=== PATIENT | male | born 1945 | race Caucasian/White ===

== ENCOUNTER 2019-04-25 13:35 | Outpatient (CLI) | payer OTHER, SELFPAY ==
[2019-04-25 13:54] LABS: Basophils Absolute Auto 0.1 K/mm3 (0.0-0.1); Basophils Percent Auto 0.7 % (0.2-1.2); Eosinophils Absolute Auto 0.3 K/mm3 (0-0.3); Eosinophils Percent Auto 2.9 % (0-4.4); Hematocrit 46.8 % (42.0-52.0); Hemoglobin 15.9 g/dL (14.0-18.0); Immature Granulocyte Absolute 0.07 K/mm3 (0.00-0.031); Immature Granulocyte Percent A 0.6 % (0-0.5); Lymphocytes Absolute Auto 1.85 K/mm3 (0.9-3.2); Lymphocytes Percent Auto 16.5 % (18.3-44.2); Mean Corpuscular Hemoglobin 33.4 pg (26-34); Mean Corpuscular Volume 98.3 fl (80-100); Mean Platelet Volume 9.8 fl (7.4-10.4); Monocytes Absolute Auto 1.2 K/mm3 (0.1-0.6); Monocytes Percent Auto 10.5 % (2.6-8.5); Neutrophils Absolute Auto 7.7 K/mm3 (1.3-6.7); Neutrophils Percent Auto 68.8 % (45.5-73.1); Platelet Count Result 194 k/mm3 (150-375); Red Blood Count 4.76 M/mm3 (4.6-6.20); Red Cell Distribution Width 12.6 % (11.5-14.5); White Blood Count 11.2 K/mm3 (4.5-10.0)
[2019-04-25 16:35] LABS: Iron 172 ug/dL (49-181)
[2019-04-25 16:36] LABS: Blood Urea Nitrogen 16 mg/dL (9-20); Calcium 9.5 mg/dL (8.4-10.2); Carbon Dioxide 31 mmol/L (22-30); Chloride 100 mmol/L (98-107); Estimated Glomerular Filt Rate > 60; Glucose 84 mg/dL (75-110); Potassium 3.9 mmol/L (3.4-5.0); Sodium 134 mmol/L (137-145)
[2019-04-25 16:45] LABS: Percent Iron Saturation 61 % (20-50)
== END 2019-04-25 13:36 | disposition home or self-care (01) ==
PROVIDERS: PCP Family Medicine; Visit Provider Internal Medicine Hematology & Oncology
DX: D50.8 Other iron deficiency anemias (principal)
CPT/HCPCS: 36415; 80048; 82728; 83540; 83550; 85025

== ENCOUNTER 2019-11-07 13:48 | Outpatient (CLI) | payer OTHER, SELFPAY ==
[2019-11-07 14:04] LABS: Basophils Percent Auto 0.4 % (0.2-1.2); Eosinophils Absolute Auto 0.3 K/mm3 (0-0.3); Eosinophils Percent Auto 4.2 % (0-4.4); Hematocrit 44.7 % (42.0-52.0); Hemoglobin 15.2 g/dL (14.0-18.0); Immature Granulocyte Absolute 0.06 K/mm3 (0.00-0.031); Immature Granulocyte Percent A 0.8 % (0-0.5); Lymphocytes Absolute Auto 1.78 K/mm3 (0.9-3.2); Lymphocytes Percent Auto 23.1 % (18.3-44.2); Mean Corpuscular Hemoglobin 32.8 pg (26-34); Mean Corpuscular Volume 96.5 fl (80-100); Mean Platelet Volume 9.3 fl (7.4-10.4); Monocytes Absolute Auto 0.8 K/mm3 (0.1-0.6); Neutrophils Absolute Auto 4.8 K/mm3 (1.3-6.7); Neutrophils Percent Auto 61.5 % (45.5-73.1); Platelet Count Result 194 k/mm3 (150-375); Red Blood Count 4.63 M/mm3 (4.6-6.20); White Blood Count 7.7 K/mm3 (4.5-10.0)
[2019-11-07 16:42] LABS: Iron 96 ug/dL (49-181)
[2019-11-07 16:43] LABS: Anion Gap 4 mmol/L (8-16); Blood Urea Nitrogen 18 mg/dL (9-20); Calcium 9.6 mg/dL (8.4-10.2); Carbon Dioxide 34 mmol/L (22-30); Chloride 99 mmol/L (98-107); Estimated Glomerular Filt Rate > 60; Glucose 102 mg/dL (75-110); Potassium 4.3 mmol/L (3.4-5.0); Sodium 137 mmol/L (137-145)
[2019-11-07 16:56] LABS: Percent Iron Saturation 35 % (20-50)
== END 2019-11-07 13:49 | disposition home or self-care (01) ==
PROVIDERS: PCP Family Medicine; Visit Provider Internal Medicine Hematology & Oncology
DX: D50.8 Other iron deficiency anemias (principal)
CPT/HCPCS: 36415; 80048; 82728; 83540; 83550; 85025

== ENCOUNTER 2020-05-06 12:39 | Outpatient (CLI) | payer OTHER, SELFPAY ==
[2020-05-06 13:00] LABS: Basophils Absolute Auto 0.1 K/mm3 (0.0-0.1); Basophils Percent Auto 0.8 % (0.2-1.2); Eosinophils Absolute Auto 0.6 K/mm3 (0-0.3); Eosinophils Percent Auto 6.3 % (0-4.4); Hematocrit 46.1 % (42.0-52.0); Hemoglobin 15.9 g/dL (14.0-18.0); Lymphocytes Absolute Auto 2.14 K/mm3 (0.9-3.2); Mean Corpuscular HGB Conc 34.5 g/dl (32-36); Mean Corpuscular Hemoglobin 33.9 pg (26-34); Mean Corpuscular Volume 98.3 fl (80-100); Mean Platelet Volume 9.5 fl (7.4-10.4); Monocytes Percent Auto 9.4 % (2.6-8.5); Neutrophils Absolute Auto 6.3 K/mm3 (1.3-6.7); Neutrophils Percent Auto 61.5 % (45.5-73.1); Platelet Count Result 194 k/mm3 (150-375); Red Blood Count 4.69 M/mm3 (4.6-6.20); Red Cell Distribution Width 12.7 % (11.5-14.5); White Blood Count 10.2 K/mm3 (4.5-10.0)
[2020-05-06 15:25] LABS: Iron 151 ug/dL (49-181)
[2020-05-06 15:34] LABS: Percent Iron Saturation 57 % (20-50)
[2020-05-06 15:49] LABS: Alanine Aminotransferase 30 U/L (4-50); Alkaline Phosphatase 89 U/L (38-126); Anion Gap 6 mmol/L (8-16); Aspartate Amino Transferase 29 U/L (17-59); Bilirubin,Total 0.6 mg/dL (0.2-1.3); Blood Urea Nitrogen 19 mg/dL (9-20); Calcium 9.3 mg/dL (8.4-10.2); Carbon Dioxide 29 mmol/L (22-30); Chloride 100 mmol/L (98-107); Estimated Glomerular Filt Rate > 60; Glucose 91 mg/dL (75-110); Sodium 135 mmol/L (137-145)
== END 2020-05-06 12:40 | disposition home or self-care (01) ==
LOC: ANHLAB 12:40
PROVIDERS: PCP Family Medicine; Visit Provider Internal Medicine Hematology & Oncology
DX: D50.8 Other iron deficiency anemias (principal)
CPT/HCPCS: 36415; 80053; 82728; 83540; 83550; 85025

== ENCOUNTER 2020-12-30 11:43 | Outpatient (CLI) | payer OTHER, SELFPAY ==
[2020-12-30 12:09] LABS: Basophils Absolute Auto 0.1 K/mm3 (0.0-0.1); Basophils Percent Auto 0.6 % (0.2-1.2); Eosinophils Absolute Auto 0.3 K/mm3 (0-0.3); Eosinophils Percent Auto 3.4 % (0-4.4); Hematocrit 43.3 % (42.0-52.0); Hemoglobin 14.8 g/dL (14.0-18.0); Immature Granulocyte Absolute 0.04 K/mm3 (0.00-0.031); Immature Granulocyte Percent A 0.5 % (0-0.5); Lymphocytes Absolute Auto 1.52 K/mm3 (0.9-3.2); Lymphocytes Percent Auto 18.1 % (18.3-44.2); Mean Corpuscular HGB Conc 34.2 g/dl (32-36); Mean Corpuscular Hemoglobin 34.3 pg (26-34); Mean Corpuscular Volume 100.2 fl (80-100); Mean Platelet Volume 9.5 fl (7.4-10.4); Monocytes Absolute Auto 0.9 K/mm3 (0.1-0.6); Monocytes Percent Auto 10.6 % (2.6-8.5); Neutrophils Absolute Auto 5.6 K/mm3 (1.3-6.7); Neutrophils Percent Auto 66.8 % (45.5-73.1); Platelet Count Result 192 k/mm3 (150-375); Red Blood Count 4.32 M/mm3 (4.6-6.20); Red Cell Distribution Width 12.3 % (11.5-14.5); White Blood Count 8.4 K/mm3 (4.5-10.0)
[2020-12-30 15:27] LABS: Alanine Aminotransferase 41 U/L (4-50); Albumin Level 3.9 g/dL (3.5-5.1); Alkaline Phosphatase 59 U/L (38-126); Anion Gap 7 mmol/L (8-16); Aspartate Amino Transferase 31 U/L (17-59); Blood Urea Nitrogen 20 mg/dL (9-20); Calcium 9.3 mg/dL (8.4-10.2); Carbon Dioxide 30 mmol/L (22-30); Chloride 100 mmol/L (98-107); Estimated Glomerular Filt Rate > 60; Glucose 67 mg/dL (65-110); Potassium 3.6 mmol/L (3.4-5.0); Sodium 137 mmol/L (137-145)
[2020-12-30 15:28] LABS: Iron 182 ug/dL (49-181)
[2020-12-30 15:33] LABS: Percent Iron Saturation 71 % (20-50)
== END 2020-12-30 11:44 | disposition home or self-care (01) ==
PROVIDERS: PCP Family Medicine; Visit Provider Internal Medicine Hematology & Oncology
DX: D50.9 Iron deficiency anemia, unspecified (principal)
CPT/HCPCS: 36415; 80053; 82728; 83540; 83550; 85025

== ENCOUNTER → 2021-03-06 12:44 | Outpatient (CLI) | payer OTHER, SELFPAY ==
--- NOTE | ~2021-03-06 | XR_ITS ---
XR chest 2V 03/06/2021 13:17 Indication: Pneumonia Procedure: 2 view chest Comparison: Comparison to multiple prior studies sequentially, with oldest reviewed study dated 07/06. Findings: Patchy bilateral airspace disease most prominent in the lung bases, compatible with pneumon ia. No significant effusion, edema or pneumothorax. Impression: 1: Patchy bilateral airspace disease, compatible with pneumonia. Reviewed, dictated and finalized at location B. ATOR TROUBLESHOOTER Impression: 1: Patchy bilateral airspace disease, compatible with pneumonia.
== END ==
PROVIDERS: PCP Family Medicine; Visit Provider Family Medicine
DX: J18.9 Pneumonia, unspecified organism (principal); R91.8 Other nonspecific abnormal finding of lung field
CPT/HCPCS: 71046

== ENCOUNTER 2021-07-03 11:06 | Outpatient (CLI) | payer OTHER, SELFPAY ==
[2021-07-03 11:35] LABS: Basophils Absolute Auto 0.1 K/mm3 (0.0-0.1); Basophils Percent Auto 0.7 % (0.2-1.2); Eosinophils Absolute Auto 0.2 K/mm3 (0-0.3); Eosinophils Percent Auto 2.3 % (0-4.4); Hematocrit 44.4 % (42.0-52.0); Hemoglobin 15.1 g/dL (14.0-18.0); Immature Granulocyte Absolute 0.11 K/mm3 (0.00-0.031); Immature Granulocyte Percent A 1.2 % (0-0.5); Lymphocytes Absolute Auto 1.33 K/mm3 (0.9-3.2); Lymphocytes Percent Auto 14.1 % (18.3-44.2); Mean Corpuscular Hemoglobin 33.2 pg (26-34); Mean Corpuscular Volume 97.6 fl (80-100); Monocytes Absolute Auto 1.1 K/mm3 (0.1-0.6); Monocytes Percent Auto 11.7 % (2.6-8.5); Neutrophils Absolute Auto 6.6 K/mm3 (1.3-6.7); Platelet Count Result 258 k/mm3 (150-375); Red Blood Count 4.55 M/mm3 (4.6-6.20); Red Cell Distribution Width 11.8 % (11.5-14.5); White Blood Count 9.4 K/mm3 (4.5-10.0)
[2021-07-03 11:58] LABS: Anion Gap 7 mmol/L (8-16); Blood Urea Nitrogen 18 mg/dL (9-20); Carbon Dioxide 28 mmol/L (22-30); Chloride 101 mmol/L (98-107); Estimated Glomerular Filt Rate > 60; Glucose 95 mg/dL (65-110); Sodium 136 mmol/L (137-145)
[2021-07-03 12:16] LABS: Iron 106 ug/dL (49-181)
[2021-07-03 12:25] LABS: Percent Iron Saturation 38 % (20-50)
== END 2021-07-03 11:07 | disposition home or self-care (01) ==
LOC: ANHLAB 11:09
PROVIDERS: PCP Family Medicine; Visit Provider Internal Medicine Hematology & Oncology
DX: D50.9 Iron deficiency anemia, unspecified (principal)
CPT/HCPCS: 36415; 80048; 82728; 83540; 83550; 85025

== ENCOUNTER → 2022-01-11 09:42 | Outpatient (CLI) | payer OTHER, SELFPAY ==
--- NOTE | ~2022-01-11 | XR_ITS ---
XR chest 2V 01/11/2022 09:55 Indication: Dyspnea. Procedure: 2 view chest Comparison: Comparison to multiple prior studies sequentially, with oldest reviewed study dated 01/09. Findings: Bibasilar airspace disease. No significant effusion. Stable cardiomediastinal silhouette. N o edema or pneumothorax. Impression: 1: Bibasilar airspace disease may represent atelectasis and/or pneumonia. Reviewed, dictated and finalized at location A. S PROCESS MANAGER Impression: 1: Bibasilar airspace disease may represent atelectasis and/or pneumonia.
== END ==
PROVIDERS: PCP Family Medicine; Visit Provider Family Medicine
DX: R06.00 Dyspnea, unspecified (principal); R91.8 Other nonspecific abnormal finding of lung field
CPT/HCPCS: 71046

== ENCOUNTER 2022-06-01 14:02 | Emergency (ER) | payer OTHER, SELFPAY ==
--- NOTE | ~2022-06-01 | CT_ITS ---
EXAMINATION: CT brain wo con DATE: 06/01/2022 15:22 INDICATION: Trauma with left parietal head injury with laceration TECHNIQUE: Computed tomography (CT) of the head was performed without intravenous contrast. Sagittal and coronal reconstructions were performed. The mA was adjusted according to patient size. Iterative reconstruction technique was employed. The dose-length product was 605.33 mGy-cm. COMPARISON: None FINDINGS: Laceration at the left frontal scalp. No fracture. No acute intracranial hemorrhage, acute infarction or abnormal extra axial fluid collection. Ventricles are normal and symmetric. No mass/mass effect. Changes of bilateral intraocular lens replacement. The orbits, paranasal sinuses and mastoid air cell s are normal. IMPRESSION: 1. Left frontal scalp laceration. No fracture or acute intracranial process. Reviewed, dictated and finalized at location A.
--- NOTE | ~2022-06-01 | CT_ITS ---
EXAMINATION: CT cervical spine wo con DATE: 06/01/2022 15:25 INDICATION: trauma TECHNIQUE: Computed tomography (CT) of the cervical spine was performed without intravenous contrast. Automated exposure control and iterative reconstruction technique were employed. The dose-length pro duct was 540.13 mGy-cm. COMPARISON: None. FINDINGS: Vertebral Body Alignment: Intact. Reversed lordosis centered at C5-6. Trace grade 1 anterolistheses a t C2-3 through C4-5, likely on a degenerative basis. Craniocervical and atlantoaxial alignment: Moderate degenerative change. Alignment intact. Osseous structures/fracture: No evidence of a lytic or blastic process in the visualized spine. No e vidence of acute fracture. Multilevel lower cervical spine degenerative height loss. Cervical soft tissues: The paraspinal soft tissues planes are maintained. Degenerative changes: Degenerative changes, without severe neural foraminal or central canal narrowin g. IMPRESSION: No acute fracture or traumatic malalignment in the cervical spine. Reviewed, dictated and finalized at location K.
[2022-06-01 14:04] VITALS: BP 143/76; PULSE 69; RESP 16; TEMP 36.6; O2SAT 96
--- NOTE | 2022-06-01 14:12 | ECG_ITS ---
Measurements Intervals [place] Rate: 70 P: 28 MT: 187 QRS: -1 QRSD: 154 T: 35 QT: 417 QTc: 450 Interpretive Statements SINUS RHYTHM INDETERMINATE AXIS RIGHT BUNDLE BRANCH BLOCK [120+ ms QRS DURATION, UPRIGHT V1, 40+ ms S IN I/aVL/V4/V5/V6] Abnormal ECG NO PREVIOUS ECG AVAILABLE FOR COMPARISON Electronically Signed On 06-02-2022 15:15:50 CDT by Mitch Jacobsen M.D.
[2022-06-01 14:28] LABS: Basophils Absolute Auto 0.1 K/mm3 (0.0-0.1); Basophils Percent Auto 0.6 % (0.2-1.2); Eosinophils Absolute Auto 0.3 K/mm3 (0-0.3); Eosinophils Percent Auto 2.8 % (0-4.4); Hematocrit 45.3 % (42.0-52.0); Hemoglobin 15.5 g/dL (14.0-18.0); Immature Granulocyte Absolute 0.09 K/mm3 (0.00-0.031); Immature Granulocyte Percent A 0.9 % (0-0.5); Lymphocytes Percent Auto 16.9 % (18.3-44.2); Mean Corpuscular HGB Conc 34.2 g/dl (32-36); Mean Corpuscular Hemoglobin 33.5 pg (26-34); Mean Corpuscular Volume 98.1 fl (80-100); Mean Platelet Volume 9.6 fl (7.4-10.4); Monocytes Absolute Auto 0.8 K/mm3 (0.1-0.6); Monocytes Percent Auto 8.3 % (2.6-8.5); Neutrophils Absolute Auto 7.1 K/mm3 (1.3-6.7); Neutrophils Percent Auto 70.5 % (45.5-73.1); Platelet Count Result 157 k/mm3 (150-375); Red Blood Count 4.62 M/mm3 (4.6-6.20); Red Cell Distribution Width 12.6 % (11.5-14.5); White Blood Count 10.1 K/mm3 (4.5-10.0)
[2022-06-01 14:42] LABS: Alanine Aminotransferase 32 U/L (6-50); Albumin Level 4.1 g/dL (3.5-5.1); Alkaline Phosphatase 69 U/L (38-126); Anion Gap 6 mmol/L (8-16); Aspartate Amino Transferase 31 U/L (17-59); Bilirubin,Total 0.7 mg/dL (0.2-1.3); Blood Urea Nitrogen 17 mg/dL (9-20); Calcium 9.4 mg/dL (8.4-10.2); Carbon Dioxide 29 mmol/L (22-30); Chloride 102 mmol/L (98-107); Estimated CRCL calculation 75 ml/min; Estimated Glomerular Filt Rate > 60; Glucose 88 mg/dL (65-110); Sodium 137 mmol/L (137-145)
--- NOTE | 2022-06-01 14:45 | ED.GENADULT ---
HPI - General Adult General Chief complaint: Head Injury Stated complaint: head injury Time Seen by Provider: 06/01/22 14:43 History of Present Illness HPI narrative: 76 yo male presents after mechanical fall at home with head trauma/scalp laceration. No LOC Related Data Home Medications Medication Instructions Recorded Confirmed cyanocobalamin (vitamin B-12) 2,000 mcg PO DAILY 12/27/18 05/03/22 2,000 mcg tablet artificial tears(hypromellose) 0.3 1 drop LEFT EYE QID PRN 02/02/19 05/03/22 % eye gel (GenTeal Tears Severe) aspirin 81 mg tablet,delayed 81 mg PO DAILY 02/02/19 05/03/22 release diphenhydramine HCl 2 % topical 1 applic topical BID 02/02/19 05/03/22 spray (Wal-Dryl (diphenhydramine)) diphenhydramine HCl 25 mg capsule 25 mg PO TID PRN 02/02/19 05/03/22 (Benadryl) fexofenadine 60 mg-pseudoephedrine 1 tablet PO Q12H PRN 02/02/19 05/03/22 ER 120 mg tablet,ext.release,12 hr (Jeni-D 12 Hour) latanoprost 0.005 % eye drops 1 drop ophthalmic (eye) DAILY 02/02/19 05/03/22 pramoxine-menthol 1 %-1 % topical 1 applic topical TID 02/02/19 05/03/22 cream (Gold Haro Medicated Anti-Itch) timolol 0.5 % eye drops 1 drop ophthalmic (eye) Q12H 02/02/19 05/03/22 white petrolatum (Vaseline jelly, 1 applic topical 6XD 02/02/19 05/03/22 topical) zinc gluconate spray intranasal 02/02/19 05/03/22 Allergies Allergy/AdvReac Type Severity Reaction Status Date / Time clindamycin Allergy Mild Rash Verified 06/01/22 15:19 bacitracin Allergy Unknown Swelling Verified 06/01/22 15:19 of Lip/Tongue/Throat cat dander Allergy Unknown Rash Verified 06/01/22 15:19 codeine Allergy Unknown Nausea and Verified 06/01/22 15:19 Vomiting latex Allergy Unknown Rash Verified 06/01/22 15:19 pollen extracts Allergy Unknown Dyspnea / Verified 06/01/22 15:19 SOB Sulfa (Sulfonamide Allergy Unknown Unknown Verified 06/01/22 15:19 Antibiotics) sulfite Allergy Unknown Unknown Verified 06/01/22 15:19 Review of Systems Review of Systems: CONSTITUTIONAL: Denies fever, chills, or sweats. EYES: Denies visual changes, redness, or discharge. ENT: Denies rhinorrhea, congestion, sore throat, or otalgia. CARDIOVASCULAR: Denies chest pain, palpitations, or edema. RESPIRATORY: Denies cough or dyspnea. GASTROINTESTINAL: Denies abdominal pain, nausea, vomiting, or diarrhea. GENITOURINARY: Denies dysuria or hematuria. SKIN: Denies rash or itching. MUSCULOSKELETAL: Denies back pain, joint pain, or myalgia. NEUROLOGIC: Denies headache, numbness, or weakness. PSYCHIATRIC: Denies anxiety or depression. [facility] Past Medical History Medical History Allergic rhinitis, cause unspecified Asthma COVID-19 Essential (primary) hypertension IBS (irritable bowel syndrome) Normocytic normochromic anemia NICOLE treated with BiPAP Peripheral neuropathic pain Unspecified glaucoma Family History Family History Mother Hypertension, Onset Age: 81 Cerebrovascular accident, Onset Age: 81 Father Asthma, Onset Age: 82 Acute myocardial infarction, Onset Age: 82 Diabetes mellitus, Onset Age: 82 Family history of allergic disorder, Onset Age: 82 Other Lupus Other Carcinoma of colon Social History Social History Smoking status: Never smoker Alcohol intake: current Lack of Transportation: No Lack of Food: Never True Current Housing: I Have Housing Concerned About Future Housing: No Difficulty Paying Gas/Electric Bills: No Difficulty Paying for Meds: No Currently Unemployed: No Education: Associate Degree Difficulty w/ Childcare or Family Care: No Exam Narrative: GENERAL: Well-appearing, well-nourished, and in no acute distress. HEAD: Normocephalic, 3 cm linear, simple laceration to the left forehead EYES
[2022-06-01 17:12] VITALS: BP 140/71; PULSE 64; O2SAT 100
== END 2022-06-01 17:43 | disposition home or self-care (01) ==
PROVIDERS: Emergency Medicine; Emergency Provider Emergency Medicine; PCP Family Medicine
DX: S01.01XA Laceration without foreign body of scalp, initial encounter (principal); F07.81 Postconcussional syndrome; J45.909 Unspecified asthma, uncomplicated; I10 Essential (primary) hypertension; G47.30 Sleep apnea, unspecified; W19.XXXA Unspecified fall, initial encounter
CPT/HCPCS: 12002; 36415; 70450; 72125; 80053; 85025; 93005; 99284

== ENCOUNTER 2022-07-01 10:05 | Outpatient (CLI) | payer OTHER, SELFPAY ==
[2022-07-01 10:17] LABS: Hematocrit 43.8 % (42.0-52.0); Hemoglobin 15.2 g/dL (14.0-18.0); Mean Corpuscular HGB Conc 34.7 g/dl (32-36); Mean Corpuscular Hemoglobin 33.9 pg (26-34); Mean Corpuscular Volume 97.8 fl (80-100); Mean Platelet Volume 9.5 fl (7.4-10.4); Platelet Count Result 160 k/mm3 (150-375); Red Blood Count 4.48 M/mm3 (4.6-6.20); Red Cell Distribution Width 12.8 % (11.5-14.5); White Blood Count 9.7 K/mm3 (4.5-10.0)
[2022-07-01 11:27] LABS: Iron 89 ug/dL (49-181)
[2022-07-01 11:28] LABS: Alanine Aminotransferase 29 U/L (6-50); Alkaline Phosphatase 78 U/L (38-126); Anion Gap 6 mmol/L (8-16); Aspartate Amino Transferase 28 U/L (17-59); Bilirubin,Total 0.9 mg/dL (0.2-1.3); Blood Urea Nitrogen 17 mg/dL (9-20); Calcium 8.9 mg/dL (8.4-10.2); Carbon Dioxide 31 mmol/L (22-30); Chloride 101 mmol/L (98-107); Estimated Glomerular Filt Rate > 60; Glucose 112 mg/dL (65-110); Potassium 3.8 mmol/L (3.4-5.0); Sodium 138 mmol/L (137-145)
[2022-07-01 11:44] LABS: Percent Iron Saturation 27 % (20-50)
== END 2022-07-01 10:06 | disposition home or self-care (01) ==
LOC: ANHLAB 10:07
PROVIDERS: PCP Family Medicine; Visit Provider Internal Medicine Hematology & Oncology
DX: D50.9 Iron deficiency anemia, unspecified (principal)
CPT/HCPCS: 36415; 80053; 82728; 83540; 83550; 85027

== ENCOUNTER → 2022-10-18 10:37 | Outpatient (CLI) | payer OTHER, SELFPAY ==
--- NOTE | ~2022-10-18 | MR_ITS ---
EXAMINATION: MR lumbar spine wo con DATE: 10/18/2022 11:41 INDICATION: Sciatica, unspecified side. TECHNIQUE: Magnetic resonance imaging (MRI) of the lumbar spine was performed without intravenous con trast. Sequences included sagittal T2-weighted FSE, sagittal T2-weighted FS FSE, sagittal T1-weighted FSE, and axial T2-weighted FSE. COMPARISON: Lumbar spine MRI 11/17/2012 FINDINGS: There is 3 mm retrolisthesis of L3 on L4 and 4 mm anterolisthesis of L4 on L5. Vertebral abena dy heights are normal. There is mildly decreased disc height at L1-L2, L2-L3, and L3-L4, moderately d ecreased disc height at L4-L5, and mildly decreased disc height at L5-S1. The distal spinal cord sign al intensity is normal. The conus medullaris is at L1. The following disc levels are specifically dis cussed: L1-L2: The disc is bulging. There is mild bilateral facet joint osteoarthritis. There is no neural fo raminal stenosis. There is mild central canal stenosis. L2-L3: The disc is bulging and has an annular fissure. There is mild right and moderate left facet lázaro int osteoarthritis. There is mild bilateral neural foraminal stenosis. There is mild central canal st enosis. L3-L4: The disc is bulging. There is moderate right and mild left facet joint osteoarthritis. There i s moderate bilateral neural foraminal stenosis. There is mild central canal stenosis. L4-L5: The disc is bulging with superimposed right foraminal extrusion. There is moderate bilateral f acet joint osteoarthritis. There is moderate bilateral neural foraminal stenosis. There is mild centr al canal stenosis. L5-S1: The disc is bulging and has an annular fissure. There is severe bilateral facet joint osteoart hritis. There is mild bilateral neural foraminal stenosis. There is mild central canal stenosis. IMPRESSION: 1. Moderate lumbar spondylosis, worsened from 11/17/2012. Reviewed, dictated and finalized at location A.
--- NOTE | ~2022-10-18 | XR_ITS ---
EXAM: XR lumbar spine min 4V DATE: 10/18/2022 10:51 HISTORY: SEVERAL FALLS FOR A COUPLE YEARS RIGHT SCIATICA . COMPARISON: None available. FINDINGS: Suboptimal spot view of L5-S1. 5 nonrib-bearing lumbar-type vertebral bodies. Pedicles int act. No pars defects. 4 mm retrolisthesis at L3-4. 2 mm anterolisthesis at L5-S1. Vertebral body heig hts preserved. Multilevel severe disc space narrowing, moderate osteophytosis, and vacuum phenomenon. Multilevel moderate lower lumbar facet sclerosis and hypertrophy. No fracture or dislocation. IMPRESSION: Multilevel grade 1 listheses, described above. Multilevel severe lumbar degenerative disc disease. Moderate lower lumbar facet arthropathy. Reviewed, dictated and finalized at location K.
== END ==
PROVIDERS: PCP Family Medicine; Visit Provider Family Medicine
DX: M54.30 Sciatica, unspecified side (principal); M51.36 Other intervertebral disc degeneration, lumbar region; M47.816 Spondylosis without myelopathy or radiculopathy, lumbar region
CPT/HCPCS: 72110; 72148

== ENCOUNTER → 2022-12-16 11:37 | Outpatient (CLI) | payer OTHER, SELFPAY ==
--- NOTE | ~2022-12-16 | XR_ITS ---
Right Knee Technique: AP and lateral views were obtained. Clinical History: Pain Findings: No fracture or dislocation is seen. Right knee arthroplasty in place, without hardware comp lication. Soft tissues are unremarkable. No joint effusion is seen. Impression: No acute abnormality. Right knee arthroplasty. Reviewed, dictated and finalized at location . RMATION MANAGER Impression: No acute abnormality. Right knee arthroplasty.
--- NOTE | ~2022-12-16 | XR_ITS ---
Left Knee Technique: AP and lateral views were obtained. Clinical History: Pain Findings: No fracture or dislocation is seen. Left knee arthroplasty hardware present. No hardware co mplication seen. Soft tissues are unremarkable. No joint effusion is seen. Impression: No acute abnormality. Left knee arthroplasty in place. Reviewed, dictated and finalized at location . MACY SPECIALIST Impression: No acute abnormality. Left knee arthroplasty in place.
== END ==
PROVIDERS: PCP Family Medicine; Visit Provider Nurse Practitioner Family
DX: M25.562 Pain in left knee (principal); Z96.653 Presence of artificial knee joint, bilateral
CPT/HCPCS: 73560

== ENCOUNTER 2023-01-19 12:51 | Outpatient (CLI) | payer OTHER, SELFPAY ==
--- NOTE | 2023-01-19 13:00 | ECHO_ITS ---
Patient Info Name: Herman Cordero Age: 77 years : 1945 Gender: Male Ht: 68 in Wt: 250 lbs BSA: 2.38 m2 HR: 89 bpm BP: 121 / 69 mmHg Technical Quality: Fair Exam Date: 01/19/2023 1:10 PM Exam Location: Echo Lab Patient Status: Outpatient Admit Date: 01/19/2023 Staff Ordering Physician: Jairon Cannon MD Test Operator: Emi Call RDCS Attending Provider: Jairon Cannon MD Referring Physician: Davis GILLIS; Exam Type: CA echo doppler color flow Study Info Indications - hx/o copd c/o nocturnal cough Complete two-dimensional, color flow and Doppler transthoracic echocardiogram is performed. Summary 1. Complete two-dimensional, color flow and Doppler transthoracic echocardiogram is performed. 2. Left ventricular chamber dimension is normal. 3. Left ventricular systolic function is normal, estimated at 60-65%. 4. The left ventricular diastolic function is grade I diastolic dysfunction. 5. E/e' 10 is mildly elevated. 6. Global longitudinal strain is normal at -18.6%. 7. There is mild aortic valve sclerosis. 8. There is trace mitral valve regurgitation. 9. There is trace tricuspid valve regurgitation. 10. No pulmonary hypertension, estimated pulmonary arterial systolic pressure is 26 mmHg. Left Ventricle E/e' 10 is mildly elevated. Global longitudinal strain is normal at -18.6%. Left ventricular chamber dimension is normal. Left ventricular systolic function is normal, estimated at 60-65%. The left ventricular diastolic function is grade I diastolic dysfunction. Right Ventricle Right ventricular chamber dimension is normal. Right ventricular systolic function is normal. Left Atria Left atrial chamber dimension is normal. Right Atria Right atrial chamber dimension is normal. Aortic Valve The aortic valve is trileaflet. There is mild aortic valve sclerosis. There is no aortic valve stenosis. There is no aortic valve regurgitation. Pulmonic Valve There is no pulmonic regurgitation. Mitral Valve There is no mitral valve stenosis. There is trace mitral valve regurgitation. Tricuspid Valve There is trace tricuspid valve regurgitation. No pulmonary hypertension, estimated pulmonary arterial systolic pressure is 26 mmHg. Pericardium/Pleural There is no pericardial effusion. Inferior Vena Cava Normal inferior vena cava with >50% collapse upon inspiration consistent with normal right atrial pressure, 5 mmHg. Aorta The aortic root size at the sinus of Valsalva is normal. Left Ventricular Outflow Tract Name Value Normal LVOT 2D LVOT Diameter 2.1 cm LVOT Doppler LVOT Peak Gradient 4 mmHg LVOT Mean Gradient 3 mmHg LVOT VTI 22 cm LVOT VTI/AV VTI Ratio 0.8 LVOT Stroke Volume 78 ml LVOT CO 17.2 l/min LVOT CI 7.2 l/min/m2 Pulmonic Valve Name Value Normal LARA Richardspl
== END 2023-01-19 12:52 | disposition home or self-care (01) ==
PROVIDERS: PCP Family Medicine; Visit Provider Family Medicine
DX: G47.30 Sleep apnea, unspecified (principal); J44.9 Chronic obstructive pulmonary disease, unspecified; I35.8 Other nonrheumatic aortic valve disorders
CPT/HCPCS: 93306

== ENCOUNTER 2023-07-11 11:36 | Outpatient (CLI) | payer OTHER, SELFPAY ==
[2023-07-11 12:10] LABS: Basophils Absolute Auto 0.1 K/mm3 (0.0-0.1); Basophils Percent Auto 0.6 % (0.2-1.2); Eosinophils Absolute Auto 0.4 K/mm3 (0-0.3); Eosinophils Percent Auto 3.8 % (0-4.4); Hematocrit 41.6 % (42.0-52.0); Hemoglobin 13.9 g/dL (14.0-18.0); Immature Granulocyte Absolute 0.05 K/mm3 (0.00-0.031); Immature Granulocyte Percent A 0.5 % (0-0.5); Lymphocytes Absolute Auto 1.54 K/mm3 (0.9-3.2); Lymphocytes Percent Auto 16.3 % (18.3-44.2); Mean Corpuscular HGB Conc 33.4 g/dl (32-36); Mean Corpuscular Hemoglobin 32.9 pg (26-34); Mean Corpuscular Volume 98.3 fl (80-100); Mean Platelet Volume 9.5 fl (7.4-10.4); Monocytes Absolute Auto 0.7 K/mm3 (0.1-0.6); Monocytes Percent Auto 7.3 % (2.6-8.5); Neutrophils Absolute Auto 6.8 K/mm3 (1.3-6.7); Neutrophils Percent Auto 71.5 % (45.5-73.1); Platelet Count Result 200 k/mm3 (150-375); Red Blood Count 4.23 M/mm3 (4.6-6.20); Red Cell Distribution Width 12.7 % (11.5-14.5); White Blood Count 9.5 K/mm3 (4.5-10.0)
[2023-07-11 16:45] LABS: Alanine Aminotransferase 26 U/L (6-50); Albumin Level 3.7 g/dL (3.5-5.1); Alkaline Phosphatase 67 U/L (38-126); Anion Gap 5 mmol/L (4-12); Aspartate Amino Transferase 35 U/L (17-59); Bilirubin,Total 0.7 mg/dL (0.2-1.3); Blood Urea Nitrogen 12 mg/dL (9-20); Calcium 9.3 mg/dL (8.4-10.2); Carbon Dioxide 27 mmol/L (22-30); Chloride 103 mmol/L (98-107); Estimated Glomerular Filt Rate > 60; Glucose 115 mg/dL (65-110); Potassium 3.6 mmol/L (3.4-5.0); Sodium 135 mmol/L (137-145)
[2023-07-11 16:46] LABS: Iron 71 ug/dL (49-181)
[2023-07-11 16:56] LABS: Percent Iron Saturation 25 % (20-50)
== END 2023-07-11 11:37 | disposition home or self-care (01) ==
PROVIDERS: PCP Family Medicine; Visit Provider Internal Medicine Hematology & Oncology
DX: D50.9 Iron deficiency anemia, unspecified (principal)
CPT/HCPCS: 36415; 80053; 82728; 83540; 83550; 85025

== ENCOUNTER 2023-07-27 14:00 | Outpatient (CLI) | payer OTHER, SELFPAY ==
--- NOTE | ~2023-07-27 | XR_ITS ---
XR chest 2V 07/27/2023 14:19 Indication: Cough Procedure: 2 view chest Comparison: Comparison to multiple prior studies sequentially, with oldest reviewed study dated 09/2018. Findings: Persistent bibasilar infiltrates which may represent atelectasis/scarring or pneumonia. No pleural effusion. Stable cardiomediastinal silhouette. No pneumothorax or edema. Impression: 1: Unchanged bibasilar infiltrates which may represent atelectasis/scarring or pneumonia. Reviewed, dictated and finalized at location B. Impression: 1: Unchanged bibasilar infiltrates which may represent atelectasis/scarring or pneumonia.
== END 2023-07-27 14:01 ==
PROVIDERS: PCP Family Medicine; Visit Provider Allergy & Immunology
DX: R05.9 Cough, unspecified (principal); R91.8 Other nonspecific abnormal finding of lung field
CPT/HCPCS: 71046

== ENCOUNTER 2023-08-02 00:23 | Day surgery (SDC) | payer OTHER, SELFPAY ==
[2023-07-21 15:01] VITALS: BMI 38.0
--- NOTE | 2023-07-28 16:04 | PC.NURSE ---
Pt called regarding chest x-ray he had on 07/25 for an ongoing cough. Pt was concerned colonoscopy would need to be canceled. While speaking to the patient on the phone, the patient received a call from his PCP with results. Per pt. PCP stated there were no changes to his lungs since his x-ray taken in 2018 and felt no need to cancel the colonoscopy.
[2023-08-02 07:07] VITALS: BP 164/68; PULSE 96; RESP 18; TEMP 36.4; O2SAT 95
[2023-08-02] MEDS: LACTATED RINGERS 1,000 ML 150 ML IV CONT (07:20)
--- NOTE | 2023-08-02 07:22 | WPDANESEPPF ---
Anes - Initial Pre Proc Eval Procedure: Operation Date: 08/02/23 08:00 Proposed Procedures p Colonoscopy - Ajay Long MD Date/Time: 08/02/23 07:22 Surgeon: Ajay Long MD Pre Op Diagnosis: Personal hx. colon polyps Patient Data Age: 77 Gender: M Height: 1.73 m Weight: 109.8 kg Last Vital Signs Temp 36.4 C 08/02/23 07:07 Pulse 96 08/02/23 07:07 Resp 18 08/02/23 07:07 BP 164/68 H 08/02/23 07:07 Pulse Ox 95 08/02/23 07:07 O2 Del Method Room Air 08/02/23 07:07 Allergies Allergy/AdvReac Type Severity Reaction Status Date / Time clindamycin Allergy Mild Rash Verified 08/02/23 07:04 bacitracin Allergy Unknown Swelling Verified 08/02/23 07:04 of Lip/Tongue/Throat cat dander Allergy Unknown Rash Verified 08/02/23 07:04 codeine Allergy Unknown Nausea and Verified 08/02/23 07:04 Vomiting latex Allergy Unknown Rash Verified 08/02/23 07:04 pollen extracts Allergy Unknown Dyspnea / Verified 08/02/23 07:04 SOB Sulfa (Sulfonamide Allergy Unknown Unknown Verified 08/02/23 07:04 Antibiotics) sulfite Allergy Unknown Unknown Verified 08/02/23 07:04 Home Medications Medication Instructions Recorded Confirmed Type cyanocobalamin (vitamin B-12) 2,000 mcg PO DAILY 12/27/18 07/21/23 History 2,000 mcg tablet artificial tears(hypromellose) 0.3 1 drop LEFT EYE QAM 02/02/19 07/21/23 History % eye gel (GenTeal Tears Severe) aspirin 81 mg tablet,delayed 81 mg PO DAILY 02/02/19 07/21/23 History release diphenhydramine HCl 25 mg capsule 25 mg PO TID PRN Itching 02/02/19 07/21/23 History (Benadryl) fexofenadine 60 mg-pseudoephedrine 1 tablet PO Q12H 02/02/19 07/21/23 History ER 120 mg tablet,ext.release,12 hr (Jeni-D 12 Hour) latanoprost 0.005 % eye drops 1 drop ophthalmic (eye) HS 02/02/19 07/21/23 History timolol 0.5 % eye drops 1 drop ophthalmic (eye) Q12H 02/02/19 07/21/23 History fluticasone 500 mcg-salmeterol 50 1 inhalation inhalation Q12H #180 07/10/19 07/21/23 Rx mcg/dose blistr powdr for ea inhalation (Advair Diskus) tiotropium bromide 18 mcg capsule See Rx Instructions .Route 05/07/22 07/21/23 Rx with inhalation device (Spiriva .COMPLEX #90 caps with HandiHaler) gabapentin 300 mg capsule See Rx Instructions .Route 11/10/22 07/21/23 Rx .COMPLEX #180 caps pantoprazole 40 mg tablet,delayed 40 mg PO BID #180 tabs 11/10/22 07/21/23 Rx release potassium chloride 20 mEq See Rx Instructions .Route 11/10/22 07/21/23 Rx tablet,extended release(part/cryst) .COMPLEX #90 tabs hydrochlorothiazide 25 mg tablet See Rx Instructions .Route 02/11/23 07/21/23 Rx .COMPLEX #100 tabs telmisartan 80 mg tablet See Rx Instructions .Route 03/21/23 07/21/23 Rx .COMPLEX #90 tabs zafirlukast 20 mg tablet 20 mg PO BID #180 tabs 03/24/23 07/21/23 Rx cholecalciferol (vitamin D3) 25 25 mcg PO DAILY 04/25/23 07/21/23 History mcg (1,000 unit) capsule docusate sodium 100 mg capsule 100 mg PO BID 04/25/23 07/21/23 History (Colace) fluoride (sodium) 1.1 % dental 1 applic dental HS 04/25/23 07/21/23 History paste (PreviDent 5000 Booster Plus) zinc acetate 50 mg (zinc) capsule 50 mg PO DAILY 04/25/23 07/21/23 History metformin 500 mg tablet,extended 500 mg PO DAILY #90 tabs 04/26/23 07/21/23 Rx release 24 hr clonazepam 1 mg tablet 1 mg PO BID #180 tabs 06/01/23 07/21/23 Rx Nervive 1 tab-cap PO DAILY 07/21/23 07/21/23 History albuterol sulfate 90 mcg/actuation See Rx Instructions .Route 07/21/23 07/21/23 History aerosol inhaler .COMPLEX PRN Shortness Of Breath Or Wheezing ampicillin 500 mg capsule See Rx Instructions .Route 07/21/23 07/21/23 History .COMPLEX PRN PROPHYLAXIS artificial tears(hypromellose) 0.3 1 drp EACH EYE HS 07/21/23 07/21/23 History % eye gel azelastine 137 mcg (0.1 %) nasal 2 spray intranasal .Once daily PRN 07/21/23 07/21/23 History spray aerosol Nasal Congestion cephalexin 500 m
[2023-08-02 07:30] LABS: Glucose Point of Care 113 mg/dl (65-105)
--- NOTE | 2023-08-02 07:52 | PM.HPGS ---
History of Present Illness History of Present Illness Consent: Risks, benefits, and alternatives have been discussed and questions answered. Patient agrees to proceed with procedure. Chief complaint: Personal hx. colon polyps Narrative: Stephenie Cordero III is a 77 year old male with colon polyp in 2018 Review of Systems Review of Systems: All systems reviewed & are unremarkable except as noted in HPI and below PMFSH Past Medical History Medical History Allergic rhinitis, cause unspecified Asthma COVID-19 Essential (primary) hypertension IBS (irritable bowel syndrome) Normocytic normochromic anemia NICOLE treated with BiPAP Peripheral neuropathic pain Unspecified glaucoma Family History Family History Mother Hypertension, Onset Age: 81 Cerebrovascular accident, Onset Age: 81 Father Asthma, Onset Age: 82 Acute myocardial infarction, Onset Age: 82 Diabetes mellitus, Onset Age: 82 Family history of allergic disorder, Onset Age: 82 Other Lupus Other Carcinoma of colon Social History Social History Smoking status: Never smoker Alcohol intake: current Substance use: never Substance use type: does not use Lack of Transportation: No Lack of Food: Never True Current Housing: I Have Housing Concerned About Future Housing: No Difficulty Paying Gas/Electric Bills: No Difficulty Paying for Meds: No Currently Unemployed: No Education: Associate Degree Difficulty w/ Childcare or Family Care: No Living arrangements: with family Spiritual care concerns: No Meds Home Medications and Allergies Home Medications Medication Instructions Recorded Confirmed Type cyanocobalamin (vitamin B-12) 2,000 mcg PO DAILY 12/27/18 07/21/23 History 2,000 mcg tablet artificial tears(hypromellose) 0.3 1 drop LEFT EYE QAM 02/02/19 07/21/23 History % eye gel (GenTeal Tears Severe) aspirin 81 mg tablet,delayed 81 mg PO DAILY 02/02/19 07/21/23 History release diphenhydramine HCl 25 mg capsule 25 mg PO TID PRN Itching 02/02/19 07/21/23 History (Benadryl) fexofenadine 60 mg-pseudoephedrine 1 tablet PO Q12H 02/02/19 07/21/23 History ER 120 mg tablet,ext.release,12 hr (Jeni-D 12 Hour) latanoprost 0.005 % eye drops 1 drop ophthalmic (eye) HS 02/02/19 07/21/23 History timolol 0.5 % eye drops 1 drop ophthalmic (eye) Q12H 02/02/19 07/21/23 History fluticasone 500 mcg-salmeterol 50 1 inhalation inhalation Q12H #180 07/10/19 07/21/23 Rx mcg/dose blistr powdr for ea inhalation (Advair Diskus) tiotropium bromide 18 mcg capsule See Rx Instructions .Route 05/07/22 07/21/23 Rx with inhalation device (Spiriva .COMPLEX #90 caps with HandiHaler) gabapentin 300 mg capsule See Rx Instructions .Route 11/10/22 07/21/23 Rx .COMPLEX #180 caps pantoprazole 40 mg tablet,delayed 40 mg PO BID #180 tabs 11/10/22 07/21/23 Rx release potassium chloride 20 mEq See Rx Instructions .Route 11/10/22 07/21/23 Rx tablet,extended release(part/cryst) .COMPLEX #90 tabs hydrochlorothiazide 25 mg tablet See Rx Instructions .Route 02/11/23 07/21/23 Rx .COMPLEX #100 tabs telmisartan 80 mg tablet See Rx Instructions .Route 03/21/23 07/21/23 Rx .COMPLEX #90 tabs zafirlukast 20 mg tablet 20 mg PO BID #180 tabs 03/24/23 07/21/23 Rx cholecalciferol (vitamin D3) 25 25 mcg PO DAILY 04/25/23 07/21/23 History mcg (1,000 unit) capsule docusate sodium 100 mg capsule 100 mg PO BID 04/25/23 07/21/23 History (Colace) fluoride (sodium) 1.1 % dental 1 applic dental HS 04/25/23 07/21/23 History paste (PreviDent 5000 Booster Plus) zinc acetate 50 mg (zinc) capsule 50 mg PO DAILY 04/25/23 07/21/23 History metformin 500 mg tablet,extended 500 mg PO DAILY #90 tabs 04/26/23 07/21/23 Rx release 24 hr clonazepam
[2023-08-02 08:26] VITALS: BP 106/57; PULSE 83; RESP 15; O2SAT 98
[2023-08-02 08:36] VITALS: BP 112/63; PULSE 83; RESP 15; O2SAT 98
[2023-08-02 08:46] VITALS: BP 121/76; PULSE 81; RESP 20; O2SAT 100
== END 2023-08-02 09:00 | disposition home or self-care (01) ==
PROVIDERS: PCP Family Medicine; Visit Provider Internal Medicine Gastroenterology
PROC: 0DJD8ZZ Inspection of Lower Intestinal Tract, Via Natural or Artificial Opening Endoscopic (ICD-10-PCS; CPT 45378; principal; 2023-08-02 08:00)
DX: Z12.11 Encounter for screening for malignant neoplasm of colon (principal); D12.2 Benign neoplasm of ascending colon; K63.5 Polyp of colon; K57.30 Diverticulosis of large intestine without perforation or abscess without bleeding; K64.8 Other hemorrhoids; I10 Essential (primary) hypertension; G47.33 Obstructive sleep apnea (adult) (pediatric); H40.9 Unspecified glaucoma; G62.9 Polyneuropathy, unspecified; J45.909 Unspecified asthma, uncomplicated; Z79.82 Long term (current) use of aspirin; Z79.51 Long term (current) use of inhaled steroids; Z79.84 Long term (current) use of oral hypoglycemic drugs; E66.9 Obesity, unspecified; Z68.36 Body mass index [BMI] 36.0-36.9, adult
CPT/HCPCS: 45385; 45380; 82948; 88305; J2001; J2405; J2704; J7120

== ENCOUNTER 2023-10-01 10:46 | Observation (INO) | payer OTHER, SELFPAY ==
[2023-10-01] VITALS (12 sets, daily range): BP systolic 92–118; BP diastolic 50–83; PULSE 85–108; RESP 16–22; TEMP 36.4–37; O2SAT 94–99; BMI 39.9
--- NOTE | ~2023-10-01 | XR_ITS ---
EXAMINATION: XR chest 2V DATE: 10/01/2023 12:02 INDICATION: Weakness. TECHNIQUE: Frontal and lateral views of the chest were obtained. COMPARISON: Chest 2 views 07/27/2023, CT abdomen and pelvis 10/01/2023 FINDINGS: There is mild atelectasis versus scarring at the lung bases. No pleural effusion or pneumot horax. The heart size is normal. IMPRESSION: 1. Mild atelectasis versus scarring at the lung bases Reviewed, dictated and finalized at location A.
--- NOTE | ~2023-10-01 | XR_ITS ---
EXAMINATION: XR abdomen obstructive series DATE: 10/03/2023 12:09 INDICATION: Constipation TECHNIQUE: Supine and upright views of the abdomen. FINDINGS: No prior studies for comparison. The visualized lung parenchyma is normal.. There is a nonobstructive bowel gas pattern. Gas and stool are seen throughout the colon to the level of the rectum. There is no free air. IMPRESSION: 1. No acute abdominal abnormality. Reviewed, dictated and finalized at location B.
--- NOTE | ~2023-10-01 | XR_ITS ---
Right foot Technique: AP, oblique, and lateral views were obtained. Clinical History: Pain and swelling Findings: No acute fracture or dislocation is seen. Osseous alignment is anatomic. Joint spaces are p reserved without erosive or degenerative change. Plantar calcaneal spur present. There is calcificati on along the distal Achilles tendon. Impression: No acute abnormality. Calcifications along the Achilles tendon. Correlate for Achilles tendinosis and/or dysfunction. Reviewed, dictated and finalized at location M. Impression: No acute abnormality. Calcifications along the Achilles tendon. Correlate for Achilles tendinosis and /or dysfunction.
--- NOTE | ~2023-10-01 | XR_ITS ---
Right ankle Technique: AP, oblique, and lateral views were obtained. Clinical History: Swelling, pain Findings: No acute fracture or dislocation is seen. Osseous alignment is anatomic. Ankle mortise and other visualized joint spaces are preserved. There is diffuse soft tissue edema, nonspecific. There a re soft tissue calcifications along the course the distal Achilles tendon Impression: No acute fracture or dislocation. Diffuse soft tissue edema, nonspecific. Probable Achilles tendinosis and heterotopic mineralization within the Achilles tendon. Correlate for Achilles tendon dysfunction/rupture. Reviewed, dictated and finalized at [facility]. Impression: No acute fracture or dislocation. Diffuse soft tissue edema, nonspecific. Probable Achilles tendinosis and heterotopic mineralization within the Achilles tendon. Correlate for Achilles tendon dysfunction/rupture.
--- NOTE | ~2023-10-01 | US_ITS ---
Duplex Sonography of the right extremity: Indication: Pain and swelling Findings: Sagittal and transverse B-mode images as well as color-flow imaging were performed on the r ight femoral and popliteal veins. B-mode examination was done without and with compression in the tr ansverse plane. There is good visualization of the common femoral, proximal profunda femoral, superf icial femoral, greater saphenous, and popliteal veins. Normal flow was seen on color-flow imaging. N ormal compressibility was demonstrated. Visualized calf veins are also patent. Impression: No evidence of deep vein thrombosis involving the right lower extremity. Reviewed, dictated and finalized at location . Impression: No evidence of deep vein thrombosis involving the right lower extremity.
--- NOTE | ~2023-10-01 | US_ITS ---
EXAMINATION: US renal BI DATE: 10/02/2023 11:33 INDICATION: Acute kidney injury. TECHNIQUE: Multiple ultrasound grayscale images of the kidneys were obtained. COMPARISON: CT abdomen and pelvis 10/01/2023 FINDINGS: The right kidney measures 12.7 x 6.4 x 5.5 cm. The left kidney measures 12.0 x 6.9 x 7.5 cm. The kidn eys demonstrate normal parenchymal echogenicity. There is no hydronephrosis. The bladder is decompres sed by a Ritter catheter. IMPRESSION: 1. Normal kidneys. No hydronephrosis. Reviewed, dictated and finalized at location A.
--- NOTE | ~2023-10-01 | CT_ITS ---
EXAMINATION: CT abdomen pelvis w con DATE: 10/01/2023 12:02 INDICATION: Left lower quadrant abdominal pain. TECHNIQUE: Computed tomography (CT) of the abdomen and pelvis was performed with 100 mL Omnipaque 350 intravenous contrast. Automated exposure control and iterative reconstruction technique were employe d. The dose-length product was 1434.87 mGy-cm. COMPARISON: None. FINDINGS: The visualized portions of the lung bases demonstrate mild atelectasis. No pleural effusion . The heart size is normal. There are coronary artery calcifications. No pericardial effusion. The li yonis, gallbladder, spleen, pancreas, and adrenal glands are normal. There is cortical thinning of the kidneys. There are cysts in the kidneys measuring up to 7 mm. The bladder is decompressed by a Ritter catheter. The prostate is mildly enlarged. There are bilateral inguinal hernias containing fat. There is diverticulosis of the colon without evidence of diverticulitis. There are no dilated loops of bow el. The appendix is not visualized. There are no pathologically enlarged lymph nodes. There is no lui e intraperitoneal fluid. There is moderate lumbar spondylosis. IMPRESSION: 1. Bilateral inguinal hernias containing fat. Reviewed, dictated and finalized at location A.
--- NOTE | 2023-10-01 10:51 | ECG_ITS ---
Test Date: 2023-10-01 11:06:16 Measurements Intervals [place] Rate: 100 P: 10 WV: 170 QRS: -75 QRSD: 142 T: 30 QT: 356 QTc: 461 Interpretive Statements SINUS TACHYCARDIA RIGHT BUNDLE BRANCH BLOCK [120+ ms QRS DURATION, UPRIGHT V1, 40+ ms S IN I/aVL/V4/V5/V6] LEFT ANTERIOR FASCICULAR BLOCK [QRS AXIS <= -45, QR IN I, RS IN II] No previous ECG available for comparison Electronically Signed On 10-02-2023 10:29:34 CDT by Maranda Rebollar M.D.
[2023-10-01 11:20] LABS: Basophils Absolute Auto 0.1 K/mm3 (0.0-0.1); Basophils Percent Auto 0.3 % (0.2-1.2); Eosinophils Absolute Auto 0.2 K/mm3 (0-0.3); Eosinophils Percent Auto 1.1 % (0-4.4); Hematocrit 42.7 % (42.0-52.0); Hemoglobin 14.2 g/dL (14.0-18.0); Immature Granulocyte Percent A 0.6 % (0-0.5); Lymphocytes Absolute Auto 1.52 K/mm3 (0.9-3.2); Mean Corpuscular HGB Conc 33.3 g/dl (32-36); Mean Corpuscular Hemoglobin 32.3 pg (26-34); Mean Platelet Volume 9.8 fl (7.4-10.4); Monocytes Percent Auto 11.6 % (2.6-8.5); Neutrophils Absolute Auto 13.1 K/mm3 (1.3-6.7); Neutrophils Percent Auto 77.4 % (45.5-73.1); Platelet Count Result 193 k/mm3 (150-375); Red Cell Distribution Width 13.4 % (11.5-14.5); White Blood Count 16.9 K/mm3 (4.5-10.0)
--- NOTE | 2023-10-01 11:28 | ED.WEAKNESS ---
HPI - Weakness General Chief complaint: Weakness Stated complaint: Unspecified Time Seen by Provider: 10/01/23 10:52 History of Present Illness HPI Narrative: Patient is a 77-year-old male with history of asthma, hypertension, IBS presenting with weakness. Patient states that he has chronic bowel issues with a lot of constipation and sometimes diarrhea. States that he was able to have a large bowel movement a couple of days ago. Also states that he struggles with urinary retention and incomplete emptying. Over the last several days he has been increasingly weak to the point that he barely get around the house. He actually did fall a few days ago. Denies injuries from the fall. As the weakness continued, his insisted he come in for evaluation. He complains of some lower abdominal pain but denies further complaints. Related Data Home Medications Medication Instructions Recorded Confirmed cyanocobalamin (vitamin B-12) 2,000 mcg PO DAILY 12/27/18 07/21/23 2,000 mcg tablet artificial tears(hypromellose) 0.3 1 drop LEFT EYE QAM 02/02/19 07/21/23 % eye gel (GenTeal Tears Severe) aspirin 81 mg tablet,delayed 81 mg PO DAILY 02/02/19 07/21/23 release diphenhydramine HCl 25 mg capsule 25 mg PO TID PRN Itching 02/02/19 07/21/23 (Benadryl) fexofenadine 60 mg-pseudoephedrine 1 tablet PO Q12H 02/02/19 07/21/23 ER 120 mg tablet,ext.release,12 hr (Jeni-D 12 Hour) latanoprost 0.005 % eye drops 1 drop ophthalmic (eye) HS 02/02/19 07/21/23 timolol 0.5 % eye drops 1 drop ophthalmic (eye) Q12H 02/02/19 07/21/23 cholecalciferol (vitamin D3) 25 25 mcg PO DAILY 04/25/23 07/21/23 mcg (1,000 unit) capsule docusate sodium 100 mg capsule 100 mg PO BID 04/25/23 07/21/23 (Colace) fluoride (sodium) 1.1 % dental 1 applic dental HS 04/25/23 07/21/23 paste (PreviDent 5000 Booster Plus) zinc acetate 50 mg (zinc) capsule 50 mg PO DAILY 04/25/23 07/21/23 Nervive 1 tab-cap PO DAILY 07/21/23 07/21/23 albuterol sulfate 90 mcg/actuation See Rx Instructions .Route 07/21/23 07/21/23 aerosol inhaler .COMPLEX PRN Shortness Of Breath Or Wheezing ampicillin 500 mg capsule See Rx Instructions .Route 07/21/23 07/21/23 .COMPLEX PRN PROPHYLAXIS artificial tears(hypromellose) 0.3 1 drp EACH EYE HS 07/21/23 07/21/23 % eye gel azelastine 137 mcg (0.1 %) nasal 2 spray intranasal .Once daily PRN 07/21/23 07/21/23 spray Nasal Congestion cephalexin 500 mg capsule 500 mg PO Q8H PRN CUTS-BACTERIA 07/21/23 07/21/23 fluticasone propionate 50 See Rx Instructions .Route 07/21/23 07/21/23 mcg/actuation nasal .COMPLEX PRN sneezing spray,suspension lovastatin 10 mg tablet 10 mg PO HS 07/21/23 07/21/23 procyanidolic oligomers 50 mg 50 mg PO DAILY 07/21/23 07/21/23 capsule triamcinolone acetonide 0.1 % 1 applic topical BID PRN Itching 07/21/23 07/21/23 topical cream Allergies Allergy/AdvReac Type Severity Reaction Status Date / Time clindamycin Allergy Mild Rash Verified 08/25/23 11:06 bacitracin Allergy Unknown Swelling Verified 08/25/23 11:06 of Lip/Tongue/Throat cat dander Allergy Unknown Rash Verified 08/25/23 11:06 codeine Allergy Unknown Nausea and Verified 08/25/23 11:06 Vomiting latex Allergy Unknown Rash Verified 08/25/23 11:06 pollen extracts Allergy Unknown Dyspnea / Verified 08/25/23 11:06 SOB Sulfa (Sulfonamide Allergy Unknown Unknown Verified 08/25/23 11:06 Antibiotics) sulfite Allergy Unknown Unknown Verified 08/25/23 11:06 Review of Systems Review of Systems: All systems reviewed & are unremarkable except as noted in HPI and below PMFSH Past Medical History Medical History Allergic rhinitis, cause unspecified Asthma COVID-19 Essential (primary) hypertension IBS (irritable bowel syndrome) Normocytic normochromic anemia NICOLE treated with BiPAP Peripheral neuropathic pain Unspecified glaucoma Family History Family History (Rev
[2023-10-01 11:43] LABS: Alanine Aminotransferase 18 U/L (6-50); Albumin Level 3.5 g/dL (3.5-5.1); Alkaline Phosphatase 82 U/L (38-126); Anion Gap 9 mmol/L (4-12); Aspartate Amino Transferase 29 U/L (17-59); Bilirubin,Total 1.9 mg/dL (0.2-1.3); Blood Urea Nitrogen 22 mg/dL (9-20); Calcium 9.2 mg/dL (8.4-10.2); Carbon Dioxide 28 mmol/L (22-30); Chloride 98 mmol/L (98-107); Estimated Glomerular Filt Rate 24; Glucose 115 mg/dL (65-110); Sodium 135 mmol/L (137-145)
[2023-10-01 11:49] LABS: Estimated Glomerular Filt Rate 21
[2023-10-01 11:53] LABS: Troponin I < 0.012 ng/mL (0.000-0.034)
[2023-10-01] MEDS: SODIUM CHLORIDE 0.9% IV 1,000 ML 999 ML IV CONT ×2 (12:07→12:08)
[2023-10-01 12:20] LABS: Lactic Acid Reflex 1.4 mmol/L (0.7-2.0)
[2023-10-01 12:37] LABS: Influenza A QL RT-PCR Negative (Negative); Influenza B QL RT-PCR Negative (Negative); RSV RNA, RT-PCR Negative (Negative); SARS-CoV-2 RNA PCR Negative (Negative)
[2023-10-01 12:39] LABS: Lipase 85 U/L (23-300)
[2023-10-01 12:44] LABS: INR 1.2; Prothrombin Time 15.1 Seconds (11.1-14.7)
[2023-10-01 12:45] LABS: Partial Thromboplastin Time 32.9 Seconds (22.3-36.8)
[2023-10-01 12:49] LABS: NT Pro B Type Natriuretic Pept 345 pg/mL (19.9-100)
[2023-10-01 13:10] LABS: Add Urine Microscopic? YES; Appearance Urine Clear (Clear); Bacteria Urine None Seen /hpf; Bilirubin Urine Negative (Negative); Blood Urine 1+ (Negative); Color Urine Yellow (Yellow); Glucose Urine UA Negative (Negative); Ketones Urine Negative (Negative); Leukocyte Esterase Ur Negative LEU/UL (Negative); Nitrate Urine Negative (Negative); Non Pathogenic Casts 0-2; Protein Urine Negative (Negative); RBC Urine 0-2 /hpf (0-2); Specific Grav Ur 1.009 (1.001-1.035); Squamous Epithelial Cell Urine None Seen /hpf (Few); Urobilinogen Urine 0.2 mg/dL (<2.0); WBC Urine 0-5 /hpf (0-3)
[2023-10-01] MEDS: SODIUM CHLORIDE 0.9% IV 1,000 ML 999 ML (16:38)
--- NOTE | 2023-10-01 17:49 | ADMGEN ---
This patient, Stephenie Cordero III, was admitted to [facility] Surg Room 330-01 at 1723. Patient/family oriented to hospital policies and general routines including ID bracelet, bed and alarms, visiting hours, pain management, procedures, bathroom and other care routines, personal items, smoking policy, room service/diet, and visiting hours. Information on how to activate the Rapid Response Team has been discussed. Patient/Family are encouraged to report perceived risks to care and to ask questions if they do not understand what they are told or what they should do.
[2023-10-01 18:36] LABS: Troponin I < 0.012 ng/mL (0.000-0.034)
--- NOTE | 2023-10-01 20:04 | PM.IMHP ---
H&P: HPI History of Present Illness Date/Time: 10/01/23 20:04 Chief Complaint: Weakness Narrative: 77-year-old male with PMHx: of asthma, HTN, IBS reporting to the emergency room with complaints of ongoing bowel issues resulting in constipation and sometimes diarrhea as well as increased weakness. Mr. Cordero reports he was able to have a large bowel movement a few days prior to arrival. He admits to a fall he had a few days ago due to increased weakness and fatigued he denies any loc occurring with fall. Initial workup reveals: Initial vitals: b/p92/50, rr18, pr99 [id number] % on RA, T:97.9, elevated WBC 16.9, BUN 22, creatinine 2.90, GFR 21, lactic acid 1.4 BNP 345, UA unremarkable with +1 blood, viral PCR negative, chest x-ray reveals mild atelectasis versus scarring at the lung bases, CT of the abdomen pelvis reveals bilateral inguinal hernias containing fat. Review of Systems Review of Systems: All systems reviewed & are unremarkable except as noted in HPI and below PMFSH Past Medical History Medical History Allergic rhinitis, cause unspecified Asthma COVID-19 Essential (primary) hypertension IBS (irritable bowel syndrome) Normocytic normochromic anemia NICOLE treated with BiPAP Peripheral neuropathic pain Unspecified glaucoma Family History Family History Mother Hypertension, Onset Age: 81 Cerebrovascular accident, Onset Age: 81 Father Asthma, Onset Age: 82 Acute myocardial infarction, Onset Age: 82 Diabetes mellitus, Onset Age: 82 Family history of allergic disorder, Onset Age: 82 Other Lupus Other Carcinoma of colon Social History Social History Smoking status: Never smoker Alcohol intake: current Substance use: never Substance use type: does not use Do You Feel Safe in your Home?: Yes Lack of Transportation: No Lack of Food: Never True Current Housing: I Have Housing Concerned About Future Housing: No Difficulty Paying Gas/Electric Bills: No Difficulty Paying for Meds: No Currently Unemployed: No Education: Associate Degree Difficulty w/ Childcare or Family Care: No Living arrangements: with family Spiritual care concerns: No Meds Home Medications and Allergies Home Medications Medication Instructions Recorded Confirmed Type cyanocobalamin (vitamin B-12) 2,000 mcg PO DAILY 12/27/18 10/01/23 History 2,000 mcg tablet artificial tears(hypromellose) 0.3 1 drop LEFT EYE QAM 02/02/19 10/01/23 History % eye gel (GenTeal Tears Severe) aspirin 81 mg tablet,delayed 81 mg PO DAILY 02/02/19 10/01/23 History release diphenhydramine HCl 25 mg capsule 25 mg PO TID PRN Itching 02/02/19 10/01/23 History (Benadryl) fexofenadine 60 mg-pseudoephedrine 1 tablet PO Q12H 02/02/19 10/01/23 History ER 120 mg tablet,ext.release,12 hr (Jeni-D 12 Hour) latanoprost 0.005 % eye drops 1 drop ophthalmic (eye) HS 02/02/19 10/01/23 History timolol 0.5 % eye drops 1 drop ophthalmic (eye) Q12H 02/02/19 10/01/23 History fluticasone 500 mcg-salmeterol 50 1 inhalation inhalation Q12H #180 07/10/19 10/01/23 Rx mcg/dose blistr powdr for ea inhalation (Advair Diskus) tiotropium bromide 18 mcg capsule See Rx Instructions .Route 05/07/22 10/01/23 Rx with inhalation device (Spiriva .COMPLEX #90 caps with HandiHaler) hydrochlorothiazide 25 mg tablet See Rx Instructions .Route 02/11/23 10/01/23 Rx .COMPLEX #100 tabs cholecalciferol (vitamin D3) 25 25 mcg PO DAILY 04/25/23 10/01/23 History mcg (1,000 unit) capsule docusate sodium 100 mg capsule 200 mg PO HS 04/25/23 10/01/23 History (Colace) fluoride (sodium) 1.1 % dental 1 applic dental HS 04/25/23 10/01/23 History paste (PreviDent 5000 Booster Plus) zinc acetate 50 mg (zinc) capsule 50 mg PO DAILY 04/25/23 08
[2023-10-01 23:19] LABS: Lactic Acid Reflex 0.8 mmol/L (0.7-2.0)
[2023-10-01] MEDS: TIMOLOL MALEATE 0.5% OP SOLN 5 ML BOTTLE 1 DROP EACH EYE (23:48)
[2023-10-01] MEDS: ARTIFICIAL TEARS OPHTH SOLN 15 ML BOTTLE 1 DROP EACH EYE (23:50)
[2023-10-01] MEDS: SODIUM CHLORIDE 0.9% IV 500 ML 75 ML IV CONT (23:54)
[2023-10-02] VITALS (8 sets, daily range): BP systolic 124–132; BP diastolic 41–68; PULSE 77–94; RESP 16–25; TEMP 36.4–37.3; O2SAT 95–97
[2023-10-02 07:13] LABS: Basophils Absolute Auto 0.1 K/mm3 (0.0-0.1); Basophils Percent Auto 0.5 % (0.2-1.2); Eosinophils Absolute Auto 0.3 K/mm3 (0-0.3); Eosinophils Percent Auto 2.7 % (0-4.4); Hematocrit 38.1 % (42.0-52.0); Immature Granulocyte Absolute 0.07 K/mm3 (0.00-0.031); Immature Granulocyte Percent A 0.7 % (0-0.5); Lymphocytes Absolute Auto 1.31 K/mm3 (0.9-3.2); Lymphocytes Percent Auto 13.1 % (18.3-44.2); Mean Corpuscular HGB Conc 31.5 g/dl (32-36); Mean Corpuscular Hemoglobin 31.8 pg (26-34); Mean Corpuscular Volume 101.1 fl (80-100); Mean Platelet Volume 9.6 fl (7.4-10.4); Monocytes Absolute Auto 1.3 K/mm3 (0.1-0.6); Monocytes Percent Auto 12.5 % (2.6-8.5); Neutrophils Percent Auto 70.5 % (45.5-73.1); Platelet Count Result 139 k/mm3 (150-375); Red Blood Count 3.77 M/mm3 (4.6-6.20); Red Cell Distribution Width 13.7 % (11.5-14.5)
[2023-10-02 07:27] LABS: Alanine Aminotransferase 21 U/L (6-50); Albumin Level 2.8 g/dL (3.5-5.1); Alkaline Phosphatase 67 U/L (38-126); Anion Gap 7 mmol/L (4-12); Aspartate Amino Transferase 76 U/L (17-59); Bilirubin,Total 1.4 mg/dL (0.2-1.3); Blood Urea Nitrogen 16 mg/dL (9-20); Calcium 8.4 mg/dL (8.4-10.2); Carbon Dioxide 26 mmol/L (22-30); Chloride 102 mmol/L (98-107); Estimated CRCL calculation 51 ml/min; Estimated Glomerular Filt Rate 54; Glucose 100 mg/dL (65-110); Potassium 3.6 mmol/L (3.4-5.0); Sodium 135 mmol/L (137-145)
[2023-10-02] MEDS: FLUTICASONE/SALMETEROL 230-21 MCG INHALER 1 PUFF 2 PUFF INHALATION ×2 (07:45→20:58)
[2023-10-02] MEDS: ASPIRIN 81 MG ENTERIC TABLET PO (08:28)
[2023-10-02] MEDS: GABAPENTIN 300 MG CAPSULE PO (08:28)
[2023-10-02] MEDS: ZAFIRLUKAST 20 MG TABLET PO ×2 (08:28→20:42)
[2023-10-02] MEDS: CYANOCOBALAMIN 1,000 MCG TABLET 2000 MCG PO (08:28)
[2023-10-02] MEDS: ZINC SULFATE 220 MG CAPSULE PO (08:28)
[2023-10-02] MEDS: clonazePAM (*CRX) 0.5 MG TABLET 1 MG PO ×2 (08:28→18:06)
[2023-10-02] MEDS: CHOLECALCIFEROL 1,000 UNITS TABLET 1000 UNITS PO (08:28)
[2023-10-02] MEDS: HEPARIN SODIUM 5,000 UNITS/ML VIAL 5000 UNITS SUB-Q ×2 (08:29→20:41)
[2023-10-02] MEDS: PANTOPRAZOLE 40 MG TABLET PO ×2 (08:29→18:06)
[2023-10-02] MEDS: ARTIFICIAL TEARS OPHTH SOLN 15 ML BOTTLE 1 DROP LEFT EYE (08:30)
[2023-10-02] MEDS: FLUTICASONE PROPIONATE 0.05% NA SPR 16 GM BTL (*BKC) 1 SPRAY NASAL (08:30)
[2023-10-02] MEDS: TIMOLOL MALEATE 0.5% OP SOLN 5 ML BOTTLE 1 DROP EACH EYE ×2 (08:31→20:42)
--- NOTE | 2023-10-02 11:21 | PM.IMPN ---
Progress Note: A&P Assessment and Plan (1) BETHANY (acute kidney injury): Code(s): N17.9 - Acute kidney failure, unspecified Status: Acute Assessment and Plan: -as evidence by elevated Scr. 2.90 -nephrology consulted appreciate recommendation and plan -continue monitor strict I&O -check renal US -check FENa -monitor BMP daily -monitor for fluid overload -avoid nephrotoxic agents - due to retention - nephrology not seeing pt at this moment- if urinary retention - will consult urology (2) Essential (primary) hypertension: Code(s): I10 - Essential (primary) hypertension Status: Acute Assessment and Plan: -b/p: has been hypotensive -hold home medication - monitor for now- if needed- will restart home meds (3) Weakness: Code(s): R53.1 - Weakness Status: Acute Assessment and Plan: will add PT/OT (4) Urinary retention: Code(s): R33.9 - Retention of urine, unspecified Status: Acute Assessment and Plan: whitaker - consult urology (5) Constipated: Code(s): K59.00 - Constipation, unspecified Status: Acute Assessment and Plan: miralax daily prn Plan Continue home medications: VTE Prophylaxis: Heparin DIET: Low K+ Anticipated hospital stay: > 2 days 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 Mr. Cordero reports he was able to have a large bowel movement a few days prior to arrival. He admits to a fall he had a few days ago due to increased weakness and fatigued he denies any loc occurring with fall. Initial workup reveals: Initial vitals: b/p92/50, rr18, pr99 [id number] % on RA, T:97.9, elevated WBC 16.9, BUN 22, creatinine 2.90, GFR 21, lactic acid 1.4 BNP 345, UA unremarkable with +1 blood, viral PCR negative, chest x-ray reveals mild atelectasis versus scarring at the lung bases, CT of the abdomen pelvis reveals bilateral inguinal hernias containing fat. 10/01- pt is seen and examined. He reports that about 1 months ago, he had colonoscopy and had 7 polyps removed. had two episodes of constipations and urinary retentions. However, he had a feeling that his bladder was not emptying out completely way before constipation episodes and he never followed up on taht with his PCP or was seen per urology. He has Whitaker cath inserted this admition. He reports that he is very weak and was slowly getting weaker until couple of days ago, could not even get out of the chair. He is laying in bed, denies chest pain, sob, eating and drinking well. Review of Systems Review of Systems: All systems reviewed & are unremarkable except as noted in HPI and below Exam Const: General: comfortable Resp: Effort & Inspection: normal respiratory effort Cardio: Rate: regular rate Rhythm: regular rhythm Urinary Catheter: Urinary Catheter: patent and draining Skin: General skin exam: normal color Neuro: Speech: normal speech Extrem: General: normal to inspection Psych: Mental Status: mental status grossly normal Objective Data Vital Signs Vital Signs: Vital Signs - 24 hr 10/01/23 11:36 10/01/23 12:31 10/01/23 13:00 Temperature 97.9 F 97.8 F Pulse Rate 99 101 H 103 H Respiratory Rate 18 16 20 Blood Pressure 92/50 L 107/59 L 118/61 Pulse Oximetry 97 96 96 Oxygen Delivery Room Air 10/01/23 13:18 10/01/23 14:00 10/01/23 14:31 Temperature 97.8 F Pulse Rate 103 H 104 H 106 H Respiratory Rate 16 18 18 Blood Pressure 110/58 L 114/60 111/53 L Pulse Oximetry 99 98 99 Oxygen Delivery 10/01/23 15:32 10/01/23 16:00 10/01/23 17:00 Temperature 97.8 F 97.8 F 97.6 F Pulse Rate 1
[2023-10-02 17:49] LABS: Glucose Point of Care 136 mg/dl (65-105)
[2023-10-02] MEDS: ARTIFICIAL TEARS OPHTH SOLN 15 ML BOTTLE 1 DROP EACH EYE (20:41)
[2023-10-02] MEDS: LATANOPROST 0.005% OP SOLN 2.5 ML BTL 1 DROP EACH EYE (20:42)
[2023-10-02] MEDS: ACETAMINOPHEN 325 MG TABLET 650 MG PO (21:38)
[2023-10-02 21:57] LABS: Sodium Urine Random 112 meq/L
[2023-10-03] VITALS (8 sets, daily range): BP systolic 111–135; BP diastolic 43–66; PULSE 78–95; RESP 16–26; TEMP 36.3–37.6; O2SAT 94–98
[2023-10-03 07:42] LABS: Basophils Percent Auto 0.3 % (0.2-1.2); Eosinophils Absolute Auto 0.3 K/mm3 (0-0.3); Eosinophils Percent Auto 2.9 % (0-4.4); Hematocrit 36.1 % (42.0-52.0); Hemoglobin 12.1 g/dL (14.0-18.0); Immature Granulocyte Absolute 0.06 K/mm3 (0.00-0.031); Immature Granulocyte Percent A 0.7 % (0-0.5); Immature Platelet Fraction Pct 2.3 % (0.9-11.2); Lymphocytes Absolute Auto 1.08 K/mm3 (0.9-3.2); Lymphocytes Percent Auto 11.8 % (18.3-44.2); Mean Corpuscular HGB Conc 33.5 g/dl (32-36); Mean Corpuscular Hemoglobin 32.7 pg (26-34); Mean Corpuscular Volume 97.6 fl (80-100); Mean Platelet Volume 9.7 fl (7.4-10.4); Monocytes Absolute Auto 1.2 K/mm3 (0.1-0.6); Monocytes Percent Auto 12.7 % (2.6-8.5); Neutrophils Absolute Auto 6.6 K/mm3 (1.3-6.7); Neutrophils Percent Auto 71.6 % (45.5-73.1); Platelet Count Result 147 k/mm3 (150-375); Red Cell Distribution Width 13.2 % (11.5-14.5); White Blood Count 9.2 K/mm3 (4.5-10.0)
[2023-10-03 08:12] LABS: Alanine Aminotransferase 20 U/L (6-50); Albumin Level 3.1 g/dL (3.5-5.1); Alkaline Phosphatase 77 U/L (38-126); Anion Gap 8 mmol/L (4-12); Aspartate Amino Transferase 67 U/L (17-59); Bilirubin,Total 1.3 mg/dL (0.2-1.3); Blood Urea Nitrogen 16 mg/dL (9-20); Calcium 8.7 mg/dL (8.4-10.2); Carbon Dioxide 27 mmol/L (22-30); Chloride 99 mmol/L (98-107); Estimated CRCL calculation 66 ml/min; Estimated Glomerular Filt Rate > 60; Glucose 95 mg/dL (65-110); Potassium 3.4 mmol/L (3.4-5.0); Sodium 134 mmol/L (137-145)
[2023-10-03] MEDS: FLUTICASONE/SALMETEROL 230-21 MCG INHALER 1 PUFF 2 PUFF INHALATION ×2 (09:22→21:11)
--- NOTE | 2023-10-03 09:24 | WPDURCON ---
Assessment and Plan Assessment and plan (1) Urinary retention: Code(s): R33.9 - Retention of urine, unspecified Status: Acute Assessment and Plan: Etiology not entirely clear and patient with severe degree of retention (900 cc). Likely worsened due to constipation. He has no history of retention. Continue Ritter catheter at this time. Will begin tamsulosin and finasteride. Consider void trial prior to discharge pending resolution of constipation. Urology Consult Note HPI Date Seen: 10/03/23 Requesting Physician: VIVEK Stratton Primary Care Provider: Jairon Cannon MD Consult Narrative Narrative: Stephenie Cordero III is a 77 year old male history of progressive weakness since having COVID in 2020 who is currently admitted for generalized weakness and constipation and is being seen in consultation for urinary retention. The patient reports no prior urologic history. Has no history of urinary retention or BPH and is not currently established with a urologist. He is a fair historian. He has been having lots of issues with constipation recently. He reports for the past week he has had difficulty voiding and feeling the need to strain to urinate. He endorses occasional hesitancy but denies slow or weak stream or concerns of dribbling. His believes his voiding troubles have been ongoing longer than this, however. He presented to the ER on 10/01/2023 due to worsening weakness. On arrival, his white blood cell count was 16.9. Creatinine was 2.90. Bladder scan demonstrated about 800 cc of urine and a Ritter catheter was placed with 900 cc urine output. UA was unremarkable. CT of the abdomen/pelvis completed after Ritter catheter placement demonstrates cortical thinning of kidneys with bilateral renal cysts and decompressed bladder, mildly enlarged prostate. No evidence of hydronephrosis. Renal ultrasound completed on 10/02/2023 shows normal kidneys without hydronephrosis. On the time of my evaluation, the patient is feeling well. Tolerating his Ritter catheter without difficulty. Denies suprapubic pain fullness. Still complaining of constipation issues and poor appetite. Review of Systems Review of Systems: All systems reviewed & are unremarkable except as noted in HPI and below PMFSH Past Medical History Medical History Allergic rhinitis, cause unspecified Asthma COVID-19 Essential (primary) hypertension IBS (irritable bowel syndrome) Normocytic normochromic anemia NICOLE treated with BiPAP Peripheral neuropathic pain Unspecified glaucoma Family History Family History Mother Hypertension, Onset Age: 81 Cerebrovascular accident, Onset Age: 81 Father Asthma, Onset Age: 82 Acute myocardial infarction, Onset Age: 82 Diabetes mellitus, Onset Age: 82 Family history of allergic disorder, Onset Age: 82 Other Lupus Other Carcinoma of colon Social History Social History Smoking status: Never smoker Alcohol intake: current Substance use: never Substance use type: does not use Do You Feel Safe in your Home?: Yes Lack of Transportation: No Lack of Food: Never True Current Housing: I Have Housing Concerned About Future Housing: No Difficulty Paying Gas/Electric Bills: No Difficulty Paying for Meds: No Currently Unemployed: No Education: Associate Degree Difficulty w/ Childcare or Family Care: No Living arrangements: with family Spiritual care concerns: No Meds Home Medications and Allergies Home Medications Medication Instructions Recorded Confirmed Type cyanocobalamin (vitamin B-12) 2,000 mcg PO DAILY 12/27/18 10/01/23 History 2,000 mcg tablet artificial tears(hypromellose) 0.3 1 drop LEFT EYE QAM 02/02/19 10/01/23 History % eye gel
[2023-10-03] MEDS: GABAPENTIN 300 MG CAPSULE PO (10:49)
[2023-10-03] MEDS: PANTOPRAZOLE 40 MG TABLET PO ×2 (10:49→16:58)
[2023-10-03] MEDS: TAMSULOSIN HCL 0.4 MG CAPSULE PO (10:49)
[2023-10-03] MEDS: CHOLECALCIFEROL 1,000 UNITS TABLET 1000 UNITS PO (10:49)
[2023-10-03] MEDS: HEPARIN SODIUM 5,000 UNITS/ML VIAL 5000 UNITS SUB-Q ×2 (10:49→20:59)
[2023-10-03] MEDS: ZINC SULFATE 220 MG CAPSULE PO (10:49)
[2023-10-03] MEDS: ZAFIRLUKAST 20 MG TABLET PO ×2 (10:50→20:59)
[2023-10-03] MEDS: ASPIRIN 81 MG ENTERIC TABLET PO (10:50)
[2023-10-03] MEDS: clonazePAM (*CRX) 0.5 MG TABLET 1 MG PO ×2 (10:50→16:58)
[2023-10-03] MEDS: FINASTERIDE 5 MG TABLET PO (10:50)
[2023-10-03] MEDS: CYANOCOBALAMIN 1,000 MCG TABLET 2000 MCG PO (10:50)
[2023-10-03] MEDS: FLUTICASONE PROPIONATE 0.05% NA SPR 16 GM BTL (*BKC) 1 SPRAY NASAL (10:51)
[2023-10-03] MEDS: ARTIFICIAL TEARS OPHTH SOLN 15 ML BOTTLE 1 DROP LEFT EYE (10:51)
[2023-10-03] MEDS: TIMOLOL MALEATE 0.5% OP SOLN 5 ML BOTTLE 1 DROP EACH EYE ×2 (10:51→20:59)
--- NOTE | 2023-10-03 13:14 | PCPTNOTE ---
On 10/03/23, the student, [Ruthie Morales], provided care and completed [facility] documentation on this patient. I have reviewed the student's documentation and agree with the findings.
--- NOTE | 2023-10-03 14:54 | P.PNIM_ITS ---
Progress Note: A&P Assessment and Plan (1) BETHANY (acute kidney injury): Code(s): N17.9 - Acute kidney failure, unspecified Status: Acute Assessment and Plan: -as evidence by elevated Scr. 2.90 -nephrology consulted appreciate recommendation and plan -continue monitor strict I&O -check renal US -check FENa -monitor BMP daily -monitor for fluid overload -avoid nephrotoxic agents - due to retention - nephrology not seeing pt at this moment- if urinary retention - will consult urology 10/03/23: * Resolved with renal function tests at 1.0/16. * Catheter remains in place until constipation resolved. * Urology has consulted and recs made to attempt bladder training prior to discharge. * Awaiting Nephrology consult. * US kidneys unremarkable (2) Essential (primary) hypertension: Code(s): I10 - Essential (primary) hypertension Status: Acute Assessment and Plan: -b/p: has been hypotensive -hold home medication - monitor for now- if needed- will restart home meds 10/03/23: * BP stable today running 130s/60s. * Currently holding Telmisartan and HCTZ * Restart if needed for elevation of BP. * Continue to monitor. (3) Weakness: Code(s): R53.1 - Weakness Status: Acute Assessment and Plan: will add PT/OT 10/03/23: * Continue PT and OT. * Recommendations for Rehab upon discharge. * Care coordination ordered for rehab placement. * Fall precautions (4) Urinary retention: Code(s): R33.9 - Retention of urine, unspecified Status: Acute Assessment and Plan: whitaker - consult urology 10/03/23: * See problem #1 * Will await bladder training until constipation has improved. * Likely secondary to post renal obstruction. (5) Constipated: Code(s): K59.00 - Constipation, unspecified Status: Acute Assessment and Plan: miralax daily prn 10/03/23: * Obstructive series is negative for any obstruction. There is gas and stool seen through to the level of the rectum. * Change Miralax to scheduled from prn. * Monitor for BM. Then consider Bladder training. (6) Foot pain, right: Code(s): M79.671 - Pain in right foot Status: Acute Assessment and Plan: * Right ankle xray without acute fracture or dislocation, diffuse Soft tissue edema present, probable achilles tendinosis and mineralization in the achilles tendon. * Right foot xray with calcifications again seen in the achilles tendon. Correlate for achilles tendiosis and or dysfunction. * Venous doppler without any evidence of DVT. * Compression stockings ordered * Elevate feet in bed * Tylenol PRN. Avoid NSAID's due to recent Renal failure. Time Spent With Patient Time with patient: 25 - 35 minutes Subjective Date/time seen: 10/03/23 1225 Interval history: This pleasant, elderly male pt was examined at the bedside today in interval as raymond. He was working with PT when I entered the room and I was told that they recommend rehab on discharge when pt is able to be discharged as he could not ambulate or pivot without mike steady. Pt continues to complain that he cannot have a BM. He has been evaluated by Urology and they recommend attempting to do bladder training prior to discharge as his urological function was most likely complicated by Constipation. His renal function today is normal with the catheter in place and he has not yet had a BM, so we will hold off on attempting bladder training at this time as it may cause recurrence of retention
--- NOTE | 2023-10-03 14:54 | PM.IMPN ---
Progress Note: A&P Assessment and Plan (1) BETHANY (acute kidney injury): Code(s): N17.9 - Acute kidney failure, unspecified Status: Acute Assessment and Plan: -as evidence by elevated Scr. 2.90 -nephrology consulted appreciate recommendation and plan -continue monitor strict I&O -check renal US -check FENa -monitor BMP daily -monitor for fluid overload -avoid nephrotoxic agents - due to retention - nephrology not seeing pt at this moment- if urinary retention - will consult urology 10/03/23: Resolved with renal function tests at 1.0/16. Catheter remains in place until constipation resolved. Urology has consulted and recs made to attempt bladder training prior to discharge. Awaiting Nephrology consult. US kidneys unremarkable (2) Essential (primary) hypertension: Code(s): I10 - Essential (primary) hypertension Status: Acute Assessment and Plan: -b/p: has been hypotensive -hold home medication - monitor for now- if needed- will restart home meds 10/03/23: BP stable today running 130s/60s. Currently holding Telmisartan and HCTZ Restart if needed for elevation of BP. Continue to monitor. (3) Weakness: Code(s): R53.1 - Weakness Status: Acute Assessment and Plan: will add PT/OT 10/03/23: Continue PT and OT. Recommendations for Rehab upon discharge. Care coordination ordered for rehab placement. Fall precautions (4) Urinary retention: Code(s): R33.9 - Retention of urine, unspecified Status: Acute Assessment and Plan: whitaker - consult urology 10/03/23: See problem #1 Will await bladder training until constipation has improved. Likely secondary to post renal obstruction. (5) Constipated: Code(s): K59.00 - Constipation, unspecified Status: Acute Assessment and Plan: miralax daily prn 10/03/23: Obstructive series is negative for any obstruction. There is gas and stool seen through to the level of the rectum. Change Miralax to scheduled from prn. Monitor for BM. Then consider Bladder training. (6) Foot pain, right: Code(s): M79.671 - Pain in right foot Status: Acute Assessment and Plan: Right ankle xray without acute fracture or dislocation, diffuse Soft tissue edema present, probable achilles tendinosis and mineralization in the achilles tendon. Right foot xray with calcifications again seen in the achilles tendon. Correlate for achilles tendiosis and or dysfunction. Venous doppler without any evidence of DVT. Compression stockings ordered Elevate feet in bed Tylenol PRN. Avoid NSAID's due to recent Renal failure. Time Spent With Patient Time with patient: 25 - 35 minutes Subjective Date/time seen: 10/03/23 1225 Interval history: This pleasant, elderly male pt was examined at the bedside today in interval assessment. He was working with PT when I entered the room and I was told that they recommend rehab on discharge when pt is able to be discharged as he could not ambulate or pivot without mike steady. Pt continues to complain that he cannot have a BM. He has been evaluated by Urology and they recommend attempting to do bladder training prior to discharge as his urological function was most likely complicated by Constipation. His renal function today is normal with the catheter in place and he has not yet had a BM, so we will hold off on attempting bladder training at this time as it may cause recurrence of retention. In addition, pt has started complaining of right foot pain and swelling. This has developed just today, but pt has had a recent fall. Testing of Obstructive series, ankle and foot xrays, and venous doppler ordered in addition to compression stockings. Awaiting Nephrology consult and order placed for care coordination consult for placement in rehab upon discharge. Pt complains of weakness, pain in the foot and constipation, but no other acute issues to discuss today.
[2023-10-03] MEDS: LATANOPROST 0.005% OP SOLN 2.5 ML BTL 1 DROP EACH EYE (20:59)
[2023-10-03] MEDS: ARTIFICIAL TEARS OPHTH SOLN 15 ML BOTTLE 1 DROP EACH EYE (21:00)
[2023-10-04] VITALS (8 sets, daily range): BP systolic 105–126; BP diastolic 46–58; PULSE 78–93; RESP 16–20; TEMP 36.2–37.5; O2SAT 94–97
[2023-10-04] MEDS: FLUTICASONE/SALMETEROL 230-21 MCG INHALER 1 PUFF 2 PUFF INHALATION ×2 (07:36→21:22)
[2023-10-04] MEDS: HEPARIN SODIUM 5,000 UNITS/ML VIAL 5000 UNITS SUB-Q ×2 (08:27→21:24)
[2023-10-04] MEDS: ASPIRIN 81 MG ENTERIC TABLET PO (08:27)
[2023-10-04] MEDS: TAMSULOSIN HCL 0.4 MG CAPSULE PO (08:27)
[2023-10-04] MEDS: GABAPENTIN 300 MG CAPSULE PO (08:27)
[2023-10-04] MEDS: FINASTERIDE 5 MG TABLET PO (08:27)
[2023-10-04] MEDS: clonazePAM (*CRX) 0.5 MG TABLET 1 MG PO ×2 (08:27→17:36)
[2023-10-04] MEDS: PANTOPRAZOLE 40 MG TABLET PO ×2 (08:27→17:36)
[2023-10-04] MEDS: polyethylene glycoL 3350 17 GM POWD.PACK PO (08:27)
[2023-10-04] MEDS: CYANOCOBALAMIN 1,000 MCG TABLET 2000 MCG PO (08:27)
[2023-10-04] MEDS: ZINC SULFATE 220 MG CAPSULE PO (08:27)
[2023-10-04] MEDS: CHOLECALCIFEROL 1,000 UNITS TABLET 1000 UNITS PO (08:27)
[2023-10-04] MEDS: ARTIFICIAL TEARS OPHTH SOLN 15 ML BOTTLE 1 DROP LEFT EYE (08:28)
[2023-10-04] MEDS: TIMOLOL MALEATE 0.5% OP SOLN 5 ML BOTTLE 1 DROP EACH EYE ×2 (08:30→21:25)
[2023-10-04] MEDS: FLUTICASONE PROPIONATE 0.05% NA SPR 16 GM BTL (*BKC) 1 SPRAY NASAL (08:30)
[2023-10-04] MEDS: ZAFIRLUKAST 20 MG TABLET PO ×2 (08:32→21:25)
[2023-10-04 08:47] LABS: Basophils Percent Auto 0.3 % (0.2-1.2); Eosinophils Absolute Auto 0.2 K/mm3 (0-0.3); Eosinophils Percent Auto 2.6 % (0-4.4); Hematocrit 37.3 % (42.0-52.0); Hemoglobin 12.3 g/dL (14.0-18.0); Immature Granulocyte Absolute 0.05 K/mm3 (0.00-0.031); Immature Granulocyte Percent A 0.6 % (0-0.5); Lymphocytes Absolute Auto 1.02 K/mm3 (0.9-3.2); Lymphocytes Percent Auto 11.6 % (18.3-44.2); Mean Corpuscular Hemoglobin 32.2 pg (26-34); Mean Corpuscular Volume 97.6 fl (80-100); Mean Platelet Volume 9.9 fl (7.4-10.4); Monocytes Absolute Auto 1.3 K/mm3 (0.1-0.6); Monocytes Percent Auto 14.6 % (2.6-8.5); Neutrophils Absolute Auto 6.2 K/mm3 (1.3-6.7); Neutrophils Percent Auto 70.3 % (45.5-73.1); Platelet Count Result 156 k/mm3 (150-375); Red Blood Count 3.82 M/mm3 (4.6-6.20); Red Cell Distribution Width 13.1 % (11.5-14.5); White Blood Count 8.8 K/mm3 (4.5-10.0)
[2023-10-04 09:04] LABS: Alanine Aminotransferase 22 U/L (6-50); Alkaline Phosphatase 76 U/L (38-126); Anion Gap 9 mmol/L (4-12); Aspartate Amino Transferase 46 U/L (17-59); Bilirubin,Total 1.2 mg/dL (0.2-1.3); Blood Urea Nitrogen 14 mg/dL (9-20); Calcium 8.5 mg/dL (8.4-10.2); Carbon Dioxide 26 mmol/L (22-30); Chloride 100 mmol/L (98-107); Estimated CRCL calculation 72 ml/min; Estimated Glomerular Filt Rate > 60; Glucose 103 mg/dL (65-110); Potassium 3.3 mmol/L (3.4-5.0); Sodium 135 mmol/L (137-145)
[2023-10-04] MEDS: ACETAMINOPHEN 325 MG TABLET 650 MG PO (09:27)
--- NOTE | 2023-10-04 09:34 | WPDUROPN2 ---
Progress Note: A&P Assessment and Plan (1) Urinary retention: Code(s): R33.9 - Retention of urine, unspecified Status: Acute Assessment and Plan: And 100 cc urinary retention on presentation; Ritter catheter placed. No evidence of hydronephrosis. Likely worsened due to constipation. He has no history of retention. Continue Ritter catheter at this time. Started on tamsulosin and finasteride. Consider void trial prior to discharge pending resolution of constipation and improvement in mobility issues Subjective Subjective Date/Time Seen: 10/04/23 09:34 Interval history: Doing fair today. Very bothered by right foot pain. No issues with Ritter catheter which is draining clear yellow urine. Still has not had a bowel movement. Going to try to get up and go for a walk with OT soon Review of Systems Review of Systems: All systems reviewed & are unremarkable except as noted in HPI and below Exam Narrative: General: Awake, alert, comfortable, no acute distress HEENT: Normocephalic, atraumatic, sclerae anicteric Respiratory: Normal respiratory effort, no accessory muscle use Abdomen: Nondistended, soft, nontender : Ritter catheter draining clear yellow urine Skin: Normal coloration, warm and dry Neurologic: No focal neuro deficits noted Psychiatric: Appropriate mood and affect, judgment and insight intact Objective Data Vital Signs Vital Signs: Vital Signs - 24 hr 10/03/23 09:42 10/03/23 10:37 10/03/23 10:50 Temperature Pulse Rate Respiratory Rate Blood Pressure Pulse Oximetry Oxygen Delivery Room Air Room Air Room Air Fraction of Inspired Oxygen 10/03/23 12:00 10/03/23 16:00 10/03/23 20:00 Temperature 97.4 F L 98.7 F 99.7 F H Pulse Rate 88 95 93 Respiratory Rate 16 20 20 Blood Pressure 120/49 L 118/58 L 111/43 L Pulse Oximetry 95 94 96 Oxygen Delivery Fraction of Inspired Oxygen 10/03/23 21:13 10/03/23 21:14 10/03/23 23:40 Temperature 98.9 F Pulse Rate 82 82 88 Respiratory Rate 26 H 26 H 18 Blood Pressure 116/66 Pulse Oximetry 95 98 Oxygen Delivery CPAP Fraction of Inspired Oxygen 10/03/23 20:00 10/04/23 03:09 10/04/23 01:15 Temperature 98.2 F Pulse Rate 88 Respiratory Rate 18 Blood Pressure 126/56 L Pulse Oximetry 94 96 Oxygen Delivery Room Air CPAP Fraction of Inspired Oxygen 10/04/23 07:36 Temperature Pulse Rate Respiratory Rate Blood Pressure Pulse Oximetry 96 Oxygen Delivery Room Air Fraction of Inspired Oxygen 21 Intake/Output Intake/Output: Intake & Output 10/01/23 10/02/23 10/03/23 10/04/23 23:59 23:59 23:59 23:59 Intake Total 2240 720 716 300 Output Total 1800 1125 350 Balance 2240 -1080 -409 -50 Meds/Results Medications: Active Medications Generic Name Dose Route Start Last Admin Trade Name Freq PRN Reason Stop Dose Admin Acetaminophen 650 mg 10/02/23 21:26 10/04/23 09:27 Acetaminophen 325 Mg Tablet PO 650 mg Q4H PRN Administration pain Albuterol 2 puff 10/01/23 22:28 Albuterol Sulfate (*Sp) Aerosol 1 Puff INHALATION Q4H PRN Shortness Of Breath Or Wheezing Artificial Tears 1 drop 10/02/23 09:00 10/04/23 08:28 Artificial Tears Ophth Soln 15 Ml Bottle LEFT EYE 1 drop QAM JOLIE Administration Artificial Tears 1 drop 10/01/23 22:50 10/03/23 21:00 Artificial Tears Ophth Soln 15 Ml Bottle EACH EYE 1 drop HS JOLIE Administration Aspirin 81 mg 10/02/23 09:00 10/04/23 08:27 Aspirin 81 Mg Enteric Tablet PO 81 mg DAILY JOLIE Administration Azelastine HCl 2 spray 10/01/23 22:28 Azelastine Hcl Nasal 0.1% 137 Mcg/Spr 30 Ml Btl NASAL DAILY PRN Nasal Congestion Clonazepam 1 mg 10/02/23 09:00 10/04/23 08:27 Clonazepam (*Crx) 0.5 Mg Tablet PO 1 mg BID JOLIE Administration Cyanocobalamin 2,000 mcg 10/02/23 09:00 10/04/23 08:27 Cyanocobalamin 1,000 Mcg Tablet PO 2,000 mcg DAILY JOLIE A
--- NOTE | 2023-10-04 11:54 | P.PNIM_ITS ---
Progress Note: A&P Assessment and Plan (1) BETHANY (acute kidney injury): Code(s): N17.9 - Acute kidney failure, unspecified Status: Acute Assessment and Plan: -as evidence by elevated Scr. 2.90 -nephrology consulted appreciate recommendation and plan -continue monitor strict I&O -check renal US -check FENa -monitor BMP daily -monitor for fluid overload -avoid nephrotoxic agents - due to retention - nephrology not seeing pt at this moment- if urinary retention - will consult urology 10/03/23: * Resolved with renal function tests at 1.0/16. * Catheter remains in place until constipation resolved. * Urology has consulted and recs made to attempt bladder training prior to discharge. * Awaiting Nephrology consult. * US kidneys unremarkable 10/04/23: * Renal function remains normal at this time. * Do not want to remove whitaker until pt having regular BM's to prevent recurrence of post renal obstruction * Bladder training once having regular BMs. * Avoid NSAID's and other nephrotoxic agents as much as possible. (2) Essential (primary) hypertension: Code(s): I10 - Essential (primary) hypertension Status: Chronic Assessment and Plan: -b/p: has been hypotensive -hold home medication - monitor for now- if needed- will restart home meds 10/03/23: * BP stable today running 130s/60s. * Currently holding Telmisartan and HCTZ * Restart if needed for elevation of BP. * Continue to monitor. 10/04/23: * BP stable and running softer today at 105-120s/40s-50s. * Continue to hold HCTZ and telmisartan. * Continue to monitor. (3) Weakness: Code(s): R53.1 - Weakness Status: Acute Assessment and Plan: will add PT/OT 10/03/23: * Continue PT and OT. * Recommendations for Rehab upon discharge. * Care coordination ordered for rehab placement. * Fall precautions 10/04/23: * Continue to work with PT and OT. * Rehab on discharge * Minimal improvement being made with therapy at this time. (4) Urinary retention: Code(s): R33.9 - Retention of urine, unspecified Status: Acute Assessment and Plan: whitaker - consult urology 10/03/23: * See problem #1 * Will await bladder training until constipation has improved. * Likely secondary to post renal obstruction. 10/04/23: * Continue to monitor. (5) Constipated: Code(s): K59.00 - Constipation, unspecified Status: Acute Assessment and Plan: miralax daily prn 10/03/23: * Obstructive series is negative for any obstruction. There is gas and stool seen through to the level of the rectum. * Change Miralax to scheduled from prn. * Monitor for BM. Then consider Bladder training. 10/04/23: * No BM as of yet. * Continue Miralax * Give a dose of Lactulose this afternoon if no BM. * Bowel sounds are present and active in all four quadrants. (6) Foot pain, right: Code(s): M79.671 - Pain in right foot Status: Acute Assessment and Plan: * Right ankle xray without acute fracture or dislocation, diffuse Soft tissue edema present, probable achilles tendinosis and mineralization in the achilles tendon. * Right foot xray with calcifications again seen in the achilles tendon. Correlate for achilles tendinosis and or dysfunction. * Venous doppler without any evidence of DVT. * Compression stockings ordered * Elevate feet in bed * Tylenol PRN. Avoid NSAID's due to recent Renal failure. 10/04/23: * negative T
--- NOTE | 2023-10-04 11:54 | PM.IMPN ---
Progress Note: A&P Assessment and Plan (1) BETHANY (acute kidney injury): Code(s): N17.9 - Acute kidney failure, unspecified Status: Acute Assessment and Plan: -as evidence by elevated Scr. 2.90 -nephrology consulted appreciate recommendation and plan -continue monitor strict I&O -check renal US -check FENa -monitor BMP daily -monitor for fluid overload -avoid nephrotoxic agents - due to retention - nephrology not seeing pt at this moment- if urinary retention - will consult urology 10/03/23: Resolved with renal function tests at 1.0/16. Catheter remains in place until constipation resolved. Urology has consulted and recs made to attempt bladder training prior to discharge. Awaiting Nephrology consult. US kidneys unremarkable 10/04/23: Renal function remains normal at this time. Do not want to remove whitaker until pt having regular BM's to prevent recurrence of post renal obstruction Bladder training once having regular BMs. Avoid NSAID's and other nephrotoxic agents as much as possible. (2) Essential (primary) hypertension: Code(s): I10 - Essential (primary) hypertension Status: Chronic Assessment and Plan: -b/p: has been hypotensive -hold home medication - monitor for now- if needed- will restart home meds 10/03/23: BP stable today running 130s/60s. Currently holding Telmisartan and HCTZ Restart if needed for elevation of BP. Continue to monitor. 10/04/23: BP stable and running softer today at 105-120s/40s-50s. Continue to hold HCTZ and telmisartan. Continue to monitor. (3) Weakness: Code(s): R53.1 - Weakness Status: Acute Assessment and Plan: will add PT/OT 10/03/23: Continue PT and OT. Recommendations for Rehab upon discharge. Care coordination ordered for rehab placement. Fall precautions 10/04/23: Continue to work with PT and OT. Rehab on discharge Minimal improvement being made with therapy at this time. (4) Urinary retention: Code(s): R33.9 - Retention of urine, unspecified Status: Acute Assessment and Plan: whitaker - consult urology 10/03/23: See problem #1 Will await bladder training until constipation has improved. Likely secondary to post renal obstruction. 10/04/23: Continue to monitor. (5) Constipated: Code(s): K59.00 - Constipation, unspecified Status: Acute Assessment and Plan: miralax daily prn 10/03/23: Obstructive series is negative for any obstruction. There is gas and stool seen through to the level of the rectum. Change Miralax to scheduled from prn. Monitor for BM. Then consider Bladder training. 10/04/23: No BM as of yet. Continue Miralax Give a dose of Lactulose this afternoon if no BM. Bowel sounds are present and active in all four quadrants. (6) Foot pain, right: Code(s): M79.671 - Pain in right foot Status: Acute Assessment and Plan: Right ankle xray without acute fracture or dislocation, diffuse Soft tissue edema present, probable achilles tendinosis and mineralization in the achilles tendon. Right foot xray with calcifications again seen in the achilles tendon. Correlate for achilles tendinosis and or dysfunction. Venous doppler without any evidence of DVT. Compression stockings ordered Elevate feet in bed Tylenol PRN. Avoid NSAID's due to recent Renal failure. 10/04/23: negative Noriega's test. Continue Tramadol prn Continue RICE therapy Continue compression Consult Orthopedics, Dr. Farmer. Will not use NSAID's or steroids as pt has recent BETHANY, and am cautious with Opiates as pt is currently having severe constipation that caused post renal obstruction. Time Spent With Patient Time with patient: Greater than 35 minutes Subjective Date/time seen: 10/04/23 0945 Interval history: This pt was examined at the bedside today in interval assessment. He continues to complain of right foot pain. Soila
--- NOTE | 2023-10-04 14:46 | PM.CNOR ---
Assessment and Plan Assessment and plan (1) Foot pain, right: Code(s): M79.671 - Pain in right foot Status: Acute History of Present Illness HPI Consult date: 10/04/23 Chief complaint: urinary retention,eric Narrative: Patient is a 77-year-old gentleman who Dr. Turk and I did bilateral knee replacements on approximately 20 years ago who I am asked to see for evaluation of pain. On Tuesday, 3 days ago, he got up to walk but was too weak to walk. He did not feel any pain in his right foot at that time. He was brought to the emergency room found to have severe urinary retention with 900 cc of urine a Ritter catheter was placed. He was also noted to have an acute elevation of his creatinine which was 2.6 and then following day it was 2.9 and subsequent to that it Lisandra and now his creatinine is 0.9 today creatinine clearance 72. Urology is seen him. Tamsulosin and finasteride has been started. He has had imaging and further imaging being scheduled with respect to evaluation of his kidneys. His urinalysis was negative for signs of infection and he did not have a urine culture done during this hospitalization. Then yesterday he tried to get up had severe pain in this right foot. He states the pain was around the midfoot top and bottom primarily. He noticed that it was somewhat reddened also. Today it is much better. He has done a fair amount of walking and has only very mild soreness in the midfoot today walking and does not seem to be a significant problem for him now and the redness went away. He has never had any problems with this foot or ankle in the past. He has never been told he has gout. He had x-rays of his foot and ankle which showed changes. The only operative knee was dystrophic calcifications within the Achilles tendon. On examination today he has 2+ pedal edema and swelling around the ankle and calf symmetrically bilaterally. He had venous duplex ultrasounds today which were negative. He had tenderness to firm palpation across the right midfoot and plantar aspect of his foot. No erythema or warmth. He had very mild tenderness over the anterior ankle anteromedial and anterolateral ankle. He had no tenderness whatsoever along the Achilles tendon which was palpable and taut indicating that the tendon itself is intact and not torn. Impression: Patient very brief bout of inflammation in the right yesterday that caused pain with weight-bearing was associated with erythema. Today it is much better only a very discomfort and he has done quite a bit of walking he states without difficulty. I am suspicious that this might represent an attack of gout that might have been precipitated by elevated uric acid levels associated with his acute kidney injury. I do not see that uric acid has ever been checked and we will add that to labs drawn this morning to see if it is elevated although it might have been elevated a might be normal now. I would recommend observation since he is symptoms will resolve completely. However if he has recurrent symptoms further evaluation with recommended as indicated. I am happy to see him back on an as-needed basis. 35 minutes were spent in total care this patient PMFSH Past Medical History Medical History Allergic rhinitis, cause unspecified Asthma COVID-19 Essential (primary) hypertension IBS (irritable bowel syndrome) Normocytic normochromic anemia NICOLE treated with BiPAP Peripheral neuropathic pain Unspecified glaucoma Family History Family History Mother Hypertension, Onset Age: 81 Cerebrovascular accident, Onset Age: 81 Father Asthma, Onset Age: 82 Acute myocardial infarction, Onset Age: 82 Diabetes mellitus, Onset Age: 82 Family history of allergic disorder, Onset Age: 82 Other Lupus Other Carcinoma of colon Social History
[2023-10-04 15:15] LABS: Uric Acid 6.4 mg/dL (3.5-8.5)
[2023-10-04] MEDS: traMADol HCL (*CRX) 50 MG TABLET PO (17:37)
[2023-10-04] MEDS: LACTULOSE 20 GM/30 ML UDC PO (17:42)
[2023-10-04] MEDS: LATANOPROST 0.005% OP SOLN 2.5 ML BTL 1 DROP EACH EYE (21:25)
[2023-10-04] MEDS: ARTIFICIAL TEARS OPHTH SOLN 15 ML BOTTLE 1 DROP EACH EYE (21:25)
[2023-10-05] VITALS (8 sets, daily range): BP systolic 107–131; BP diastolic 50–63; PULSE 65–89; RESP 16–20; TEMP 36.4–37.3; O2SAT 94–98
[2023-10-05 06:54] LABS: Basophils Absolute Auto 0.1 K/mm3 (0.0-0.1); Basophils Percent Auto 0.7 % (0.2-1.2); Eosinophils Absolute Auto 0.3 K/mm3 (0-0.3); Eosinophils Percent Auto 4.5 % (0-4.4); Hemoglobin 11.7 g/dL (14.0-18.0); Immature Granulocyte Absolute 0.06 K/mm3 (0.00-0.031); Immature Granulocyte Percent A 0.8 % (0-0.5); Lymphocytes Absolute Auto 1.06 K/mm3 (0.9-3.2); Mean Corpuscular HGB Conc 32.5 g/dl (32-36); Mean Corpuscular Hemoglobin 32.3 pg (26-34); Mean Corpuscular Volume 99.4 fl (80-100); Mean Platelet Volume 9.6 fl (7.4-10.4); Monocytes Absolute Auto 0.9 K/mm3 (0.1-0.6); Monocytes Percent Auto 12.3 % (2.6-8.5); Neutrophils Absolute Auto 5.1 K/mm3 (1.3-6.7); Neutrophils Percent Auto 67.7 % (45.5-73.1); Platelet Count Result 160 k/mm3 (150-375); Red Blood Count 3.62 M/mm3 (4.6-6.20); White Blood Count 7.6 K/mm3 (4.5-10.0)
[2023-10-05 07:09] LABS: Alanine Aminotransferase 28 U/L (6-50); Albumin Level 2.8 g/dL (3.5-5.1); Alkaline Phosphatase 77 U/L (38-126); Anion Gap 7 mmol/L (4-12); Aspartate Amino Transferase 40 U/L (17-59); Bilirubin,Total 0.7 mg/dL (0.2-1.3); Blood Urea Nitrogen 12 mg/dL (9-20); Calcium 8.4 mg/dL (8.4-10.2); Carbon Dioxide 27 mmol/L (22-30); Chloride 101 mmol/L (98-107); Estimated CRCL calculation 81 ml/min; Estimated Glomerular Filt Rate > 60; Glucose 110 mg/dL (65-110); Potassium 3.6 mmol/L (3.4-5.0); Sodium 135 mmol/L (137-145)
[2023-10-05] MEDS: FLUTICASONE/SALMETEROL 230-21 MCG INHALER 1 PUFF 2 PUFF INHALATION ×2 (08:57→20:30)
[2023-10-05] MEDS: ALBUTEROL SULFATE (*SP) AEROSOL 1 PUFF 2 PUFF INHALATION ×2 (09:02→13:30)
[2023-10-05] MEDS: polyethylene glycoL 3350 17 GM POWD.PACK PO (09:30)
[2023-10-05] MEDS: ARTIFICIAL TEARS OPHTH SOLN 15 ML BOTTLE 1 DROP LEFT EYE (09:31)
[2023-10-05] MEDS: clonazePAM (*CRX) 0.5 MG TABLET 1 MG PO ×2 (09:36→16:57)
[2023-10-05] MEDS: PANTOPRAZOLE 40 MG TABLET PO ×2 (09:36→16:57)
[2023-10-05] MEDS: ZINC SULFATE 220 MG CAPSULE PO (09:36)
[2023-10-05] MEDS: ASPIRIN 81 MG ENTERIC TABLET PO (09:37)
[2023-10-05] MEDS: GABAPENTIN 300 MG CAPSULE PO (09:37)
[2023-10-05] MEDS: TAMSULOSIN HCL 0.4 MG CAPSULE PO (09:37)
[2023-10-05] MEDS: FINASTERIDE 5 MG TABLET PO (09:37)
[2023-10-05] MEDS: CYANOCOBALAMIN 1,000 MCG TABLET 2000 MCG PO (09:37)
[2023-10-05] MEDS: CHOLECALCIFEROL 1,000 UNITS TABLET 1000 UNITS PO (09:37)
[2023-10-05] MEDS: TIMOLOL MALEATE 0.5% OP SOLN 5 ML BOTTLE 1 DROP EACH EYE ×2 (09:38→21:59)
[2023-10-05] MEDS: ZAFIRLUKAST 20 MG TABLET PO ×2 (09:38→21:59)
[2023-10-05] MEDS: FLUTICASONE PROPIONATE 0.05% NA SPR 16 GM BTL (*BKC) 1 SPRAY NASAL (09:38)
[2023-10-05] MEDS: HEPARIN SODIUM 5,000 UNITS/ML VIAL 5000 UNITS SUB-Q ×2 (09:42→21:59)
--- NOTE | 2023-10-05 13:49 | WPDUROPN2 ---
Progress Note: A&P Assessment and Plan (1) Urinary retention: Code(s): R33.9 - Retention of urine, unspecified Status: Acute Assessment and Plan: 900 cc urinary retention on presentation; Whitaker catheter placed. No evidence of hydronephrosis. Likely worsened due to constipation. He has no history of retention. Started on tamsulosin and finasteride and will continue. With constipation improving, would proceed with void trial likely tomorrow AM. Subjective Subjective Date/Time Seen: 10/05/23 13:49 Interval history: Feeling fair today. Still complaining of weakness. Continues to endorse constipation but reportedly had a BM yesterday. No issues with whitaker cathetr which is draining clear yellow urine. Review of Systems Review of Systems: All systems reviewed & are unremarkable except as noted in HPI and below Exam Narrative: General: Awake, alert, comfortable, no acute distress HEENT: Normocephalic, atraumatic, sclerae anicteric Respiratory: Normal respiratory effort, no accessory muscle use Abdomen: Nondistended, soft, nontender : Whitaker catheter draining clear yellow urine Skin: Normal coloration, warm and dry Neurologic: No focal neuro deficits noted Psychiatric: Appropriate mood and affect, judgment and insight intact Objective Data Vital Signs Vital Signs: Vital Signs - 24 hr 10/04/23 16:00 10/04/23 20:00 10/04/23 21:30 Temperature 97.2 F L 99.5 F Pulse Rate 78 84 80 Respiratory Rate 16 16 18 Blood Pressure 105/46 L 123/58 L Pulse Oximetry 97 97 Oxygen Delivery 10/04/23 20:00 10/05/23 00:00 10/05/23 03:08 Temperature 99.2 F 98.8 F Pulse Rate 82 65 Respiratory Rate 16 18 Blood Pressure 118/54 L 126/56 L Pulse Oximetry 97 95 Oxygen Delivery Room Air 10/05/23 07:59 10/05/23 11:44 Temperature 98.1 F 97.8 F Pulse Rate 77 76 Respiratory Rate 18 20 Blood Pressure 121/63 107/55 L Pulse Oximetry 95 98 Oxygen Delivery Intake/Output Intake/Output: Intake & Output 10/02/23 10/03/23 10/04/23 10/05/23 23:59 23:59 23:59 23:59 Intake Total 720 716 894 720 Output Total 1800 1125 1000 375 [facility] -1080 -409 -106 345 Meds/Results Medications: Active Medications Generic Name Dose Route Start Last Admin Trade Name Freq PRN Reason Stop Dose Admin Acetaminophen 650 mg 10/02/23 21:26 10/04/23 09:27 Acetaminophen 325 Mg Tablet PO 650 mg Q4H PRN Administration pain Albuterol 2 puff 10/01/23 22:28 10/05/23 13:30 Albuterol Sulfate (*Sp) Aerosol 1 Puff INHALATION 2 puff Q4H PRN Administration Shortness Of Breath Or Wheezing Artificial Tears 1 drop 10/02/23 09:00 10/05/23 09:31 Artificial Tears Ophth Soln 15 Ml Bottle LEFT EYE 1 drop QAM JOLIE Administration Artificial Tears 1 drop 10/01/23 22:50 10/04/23 21:25 Artificial Tears Ophth Soln 15 Ml Bottle EACH EYE 1 drop HS JOLIE Administration Aspirin 81 mg 10/02/23 09:00 10/05/23 09:37 Aspirin 81 Mg Enteric Tablet PO 81 mg DAILY JOLIE Administration Azelastine HCl 2 spray 10/01/23 22:28 Azelastine Hcl Nasal 0.1% 137 Mcg/Spr 30 Ml Btl NASAL DAILY PRN Nasal Congestion Clonazepam 1 mg 10/02/23 09:00 10/05/23 09:36 Clonazepam (*Crx) 0.5 Mg Tablet PO 1 mg BID JOLIE Administration Cyanocobalamin 2,000 mcg 10/02/23 09:00 10/05/23 09:37 Cyanocobalamin 1,000 Mcg Tablet PO 2,000 mcg DAILY JOLIE Administration Finasteride 5 mg 10/03/23 09:40 10/05/23 09:37 Finasteride 5 Mg Tablet PO 5 mg QAM JOLIE Administration Fluticasone Propionate 1 spray 10/02/23 09:00 10/05/23 09:38 Fluticasone Propionate 0.05% Na Spr 16 Gm Btl (*Bkc) NASAL 1 spray DAILY JOLIE Administration Gabapentin 300 mg 10/02/23 09:00 10/05/23 09:37 Gabapentin 300 Mg Capsule PO 300 mg DAILY JOLIE Administration Heparin Sodium (Porcine) 5,000 units 10/02/23 09:00 10/05/23 09:42 Heparin Sodium 5,000 Units/Ml Vial
[2023-10-05] MEDS: LATANOPROST 0.005% OP SOLN 2.5 ML BTL 1 DROP EACH EYE (21:59)
[2023-10-05] MEDS: ARTIFICIAL TEARS OPHTH SOLN 15 ML BOTTLE 1 DROP EACH EYE (21:59)
[2023-10-06 04:00] VITALS: BP 121/54; PULSE 76; RESP 18; TEMP 36.2; O2SAT 94
[2023-10-06 06:22] LABS: Basophils Percent Auto 0.4 % (0.2-1.2); Eosinophils Absolute Auto 0.3 K/mm3 (0-0.3); Eosinophils Percent Auto 4.2 % (0-4.4); Hematocrit 35.1 % (42.0-52.0); Hemoglobin 11.5 g/dL (14.0-18.0); Immature Granulocyte Absolute 0.06 K/mm3 (0.00-0.031); Immature Granulocyte Percent A 0.7 % (0-0.5); Lymphocytes Absolute Auto 1.09 K/mm3 (0.9-3.2); Lymphocytes Percent Auto 13.6 % (18.3-44.2); Mean Corpuscular HGB Conc 32.8 g/dl (32-36); Mean Corpuscular Hemoglobin 32.2 pg (26-34); Mean Corpuscular Volume 98.3 fl (80-100); Mean Platelet Volume 9.4 fl (7.4-10.4); Monocytes Percent Auto 12.5 % (2.6-8.5); Neutrophils Absolute Auto 5.5 K/mm3 (1.3-6.7); Neutrophils Percent Auto 68.6 % (45.5-73.1); Platelet Count Result 190 k/mm3 (150-375); Red Blood Count 3.57 M/mm3 (4.6-6.20); Red Cell Distribution Width 12.9 % (11.5-14.5)
[2023-10-06 06:38] LABS: Alanine Aminotransferase 24 U/L (6-50); Albumin Level 2.9 g/dL (3.5-5.1); Alkaline Phosphatase 79 U/L (38-126); Anion Gap 6 mmol/L (4-12); Aspartate Amino Transferase 30 U/L (17-59); Bilirubin,Total 0.9 mg/dL (0.2-1.3); Blood Urea Nitrogen 13 mg/dL (9-20); Calcium 8.6 mg/dL (8.4-10.2); Carbon Dioxide 30 mmol/L (22-30); Chloride 98 mmol/L (98-107); Estimated CRCL calculation 65 ml/min; Estimated Glomerular Filt Rate > 60; Glucose 108 mg/dL (65-110); Potassium 3.9 mmol/L (3.4-5.0); Sodium 134 mmol/L (137-145)
[2023-10-06 08:00] VITALS: BP 106/46; PULSE 79; RESP 16; TEMP 36.7; O2SAT 94
[2023-10-06] MEDS: FLUTICASONE/SALMETEROL 230-21 MCG INHALER 1 PUFF 2 PUFF INHALATION (08:29)
[2023-10-06 08:34] VITALS: PULSE 79; RESP 16; O2SAT 96
[2023-10-06] MEDS: TAMSULOSIN HCL 0.4 MG CAPSULE PO (08:53)
[2023-10-06] MEDS: ZAFIRLUKAST 20 MG TABLET PO (08:53)
[2023-10-06] MEDS: FINASTERIDE 5 MG TABLET PO (08:53)
[2023-10-06] MEDS: CYANOCOBALAMIN 1,000 MCG TABLET 2000 MCG PO (08:53)
[2023-10-06] MEDS: clonazePAM (*CRX) 0.5 MG TABLET 1 MG PO ×2 (08:53→16:49)
[2023-10-06] MEDS: ZINC SULFATE 220 MG CAPSULE PO (08:53)
[2023-10-06] MEDS: ASPIRIN 81 MG ENTERIC TABLET PO (08:53)
[2023-10-06] MEDS: PANTOPRAZOLE 40 MG TABLET PO ×2 (08:53→16:49)
[2023-10-06] MEDS: polyethylene glycoL 3350 17 GM POWD.PACK PO (08:54)
[2023-10-06] MEDS: HEPARIN SODIUM 5,000 UNITS/ML VIAL 5000 UNITS SUB-Q (08:54)
[2023-10-06] MEDS: COLCHICINE 0.6 MG TABLET PO (08:57)
[2023-10-06] MEDS: GABAPENTIN 300 MG CAPSULE PO (08:57)
[2023-10-06] MEDS: CHOLECALCIFEROL 1,000 UNITS TABLET 1000 UNITS PO (08:57)
[2023-10-06] MEDS: FLUTICASONE PROPIONATE 0.05% NA SPR 16 GM BTL (*BKC) 1 SPRAY NASAL (08:58)
[2023-10-06] MEDS: ARTIFICIAL TEARS OPHTH SOLN 15 ML BOTTLE 1 DROP LEFT EYE (08:58)
[2023-10-06] MEDS: TIMOLOL MALEATE 0.5% OP SOLN 5 ML BOTTLE 1 DROP EACH EYE (08:59)
--- NOTE | 2023-10-06 09:49 | WPDUROPN2 ---
Progress Note: A&P Assessment and Plan (1) Urinary retention: Code(s): R33.9 - Retention of urine, unspecified Status: Acute Assessment and Plan: 900 cc urinary retention on presentation; Ritter catheter placed. No evidence of hydronephrosis. Likely worsened due to constipation. He has no history of retention. Started on tamsulosin and finasteride and will continue. Can proceed with void trial prior to discharge pending improvement of constipation and mobility issues. There is now discussion of inpatient rehab. Could proceed with void trial at rehab facility if constipation does not resolve prior to hospital discharge. Subjective Subjective Date/Time Seen: 10/06/23 09:49 Interval history: Patient reports feeling poorly today. States he has not had a bowel movement yesterday or today. Reports no issues with Ritter catheter. Review of Systems Review of Systems: All systems reviewed & are unremarkable except as noted in HPI and below Exam Narrative: General: Awake, alert, comfortable, no acute distress HEENT: Normocephalic, atraumatic, sclerae anicteric Respiratory: Normal respiratory effort, no accessory muscle use Abdomen: Nondistended, soft, nontender : Ritter catheter draining clear yellow urine Skin: Normal coloration, warm and dry Neurologic: No focal neuro deficits noted Psychiatric: Appropriate mood and affect, judgment and insight intact Objective Data Vital Signs Vital Signs: Vital Signs - 24 hr 10/05/23 11:44 10/05/23 16:00 10/05/23 20:00 Temperature 97.8 F 98.8 F 98.4 F Pulse Rate 76 89 86 Respiratory Rate 20 18 18 Blood Pressure 107/55 L 116/50 L 131/59 L Pulse Oximetry 98 96 95 Oxygen Delivery Fraction of Inspired Oxygen 10/05/23 20:30 10/05/23 23:31 10/05/23 21:59 Temperature 97.5 F L Pulse Rate 84 Respiratory Rate 20 Blood Pressure 114/59 L Pulse Oximetry 95 94 Oxygen Delivery Room Air Room Air Fraction of Inspired Oxygen 10/06/23 04:00 10/06/23 08:00 10/06/23 08:34 Temperature 97.1 F L 98.1 F Pulse Rate 76 79 Respiratory Rate 18 16 Blood Pressure 121/54 L 106/46 L Pulse Oximetry 94 94 96 Oxygen Delivery Room Air Fraction of Inspired Oxygen 10/06/23 08:34 Temperature Pulse Rate 79 Respiratory Rate 16 Blood Pressure Pulse Oximetry Oxygen Delivery Fraction of Inspired Oxygen Intake/Output Intake/Output: Intake & Output 10/03/23 10/04/23 10/05/23 10/06/23 23:59 23:59 23:59 23:59 Intake Total 716 894 956 50 Output Total 1125 1000 375 150 Balance -409 -106 581 -100 Meds/Results Medications: Active Medications Generic Name Dose Route Start Last Admin Trade Name Freq PRN Reason Stop Dose Admin Acetaminophen 650 mg 10/02/23 21:26 10/04/23 09:27 Acetaminophen 325 Mg Tablet PO 650 mg Q4H PRN Administration pain Albuterol 2 puff 10/01/23 22:28 10/05/23 13:30 Albuterol Sulfate (*Sp) Aerosol 1 Puff INHALATION 2 puff Q4H PRN Administration Shortness Of Breath Or Wheezing Artificial Tears 1 drop 10/02/23 09:00 10/06/23 08:58 Artificial Tears Ophth Soln 15 Ml Bottle LEFT EYE 1 drop QAM JOLIE Administration Artificial Tears 1 drop 10/01/23 22:50 10/05/23 21:59 Artificial Tears Ophth Soln 15 Ml Bottle EACH EYE 1 drop HS JOLIE Administration Aspirin 81 mg 10/02/23 09:00 10/06/23 08:53 Aspirin 81 Mg Enteric Tablet PO 81 mg DAILY JOLIE Administration Azelastine HCl 2 spray 10/01/23 22:28 Azelastine Hcl Nasal 0.1% 137 Mcg/Spr 30 Ml Btl NASAL DAILY PRN Nasal Congestion Clonazepam 1 mg 10/02/23 09:00 10/06/23 08:53 Clonazepam (*Crx) 0.5 Mg Tablet PO 1 mg BID JOLIE Administration Colchicine 0.6 mg 10/06/23 09:00 10/06/23 08:57 Colchicine 0.6 Mg Tablet PO 0.6 mg Q12HR JOLIE Administration Cyanocobalamin 2,000 mcg 10/02/23 09:00 10/06/23 08:53 Cyanocobalamin 1,000 Mcg Tablet PO 2,000 mcg JAMIE
[2023-10-06 12:00] VITALS: BP 109/69; PULSE 94; RESP 14; TEMP 36.7; O2SAT 94
--- NOTE | 2023-10-06 15:26 | PM.DS ---
DS: Admitting Diagnosis Discharge Date 10/06/2023 Admitting Diagnosis Urinary retention DS: Discharge Diagnosis Discharge Diagnosis (1) Urinary retention: Code(s): R33.9 - Retention of urine, unspecified Status: Acute Assessment and Plan: Whitaker catheter placed. Voiding trials to be done prior to discharge and patient to be discharged with the catheter if he's not successful with the voiding trials. Plan Discharge to inpatient rehab. DS: Summary Hospital Course Reason for hospitalization: Constipation, urinary retention. Hospital Course: Patient presented to the ER with reports of constipation and increased generalized muscle weakness. He was also suspected with urinary retention and had a bladder scan done that showed 900 cc urinary retention on presentation. Whitaker catheter placed whitaker catheter was placed and the urologist was consulted, recommending maintaining of the catheter with bladder trials prior to hospital discharge. Patient was also noted with BETHANY possibly from urinary retention, and this has resolved prior to discharge. He was constipated when he presented and was placed on a bowel regimen that resolved the problem. The patient has also been observed with increased generalized muscle weakness, and inpatient rehab placement was recommended by PT/OT evaluation, who worked with the patient inpatient. Patient is currently medically stable for discharge to rehab with no acute distressful symptoms noted or reported prior to discharge. Patient will be discharged with the whitaker catheter if he's unable to succeed in the voiding trials. Status at Discharge Functional status at discharge: uses cane/walker Overall status at discharge: patient is progressing back to baseline Time Spent with Patient Time attestation: Total time spent providing and/or coordinating discharge services: Time spent: Greater than 30 minutes Exam Narrative: General: Awake, alert, comfortable, generalized muscle weakness HEENT: Normocephalic, atraumatic, sclerae anicteric Respiratory: Normal respiratory effort, no accessory muscle use Abdomen: Nondistended, soft, nontender : Whitaker catheter draining clear yellow urine Skin: Normal coloration, warm and dry Neurologic: No focal neuro deficits noted Psychiatric: Appropriate mood and affect, judgment and insight intact Const: General: comfortable Resp: Effort & Inspection: normal respiratory effort Cardio: Rate: regular rate Rhythm: regular rhythm : Other: Whitaker in place. Urinary Catheter: Urinary Catheter: patent and draining Skin: General skin exam: normal color Neuro: Speech: normal speech Extrem: General: normal to inspection Psych: Mental Status: mental status grossly normal DS: Data Data Completed and Pending Labs on day of discharge: Labs from last 24 hours 10/06/23 06:03 WBC 8.0 RBC 3.57 L Hgb 11.5 L Hct 35.1 L MCV 98.3 MCH 32.2 MCHC 32.8 RDW 12.9 Plt Count 190 MPV 9.4 Immature Gran % (Auto) 0.7 H Neut % (Auto) 68.6 Lymph % (Auto) 13.6 L Island % (Auto) 12.5 H Eos % (Auto) 4.2 Baso % (Auto) 0.4 Lymph # (Auto) 1.09 Island # (Auto) 1.0 H Eos # (Auto) 0.3 Baso # (Auto) 0.0 Abs Immat Gran (auto) 0.06 H Absolute Neuts (auto) 5.5 Absolute Nucleated RBC 0.000 Nucleated RBC % 0.0 Sodium 134 L Potassium 3.9 Chloride 98 Carbon Dioxide 30 Anion Gap 6 BUN 13 Creatinine 1.00 Estim Creat Clear Calc 65 Estimated GFR > 60 Glucose 108 Calcium 8.6 Total Bilirubin 0.9 AST 30 ALT 24 Alkaline Phosphatase 79 Total Protein 6.0 L Albumin 2.9 L Preliminary micro results at discharge 10/01/23 12:22 Blood Culture - Preliminary Blood 10/01/23 12:22 Blood Culture - Preliminary Blood Discharge Plan Discharge Attending physician on discharge: Dallas Hart Consulting providers: Inocente Mesa; Issa Farmer Discharging Clinician: Rachel Gomez Antic
== END 2023-10-06 16:53 | disposition swing bed (61) ==
LOC: ANHED 14:47 → ANH3MEDSUR 10-03 06:09
PROVIDERS: Emergency Medicine; Nurse Practitioner; Orthopaedic Surgery; Admitting Provider Family Medicine; Emergency Provider Emergency Medicine; PCP Family Medicine; Visit Provider Nurse Practitioner Adult Health
DX: N17.9 Acute kidney failure, unspecified (principal); R33.9 Retention of urine, unspecified; I95.9 Hypotension, unspecified; R53.1 Weakness; K59.00 Constipation, unspecified; M79.671 Pain in right foot; M79.89 Other specified soft tissue disorders; I10 Essential (primary) hypertension; G47.33 Obstructive sleep apnea (adult) (pediatric); J45.909 Unspecified asthma, uncomplicated; D64.9 Anemia, unspecified; G62.9 Polyneuropathy, unspecified; K58.9 Irritable bowel syndrome, unspecified; Z79.82 Long term (current) use of aspirin; Z79.51 Long term (current) use of inhaled steroids; Z20.822 Contact with and (suspected) exposure to COVID-19
CPT/HCPCS: 36415; 71046; 73610; 73630; 74019; 74177; 76775; 80053; 81001; 82948; 83605; 83690; 83880; 84300; 84484; 84550; 85025; 85055; 85610; 85730; 87040; 87637; 93005; 93971; 94640; 96360; 96361; 96372; 97110; 97116; 97161; 97165; 97530; 97535; 99285; A9270; G0378; J1644; J7030; J7040; Q9967

== ENCOUNTER 2023-10-06 17:35 | Inpatient (IN) | payer OTHER, MEDICARE, SELFPAY ==
--- NOTE | ~2023-10-06 | XR_ITS ---
Right foot Technique: AP and lateral views were obtained. Clinical History: Pain Findings: No acute fracture or dislocation is seen. Osseous alignment is anatomic. Joint spaces are p reserved without erosive or degenerative change. Soft tissues are unremarkable. Impression: Unremarkable right foot radiographs. Reviewed, dictated and finalized at [facility]. Impression: Unremarkable right foot radiographs.
[2023-10-06 18:00] VITALS: BP 117/62; PULSE 96; RESP 17; TEMP 36.2; O2SAT 97
--- NOTE | 2023-10-06 18:06 | ADMGEN ---
This patient, Stephenie Hoon III, was admitted to 2nd Floor Room 205-1. Patient/family oriented to hospital policies and general routines including ID bracelet, bed and alarms, visiting hours, pain management, procedures, bathroom and other care routines, personal items, smoking policy, room service/diet, and visiting hours. Information on how to activate the Rapid Response Team has been discussed. Patient/Family are encouraged to report perceived risks to care and to ask questions if they do not understand what they are told or what they should do.
[2023-10-06] MEDS: LATANOPROST 0.005% OP SOLN 2.5 ML BTL 1 DROP EACH EYE (21:03)
[2023-10-06] MEDS: LOVASTATIN 10 MG TABLET PO (21:04)
[2023-10-06] MEDS: MELATONIN 5 MG TABLET PO (21:04)
[2023-10-06] MEDS: TIMOLOL MALEATE 0.5% OP SOLN 5 ML BOTTLE 1 DROP EACH EYE (21:05)
[2023-10-06] MEDS: ARTIFICIAL TEARS OPHTH SOLN 15 ML BOTTLE 1 DROP EACH EYE (21:05)
--- NOTE | 2023-10-06 21:40 | PC.NURSE ---
Patient had no output since arriving. Bladder scan showed 513cc. Ritter cath placed.
[2023-10-07] VITALS: BP 102/46; PULSE 86; RESP 15; TEMP 36.2; O2SAT 95
[2023-10-07 05:59] LABS: Potassium 3.6 mmol/L (3.5-5.1)
[2023-10-07] MEDS: SALMET XINAFT/FLUTIC PROPIN 500 MCG/50 MCG INH CAP 1 PUFF INHALATION ×2 (06:47→17:44)
[2023-10-07 08:00] VITALS: BP 116/57; PULSE 83; RESP 17; TEMP 35.9; O2SAT 97
--- NOTE | 2023-10-07 08:11 | PM.IMHP ---
H&P: HPI History of Present Illness Date/Time: 10/07/23 08:11 Chief Complaint: Generalized Weakness Narrative: Patient is a 77-year-old male who is transferred to [facility] for rehab. Patient was admitted to [facility] with generalized weakness, urinary retention and BETHANY. patient had had no history of previous urinary retention initially Ritter catheter was placed in a consult to Urology done patient was started on Flomax. patient also had complaints of constipation and was provided a bowel regiment voiding trial was attempted post BM however patient continued to urinary retention and Ritter catheter was replaced here at [employer]. Will attempt voiding trials and 40-72 hours. patient was also treated for gout flare-up reports he has no known history however uric acid was within normal limits we will discontinue colchicine as well as discontinue patient's hydrochlorothiazide to help prevent any further flare-ups. patient had had x-rays on right foot which showed no acute issues was also seen by Orthopedics who also indicated this is likely a gout flare up. of note patient is on gabapentin and has history of neuropathy. patient's BETHANY improved and he was back to baseline still with some generalized weakness and was discharged over to [facility] for further rehab. on assessment did note 1 to 2+ pitting edema BLE, was seen a sales driver with recent event monitor for 2 weeks due to syncopal episode which did show 1 event of a 3.3 pause last echocardiogram was 01/2023 that showed diastolic heart failure with preserved ejection fraction, we will get follow-up echocardiogram. patient denies any shortness of breath, chest pain, nausea, vomiting, fever chills did report some mild constipation resumed his bowel regimen at this time. Review of Systems Review of Systems: All systems reviewed & are unremarkable except as noted in HPI and below PMFSH Past Medical History Medical History Allergic rhinitis, cause unspecified Asthma COVID-19 Essential (primary) hypertension IBS (irritable bowel syndrome) Normocytic normochromic anemia NICOLE treated with BiPAP Peripheral neuropathic pain Unspecified glaucoma Family History Family History Mother Hypertension, Onset Age: 81 Cerebrovascular accident, Onset Age: 81 Father Asthma, Onset Age: 82 Acute myocardial infarction, Onset Age: 82 Diabetes mellitus, Onset Age: 82 Family history of allergic disorder, Onset Age: 82 Other Lupus Other Carcinoma of colon Social History Social History Smoking status: Never smoker Alcohol intake: never Substance use: never Substance use type: does not use Do You Feel Safe in your Home?: Yes Lack of Transportation: No Lack of Food: Never True Current Housing: I Have Housing Concerned About Future Housing: No Difficulty Paying Gas/Electric Bills: No Difficulty Paying for Meds: No Currently Unemployed: No Education: Decline to Answer Difficulty w/ Childcare or Family Care: No Living arrangements: with family Spiritual care concerns: No Meds Home Medications and Allergies Home Medications Medication Instructions Recorded Confirmed Type cyanocobalamin (vitamin B-12) 2,000 mcg PO DAILY 12/27/18 10/06/23 History 2,000 mcg tablet aspirin 81 mg tablet,delayed 81 mg PO DAILY 02/02/19 10/06/23 History release fexofenadine 60 mg-pseudoephedrine 1 tablet PO Q12H 02/02/19 10/06/23 History ER 120 mg tablet,ext.release,12 hr (Jeni-D 12 Hour) latanoprost 0.005 % eye drops 1 drop ophthalmic (eye) HS 02/02/19 10/06/23 History timolol 0.5 % eye drops 1 drop ophthalmic (eye) Q12H 02/02/19 10/06/23 History fluticasone 500 mcg-salmeterol 50 1 inhalation inhalation Q12H
[2023-10-07] MEDS: UMECLIDINIUM BROMIDE 62.5 MCG ELLIPTA 1 PUFF INHALATION (10:09)
[2023-10-07] MEDS: TAMSULOSIN HCL 0.4 MG CAPSULE PO (10:10)
[2023-10-07] MEDS: CHOLECALCIFEROL 1,000 UNITS TABLET 1000 UNITS PO (10:10)
[2023-10-07] MEDS: GABAPENTIN 300 MG CAPSULE PO (10:10)
[2023-10-07] MEDS: clonazePAM (*CRX) 0.5 MG TABLET 1 MG PO ×2 (10:11→17:44)
[2023-10-07] MEDS: PANTOPRAZOLE 40 MG TABLET PO ×2 (10:11→20:36)
[2023-10-07] MEDS: ASPIRIN 81 MG ENTERIC TABLET PO (10:11)
[2023-10-07] MEDS: COLCHICINE 0.6 MG TABLET PO ×2 (10:11→17:44)
[2023-10-07] MEDS: CYANOCOBALAMIN 1,000 MCG TABLET 2000 MCG PO (10:11)
[2023-10-07] MEDS: ZAFIRLUKAST 20 MG TABLET PO ×2 (10:11→20:09)
[2023-10-07] MEDS: POTASSIUM CHLORIDE 20 MEQ ER TABLET PO (10:13)
[2023-10-07] MEDS: TIMOLOL MALEATE 0.5% OP SOLN 5 ML BOTTLE 1 DROP EACH EYE ×2 (10:14→20:09)
[2023-10-07] MEDS: FLUTICASONE PROPIONATE 0.05% NA SPR 16 GM BTL (*BKC) 1 SPRAY NASAL (10:14)
[2023-10-07] MEDS: polyethylene glycoL 3350 17 GM POWD.PACK PO (10:14)
[2023-10-07] MEDS: guaiFENesin 200 MG/10 ML UDC PO (10:17)
[2023-10-07] MEDS: ZINC SULFATE 220 MG CAPSULE PO (10:24)
[2023-10-07] MEDS: TELMISARTAN 40 MG TABLET 80 MG PO (11:12)
[2023-10-07 16:00] VITALS: BP 125/62; PULSE 86; RESP 16; TEMP 36.1; O2SAT 96
[2023-10-07 20:08] VITALS: PULSE 75; O2SAT 98
[2023-10-07] MEDS: LOVASTATIN 10 MG TABLET PO (20:09)
[2023-10-07] MEDS: LORATADINE 10 MG TABLET PO (20:09)
[2023-10-07] MEDS: ARTIFICIAL TEARS OPHTH SOLN 15 ML BOTTLE 1 DROP EACH EYE (20:09)
[2023-10-07] MEDS: DOCUSATE SODIUM 100 MG CAPSULE 200 MG PO (20:09)
[2023-10-07] MEDS: LATANOPROST 0.005% OP SOLN 2.5 ML BTL 1 DROP EACH EYE (20:09)
[2023-10-07] MEDS: ONDANSETRON HCL ODT 4 MG TABLET PO (23:43)
[2023-10-07] MEDS: ACETAMINOPHEN 325 MG TABLET 650 MG PO (23:44)
--- NOTE | 2023-10-07 23:45 | PC.NURSE ---
Patient c/o insomnia, PRN Melatonin given. Patient states he takes Nyquil at home per MD recommendation, and would like to continue that order here. Will update SHIPPING AND RECEIVING WEIGHER with rounds tomorrow d/t non-urgent nature of request. Patient also c/o puritis lotion applied with limited effectiveness.
[2023-10-07] MEDS: MELATONIN 5 MG TABLET PO (23:47)
[2023-10-08] VITALS: BP 120/66; PULSE 89; RESP 17; TEMP 36.2; O2SAT 94
[2023-10-08 08:00] VITALS: BP 117/65; PULSE 74; RESP 16; TEMP 35.9; O2SAT 97
[2023-10-08] MEDS: polyethylene glycoL 3350 17 GM POWD.PACK PO (08:30)
[2023-10-08] MEDS: guaiFENesin 200 MG/10 ML UDC PO ×2 (08:31→20:21)
[2023-10-08] MEDS: CHOLECALCIFEROL 1,000 UNITS TABLET 1000 UNITS PO (08:32)
[2023-10-08] MEDS: FLUTICASONE PROPIONATE 0.05% NA SPR 16 GM BTL (*BKC) 1 SPRAY NASAL (08:32)
[2023-10-08] MEDS: TELMISARTAN 40 MG TABLET 80 MG PO (08:33)
[2023-10-08] MEDS: ACETAMINOPHEN 325 MG TABLET 650 MG PO (08:34)
[2023-10-08] MEDS: clonazePAM (*CRX) 0.5 MG TABLET 1 MG PO ×2 (08:36→16:49)
[2023-10-08] MEDS: PANTOPRAZOLE 40 MG TABLET PO ×2 (08:36→20:21)
[2023-10-08] MEDS: TAMSULOSIN HCL 0.4 MG CAPSULE PO (08:36)
[2023-10-08] MEDS: FUROSEMIDE 20 MG TABLET PO (08:37)
[2023-10-08] MEDS: COLCHICINE 0.6 MG TABLET PO ×2 (08:37→16:48)
[2023-10-08] MEDS: CYANOCOBALAMIN 1,000 MCG TABLET 2000 MCG PO (08:38)
[2023-10-08] MEDS: ZAFIRLUKAST 20 MG TABLET PO ×2 (08:38→20:21)
[2023-10-08] MEDS: POTASSIUM CHLORIDE 20 MEQ ER TABLET PO (08:39)
[2023-10-08] MEDS: GABAPENTIN 300 MG CAPSULE PO (08:41)
[2023-10-08] MEDS: ASPIRIN 81 MG ENTERIC TABLET PO (08:41)
[2023-10-08] MEDS: TIMOLOL MALEATE 0.5% OP SOLN 5 ML BOTTLE 1 DROP EACH EYE ×2 (08:42→20:21)
[2023-10-08] MEDS: UMECLIDINIUM BROMIDE 62.5 MCG ELLIPTA 1 PUFF INHALATION (08:42)
[2023-10-08] MEDS: ZINC SULFATE 220 MG CAPSULE PO (08:42)
--- NOTE | 2023-10-08 08:58 | PM.EVENT ---
Event Note Event Note Event Note: Patient doing well today, BLE edema improved with low dose lasix echo scheduled for 09/10/2023. Will attempt bladder trials in 48-72 hours.
[2023-10-08 16:00] VITALS: BP 119/50; PULSE 75; RESP 16; TEMP 35.9; O2SAT 96
[2023-10-08] MEDS: SALMET XINAFT/FLUTIC PROPIN 500 MCG/50 MCG INH CAP 1 PUFF INHALATION (18:29)
[2023-10-08 20:00] VITALS: PULSE 75; RESP 16; O2SAT 96
[2023-10-08] MEDS: ARTIFICIAL TEARS OPHTH SOLN 15 ML BOTTLE 1 DROP EACH EYE (20:20)
[2023-10-08] MEDS: LOVASTATIN 10 MG TABLET PO (20:21)
[2023-10-08] MEDS: LORATADINE 10 MG TABLET PO (20:21)
[2023-10-08] MEDS: ONDANSETRON HCL ODT 4 MG TABLET PO (20:21)
[2023-10-08] MEDS: DOCUSATE SODIUM 100 MG CAPSULE 200 MG PO (20:21)
[2023-10-08] MEDS: LATANOPROST 0.005% OP SOLN 2.5 ML BTL 1 DROP EACH EYE (20:22)
[2023-10-08] MEDS: MELATONIN 5 MG TABLET PO (20:23)
[2023-10-08 23:55] VITALS: BP 114/51; PULSE 73; RESP 17; TEMP 36.4; O2SAT 98
[2023-10-09] MEDS: SALMET XINAFT/FLUTIC PROPIN 500 MCG/50 MCG INH CAP 1 PUFF INHALATION ×2 (06:22→17:05)
[2023-10-09 06:38] LABS: Potassium 3.6 mmol/L (3.5-5.1)
[2023-10-09 08:00] VITALS: BP 107/56; PULSE 74; RESP 16; TEMP 36; O2SAT 93
[2023-10-09] MEDS: polyethylene glycoL 3350 17 GM POWD.PACK PO (08:16)
[2023-10-09] MEDS: guaiFENesin 200 MG/10 ML UDC PO ×2 (08:17→17:00)
[2023-10-09] MEDS: UMECLIDINIUM BROMIDE 62.5 MCG ELLIPTA 1 PUFF INHALATION (08:18)
[2023-10-09] MEDS: FLUTICASONE PROPIONATE 0.05% NA SPR 16 GM BTL (*BKC) 1 SPRAY NASAL (08:19)
[2023-10-09] MEDS: CYANOCOBALAMIN 1,000 MCG TABLET 2000 MCG PO (08:19)
[2023-10-09] MEDS: TELMISARTAN 40 MG TABLET 80 MG PO (08:19)
[2023-10-09] MEDS: POTASSIUM CHLORIDE 20 MEQ ER TABLET PO (08:20)
[2023-10-09] MEDS: ZAFIRLUKAST 20 MG TABLET PO ×2 (08:21→17:04)
[2023-10-09] MEDS: COLCHICINE 0.6 MG TABLET PO (08:21)
[2023-10-09] MEDS: ASPIRIN 81 MG ENTERIC TABLET PO (08:21)
[2023-10-09] MEDS: clonazePAM (*CRX) 0.5 MG TABLET 1 MG PO ×2 (08:21→17:01)
[2023-10-09] MEDS: CHOLECALCIFEROL 1,000 UNITS TABLET 1000 UNITS PO (08:22)
[2023-10-09] MEDS: ZINC SULFATE 220 MG CAPSULE PO (08:22)
[2023-10-09] MEDS: GABAPENTIN 300 MG CAPSULE PO (08:23)
[2023-10-09] MEDS: TAMSULOSIN HCL 0.4 MG CAPSULE PO (08:23)
[2023-10-09] MEDS: FUROSEMIDE 20 MG TABLET PO (08:23)
[2023-10-09] MEDS: PANTOPRAZOLE 40 MG TABLET PO ×2 (08:23→17:03)
[2023-10-09] MEDS: TIMOLOL MALEATE 0.5% OP SOLN 5 ML BOTTLE 1 DROP EACH EYE ×2 (08:24→17:06)
--- NOTE | 2023-10-09 13:30 | PC.NURSE ---
Urinary catheter removed per COMPLIANCE ATTORNEY order. Patient tolerated well. 600ml clear orange/yellow urine obtained from catheter bag at the time of removal.
[2023-10-09] MEDS: ALBUTEROL SULFATE (*SP) INHALER 2 PUFF INHALATION (14:06)
[2023-10-09 15:56] VITALS: BP 114/59; PULSE 74; RESP 16; TEMP 35.9; O2SAT 95
[2023-10-09] MEDS: LORATADINE 10 MG TABLET PO (17:01)
[2023-10-09] MEDS: DOCUSATE SODIUM 100 MG CAPSULE 200 MG PO (17:02)
[2023-10-09] MEDS: LOVASTATIN 10 MG TABLET PO (17:10)
[2023-10-09] MEDS: MELATONIN 5 MG TABLET PO (17:13)
--- NOTE | 2023-10-09 17:27 | PC.NURSE ---
Incident report filed on medication that would not scan.
--- NOTE | 2023-10-09 18:39 | PC.NURSE ---
Patient had multiple urges to void and multiple attempts made on the toilet. Void trial unsuccessful and patient c/o discomfort. 16 azeri indwelling catheter placed with 800 ml clear light yellow urine obtained. Patient tolerated well.
[2023-10-09] MEDS: ARTIFICIAL TEARS OPHTH SOLN 15 ML BOTTLE 1 DROP EACH EYE (19:34)
[2023-10-09] MEDS: LATANOPROST 0.005% OP SOLN 2.5 ML BTL 1 DROP EACH EYE (19:34)
--- NOTE | 2023-10-09 19:34 | PC.NURSE ---
HS eye drops given early per patient request.
[2023-10-09 20:00] VITALS: PULSE 74; RESP 16; O2SAT 95
[2023-10-09 23:58] VITALS: BP 108/50; PULSE 72; RESP 17; TEMP 36.3; O2SAT 98
[2023-10-10 08:00] VITALS: BP 142/60; PULSE 80; RESP 14; TEMP 36.6; O2SAT 98
--- NOTE | 2023-10-10 08:44 | PM.EVENT ---
Event Note Event Note Event Note: Patient up in chair no complaints, failed voiding trial yesterday whitaker catheter replaced will likely need discharged with catheter and follow-up with Urology.
[2023-10-10] MEDS: CYANOCOBALAMIN 1,000 MCG TABLET 2000 MCG PO (09:20)
[2023-10-10] MEDS: polyethylene glycoL 3350 17 GM POWD.PACK PO (09:20)
[2023-10-10] MEDS: ZINC SULFATE 220 MG CAPSULE PO (09:21)
[2023-10-10] MEDS: clonazePAM (*CRX) 0.5 MG TABLET 1 MG PO ×2 (09:21→17:15)
[2023-10-10] MEDS: POTASSIUM CHLORIDE 20 MEQ ER TABLET PO (09:21)
[2023-10-10] MEDS: TAMSULOSIN HCL 0.4 MG CAPSULE PO (09:21)
[2023-10-10] MEDS: guaiFENesin 200 MG/10 ML UDC PO ×2 (09:21→17:15)
[2023-10-10] MEDS: CHOLECALCIFEROL 1,000 UNITS TABLET 1000 UNITS PO (09:22)
[2023-10-10] MEDS: GABAPENTIN 300 MG CAPSULE PO (09:22)
[2023-10-10] MEDS: ASPIRIN 81 MG ENTERIC TABLET PO (09:22)
[2023-10-10] MEDS: TELMISARTAN 40 MG TABLET 80 MG PO (09:22)
[2023-10-10] MEDS: FUROSEMIDE 20 MG TABLET PO (09:23)
[2023-10-10] MEDS: PANTOPRAZOLE 40 MG TABLET PO ×2 (09:23→17:15)
[2023-10-10] MEDS: ZAFIRLUKAST 20 MG TABLET PO ×2 (09:23→17:15)
[2023-10-10] MEDS: FLUTICASONE PROPIONATE 0.05% NA SPR 16 GM BTL (*BKC) 1 SPRAY NASAL (09:24)
[2023-10-10] MEDS: SALMET XINAFT/FLUTIC PROPIN 500 MCG/50 MCG INH CAP 1 PUFF INHALATION ×2 (09:24→17:14)
[2023-10-10] MEDS: UMECLIDINIUM BROMIDE 62.5 MCG ELLIPTA 1 PUFF INHALATION (09:25)
[2023-10-10] MEDS: TIMOLOL MALEATE 0.5% OP SOLN 5 ML BOTTLE 1 DROP EACH EYE ×2 (09:25→17:15)
[2023-10-10 16:40] VITALS: BP 114/60; PULSE 78; RESP 18; TEMP 35.9; O2SAT 95
[2023-10-10] MEDS: LOVASTATIN 10 MG TABLET PO (17:22)
[2023-10-10] MEDS: DOCUSATE SODIUM 100 MG CAPSULE 200 MG PO (17:22)
[2023-10-10] MEDS: MELATONIN 5 MG TABLET PO (17:22)
[2023-10-10] MEDS: LORATADINE 10 MG TABLET PO (17:22)
[2023-10-10] MEDS: ARTIFICIAL TEARS OPHTH SOLN 15 ML BOTTLE 1 DROP EACH EYE (20:07)
[2023-10-10] MEDS: LATANOPROST 0.005% OP SOLN 2.5 ML BTL 1 DROP EACH EYE (20:09)
[2023-10-10 23:54] VITALS: BP 100/52; PULSE 74; RESP 16; TEMP 35.9; O2SAT 96
[2023-10-11 05:44] LABS: Potassium 3.9 mmol/L (3.5-5.1)
[2023-10-11 08:00] VITALS: BP 100/48; PULSE 80; RESP 17; TEMP 36.2; O2SAT 96
[2023-10-11] MEDS: ASPIRIN 81 MG ENTERIC TABLET PO (09:05)
[2023-10-11] MEDS: PANTOPRAZOLE 40 MG TABLET PO ×2 (09:05→17:25)
[2023-10-11] MEDS: ZINC SULFATE 220 MG CAPSULE PO (09:05)
[2023-10-11] MEDS: FUROSEMIDE 20 MG TABLET PO (09:05)
[2023-10-11] MEDS: guaiFENesin 200 MG/10 ML UDC PO ×2 (09:05→17:25)
[2023-10-11] MEDS: polyethylene glycoL 3350 17 GM POWD.PACK PO (09:05)
[2023-10-11] MEDS: CHOLECALCIFEROL 1,000 UNITS TABLET 1000 UNITS PO (09:05)
[2023-10-11] MEDS: TELMISARTAN 40 MG TABLET 80 MG PO (09:05)
[2023-10-11] MEDS: clonazePAM (*CRX) 0.5 MG TABLET 1 MG PO ×2 (09:05→17:25)
[2023-10-11] MEDS: POTASSIUM CHLORIDE 20 MEQ ER TABLET PO (09:06)
[2023-10-11] MEDS: ZAFIRLUKAST 20 MG TABLET PO ×2 (09:06→17:25)
[2023-10-11] MEDS: SALMET XINAFT/FLUTIC PROPIN 500 MCG/50 MCG INH CAP 1 PUFF INHALATION ×2 (09:06→17:24)
[2023-10-11] MEDS: CYANOCOBALAMIN 1,000 MCG TABLET 2000 MCG PO (09:06)
[2023-10-11] MEDS: GABAPENTIN 300 MG CAPSULE PO (09:06)
[2023-10-11] MEDS: TAMSULOSIN HCL 0.4 MG CAPSULE PO (09:06)
[2023-10-11] MEDS: UMECLIDINIUM BROMIDE 62.5 MCG ELLIPTA 1 PUFF INHALATION (09:07)
[2023-10-11] MEDS: TIMOLOL MALEATE 0.5% OP SOLN 5 ML BOTTLE 1 DROP EACH EYE ×2 (09:07→17:25)
[2023-10-11] MEDS: FLUTICASONE PROPIONATE 0.05% NA SPR 16 GM BTL (*BKC) 1 SPRAY NASAL (09:08)
[2023-10-11] MEDS: FINASTERIDE 5 MG TABLET PO (09:14)
--- NOTE | 2023-10-11 12:05 | PHAR ---
verified with [facility] that pt's clonazepam home med is for 1mg bid scheduled, NOT 1mg bid prn.
--- NOTE | 2023-10-11 15:29 | ECHO_ITS ---
Patient Info Name: PEGGY MENSAH Age: 77 years : 1945 Gender: Male Accession #: [id number]$ Ht: 68 in Wt: 245 lbs BSA: 2.36 m2 Heart Rhythm: Sinus Rhythm Technical Quality: Good Exam Date: 10/11/2023 3:23 PM Exam Location: [facility] Infrastructure Director: Latasha Cheek RDCS Exam Type: CA echo doppler color flow Study Info Indications - CHF/EDEMA BLE Complete two-dimensional, color flow and Doppler transthoracic echocardiogram is performed. Summary 1. Complete two-dimensional, color flow and Doppler transthoracic echocardiogram is performed. 2. Left ventricular chamber dimension is normal. 3. Left ventricular systolic function is normal, estimated at 60-65%. 4. The left ventricular diastolic function is grade I diastolic dysfunction. 5. E/e' 12 is mildly elevated. 6. There is mild aortic valve sclerosis. 7. No pulmonary hypertension, estimated pulmonary arterial systolic pressure is 13 mmHg. Left Ventricle E/e' 12 is mildly elevated. Left ventricular chamber dimension is normal. Left ventricular systolic function is normal, estimated at 60-65%. The left ventricular diastolic function is grade I diastolic dysfunction. Right Ventricle Right ventricular systolic function is normal and with normal TAPSE 3.1 cm. Right ventricular chamber dimension is normal. Left Atria Left atrial chamber dimension is normal. Right Atria Right atrial chamber dimension is normal. Aortic Valve The aortic valve is trileaflet. There is mild aortic valve sclerosis. There is no aortic valve stenosis. There is no aortic valve regurgitation. Pulmonic Valve There is no pulmonic regurgitation. Mitral Valve There is no mitral valve stenosis. There is no mitral valve regurgitation. Tricuspid Valve There is no tricuspid valve regurgitation. No pulmonary hypertension, estimated pulmonary arterial systolic pressure is 13 mmHg. Pericardium/Pleural There is no pericardial effusion. Inferior Vena Cava Normal inferior vena cava with >50% collapse upon inspiration consistent with normal right atrial pressure, 5 mmHg. Aorta The aortic root size at the sinus of Valsalva is normal. Left Ventricular Outflow Tract Name Value Normal LVOT 2D LVOT Diameter 2.0 cm LVOT Doppler LVOT Peak Velocity 136 cm/s LVOT Peak Gradient 7 mmHg LVOT Mean Gradient 4 mmHg LVOT VTI 33 cm LVOT VTI/AV VTI Ratio 1.2 LVOT Stroke Volume 102 ml Pulmonic Valve Name Value Normal PV Doppler PV Peak Velocity 80 cm/s PV Peak Gradient 3 mmHg Mitral Valve Name Value Normal MV Doppler MV Decel [place]
[2023-10-11 16:00] VITALS: BP 109/50; PULSE 82; RESP 16; TEMP 36.2; O2SAT 94
[2023-10-11] MEDS: DOCUSATE SODIUM 100 MG CAPSULE 200 MG PO (17:25)
[2023-10-11] MEDS: LOVASTATIN 10 MG TABLET PO (17:25)
[2023-10-11] MEDS: MELATONIN 5 MG TABLET PO (17:25)
[2023-10-11] MEDS: LORATADINE 10 MG TABLET PO (17:25)
[2023-10-11] MEDS: ARTIFICIAL TEARS OPHTH SOLN 15 ML BOTTLE 1 DROP EACH EYE (20:07)
[2023-10-11] MEDS: LATANOPROST 0.005% OP SOLN 2.5 ML BTL 1 DROP EACH EYE (20:07)
[2023-10-11 23:47] VITALS: BP 106/60; PULSE 70; RESP 16; TEMP 35.9; O2SAT 96
[2023-10-12 08:00] VITALS: BP 112/47; PULSE 78; RESP 17; TEMP 36; O2SAT 93
[2023-10-12] MEDS: guaiFENesin 200 MG/10 ML UDC PO ×2 (09:44→17:22)
[2023-10-12] MEDS: polyethylene glycoL 3350 17 GM POWD.PACK PO (09:44)
[2023-10-12] MEDS: CHOLECALCIFEROL 1,000 UNITS TABLET 1000 UNITS PO (09:44)
[2023-10-12] MEDS: CYANOCOBALAMIN 1,000 MCG TABLET 2000 MCG PO (09:44)
[2023-10-12] MEDS: clonazePAM (*CRX) 0.5 MG TABLET 1 MG PO ×2 (09:44→17:22)
[2023-10-12] MEDS: TELMISARTAN 40 MG TABLET 80 MG PO (09:45)
[2023-10-12] MEDS: POTASSIUM CHLORIDE 20 MEQ ER TABLET PO (09:45)
[2023-10-12] MEDS: ASPIRIN 81 MG ENTERIC TABLET PO (09:45)
[2023-10-12] MEDS: ZAFIRLUKAST 20 MG TABLET PO ×2 (09:45→17:22)
[2023-10-12] MEDS: FUROSEMIDE 20 MG TABLET PO (09:45)
[2023-10-12] MEDS: TAMSULOSIN HCL 0.4 MG CAPSULE PO (09:45)
[2023-10-12] MEDS: ZINC SULFATE 220 MG CAPSULE PO (09:45)
[2023-10-12] MEDS: PANTOPRAZOLE 40 MG TABLET PO ×2 (09:45→17:22)
[2023-10-12] MEDS: allopurinoL 100 MG TABLET PO (09:45)
[2023-10-12] MEDS: GABAPENTIN 300 MG CAPSULE PO (09:45)
[2023-10-12] MEDS: TIMOLOL MALEATE 0.5% OP SOLN 5 ML BOTTLE 1 DROP EACH EYE ×2 (09:47→17:22)
[2023-10-12] MEDS: FLUTICASONE PROPIONATE 0.05% NA SPR 16 GM BTL (*BKC) 1 SPRAY NASAL (09:47)
[2023-10-12] MEDS: UMECLIDINIUM BROMIDE 62.5 MCG ELLIPTA 1 PUFF INHALATION (09:47)
[2023-10-12] MEDS: SALMET XINAFT/FLUTIC PROPIN 500 MCG/50 MCG INH CAP 1 PUFF INHALATION ×2 (09:47→17:22)
[2023-10-12] MEDS: FINASTERIDE 5 MG TABLET PO (09:47)
[2023-10-12 16:00] VITALS: BP 111/57; PULSE 74; RESP 18; TEMP 36.3; O2SAT 97
[2023-10-12] MEDS: LOVASTATIN 10 MG TABLET PO (17:22)
[2023-10-12] MEDS: MELATONIN 5 MG TABLET PO (17:22)
[2023-10-12] MEDS: DOCUSATE SODIUM 100 MG CAPSULE 200 MG PO (17:22)
[2023-10-12] MEDS: LORATADINE 10 MG TABLET PO (17:22)
[2023-10-12] MEDS: ARTIFICIAL TEARS OPHTH SOLN 15 ML BOTTLE 1 DROP EACH EYE (20:13)
[2023-10-12] MEDS: LATANOPROST 0.005% OP SOLN 2.5 ML BTL 1 DROP EACH EYE (20:13)
[2023-10-13] VITALS: BP 100/58; PULSE 80; RESP 18; TEMP 36.2; O2SAT 97
[2023-10-13 08:00] VITALS: BP 115/60; PULSE 80; RESP 16; TEMP 36.1; O2SAT 96
[2023-10-13] MEDS: FLUTICASONE PROPIONATE 0.05% NA SPR 16 GM BTL (*BKC) 1 SPRAY NASAL (08:01)
[2023-10-13] MEDS: TIMOLOL MALEATE 0.5% OP SOLN 5 ML BOTTLE 1 DROP EACH EYE ×2 (08:01→17:11)
[2023-10-13] MEDS: UMECLIDINIUM BROMIDE 62.5 MCG ELLIPTA 1 PUFF INHALATION (08:01)
[2023-10-13] MEDS: PANTOPRAZOLE 40 MG TABLET PO ×2 (08:03→17:09)
[2023-10-13] MEDS: CHOLECALCIFEROL 1,000 UNITS TABLET 1000 UNITS PO (08:03)
[2023-10-13] MEDS: guaiFENesin 200 MG/10 ML UDC PO ×2 (08:03→17:08)
[2023-10-13] MEDS: TELMISARTAN 40 MG TABLET 80 MG PO (08:04)
[2023-10-13] MEDS: TAMSULOSIN HCL 0.4 MG CAPSULE PO (08:04)
[2023-10-13] MEDS: GABAPENTIN 300 MG CAPSULE PO (08:04)
[2023-10-13] MEDS: ZINC SULFATE 220 MG CAPSULE PO (08:04)
[2023-10-13] MEDS: FINASTERIDE 5 MG TABLET PO (08:05)
[2023-10-13] MEDS: clonazePAM (*CRX) 0.5 MG TABLET 1 MG PO ×2 (08:06→17:08)
[2023-10-13] MEDS: CYANOCOBALAMIN 1,000 MCG TABLET 2000 MCG PO (08:06)
[2023-10-13] MEDS: FUROSEMIDE 20 MG TABLET PO (08:07)
[2023-10-13] MEDS: ASPIRIN 81 MG ENTERIC TABLET PO (08:07)
[2023-10-13] MEDS: allopurinoL 100 MG TABLET PO (08:07)
[2023-10-13] MEDS: ZAFIRLUKAST 20 MG TABLET PO ×2 (08:08→17:09)
[2023-10-13] MEDS: POTASSIUM CHLORIDE 20 MEQ ER TABLET PO (08:08)
[2023-10-13] MEDS: polyethylene glycoL 3350 17 GM POWD.PACK PO (08:09)
[2023-10-13] MEDS: SALMET XINAFT/FLUTIC PROPIN 500 MCG/50 MCG INH CAP 1 PUFF INHALATION ×2 (08:09→17:10)
[2023-10-13 09:11] LABS: Potassium 4.1 mmol/L (3.4-5.0)
--- NOTE | 2023-10-13 10:47 | P.PNCROSS_ITS ---
Event Note Event Note Event Note: Patient reporting bladder spasms off and on due to his whitaker catheter. He was s tarted on Ditropan today.
[2023-10-13] MEDS: oxyBUTYnin CHLORIDE 5 MG TABLET PO ×2 (12:40→17:10)
--- NOTE | 2023-10-13 14:05 | PC.NURSE ---
Miconazole cream applied to patient's penis. Glans of penis is red and shows s/s of fungal infection.
[2023-10-13 16:00] VITALS: BP 99/51; PULSE 84; RESP 16; TEMP 36.2; O2SAT 98
[2023-10-13] MEDS: LORATADINE 10 MG TABLET PO (17:09)
[2023-10-13] MEDS: LOVASTATIN 10 MG TABLET PO (17:09)
[2023-10-13] MEDS: MELATONIN 5 MG TABLET PO (17:10)
[2023-10-13] MEDS: ARTIFICIAL TEARS OPHTH SOLN 15 ML BOTTLE 1 DROP EACH EYE (20:12)
[2023-10-13] MEDS: LATANOPROST 0.005% OP SOLN 2.5 ML BTL 1 DROP EACH EYE (20:12)
--- NOTE | 2023-10-13 21:34 | PC.NURSE ---
Patient refuses one time dose of Fluconazole 150mg. Stated he would take it in the am with am meds.
[2023-10-14] VITALS: BP 105/53; PULSE 80; RESP 16; TEMP 36.6; O2SAT 96
[2023-10-14 06:04] LABS: Basophils Absolute Auto 0.06 K/mm3 (0.00-0.10); Basophils Percent Auto 0.5 % (0.0-1.0); Eosinophils Absolute Auto 0.43 K/mm3 (0.02-0.50); Eosinophils Percent Auto 3.3 % (1.0-6.0); Hematocrit 36.1 % (37.0-46.0); Hemoglobin 11.9 g/dL (12.4-15.3); Immature Granulocyte Absolute 0.11 K/mm3 (0.00-0.00); Immature Granulocyte Percent A 0.8 % (0.0-0.0); Lymphocytes Percent Auto 12.2 % (18.0-42.0); Mean Corpuscular Hemoglobin 31.9 pg (27.0-31.0); Mean Corpuscular Volume 96.8 fL (78.0-102.0); Mean Platelet Volume 9.2 fl (8.7-11.0); Monocytes Absolute Auto 1.21 K/mm3 (0.10-0.90); Monocytes Percent Auto 9.2 % (2.0-11.0); Platelet Count Result 372 K/mm3 (150-420); Red Blood Count 3.73 M/mm3 (4.70-6.10); Red Cell Distribution Width 12.9 % (11.6-14.4); White Blood Count 13.1 K/mm3 (4.8-10.8)
[2023-10-14 08:00] VITALS: BP 107/57; PULSE 89; RESP 16; TEMP 36.5; O2SAT 94
--- NOTE | 2023-10-14 08:05 | PM.IMPN ---
Progress Note: A&P Assessment and Plan (1) Acute on chronic diastolic heart failure: Code(s): I50.33 - Acute on chronic diastolic (congestive) heart failure Status: Acute Assessment and Plan: 10/14/23: Continue Lasix echocardiogram from 01/19/2023 was reviewed and shown normal LV systolic function with an estimated EF of 60-65%, grade 1 diastolic dysfunction Daily weight. 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 obtain UA with reflex to culture today if UA is positive we will start patient Rocephin for CAUTI coverage (3) Urinary retention: Code(s): R33.9 - Retention of urine, unspecified Status: Acute Assessment and Plan: 10/14/23: failed multiple attempts at discontinuing Ritter catheter and still having urinary retention continue tamsulosin follow-up with urology continue Ritter catheter (4) Weakness: Code(s): R53.1 - Weakness Status: Acute Assessment and Plan: 10/14/23: continue PT/OT (5) Peripheral neuropathic pain: Code(s): M79.2 - Neuralgia and neuritis, unspecified Status: Acute Assessment and Plan: 10/14/23: continue Gabapentin (6) Gout attack: Code(s): M10.9 - Gout, unspecified Status: Acute Assessment and Plan: 10/14/23: continue allopurinol Time Spent With Patient Time with patient: 25 - 35 minutes Subjective Date/time seen: 10/14/23 08:05 Interval history: This is a 77-year-old male presented [facility] on 10/07/2023 for swing bed program. he was recently hospitalized with generalized weakness, urinary retention, and acute kidney injury at [facility]. He was started on tamsulosin for his urinary retention and has a chronic Ritter at this time. He has a follow-up appointment in a few weeks with Urology for his urinary retention. Patient denies any new complaints today. Nursing stated that he has a fungal infection at the head of his penis and miconazole ointment was ordered along with 1 tablet of Diflucan 150 mg. Labs today show a white blood cell count of 13.1, hemoglobin 11.9. Patient denies any fever, chills, nausea, vomiting, diarrhea, abdominal pain, chest pain, shortness a breath. Review of Systems Review of Systems: All systems reviewed & are unremarkable except as noted in HPI and below Constitutional: Constitutional: Reports as per HPI and Reports no additional constitutional complaints Eyes: Eyes: Reports as per HPI and Reports no additional eye complaints ENT: Reports system reviewed and no additional complaints, except as documented and Reports as per HPI Cardiovascular: Cardiovascular: Reports as per HPI and Reports no additional cardiovascular complaints Respiratory: Respiratory: Reports as per HPI and Reports no additional respiratory complaints Gastrointestinal: Gastrointestinal: Reports as per HPI and Reports no additional gastrointestinal complaints Genitourinary: Genitourinary: Reports no additional male genitourinary complaints and Reports as per HPI Musculoskeletal: Musculoskeletal: Reports no additional musculoskeletal complaints and Reports as per HPI Integumentary/Breasts: Skin/Breast: Reports system reviewed and no additional complaints, except as docu and Reports as per HPI Neurologic: Reports system reviewed and no additional complaints, except as documented and Reports as per HPI Psychiatric: Psychiatric: Reports no additional psychiatric complaints and Reports as per HPI Exam Narrative: General: In no acute distress, well nourished Head: atraumatic, no encephalopathy Eyes: EOMI, PERRLA, sclera clear ENT: moist mucous memb
[2023-10-14] MEDS: polyethylene glycoL 3350 17 GM POWD.PACK PO (08:29)
[2023-10-14] MEDS: FLUCONAZOLE 150 MG TABLET PO (08:29)
[2023-10-14] MEDS: guaiFENesin 200 MG/10 ML UDC PO ×2 (08:30→17:41)
[2023-10-14] MEDS: TELMISARTAN 40 MG TABLET 80 MG PO (08:30)
[2023-10-14] MEDS: clonazePAM (*CRX) 0.5 MG TABLET 1 MG PO ×2 (08:30→17:45)
[2023-10-14] MEDS: POTASSIUM CHLORIDE 20 MEQ ER TABLET PO (08:31)
[2023-10-14] MEDS: CHOLECALCIFEROL 1,000 UNITS TABLET 1000 UNITS PO (08:32)
[2023-10-14] MEDS: FUROSEMIDE 20 MG TABLET PO (08:32)
[2023-10-14] MEDS: ZINC SULFATE 220 MG CAPSULE PO (08:33)
[2023-10-14] MEDS: GABAPENTIN 300 MG CAPSULE PO (08:33)
[2023-10-14] MEDS: CYANOCOBALAMIN 1,000 MCG TABLET 2000 MCG PO (08:33)
[2023-10-14] MEDS: allopurinoL 100 MG TABLET PO (08:33)
[2023-10-14] MEDS: PANTOPRAZOLE 40 MG TABLET PO ×2 (08:34→17:44)
[2023-10-14] MEDS: FINASTERIDE 5 MG TABLET PO (08:34)
[2023-10-14] MEDS: ASPIRIN 81 MG ENTERIC TABLET PO (08:34)
[2023-10-14] MEDS: ZAFIRLUKAST 20 MG TABLET PO ×2 (08:35→17:46)
[2023-10-14] MEDS: SALMET XINAFT/FLUTIC PROPIN 500 MCG/50 MCG INH CAP 1 PUFF INHALATION ×2 (08:36→17:43)
[2023-10-14] MEDS: oxyBUTYnin CHLORIDE 5 MG TABLET PO ×3 (08:36→17:46)
[2023-10-14] MEDS: TAMSULOSIN HCL 0.4 MG CAPSULE PO (08:36)
[2023-10-14] MEDS: TIMOLOL MALEATE 0.5% OP SOLN 5 ML BOTTLE 1 DROP EACH EYE ×2 (08:37→17:42)
[2023-10-14] MEDS: UMECLIDINIUM BROMIDE 62.5 MCG ELLIPTA 1 PUFF INHALATION (08:38)
[2023-10-14] MEDS: FLUTICASONE PROPIONATE 0.05% NA SPR 16 GM BTL (*BKC) 1 SPRAY NASAL (08:40)
[2023-10-14] MEDS: MICONAZOLE NITRATE 2% CREAM 30 GM TUBE 1 APPLIC TOPICAL ×2 (09:02→20:35)
[2023-10-14 10:01] LABS: Alanine Aminotransferase 23 U/L (6-50); Albumin Level 2.8 g/dL (3.5-5.1); Alkaline Phosphatase 90 U/L (38-126); Anion Gap 6 mmol/L (4-12); Aspartate Amino Transferase 28 U/L (17-59); Bilirubin,Total 0.4 mg/dL (0.2-1.3); Blood Urea Nitrogen 13 mg/dL (9-20); Calcium 9.1 mg/dL (8.4-10.2); Carbon Dioxide 31 mmol/L (22-30); Chloride 97 mmol/L (98-107); Estimated CRCL calculation 72 ml/min; Estimated Glomerular Filt Rate > 60; Glucose 102 mg/dL (65-110); Osmolality Calculated 278 mOsm/kg (285-295); Potassium 4.5 mmol/L (3.4-5.0); Sodium 134 mmol/L (137-145)
[2023-10-14 11:11] LABS: Appearance Urine Clear (Clear); Color Urine Yellow (Yellow)
[2023-10-14 11:12] LABS: Add Urine Microscopic? YES; Bilirubin Urine Negative (Negative); Blood Urine 3+ (Negative); Glucose Urine UA Negative (Negative); Ketones Urine Negative (Negative); Leukocyte Esterase Ur 2+ LEU/UL (Negative); Nitrate Urine Negative (Negative); Protein Urine Negative (Negative); Urobilinogen Urine Normal mg/dL (0.2-1.0)
[2023-10-14 11:18] LABS: Bacteria Urine Trace /hpf
[2023-10-14 16:00] VITALS: BP 114/53; PULSE 91; RESP 16; TEMP 36.6; O2SAT 95
[2023-10-14] MEDS: LOVASTATIN 10 MG TABLET PO (17:44)
[2023-10-14] MEDS: DOCUSATE SODIUM 100 MG CAPSULE 200 MG PO (17:45)
[2023-10-14] MEDS: LORATADINE 10 MG TABLET PO (17:46)
[2023-10-14] MEDS: MELATONIN 5 MG TABLET PO (17:46)
[2023-10-14] MEDS: ARTIFICIAL TEARS OPHTH SOLN 15 ML BOTTLE 1 DROP EACH EYE (20:34)
[2023-10-14] MEDS: LATANOPROST 0.005% OP SOLN 2.5 ML BTL 1 DROP EACH EYE (20:34)
[2023-10-15] VITALS: BP 127/53; PULSE 93; RESP 16; TEMP 36.5; O2SAT 95
[2023-10-15 05:56] LABS: Basophils Absolute Auto 0.06 K/mm3 (0.00-0.10); Basophils Percent Auto 0.4 % (0.0-1.0); Eosinophils Absolute Auto 0.36 K/mm3 (0.02-0.50); Eosinophils Percent Auto 2.4 % (1.0-6.0); Hematocrit 35.4 % (37.0-46.0); Hemoglobin 11.6 g/dL (12.4-15.3); Immature Granulocyte Absolute 0.13 K/mm3 (0.00-0.00); Immature Granulocyte Percent A 0.9 % (0.0-0.0); Lymphocytes Percent Auto 10.7 % (18.0-42.0); Mean Corpuscular HGB Conc 32.8 g/dL (32-36); Mean Corpuscular Hemoglobin 31.4 pg (27.0-31.0); Mean Corpuscular Volume 95.9 fL (78.0-102.0); Mean Platelet Volume 9.1 fl (8.7-11.0); Monocytes Absolute Auto 1.59 K/mm3 (0.10-0.90); Monocytes Percent Auto 10.6 % (2.0-11.0); Neutrophils Absolute Auto 11.27 K/mm3 (1.70-7.20); Platelet Count Result 338 K/mm3 (150-420); Red Blood Count 3.69 M/mm3 (4.70-6.10); Red Cell Distribution Width 13.2 % (11.6-14.4)
[2023-10-15 08:00] VITALS: BP 128/50; PULSE 85; RESP 14; TEMP 36.6; O2SAT 98
--- NOTE | 2023-10-15 08:06 | P.PNIM_ITS ---
Progress Note: A&P Assessment and Plan (1) Acute on chronic diastolic heart failure: Code(s): I50.33 - Acute on chronic diastolic (congestive) heart failure Status: Acute Assessment and Plan: 10/14/23: * Continue Lasix * echocardiogram from 01/19/2023 was reviewed and shown normal LV systolic function with an estimated EF of 60-65%, grade 1 diastolic dysfunction * Daily weight. * continue fall precautions 10/15/23: * No change to current treatment plan (2) Acute UTI: Code(s): N39.0 - Urinary tract infection, site not specified Status: Acute Assessment and Plan: 10/15/23: * likely catheter associated urinary tract infection * UA showing 3+ urine blood, 2+ leukocytes, 6-10 urine RBC, 7 and 9 urine WBC, trace bacteria * urine culture was obtained and is pending * continue Rocephin * white blood cell count 15.0 this morning, continue to trend. 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 * obtain UA with reflex to culture today * if UA is positive we will start patient Rocephin for CAUTI coverage 10/15/23: * white blood cell count 15.0 this morning * continue Rocephin for now * continue to trend (4) Urinary retention: Code(s): R33.9 - Retention of urine, unspecified Status: Acute Assessment and Plan: 10/14/23: * failed multiple attempts at discontinuing Ritter catheter and still having urinary retention * continue tamsulosin * follow-up with urology * continue Ritter catheter 10/15/23: * no change to current treatment plan (5) Weakness: Code(s): R53.1 - Weakness Status: Acute Assessment and Plan: 10/14/23: * continue PT/OT 10/15/23: * no change to current treatment plan (6) Peripheral neuropathic pain: Code(s): M79.2 - Neuralgia and neuritis, unspecified Status: Acute Assessment and Plan: 10/14/23: * continue Gabapentin 10/15/23: * no change to current treatment plan (7) Gout attack: Code(s): M10.9 - Gout, unspecified Status: Acute Assessment and Plan: 10/14/23: * continue allopurinol 10/15/23: * no change to current treatment plan Time Spent With Patient Time with patient: 25 - 35 minutes Subjective Date/time seen: 10/15/23 08:06 Interval history: Interval History: This is a 77-year-old male presented [facility] on 10/07/2023 for swing bed program. he was recently hospitalized with generalized weakness, urinary retention, and acute kidney injury at [facility]. He was started on tamsulosin for his urinary retention and has a chronic Ritter at this time. 10/14/23: He has a follow-up appointment in a few weeks with Urology for his urinary retention. Patient denies any new complaints today. Nursing stated that he has a fungal infection at the head of his penis and miconazole ointment was ordered along with 1 tablet of Diflucan 150 mg. Labs today show a white blood cell count of 13.1, hemoglobin 11.9. Patient denies any fever, chills, nausea, vomiting, diarrhea, abdominal pain, chest pain, shortness a breath. 10/15/23: Labs and culture reviewe
--- NOTE | 2023-10-15 08:06 | PM.IMPN ---
Progress Note: A&P Assessment and Plan (1) Acute on chronic diastolic heart failure: Code(s): I50.33 - Acute on chronic diastolic (congestive) heart failure Status: Acute Assessment and Plan: 10/14/23: Continue Lasix echocardiogram from 01/19/2023 was reviewed and shown normal LV systolic function with an estimated EF of 60-65%, grade 1 diastolic dysfunction Daily weight. continue fall precautions 10/15/23: No change to current treatment plan (2) Acute UTI: Code(s): N39.0 - Urinary tract infection, site not specified Status: Acute Assessment and Plan: 10/15/23: likely catheter associated urinary tract infection UA showing 3+ urine blood, 2+ leukocytes, 6-10 urine RBC, 7 and 9 urine WBC, trace bacteria urine culture was obtained and is pending continue Rocephin white blood cell count 15.0 this morning, continue to trend. 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 obtain UA with reflex to culture today if UA is positive we will start patient Rocephin for CAUTI coverage 10/15/23: white blood cell count 15.0 this morning continue Rocephin for now continue to trend (4) Urinary retention: Code(s): R33.9 - Retention of urine, unspecified Status: Acute Assessment and Plan: 10/14/23: failed multiple attempts at discontinuing Ritter catheter and still having urinary retention continue tamsulosin follow-up with urology continue Ritter catheter 10/15/23: no change to current treatment plan (5) Weakness: Code(s): R53.1 - Weakness Status: Acute Assessment and Plan: 10/14/23: continue PT/OT 10/15/23: no change to current treatment plan (6) Peripheral neuropathic pain: Code(s): M79.2 - Neuralgia and neuritis, unspecified Status: Acute Assessment and Plan: 10/14/23: continue Gabapentin 10/15/23: no change to current treatment plan (7) Gout attack: Code(s): M10.9 - Gout, unspecified Status: Acute Assessment and Plan: 10/14/23: continue allopurinol 10/15/23: no change to current treatment plan Time Spent With Patient Time with patient: 25 - 35 minutes Subjective Date/time seen: 10/15/23 08:06 Interval history: Interval History: This is a 77-year-old male presented [facility] on 10/07/2023 for swing bed program. he was recently hospitalized with generalized weakness, urinary retention, and acute kidney injury at [facility]. He was started on tamsulosin for his urinary retention and has a chronic Ritter at this time. 10/14/23: He has a follow-up appointment in a few weeks with Urology for his urinary retention. Patient denies any new complaints today. Nursing stated that he has a fungal infection at the head of his penis and miconazole ointment was ordered along with 1 tablet of Diflucan 150 mg. Labs today show a white blood cell count of 13.1, hemoglobin 11.9. Patient denies any fever, chills, nausea, vomiting, diarrhea, abdominal pain, chest pain, shortness a breath. 10/15/23: Labs and culture reviewed. Urine culture is still pending. WBC count up to 15.0 today. Review of Systems Review of Systems: All systems reviewed & are unremarkable except as noted in HPI and below Constitutional: Constitutional: Reports as per HPI and Reports no additional constitutional complaints Eyes: Eyes: Reports as per HPI and Reports no additional eye complaints ENT: Reports system reviewed and no additional complaints, except as documented and Reports as per HPI Cardiovascular: Cardiovascular: Reports as per HPI and
[2023-10-15] MEDS: FUROSEMIDE 20 MG TABLET PO (10:03)
[2023-10-15] MEDS: FINASTERIDE 5 MG TABLET PO (10:04)
[2023-10-15] MEDS: ASPIRIN 81 MG ENTERIC TABLET PO (10:04)
[2023-10-15] MEDS: ZINC SULFATE 220 MG CAPSULE PO (10:04)
[2023-10-15] MEDS: clonazePAM (*CRX) 0.5 MG TABLET 1 MG PO ×2 (10:04→17:55)
[2023-10-15] MEDS: oxyBUTYnin CHLORIDE 5 MG TABLET PO ×3 (10:04→17:55)
[2023-10-15] MEDS: GABAPENTIN 300 MG CAPSULE PO (10:05)
[2023-10-15] MEDS: CYANOCOBALAMIN 1,000 MCG TABLET 2000 MCG PO (10:05)
[2023-10-15] MEDS: polyethylene glycoL 3350 17 GM POWD.PACK PO (10:06)
[2023-10-15] MEDS: POTASSIUM CHLORIDE 20 MEQ ER TABLET PO (10:06)
[2023-10-15] MEDS: PANTOPRAZOLE 40 MG TABLET PO ×2 (10:06→17:55)
[2023-10-15] MEDS: allopurinoL 100 MG TABLET PO (10:06)
[2023-10-15] MEDS: ZAFIRLUKAST 20 MG TABLET PO ×2 (10:06→17:55)
[2023-10-15] MEDS: guaiFENesin 200 MG/10 ML UDC PO ×2 (10:07→17:55)
[2023-10-15] MEDS: CHOLECALCIFEROL 1,000 UNITS TABLET 1000 UNITS PO (10:07)
[2023-10-15] MEDS: TAMSULOSIN HCL 0.4 MG CAPSULE PO (10:07)
[2023-10-15] MEDS: FLUTICASONE PROPIONATE 0.05% NA SPR 16 GM BTL (*BKC) 1 SPRAY NASAL (10:07)
[2023-10-15] MEDS: SALMET XINAFT/FLUTIC PROPIN 500 MCG/50 MCG INH CAP 1 PUFF INHALATION ×2 (10:08→17:54)
[2023-10-15] MEDS: TIMOLOL MALEATE 0.5% OP SOLN 5 ML BOTTLE 1 DROP EACH EYE ×2 (10:09→17:55)
[2023-10-15] MEDS: UMECLIDINIUM BROMIDE 62.5 MCG ELLIPTA 1 PUFF INHALATION (10:09)
[2023-10-15] MEDS: TELMISARTAN 40 MG TABLET 80 MG PO (10:11)
[2023-10-15 10:20] LABS: Alanine Aminotransferase 19 U/L (6-50); Albumin Level 2.7 g/dL (3.5-5.1); Alkaline Phosphatase 93 U/L (38-126); Anion Gap 7 mmol/L (4-12); Aspartate Amino Transferase 21 U/L (17-59); Bilirubin,Total 0.6 mg/dL (0.2-1.3); Blood Urea Nitrogen 14 mg/dL (9-20); Calcium 9.2 mg/dL (8.4-10.2); Carbon Dioxide 31 mmol/L (22-30); Chloride 94 mmol/L (98-107); Estimated CRCL calculation 66 ml/min; Estimated Glomerular Filt Rate > 60; Glucose 101 mg/dL (65-110); Osmolality Calculated 274 mOsm/kg (285-295); Potassium 4.4 mmol/L (3.4-5.0); Sodium 132 mmol/L (137-145)
[2023-10-15 16:40] VITALS: BP 120/61; PULSE 89; RESP 18; TEMP 36.2; O2SAT 97
[2023-10-15] MEDS: DOCUSATE SODIUM 100 MG CAPSULE 200 MG PO (17:55)
[2023-10-15] MEDS: LORATADINE 10 MG TABLET PO (17:55)
[2023-10-15] MEDS: LOVASTATIN 10 MG TABLET PO (17:55)
[2023-10-15] MEDS: MELATONIN 5 MG TABLET PO (17:55)
[2023-10-15] MEDS: MICONAZOLE NITRATE 2% CREAM 30 GM TUBE 1 APPLIC TOPICAL (20:13)
[2023-10-15] MEDS: LATANOPROST 0.005% OP SOLN 2.5 ML BTL 1 DROP EACH EYE (20:13)
[2023-10-15] MEDS: ARTIFICIAL TEARS OPHTH SOLN 15 ML BOTTLE 1 DROP EACH EYE (20:13)
[2023-10-15 23:13] VITALS: BP 105/47; PULSE 75; RESP 20; TEMP 36.4; O2SAT 96
[2023-10-16 08:00] VITALS: BP 118/60; PULSE 75; RESP 14; TEMP 36.6; O2SAT 97
[2023-10-16] MEDS: guaiFENesin 200 MG/10 ML UDC PO ×2 (09:04→16:54)
[2023-10-16] MEDS: ACETAMINOPHEN 325 MG TABLET 650 MG PO (09:04)
[2023-10-16] MEDS: ZAFIRLUKAST 20 MG TABLET PO ×2 (09:06→16:54)
[2023-10-16] MEDS: POTASSIUM CHLORIDE 20 MEQ ER TABLET PO (09:06)
[2023-10-16] MEDS: PANTOPRAZOLE 40 MG TABLET PO ×2 (09:06→16:54)
[2023-10-16] MEDS: CYANOCOBALAMIN 1,000 MCG TABLET 2000 MCG PO (09:06)
[2023-10-16] MEDS: clonazePAM (*CRX) 0.5 MG TABLET 1 MG PO ×2 (09:06→16:53)
[2023-10-16] MEDS: FINASTERIDE 5 MG TABLET PO (09:07)
[2023-10-16] MEDS: oxyBUTYnin CHLORIDE 5 MG TABLET PO ×3 (09:07→16:54)
[2023-10-16] MEDS: allopurinoL 100 MG TABLET PO (09:07)
[2023-10-16] MEDS: FUROSEMIDE 20 MG TABLET PO (09:07)
[2023-10-16] MEDS: CHOLECALCIFEROL 1,000 UNITS TABLET 1000 UNITS PO (09:07)
[2023-10-16] MEDS: TELMISARTAN 40 MG TABLET 80 MG PO (09:07)
[2023-10-16] MEDS: ZINC SULFATE 220 MG CAPSULE PO (09:07)
[2023-10-16] MEDS: TIMOLOL MALEATE 0.5% OP SOLN 5 ML BOTTLE 1 DROP EACH EYE ×2 (09:08→16:55)
[2023-10-16] MEDS: TAMSULOSIN HCL 0.4 MG CAPSULE PO (09:08)
[2023-10-16] MEDS: FLUTICASONE PROPIONATE 0.05% NA SPR 16 GM BTL (*BKC) 1 SPRAY NASAL (09:08)
[2023-10-16] MEDS: GABAPENTIN 300 MG CAPSULE PO (09:08)
[2023-10-16] MEDS: UMECLIDINIUM BROMIDE 62.5 MCG ELLIPTA 1 PUFF INHALATION (09:08)
[2023-10-16] MEDS: ASPIRIN 81 MG ENTERIC TABLET PO (09:08)
[2023-10-16] MEDS: SALMET XINAFT/FLUTIC PROPIN 500 MCG/50 MCG INH CAP 1 PUFF INHALATION ×2 (09:09→16:55)
[2023-10-16] MEDS: MICONAZOLE NITRATE 2% CREAM 30 GM TUBE 1 APPLIC TOPICAL ×2 (09:10→20:10)
[2023-10-16 09:39] LABS: Basophils Absolute Auto 0.08 K/mm3 (0.00-0.10); Basophils Percent Auto 0.7 % (0.0-1.0); Eosinophils Absolute Auto 0.46 K/mm3 (0.02-0.50); Hematocrit 37.9 % (37.0-46.0); Hemoglobin 12.5 g/dL (12.4-15.3); Immature Granulocyte Absolute 0.12 K/mm3 (0.00-0.00); Lymphocytes Absolute Auto 1.13 K/mm3 (1.10-4.50); Lymphocytes Percent Auto 9.9 % (18.0-42.0); Mean Corpuscular Hemoglobin 32.2 pg (27.0-31.0); Mean Corpuscular Volume 97.7 fL (78.0-102.0); Mean Platelet Volume 8.9 fl (8.7-11.0); Monocytes Absolute Auto 0.98 K/mm3 (0.10-0.90); Monocytes Percent Auto 8.6 % (2.0-11.0); Neutrophils Absolute Auto 8.69 K/mm3 (1.70-7.20); Neutrophils Percent Auto 75.8 % (50.0-70.0); Platelet Count Result 319 K/mm3 (150-420); Red Blood Count 3.88 M/mm3 (4.70-6.10); Red Cell Distribution Width 13.1 % (11.6-14.4); White Blood Count 11.5 K/mm3 (4.8-10.8)
[2023-10-16 10:34] LABS: Alanine Aminotransferase 18 U/L (6-50); Albumin Level 3.3 g/dL (3.5-5.1); Alkaline Phosphatase 93 U/L (38-126); Anion Gap 7 mmol/L (4-12); Aspartate Amino Transferase 34 U/L (17-59); Bilirubin,Total 0.5 mg/dL (0.2-1.3); Blood Urea Nitrogen 14 mg/dL (9-20); Calcium 9.2 mg/dL (8.4-10.2); Carbon Dioxide 32 mmol/L (22-30); Chloride 93 mmol/L (98-107); Estimated CRCL calculation 66 ml/min; Estimated Glomerular Filt Rate > 60; Glucose 195 mg/dL (65-110); Osmolality Calculated 279 mOsm/kg (285-295); Potassium 3.8 mmol/L (3.4-5.0); Sodium 132 mmol/L (137-145)
--- NOTE | 2023-10-16 10:44 | P.PNIM_ITS ---
Progress Note: A&P Assessment and Plan (1) Acute on chronic diastolic heart failure: Code(s): I50.33 - Acute on chronic diastolic (congestive) heart failure Status: Acute Assessment and Plan: 10/14/23: * Continue Lasix * echocardiogram from 01/19/2023 was reviewed and shown normal LV systolic function with an estimated EF of 60-65%, grade 1 diastolic dysfunction * Daily weight. * continue fall precautions 10/15/23: * No change to current treatment plan 10/16/23: * No change to current treatment plan (2) Acute UTI: Code(s): N39.0 - Urinary tract infection, site not specified Status: Acute Assessment and Plan: 10/15/23: * likely catheter associated urinary tract infection * UA showing 3+ urine blood, 2+ leukocytes, 6-10 urine RBC, 7 and 9 urine WBC, trace bacteria * urine culture was obtained and is pending * continue Rocephin * white blood cell count 15.0 this morning, continue to trend. 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 * obtain UA with reflex to culture today * if UA is positive we will start patient Rocephin for CAUTI coverage 10/15/23: * white blood cell count 15.0 this morning * continue Rocephin for now * continue to trend 10/16/23: * WBC down to 11.5 today * Continue Rocephin for UTI coverage * Continue to trend (4) Urinary retention: Code(s): R33.9 - Retention of urine, unspecified Status: Acute Assessment and Plan: 10/14/23: * failed multiple attempts at discontinuing Ritter catheter and still having urinary retention * continue tamsulosin * follow-up with urology * continue Ritter catheter 10/15/23: * no change to current treatment plan (5) Weakness: Code(s): R53.1 - Weakness Status: Acute Assessment and Plan: 10/14/23: * continue PT/OT 10/15/23: * no change to current treatment plan (6) Peripheral neuropathic pain: Code(s): M79.2 - Neuralgia and neuritis, unspecified Status: Acute Assessment and Plan: 10/14/23: * continue Gabapentin 10/15/23: * no change to current treatment plan (7) Gout attack: Code(s): M10.9 - Gout, unspecified Status: Acute Assessment and Plan: 10/14/23: * continue allopurinol 10/15/23: * no change to current treatment plan (8) Foot pain, right: Code(s): M79.671 - Pain in right foot Status: Acute Assessment and Plan: 10/16/23: * Reporting right lateral foot pain * standing view x-rays ordered to assess for stress fracture Time Spent With Patient Time with patient: 15 - 25 minutes Subjective Date/time seen: 10/16/23 10:44 Interval history: Interval History: This is a 77-year-old male presented [facility] on 10/07/2023 for swing bed program. he was recently hospitalized with generalized weakness, urinary retention, and acute kidney injury at [facility]. He was started on tamsulosin for his urinary retention and has a chronic Ritter at this time.
--- NOTE | 2023-10-16 10:44 | PM.IMPN ---
Progress Note: A&P Assessment and Plan (1) Acute on chronic diastolic heart failure: Code(s): I50.33 - Acute on chronic diastolic (congestive) heart failure Status: Acute Assessment and Plan: 10/14/23: Continue Lasix echocardiogram from 01/19/2023 was reviewed and shown normal LV systolic function with an estimated EF of 60-65%, grade 1 diastolic dysfunction Daily weight. continue fall precautions 10/15/23: No change to current treatment plan 10/16/23: No change to current treatment plan (2) Acute UTI: Code(s): N39.0 - Urinary tract infection, site not specified Status: Acute Assessment and Plan: 10/15/23: likely catheter associated urinary tract infection UA showing 3+ urine blood, 2+ leukocytes, 6-10 urine RBC, 7 and 9 urine WBC, trace bacteria urine culture was obtained and is pending continue Rocephin white blood cell count 15.0 this morning, continue to trend. 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 obtain UA with reflex to culture today if UA is positive we will start patient Rocephin for CAUTI coverage 10/15/23: white blood cell count 15.0 this morning continue Rocephin for now continue to trend 10/16/23: WBC down to 11.5 today Continue Rocephin for UTI coverage Continue to trend (4) Urinary retention: Code(s): R33.9 - Retention of urine, unspecified Status: Acute Assessment and Plan: 10/14/23: failed multiple attempts at discontinuing Ritter catheter and still having urinary retention continue tamsulosin follow-up with urology continue Ritter catheter 10/15/23: no change to current treatment plan (5) Weakness: Code(s): R53.1 - Weakness Status: Acute Assessment and Plan: 10/14/23: continue PT/OT 10/15/23: no change to current treatment plan (6) Peripheral neuropathic pain: Code(s): M79.2 - Neuralgia and neuritis, unspecified Status: Acute Assessment and Plan: 10/14/23: continue Gabapentin 10/15/23: no change to current treatment plan (7) Gout attack: Code(s): M10.9 - Gout, unspecified Status: Acute Assessment and Plan: 10/14/23: continue allopurinol 10/15/23: no change to current treatment plan (8) Foot pain, right: Code(s): M79.671 - Pain in right foot Status: Acute Assessment and Plan: 10/16/23: Reporting right lateral foot pain standing view x-rays ordered to assess for stress fracture Time Spent With Patient Time with patient: 15 - 25 minutes Subjective Date/time seen: 10/16/23 10:44 Interval history: Interval History: This is a 77-year-old male presented [facility] on 10/07/2023 for swing bed program. he was recently hospitalized with generalized weakness, urinary retention, and acute kidney injury at [facility]. He was started on tamsulosin for his urinary retention and has a chronic Ritter at this time. 10/14/23: He has a follow-up appointment in a few weeks with Urology for his urinary retention. Patient denies any new complaints today. Nursing stated that he has a fungal infection at the head of his penis and miconazole ointment was ordered along with 1 tablet of Diflucan 150 mg. Labs today show a white blood cell count of 13.1, hemoglobin 11.9. Patient denies any fever, chills, nausea, vomiting, diarrhea, abdominal pain, chest pain, shortness a breath. 10/15/23: Labs and culture reviewed. Urine culture is still pending. WBC count up to 15.0 today. 10/16/23: Labs
[2023-10-16 16:00] VITALS: BP 120/64; PULSE 78; RESP 14; TEMP 36.6; O2SAT 97
[2023-10-16] MEDS: MELATONIN 5 MG TABLET PO (16:53)
[2023-10-16] MEDS: LOVASTATIN 10 MG TABLET PO (16:53)
[2023-10-16] MEDS: LORATADINE 10 MG TABLET PO (16:53)
[2023-10-16] MEDS: DOCUSATE SODIUM 100 MG CAPSULE 200 MG PO (16:53)
[2023-10-16] MEDS: ARTIFICIAL TEARS OPHTH SOLN 15 ML BOTTLE 1 DROP EACH EYE (20:10)
[2023-10-16] MEDS: LATANOPROST 0.005% OP SOLN 2.5 ML BTL 1 DROP EACH EYE (20:10)
[2023-10-16 23:45] VITALS: BP 95/46; PULSE 80; RESP 13; TEMP 36.1; O2SAT 95
[2023-10-17 05:44] LABS: Basophils Absolute Auto 0.09 K/mm3 (0.00-0.10); Basophils Percent Auto 0.9 % (0.0-1.0); Eosinophils Percent Auto 5.1 % (1.0-6.0); Hematocrit 35.2 % (37.0-46.0); Hemoglobin 11.5 g/dL (12.4-15.3); Immature Granulocyte Absolute 0.14 K/mm3 (0.00-0.00); Immature Granulocyte Percent A 1.4 % (0.0-0.0); Lymphocytes Absolute Auto 1.38 K/mm3 (1.10-4.50); Mean Corpuscular HGB Conc 32.7 g/dL (32-36); Mean Corpuscular Hemoglobin 31.6 pg (27.0-31.0); Mean Corpuscular Volume 96.7 fL (78.0-102.0); Monocytes Absolute Auto 1.32 K/mm3 (0.10-0.90); Monocytes Percent Auto 13.4 % (2.0-11.0); Neutrophils Absolute Auto 6.44 K/mm3 (1.70-7.20); Neutrophils Percent Auto 65.2 % (50.0-70.0); Platelet Count Result 324 K/mm3 (150-420); Red Blood Count 3.64 M/mm3 (4.70-6.10); Red Cell Distribution Width 13.1 % (11.6-14.4); White Blood Count 9.9 K/mm3 (4.8-10.8)
[2023-10-17 08:00] VITALS: BP 121/67; PULSE 90; RESP 20; TEMP 36.3; O2SAT 95
[2023-10-17] MEDS: allopurinoL 100 MG TABLET PO (08:10)
[2023-10-17 08:39] LABS: Alanine Aminotransferase 17 U/L (6-50); Alkaline Phosphatase 86 U/L (38-126); Anion Gap 4 mmol/L (4-12); Aspartate Amino Transferase 33 U/L (17-59); Bilirubin,Total 0.2 mg/dL (0.2-1.3); Blood Urea Nitrogen 17 mg/dL (9-20); Calcium 8.9 mg/dL (8.4-10.2); Carbon Dioxide 32 mmol/L (22-30); Chloride 98 mmol/L (98-107); Estimated CRCL calculation 60 ml/min; Estimated Glomerular Filt Rate > 60; Glucose 108 mg/dL (65-110); Osmolality Calculated 280 mOsm/kg (285-295); Potassium 4.2 mmol/L (3.4-5.0); Sodium 134 mmol/L (137-145)
--- NOTE | 2023-10-17 08:46 | P.PNIM_ITS ---
Progress Note: A&P Assessment and Plan (1) Acute on chronic diastolic heart failure: Code(s): I50.33 - Acute on chronic diastolic (congestive) heart failure Status: Acute Assessment and Plan: 10/14/23: * Continue Lasix * echocardiogram from 01/19/2023 was reviewed and shown normal LV systolic function with an estimated EF of 60-65%, grade 1 diastolic dysfunction * Daily weight. * continue fall precautions 10/15/23: * No change to current treatment plan 10/16/23: * No change to current treatment plan (2) Acute UTI: Code(s): N39.0 - Urinary tract infection, site not specified Status: Acute Assessment and Plan: 10/15/23: * likely catheter associated urinary tract infection * UA showing 3+ urine blood, 2+ leukocytes, 6-10 urine RBC, 7 and 9 urine WBC, trace bacteria * urine culture was obtained and is pending * continue Rocephin * white blood cell count 15.0 this morning, continue to trend. 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 * obtain UA with reflex to culture today * if UA is positive we will start patient Rocephin for CAUTI coverage 10/15/23: * white blood cell count 15.0 this morning * continue Rocephin for now * continue to trend 10/16/23: * WBC down to 11.5 today * Continue Rocephin for UTI coverage * Continue to trend 10/17/23: * WBC down to 9.9 today * Rocephin changed to Ampicillin (4) Urinary retention: Code(s): R33.9 - Retention of urine, unspecified Status: Acute Assessment and Plan: 10/14/23: * failed multiple attempts at discontinuing Ritter catheter and still having urinary retention * continue tamsulosin * follow-up with urology * continue Ritter catheter 10/15/23: * no change to current treatment plan (5) Weakness: Code(s): R53.1 - Weakness Status: Acute Assessment and Plan: 10/14/23: * continue PT/OT 10/15/23: * no change to current treatment plan (6) Peripheral neuropathic pain: Code(s): M79.2 - Neuralgia and neuritis, unspecified Status: Acute Assessment and Plan: 10/14/23: * continue Gabapentin 10/15/23: * no change to current treatment plan (7) Gout attack: Code(s): M10.9 - Gout, unspecified Status: Acute Assessment and Plan: 10/14/23: * continue allopurinol 10/15/23: * no change to current treatment plan (8) Foot pain, right: Code(s): M79.671 - Pain in right foot Status: Acute Assessment and Plan: 10/16/23: * Reporting right lateral foot pain * standing view x-rays ordered to assess for stress fracture 10/17/23: * X-ray of right foot was negative for fracture or dislocation Time Spent With Patient Time with patient: 15 - 25 minutes Subjective Date/time seen: 10/17/23 08:46 Interval history: Interval History: This is a 7
--- NOTE | 2023-10-17 08:46 | PM.IMPN ---
Progress Note: A&P Assessment and Plan (1) Acute on chronic diastolic heart failure: Code(s): I50.33 - Acute on chronic diastolic (congestive) heart failure Status: Acute Assessment and Plan: 10/14/23: Continue Lasix echocardiogram from 01/19/2023 was reviewed and shown normal LV systolic function with an estimated EF of 60-65%, grade 1 diastolic dysfunction Daily weight. continue fall precautions 10/15/23: No change to current treatment plan 10/16/23: No change to current treatment plan (2) Acute UTI: Code(s): N39.0 - Urinary tract infection, site not specified Status: Acute Assessment and Plan: 10/15/23: likely catheter associated urinary tract infection UA showing 3+ urine blood, 2+ leukocytes, 6-10 urine RBC, 7 and 9 urine WBC, trace bacteria urine culture was obtained and is pending continue Rocephin white blood cell count 15.0 this morning, continue to trend. 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 obtain UA with reflex to culture today if UA is positive we will start patient Rocephin for CAUTI coverage 10/15/23: white blood cell count 15.0 this morning continue Rocephin for now continue to trend 10/16/23: WBC down to 11.5 today Continue Rocephin for UTI coverage Continue to trend 10/17/23: WBC down to 9.9 today Rocephin changed to Ampicillin (4) Urinary retention: Code(s): R33.9 - Retention of urine, unspecified Status: Acute Assessment and Plan: 10/14/23: failed multiple attempts at discontinuing Ritter catheter and still having urinary retention continue tamsulosin follow-up with urology continue Ritter catheter 10/15/23: no change to current treatment plan (5) Weakness: Code(s): R53.1 - Weakness Status: Acute Assessment and Plan: 10/14/23: continue PT/OT 10/15/23: no change to current treatment plan (6) Peripheral neuropathic pain: Code(s): M79.2 - Neuralgia and neuritis, unspecified Status: Acute Assessment and Plan: 10/14/23: continue Gabapentin 10/15/23: no change to current treatment plan (7) Gout attack: Code(s): M10.9 - Gout, unspecified Status: Acute Assessment and Plan: 10/14/23: continue allopurinol 10/15/23: no change to current treatment plan (8) Foot pain, right: Code(s): M79.671 - Pain in right foot Status: Acute Assessment and Plan: 10/16/23: Reporting right lateral foot pain standing view x-rays ordered to assess for stress fracture 10/17/23: X-ray of right foot was negative for fracture or dislocation Time Spent With Patient Time with patient: 15 - 25 minutes Subjective Date/time seen: 10/17/23 08:46 Interval history: Interval History: This is a 77-year-old male presented [facility] on 10/07/2023 for swing bed program. he was recently hospitalized with generalized weakness, urinary retention, and acute kidney injury at [facility]. He was started on tamsulosin for his urinary retention and has a chronic Ritter at this time. 10/14/23: He has a follow-up appointment in a few weeks with Urology for his urinary retention. Patient denies any new complaints today. Nursing stated that he has a fungal infection at the head of his penis and miconazole ointment was ordered along with 1 tablet of Diflucan 150 mg. Labs today show a w
[2023-10-17] MEDS: UMECLIDINIUM BROMIDE 62.5 MCG ELLIPTA 1 PUFF INHALATION (09:05)
[2023-10-17] MEDS: FLUTICASONE PROPIONATE 0.05% NA SPR 16 GM BTL (*BKC) 1 SPRAY NASAL (09:05)
[2023-10-17] MEDS: SALMET XINAFT/FLUTIC PROPIN 500 MCG/50 MCG INH CAP 1 PUFF INHALATION ×2 (09:06→19:21)
[2023-10-17] MEDS: CYANOCOBALAMIN 1,000 MCG TABLET 2000 MCG PO (09:07)
[2023-10-17] MEDS: TIMOLOL MALEATE 0.5% OP SOLN 5 ML BOTTLE 1 DROP EACH EYE ×2 (09:07→19:21)
[2023-10-17] MEDS: CHOLECALCIFEROL 1,000 UNITS TABLET 1000 UNITS PO (09:08)
[2023-10-17] MEDS: PANTOPRAZOLE 40 MG TABLET PO ×2 (09:08→17:02)
[2023-10-17] MEDS: ZINC SULFATE 220 MG CAPSULE PO (09:08)
[2023-10-17] MEDS: TELMISARTAN 40 MG TABLET 80 MG PO (09:08)
[2023-10-17] MEDS: guaiFENesin 200 MG/10 ML UDC PO ×2 (09:08→17:01)
[2023-10-17] MEDS: oxyBUTYnin CHLORIDE 5 MG TABLET PO ×3 (09:08→17:02)
[2023-10-17] MEDS: FUROSEMIDE 20 MG TABLET PO (09:09)
[2023-10-17] MEDS: MICONAZOLE NITRATE 2% CREAM 30 GM TUBE 1 APPLIC TOPICAL ×2 (09:09→21:14)
[2023-10-17] MEDS: GABAPENTIN 300 MG CAPSULE PO (09:10)
[2023-10-17] MEDS: ZAFIRLUKAST 20 MG TABLET PO ×2 (09:10→17:02)
[2023-10-17] MEDS: FINASTERIDE 5 MG TABLET PO (09:10)
[2023-10-17] MEDS: ACETAMINOPHEN 325 MG TABLET 650 MG PO (09:10)
[2023-10-17] MEDS: POTASSIUM CHLORIDE 20 MEQ ER TABLET PO (09:10)
[2023-10-17] MEDS: ASPIRIN 81 MG ENTERIC TABLET PO (09:10)
[2023-10-17] MEDS: TAMSULOSIN HCL 0.4 MG CAPSULE PO (09:10)
[2023-10-17] MEDS: AMPICILLIN 1 GM/NS 50 ML 1 GM/50 ML BAG IVPB (09:20)
[2023-10-17] MEDS: IBUPROFEN 600 MG TABLET PO (13:10)
[2023-10-17] MEDS: DICLOFENAC SODIUM 1% 100 GM GEL (*BKC) 1 APPLIC TOPICAL ×3 (13:10→21:14)
[2023-10-17] MEDS: AMOXICILLIN 500 MG CAPSULE PO ×2 (15:22→21:14)
[2023-10-17 16:00] VITALS: BP 111/52; PULSE 77; RESP 18; TEMP 35.9; O2SAT 94
[2023-10-17] MEDS: DOCUSATE SODIUM 100 MG CAPSULE 200 MG PO (19:20)
[2023-10-17] MEDS: LOVASTATIN 10 MG TABLET PO (19:20)
[2023-10-17] MEDS: LORATADINE 10 MG TABLET PO (19:21)
[2023-10-17] MEDS: MELATONIN 5 MG TABLET PO (19:21)
[2023-10-17 20:00] VITALS: PULSE 77; RESP 18; O2SAT 94
[2023-10-17] MEDS: ARTIFICIAL TEARS OPHTH SOLN 15 ML BOTTLE 1 DROP EACH EYE (21:14)
[2023-10-17] MEDS: LATANOPROST 0.005% OP SOLN 2.5 ML BTL 1 DROP EACH EYE (21:14)
[2023-10-17] MEDS: clonazePAM (*CRX) 0.5 MG TABLET 1 MG PO (21:17)
[2023-10-18] VITALS: BP 113/67; PULSE 72; RESP 18; TEMP 36.6; O2SAT 96
[2023-10-18] MEDS: AMOXICILLIN 500 MG CAPSULE PO ×3 (06:41→21:36)
[2023-10-18 08:00] VITALS: BP 106/58; PULSE 76; RESP 18; TEMP 36.1; O2SAT 96
[2023-10-18] MEDS: UMECLIDINIUM BROMIDE 62.5 MCG ELLIPTA 1 PUFF INHALATION (08:21)
[2023-10-18] MEDS: TRIAMCINOLONE ACET 0.1% CREAM 15 GM TUBE 1 APPLIC TOPICAL (08:22)
[2023-10-18] MEDS: FLUTICASONE PROPIONATE 0.05% NA SPR 16 GM BTL (*BKC) 1 SPRAY NASAL (08:22)
[2023-10-18] MEDS: SALMET XINAFT/FLUTIC PROPIN 500 MCG/50 MCG INH CAP 1 PUFF INHALATION ×2 (08:23→17:21)
[2023-10-18] MEDS: TIMOLOL MALEATE 0.5% OP SOLN 5 ML BOTTLE 1 DROP EACH EYE ×2 (08:24→17:21)
[2023-10-18] MEDS: MICONAZOLE NITRATE 2% CREAM 30 GM TUBE 1 APPLIC TOPICAL ×2 (08:24→21:36)
[2023-10-18] MEDS: DICLOFENAC SODIUM 1% 100 GM GEL (*BKC) 1 APPLIC TOPICAL ×4 (08:24→21:36)
[2023-10-18] MEDS: guaiFENesin 200 MG/10 ML UDC PO ×2 (08:25→17:20)
[2023-10-18] MEDS: ZINC SULFATE 220 MG CAPSULE PO (08:25)
[2023-10-18] MEDS: TAMSULOSIN HCL 0.4 MG CAPSULE PO (08:25)
[2023-10-18] MEDS: CYANOCOBALAMIN 1,000 MCG TABLET 2000 MCG PO (08:25)
[2023-10-18] MEDS: TELMISARTAN 40 MG TABLET 80 MG PO (08:25)
[2023-10-18] MEDS: clonazePAM (*CRX) 0.5 MG TABLET 1 MG PO ×2 (08:26→17:20)
[2023-10-18] MEDS: allopurinoL 100 MG TABLET PO (08:26)
[2023-10-18] MEDS: GABAPENTIN 300 MG CAPSULE PO (08:27)
[2023-10-18] MEDS: POTASSIUM CHLORIDE 20 MEQ ER TABLET PO (08:27)
[2023-10-18] MEDS: CHOLECALCIFEROL 1,000 UNITS TABLET 1000 UNITS PO (08:27)
[2023-10-18] MEDS: FUROSEMIDE 20 MG TABLET PO (08:27)
[2023-10-18] MEDS: ZAFIRLUKAST 20 MG TABLET PO ×2 (08:27→17:22)
[2023-10-18] MEDS: PANTOPRAZOLE 40 MG TABLET PO ×2 (08:27→17:20)
[2023-10-18] MEDS: FINASTERIDE 5 MG TABLET PO (08:27)
[2023-10-18] MEDS: ASPIRIN 81 MG ENTERIC TABLET PO (08:28)
[2023-10-18] MEDS: oxyBUTYnin CHLORIDE 5 MG TABLET PO ×3 (08:28→17:20)
[2023-10-18 16:00] VITALS: BP 110/45; PULSE 78; RESP 16; TEMP 36.1; O2SAT 96
[2023-10-18] MEDS: LOVASTATIN 10 MG TABLET PO (17:25)
[2023-10-18] MEDS: MELATONIN 5 MG TABLET PO (17:25)
[2023-10-18] MEDS: LORATADINE 10 MG TABLET PO (17:25)
[2023-10-18] MEDS: LATANOPROST 0.005% OP SOLN 2.5 ML BTL 1 DROP EACH EYE (21:36)
[2023-10-18] MEDS: ARTIFICIAL TEARS OPHTH SOLN 15 ML BOTTLE 1 DROP EACH EYE (21:36)
[2023-10-19] VITALS: BP 121/67; PULSE 76; RESP 18; TEMP 36.6; O2SAT 96
[2023-10-19] MEDS: AMOXICILLIN 500 MG CAPSULE PO ×3 (06:17→20:24)
[2023-10-19 08:00] VITALS: BP 134/74; PULSE 78; RESP 14; TEMP 36.8; O2SAT 96
[2023-10-19] MEDS: allopurinoL 100 MG TABLET PO (08:05)
[2023-10-19] MEDS: guaiFENesin 200 MG/10 ML UDC PO ×2 (09:03→18:38)
[2023-10-19] MEDS: CYANOCOBALAMIN 1,000 MCG TABLET 2000 MCG PO (09:03)
[2023-10-19] MEDS: clonazePAM (*CRX) 0.5 MG TABLET 1 MG PO ×2 (09:03→18:39)
[2023-10-19] MEDS: CHOLECALCIFEROL 1,000 UNITS TABLET 1000 UNITS PO (09:03)
[2023-10-19] MEDS: POTASSIUM CHLORIDE 20 MEQ ER TABLET PO (09:04)
[2023-10-19] MEDS: FINASTERIDE 5 MG TABLET PO (09:04)
[2023-10-19] MEDS: TELMISARTAN 40 MG TABLET 80 MG PO (09:04)
[2023-10-19] MEDS: TAMSULOSIN HCL 0.4 MG CAPSULE PO (09:04)
[2023-10-19] MEDS: ZAFIRLUKAST 20 MG TABLET PO ×2 (09:04→18:39)
[2023-10-19] MEDS: FUROSEMIDE 20 MG TABLET PO (09:04)
[2023-10-19] MEDS: ASPIRIN 81 MG ENTERIC TABLET PO (09:05)
[2023-10-19] MEDS: oxyBUTYnin CHLORIDE 5 MG TABLET PO ×3 (09:05→18:39)
[2023-10-19] MEDS: GABAPENTIN 300 MG CAPSULE PO (09:05)
[2023-10-19] MEDS: SALMET XINAFT/FLUTIC PROPIN 500 MCG/50 MCG INH CAP 1 PUFF INHALATION ×2 (09:06→18:39)
[2023-10-19] MEDS: TIMOLOL MALEATE 0.5% OP SOLN 5 ML BOTTLE 1 DROP EACH EYE ×2 (09:06→18:39)
[2023-10-19] MEDS: FLUTICASONE PROPIONATE 0.05% NA SPR 16 GM BTL (*BKC) 1 SPRAY NASAL (09:06)
[2023-10-19] MEDS: PANTOPRAZOLE 40 MG TABLET PO ×2 (09:06→18:39)
[2023-10-19] MEDS: UMECLIDINIUM BROMIDE 62.5 MCG ELLIPTA 1 PUFF INHALATION (09:07)
[2023-10-19] MEDS: MICONAZOLE NITRATE 2% CREAM 30 GM TUBE 1 APPLIC TOPICAL ×2 (09:07→20:24)
[2023-10-19] MEDS: DICLOFENAC SODIUM 1% 100 GM GEL (*BKC) 1 APPLIC TOPICAL ×4 (09:07→20:24)
[2023-10-19] MEDS: ZINC SULFATE 220 MG CAPSULE PO (09:21)
--- NOTE | 2023-10-19 09:24 | P.PNCROSS_ITS ---
Event Note Event Note Event Note: Patient doing well with no complaints reviewed echo results will plan on disc harge 10/20 to home, will call cardiology for f/U appointment after reviewing his previous event monitor findings.
[2023-10-19 16:00] VITALS: BP 102/53; PULSE 75; RESP 18; TEMP 36.1; O2SAT 97
[2023-10-19] MEDS: LOVASTATIN 10 MG TABLET PO (18:38)
[2023-10-19] MEDS: MELATONIN 5 MG TABLET PO (18:38)
[2023-10-19] MEDS: DOCUSATE SODIUM 100 MG CAPSULE 200 MG PO (18:39)
[2023-10-19] MEDS: LORATADINE 10 MG TABLET PO (18:39)
[2023-10-19] MEDS: ARTIFICIAL TEARS OPHTH SOLN 15 ML BOTTLE 1 DROP EACH EYE (20:24)
[2023-10-19] MEDS: LATANOPROST 0.005% OP SOLN 2.5 ML BTL 1 DROP EACH EYE (20:24)
[2023-10-20] VITALS: BP 134/69; PULSE 79; RESP 16; TEMP 36.4; O2SAT 97
[2023-10-20] MEDS: AMOXICILLIN 500 MG CAPSULE PO ×3 (06:00→20:21)
[2023-10-20 08:00] VITALS: BP 108/56; PULSE 84; RESP 18; TEMP 36.1; O2SAT 95
[2023-10-20] MEDS: TELMISARTAN 40 MG TABLET 80 MG PO (09:42)
[2023-10-20] MEDS: guaiFENesin 200 MG/10 ML UDC PO ×2 (09:42→18:02)
[2023-10-20] MEDS: clonazePAM (*CRX) 0.5 MG TABLET 1 MG PO ×2 (09:42→18:05)
[2023-10-20] MEDS: polyethylene glycoL 3350 17 GM POWD.PACK PO (09:42)
[2023-10-20] MEDS: allopurinoL 100 MG TABLET PO (09:42)
[2023-10-20] MEDS: FLUTICASONE PROPIONATE 0.05% NA SPR 16 GM BTL (*BKC) 1 SPRAY NASAL (09:43)
[2023-10-20] MEDS: TAMSULOSIN HCL 0.4 MG CAPSULE PO (09:43)
[2023-10-20] MEDS: ASPIRIN 81 MG ENTERIC TABLET PO (09:43)
[2023-10-20] MEDS: POTASSIUM CHLORIDE 20 MEQ ER TABLET PO (09:43)
[2023-10-20] MEDS: FINASTERIDE 5 MG TABLET PO (09:43)
[2023-10-20] MEDS: ZINC SULFATE 220 MG CAPSULE PO (09:43)
[2023-10-20] MEDS: GABAPENTIN 300 MG CAPSULE PO (09:43)
[2023-10-20] MEDS: ZAFIRLUKAST 20 MG TABLET PO ×2 (09:43→18:05)
[2023-10-20] MEDS: oxyBUTYnin CHLORIDE 5 MG TABLET PO ×3 (09:43→18:05)
[2023-10-20] MEDS: CYANOCOBALAMIN 1,000 MCG TABLET 2000 MCG PO (09:43)
[2023-10-20] MEDS: CHOLECALCIFEROL 1,000 UNITS TABLET 1000 UNITS PO (09:43)
[2023-10-20] MEDS: FUROSEMIDE 20 MG TABLET PO (09:43)
[2023-10-20] MEDS: PANTOPRAZOLE 40 MG TABLET PO ×2 (09:43→18:05)
[2023-10-20] MEDS: UMECLIDINIUM BROMIDE 62.5 MCG ELLIPTA 1 PUFF INHALATION (09:44)
[2023-10-20] MEDS: SALMET XINAFT/FLUTIC PROPIN 500 MCG/50 MCG INH CAP 1 PUFF INHALATION ×2 (09:44→18:03)
[2023-10-20] MEDS: DICLOFENAC SODIUM 1% 100 GM GEL (*BKC) 1 APPLIC TOPICAL ×4 (09:45→20:32)
[2023-10-20] MEDS: MICONAZOLE NITRATE 2% CREAM 30 GM TUBE 1 APPLIC TOPICAL ×2 (09:45→20:32)
[2023-10-20] MEDS: TIMOLOL MALEATE 0.5% OP SOLN 5 ML BOTTLE 1 DROP EACH EYE ×2 (09:45→18:02)
[2023-10-20 16:00] VITALS: BP 98/62; PULSE 80; RESP 18; TEMP 36.1; O2SAT 97
[2023-10-20] MEDS: LOVASTATIN 10 MG TABLET PO (18:04)
[2023-10-20] MEDS: DOCUSATE SODIUM 100 MG CAPSULE 200 MG PO (18:05)
[2023-10-20] MEDS: LORATADINE 10 MG TABLET PO (18:05)
[2023-10-20] MEDS: MELATONIN 5 MG TABLET PO (18:05)
[2023-10-20] MEDS: ARTIFICIAL TEARS OPHTH SOLN 15 ML BOTTLE 1 DROP EACH EYE (20:31)
[2023-10-20] MEDS: LATANOPROST 0.005% OP SOLN 2.5 ML BTL 1 DROP EACH EYE (20:32)
[2023-10-20 23:57] VITALS: BP 103/45; PULSE 66; RESP 18; TEMP 36.3; O2SAT 94
[2023-10-21] MEDS: AMOXICILLIN 500 MG CAPSULE PO (05:55)
[2023-10-21 08:00] VITALS: BP 113/55; PULSE 82; RESP 16; TEMP 36.1; O2SAT 94
[2023-10-21] MEDS: allopurinoL 100 MG TABLET PO (08:30)
[2023-10-21] MEDS: FLUTICASONE PROPIONATE 0.05% NA SPR 16 GM BTL (*BKC) 1 SPRAY NASAL (09:07)
[2023-10-21] MEDS: DICLOFENAC SODIUM 1% 100 GM GEL (*BKC) 1 APPLIC TOPICAL (09:07)
[2023-10-21] MEDS: polyethylene glycoL 3350 17 GM POWD.PACK PO (09:07)
[2023-10-21] MEDS: UMECLIDINIUM BROMIDE 62.5 MCG ELLIPTA 1 PUFF INHALATION (09:08)
[2023-10-21] MEDS: SALMET XINAFT/FLUTIC PROPIN 500 MCG/50 MCG INH CAP 1 PUFF INHALATION (09:09)
[2023-10-21] MEDS: TIMOLOL MALEATE 0.5% OP SOLN 5 ML BOTTLE 1 DROP EACH EYE (09:09)
[2023-10-21] MEDS: TAMSULOSIN HCL 0.4 MG CAPSULE PO (09:10)
[2023-10-21] MEDS: clonazePAM (*CRX) 0.5 MG TABLET 1 MG PO (09:10)
[2023-10-21] MEDS: CHOLECALCIFEROL 1,000 UNITS TABLET 1000 UNITS PO (09:10)
[2023-10-21] MEDS: FUROSEMIDE 20 MG TABLET PO (09:10)
[2023-10-21] MEDS: TELMISARTAN 40 MG TABLET 80 MG PO (09:10)
[2023-10-21] MEDS: guaiFENesin 200 MG/10 ML UDC PO (09:10)
[2023-10-21] MEDS: POTASSIUM CHLORIDE 20 MEQ ER TABLET PO (09:10)
[2023-10-21] MEDS: ASPIRIN 81 MG ENTERIC TABLET PO (09:11)
[2023-10-21] MEDS: CYANOCOBALAMIN 1,000 MCG TABLET 2000 MCG PO (09:11)
[2023-10-21] MEDS: ZINC SULFATE 220 MG CAPSULE PO (09:11)
[2023-10-21] MEDS: oxyBUTYnin CHLORIDE 5 MG TABLET PO (09:11)
[2023-10-21] MEDS: ZAFIRLUKAST 20 MG TABLET PO (09:11)
[2023-10-21] MEDS: FINASTERIDE 5 MG TABLET PO (09:11)
[2023-10-21] MEDS: GABAPENTIN 300 MG CAPSULE PO (09:11)
[2023-10-21] MEDS: MICONAZOLE NITRATE 2% CREAM 30 GM TUBE 1 APPLIC TOPICAL (09:11)
[2023-10-21] MEDS: PANTOPRAZOLE 40 MG TABLET PO (09:11)
--- NOTE | 2023-10-21 11:12 | PM.DS ---
DS: Admitting Diagnosis Discharge Date 10/21/2023 Admitting Diagnosis UTI, Confuse, Tachycardic, Weakness DS: Discharge Diagnosis Discharge Diagnosis (1) Acute UTI: Code(s): N39.0 - Urinary tract infection, site not specified Status: Acute Assessment and Plan: Treated with Antibioitics (2) Acute on chronic diastolic heart failure: Code(s): I50.33 - Acute on chronic diastolic (congestive) heart failure Status: Acute (3) Urinary retention: Code(s): R33.9 - Retention of urine, unspecified Status: Acute (4) Weakness: Code(s): R53.1 - Weakness Status: Acute DS: Summary Hospital Course Reason for hospitalization: UTI, Tachycardia, Confusion and Weakness Hospital Course: This is a 78 year old male admitted with a UTI, Tachycardia, Weakness, and confusion. Patient was found While here to be growing Enterococcus Species and was treated with IV ampicillin, Ceftraxione. Patient was started on Finesteride and has a follow up appointment with urology on discharge for urine retention. Patient has a chronic whitaker that was changed 6 days prior to admission. Patient was seen by [facility] therapy and is stable for discharge. Patient will require home health and will need to follow up with Cardiology and Urology on discharge. At this time patient is medically stable and he will not require any oral antibiotics as he has completed his course of medication. patient is eating and drinking has remained afebrile and is labs has trended down to his baseline. Time Spent with Patient Time attestation: Total time spent providing and/or coordinating discharge services: Exam Narrative: General: In no acute distress, well nourished Cardiac: Normal S1 and S2, No murmur, gallops or friction rubs, peripheral pulses intact. Respiratory: Lungs clear to auscultation, no adventitious lung sounds, currently on room air Gastrointestinal: soft, non-distended, non-tender, normoactive bowel sounds. : whitaker catheter to gravity draining clear yellow urine Skin: fungal infection to head of penis Extremities: BLE edema, pedal edema, reports pain in right lateral foot Neuro: Alert and oriented x4 Discharge Plan Discharge Attending physician on discharge: Dallas Hart Consulting providers: Graciela Hilario; Agata Shea; Fer Person; Beny Lucia; Hima Butler Discharging Clinician: Fer Person Anticipated Discharge Date/Time: 10/21/23 09:27 Patient Disposition: Home Health Service Activity: no shower Diet: as tolerated, regular and diabetic Discharge Instructions: Per Care Coordination: [facility] will follow you at discharge and will plan to see you on Tuesday, October 22 or October 23. They will give you a call to schedule. Their phone number is [phone]. Patient Instructions: Antibiotic Form, Oxybutynin (By mouth), Amoxicillin (By mouth), Finasteride (By mouth), Urinary Incontinence (ED), Pain Management in Older Adults (GEN), Whitaker Catheter Placement and Care (DC), Fall Prevention for Older Adults (DC), Weakness (DC), Urinary Leg Bag (GEN), Urinary Tract Infection in Older Adults (DC), How to Change a Catheter Drainage Bag (GEN) Stand Alone Forms: General Discharge Information Follow-up/Referrals: Jairon Cannon MD [Primary Care Provider] - Call for Appointment (Call and schedule appointment follow up in 1-2 weeks.) Nanda Tompkins PA-C [Physician Administrative Volunteer] - 10/24/23 11:00 am (Urology) Discharge Medications: New finasteride [Proscar] 5 mg Tablet 5 mg PO QAM Qty: 30 0RF potassium chloride [K-Tab] 20 mEq Tablet Extended Release 20 meq PO DAILY@0800 Qty: 30 0RF Continued telmisartan 80 mg tablet 80 mg PO HS tiotropium bromide [Spiriva with HandiHaler] 18 mcg capsule, w/inhalation device 1 cap inhalation DAILY Rx Instructions: INHALE THE CONTENTS OF 1 CAPSULE BY MOUTH VIA
--- NOTE | 2023-10-21 12:10 | PC.NURSE ---
Discharge instructions reviewed with patient and , they both verbalize understanding. Patient taken off floor per wheelchair.
--- NOTE | 2023-10-24 11:08 | PC.NURSE ---
Discharge call back completed, is currently at urology office, no questions re dc from [facility]
== END 2023-10-21 12:10 | disposition home health service (06) | DRG 948 ==
PROVIDERS: Nurse Practitioner Acute Care; Admitting Provider Internal Medicine; PCP Family Medicine; Visit Provider Nurse Practitioner Family
DX: R53.1 Weakness (principal); I50.32 Chronic diastolic (congestive) heart failure; I11.0 Hypertensive heart disease with heart failure; T83.511A Infection and inflammatory reaction due to indwelling urethral catheter, initial encounter; G62.9 Polyneuropathy, unspecified; J45.909 Unspecified asthma, uncomplicated; G47.33 Obstructive sleep apnea (adult) (pediatric); H40.9 Unspecified glaucoma; Z79.82 Long term (current) use of aspirin; R33.9 Retention of urine, unspecified; K59.00 Constipation, unspecified; M10.9 Gout, unspecified; N32.89 Other specified disorders of bladder; B36.9 Superficial mycosis, unspecified
CPT/HCPCS: 36415; 73620; 80053; 81001; 84132; 85025; 87077; 87086; 87088; 87181; 93306; 97110; 97161; 97166; 97530; 97535; A9270; J0290; J0696

== ENCOUNTER 2023-11-06 16:56 | Inpatient (IN) | payer OTHER, MEDICARE, SELFPAY ==
[2023-11-06] VITALS (60 sets, daily range): BP systolic 70–125; BP diastolic 24–106; PULSE 82–131; RESP 12–98; TEMP 36.7–37.3; O2SAT 92–100; BMI 35.0
--- NOTE | ~2023-11-06 | XR_ITS ---
XR chest 1V portable Ordering provider: Madison Calvin MD History: 78 years Male with . SEPSIS . Comparison: None. FINDINGS: MEDIASTINUM: The cardiac silhouette is moderately enlarged. Congestive marielena. LUNGS: No effusions or pneumothorax. Opacification in the left mid and lower zone suggestive of atele ctasis versus pneumonia. OTHER: No free air under the diaphragm. Degenerative spine. IMPRESSION: Opacification in the left mid and lower zone suggestive of atelectasis versus pneumonia. Reviewed, dictated and finalized at location A. IMPRESSION: Opacification in the left mid and lower zone suggestive of atelectasis versus p neumonia.
--- NOTE | ~2023-11-06 | XR_ITS ---
EXAMINATION: XR knee LT 3V DATE: 11/07/2023 12:27 INDICATION: Left knee pain and swelling. TECHNIQUE: 4 views of left knee were obtained. COMPARISON: Left knee radiographs 12/16/2022 FINDINGS: There is a total left knee arthroplasty in near-anatomic alignment with patellar resurfacin g. No periprosthetic lucency to suggest loosening or infection. There is irregular ossification of me dial aspect of medial femoral condyle. There is a small knee joint effusion. There is soft tissue swe lling about the knee. IMPRESSION: 1. Irregular ossification at medial aspect of medial femoral condyle suspicious for fracture. Conside r CT. 2. Total left knee arthroplasty in near-anatomic alignment. 3. Small knee joint effusion. Reviewed, dictated and finalized at location A. IMPRESSION: 1. Irregular ossification at medial aspect of medial femoral condyle suspicious for fracture. Consider CT. 2. Total left knee arthroplasty in near-anatomic alignment. 3. Small knee joint effusion.
--- NOTE | ~2023-11-06 | XR_ITS ---
XR knee RT 3V Ordering provider: Erick Valderrama History: . Knee pain and swelling, fall yesterday . Comparison: February 27, 2019 FINDINGS: BONES: No acute fracture or dislocation. JOINT SPACES: Total knee arthroplasty. SOFT TISSUES: Normal. IMPRESSION: No acute osseous abnormality right knee. Total knee arthroplasty. Reviewed, dictated and finalized at location A.
--- NOTE | ~2023-11-06 | CT_ITS ---
CT OF left knee EXAMINATION: CT knee LT wo con DATE: 11/07/2023 16:39 INDICATION: Possible knee fracture TECHNIQUE: Computed tomography (CT) of the left main was performed without intravenous contrast. Auto mated exposure control and iterative reconstruction technique were employed. The dose-length product was 685.28 mGy-cm. COMPARISON: X-ray left knee, same date FINDINGS: Status post left total knee arthroplasty. Hardware components in expected position. Vertica lly oriented fracture through the medial aspect of the medial femoral condyle. No other fracture. No dislocation. Generalized decreased mineralization. Small-volume joint fluid. Soft tissue edema in the medial quadriceps musculature. IMPRESSION: Mildly displaced, vertically oriented fracture of the medial aspect of the medial femoral condyle Reviewed, dictated and finalized at location K. IMPRESSION: Mildly displaced, vertically oriented fracture of the medial aspect of the medi al femoral condyle
--- NOTE | 2023-11-06 17:08 | ED.GENADULT ---
HPI - General Adult General Chief complaint: Recheck/Abnormal Lab/Rx Stated complaint: vaccine reactions Time Seen by Provider: 11/06/23 16:57 Source: patient, family and EMS Mode of arrival: EMS Limitations: no limitations History of Present Illness HPI narrative: 78 YEARS OLD WHITE MALE CAME FROM HOME BY AMBULANCE COMPLAINING OF GENERAL WEAKNESS, TROUBLE WALKING FOR THE LAST FEW DAYS AND GRADUALLY GETTING WORSE. PATIENT WAS DISCHARGED FROM [facility] 2 WEEKS AGO AND BEEN AT HOME SINCE. YESTERDAY PATIENT GOT THE FLU AND COVID VACCINE AT THE PHARMACY. AND HIS CONDITION GOT WORSEN. Related Data Home Medications Medication Instructions Recorded Confirmed cyanocobalamin (vitamin B-12) 2,000 mcg PO DAILY 12/27/18 10/06/23 2,000 mcg tablet aspirin 81 mg tablet,delayed 81 mg PO DAILY 02/02/19 10/06/23 release fexofenadine 60 mg-pseudoephedrine 1 tablet PO Q12H 02/02/19 10/06/23 ER 120 mg tablet,ext.release,12 hr (Jeni-D 12 Hour) latanoprost 0.005 % eye drops 1 drop ophthalmic (eye) HS 02/02/19 10/06/23 timolol 0.5 % eye drops 1 drop ophthalmic (eye) Q12H 02/02/19 10/06/23 cholecalciferol (vitamin D3) 25 25 mcg PO DAILY 04/25/23 10/06/23 mcg (1,000 unit) capsule fluoride (sodium) 1.1 % dental 1 applic dental HS 04/25/23 10/06/23 paste (PreviDent 5000 Booster Plus) zinc acetate 50 mg (zinc) capsule 50 mg PO DAILY 04/25/23 10/06/23 albuterol sulfate 90 mcg/actuation 2 inh inhalation Q4H PRN Shortness 07/21/23 10/06/23 aerosol inhaler Of Breath Or Wheezing azelastine 137 mcg (0.1 %) nasal 2 spray intranasal .Once daily PRN 07/21/23 10/07/23 spray Nasal Congestion fluticasone propionate 50 1 spray intranasal DAILY 07/21/23 10/06/23 mcg/actuation nasal spray,suspension lovastatin 10 mg tablet 10 mg PO HS 07/21/23 10/06/23 procyanidolic oligomers 50 mg 50 mg PO DAILY 07/21/23 10/06/23 capsule triamcinolone acetonide 0.1 % 1 applic topical BID PRN Itching 07/21/23 10/06/23 topical cream gabapentin 300 mg capsule 300 mg PO DAILY 10/01/23 10/06/23 colchicine 0.6 mg capsule 0.6 mg PO BID 10/06/23 10/06/23 peg [id number] 1 drp EACH EYE HS 10/06/23 10/06/23 potassium chloride 20 mEq 20 meq PO DAILY 10/06/23 10/06/23 tablet,extended release(part/cryst) telmisartan 80 mg tablet 80 mg PO DAILY 10/06/23 10/06/23 tiotropium bromide 18 mcg capsule 1 cap inhalation DAILY 10/06/23 10/06/23 with inhalation device (Spiriva with HandiHaler) Allergies Allergy/AdvReac Type Severity Reaction Status Date / Time clindamycin Allergy Mild Rash Verified 08/25/23 11:06 bacitracin Allergy Unknown Swelling Verified 08/25/23 11:06 of Lip/Tongue/Throat cat dander Allergy Unknown Rash Verified 08/25/23 11:06 latex Allergy Unknown Rash Verified 08/25/23 11:06 pollen extracts Allergy Unknown Dyspnea / Verified 08/25/23 11:06 SOB Sulfa (Sulfonamide Allergy Unknown Unknown Verified 08/25/23 11:06 Antibiotics) sulfite Allergy Unknown Unknown Verified 08/25/23 11:06 codeine AdvReac Unknown Nausea and Verified 10/02/23 15:55 Vomiting Review of Systems Review of Systems: All systems reviewed & are unremarkable except as noted in HPI and below PMFSH Past Medical History Medical History Allergic rhinitis, cause unspecified Asthma COVID-19 Essential (primary) hypertension IBS (irritable bowel syndrome) Normocytic normochromic anemia NICOLE treated with BiPAP Peripheral neuropathic pain Unspecified glaucoma Family History Family History Mother Hypertension, Onset Age: 81 Cerebrovascular accident, Onset Age: 81 Father Asthma, Onset Age: 82 Acute myocardial infarction, Onset Age: 82 Diabetes mellitus, Onset Age: 82 Family history of allergic disorder, Onset Age: 82 Other Lupus Other Carcinoma of colon Social History Social History (Revi
--- NOTE | 2023-11-06 17:10 | ECG_ITS ---
Test Date: 2023-11-06 17:33:12 Measurements Intervals Sheldon Rate: 105 P: 19 OH: 158 QRS: -79 QRSD: 146 T: 43 QT: 360 QTc: 476 Interpretive Statements SINUS TACHYCARDIA WITH OCCASIONAL VENTRICULAR PREMATURE COMPLEXES RIGHT BUNDLE BRANCH BLOCK LEFT ANTERIOR FASCICULAR BLOCK BASELINE ARTIFACT- I, II, III, AVR, AVL, AVF, V1-V6 ABNORMAL ECG Compared to ECG 10/01/2023 11:06:16 NO SIGNIFICANT CHANGE Electronically Signed On 11-06-2023 20:18:14 CDT by Beny Lucia D.O.
[2023-11-06 17:49] LABS: Basophils Absolute Auto 0.1 K/mm3 (0.0-0.1); Basophils Percent Auto 0.4 % (0.2-1.2); Eosinophils Absolute Auto 0.1 K/mm3 (0-0.3); Eosinophils Percent Auto 0.5 % (0-4.4); Hematocrit 39.6 % (42.0-52.0); Hemoglobin 13.5 g/dL (14.0-18.0); Immature Granulocyte Absolute 0.15 K/mm3 (0.00-0.031); Lymphocytes Absolute Auto 1.11 K/mm3 (0.9-3.2); Lymphocytes Percent Auto 7.3 % (18.3-44.2); Mean Corpuscular HGB Conc 34.1 g/dl (32-36); Mean Corpuscular Hemoglobin 32.5 pg (26-34); Mean Corpuscular Volume 95.4 fl (80-100); Mean Platelet Volume 9.6 fl (7.4-10.4); Monocytes Absolute Auto 1.6 K/mm3 (0.1-0.6); Monocytes Percent Auto 10.8 % (2.6-8.5); Neutrophils Absolute Auto 12.1 K/mm3 (1.3-6.7); Platelet Count Result 264 k/mm3 (150-375); Red Blood Count 4.15 M/mm3 (4.6-6.20); Red Cell Distribution Width 13.7 % (11.5-14.5); White Blood Count 15.1 K/mm3 (4.5-10.0)
[2023-11-06] MEDS: SODIUM CHLORIDE 0.9% IV 3,100 ML/1,000 ML BAG 999 ML IV CONT ×3 (17:49→19:01)
[2023-11-06 17:58] LABS: INR 1.1; Prothrombin Time 14.6 Seconds (11.1-14.7)
[2023-11-06 17:59] LABS: Partial Thromboplastin Time 31.9 Seconds (22.3-36.8)
[2023-11-06 18:00] LABS: Lactic Acid Reflex 1.7 mmol/L (0.7-2.0)
[2023-11-06 18:02] LABS: Alanine Aminotransferase 14 U/L (6-50); Albumin Level 3.8 g/dL (3.5-5.1); Alkaline Phosphatase 93 U/L (38-126); Anion Gap 8 mmol/L (4-12); Aspartate Amino Transferase 29 U/L (17-59); Bilirubin,Total 1.2 mg/dL (0.2-1.3); Blood Urea Nitrogen 15 mg/dL (9-20); CRP 4.7 mg/dL (<1.0); Calcium 9.4 mg/dL (8.4-10.2); Carbon Dioxide 27 mmol/L (22-30); Chloride 98 mmol/L (98-107); Estimated CRCL calculation 53 ml/min; Estimated Glomerular Filt Rate 59; Glucose 96 mg/dL (65-110); Potassium 3.6 mmol/L (3.4-5.0); Sodium 133 mmol/L (137-145)
[2023-11-06 18:25] LABS: Influenza A QL RT-PCR Negative (Negative); Influenza B QL RT-PCR Negative (Negative); RSV RNA, RT-PCR Negative (Negative); SARS-CoV-2 RNA PCR Negative (Negative)
[2023-11-06] MEDS: levoFLOXacin 750 MG/D5W 150 ML 750 MG/150 ML BAG 100 MG IVPB (18:32)
[2023-11-06 18:39] LABS: Add Urine Microscopic? YES; Appearance Urine Cloudy (Clear); Bacteria Urine 4+ /hpf; Bilirubin Urine Negative (Negative); Blood Urine 2+ (Negative); Color Urine Yellow (Yellow); Glucose Urine UA Negative (Negative); Ketones Urine Negative (Negative); Leukocyte Esterase Ur 3+ LEU/UL (Negative); Need Manual Microscopic Reviewed; Nitrate Urine Negative (Negative); Protein Urine 1+ mg/dL (Negative); Specific Grav Ur 1.014 (1.001-1.035); Squamous Epithelial Cell Urine None Seen /hpf (Few); Urobilinogen Urine 0.2 mg/dL (<2.0); WBC Clumps Urine Present /HPF; WBC Urine >100 /hpf (0-3)
[2023-11-06] MEDS: NOREPINEPHRINE 8 MG/D5W 250 ML 8 MG/250 ML BAG 9.38 MG IV CONT (20:10)
--- NOTE | 2023-11-06 20:16 | PC.NURSE ---
barcode for the norepi would not scan due to improper placement and a crease in the middle. mannual barcode was entered
[2023-11-06] MEDS: PIPERACILLN/TAZ 3.375GM/NS50ML 3.375 GM/50 ML BAG IVPB (20:39)
--- NOTE | 2023-11-06 21:33 | PC.NURSE ---
levo was titrated at this time to 7mcg/min. pt vitals were 94/50 (62) HR 91 98% on RA RR15
--- NOTE | 2023-11-06 21:35 | PC.NURSE ---
Report received from ER nurse Anni RN at 1407.
--- NOTE | 2023-11-06 22:07 | ADMGEN ---
This patient, Stephenie Cordero III, was admitted to Intensive Care Unit-6 at 2145. Patient/family oriented to hospital policies and general routines including ID bracelet, bed and alarms, visiting hours, pain management, procedures, bathroom and other care routines, personal items, smoking policy, room service/diet, and visiting hours. Information on how to activate the Rapid Response Team has been discussed. Patient/Family are encouraged to report perceived risks to care and to ask questions if they do not understand what they are told or what they should do.
[2023-11-06] MEDS: ACETAMINOPHEN 325 MG TABLET 650 MG PO (22:43)
[2023-11-06] MEDS: GABAPENTIN 300 MG CAPSULE PO (22:44)
[2023-11-06] MEDS: PANTOPRAZOLE 40 MG TABLET PO (22:44)
[2023-11-06] MEDS: ZAFIRLUKAST 20 MG TABLET PO (22:44)
[2023-11-06] MEDS: SODIUM CHLORIDE 0.9% IV 1,000 ML 125 ML IV CONT (22:52)
--- NOTE | 2023-11-06 23:35 | PM.IMHP ---
H&P: HPI History of Present Illness Date/Time: 11/06/23 23:35 Chief Complaint: Weakness and not feeling good Narrative: 78-year-old male with a past medical history of BPH with urinary retention requiring chronic indwelling Ritter catheter, GERD, asthma, obstructive sleep apnea, essential hypertension, gout and other comorbidities who presented to the ER From home via EMS due to weakness and not feeling well. patient was recently discharged from acute rehab approximately 2 weeks ago. He was doing well until a few days ago when he became more weak and had trouble walking that is been getting worse. The patient's had taken the patient to have His influenza vaccine and COVID vaccine yesterday. Today patient was even weaker and more confused so his called EMS thinking that he was having a reaction to the vaccines Since he usually has some weakness and confusion Following vaccines previously. on arrival to the ER patient was afebrile but tachycardic with heart rate as high as 131. He was also found to be hypotensive by EMS with blood pressures in the 70s. By the time he arrived to the ER blood pressures improved mildly up to the low 90 systolic. Patient received 30 mL/kilos bolus despite adequate fluid resuscitation patient remained hypotensive and had central line placed and was started on Levophed. CBC demonstrated leukocytosis and patient's urine was consistent with UTI. The patient reports that his Ritter catheter was exchanged 6 days ago. Patient is alert oriented person, place and time at the time of my evaluation but had been confused on presentation to the ER. He does report some decreased appetite. He has not had any nausea vomiting or diarrhea. He denies any respiratory symptoms. The patient has been having multiple falls. Despite recent discharge from acute rehab be states that he cannot get out of the chair. He states he takes 3 people to get him up. He reports that he does not want to go back to acute rehab in just wants to stay in the hospital until he is able to go home and be more functional. He complained of severe pain in his lower extremities with even light palpation to the nursing staff. At the time of my evaluation he denied any areas of pain. However he was quite angry at the department manager when they had to come and get ill a blood draw for blood cultures. He wanted a order that stated that under no circumstances was he did have for the lab draws. I did discuss with the patient that that would not be a possibility.. Review of Systems Review of Systems: 12 systems were reviewed with pertinent positives and negatives per HPI. Except as documented in the HPI, all other systems were reviewed and are negative. [facility] Past Medical History Medical History (Updated 11/06/23 @ 21:27 by Jeanne Nolasco DO) Allergic rhinitis, cause unspecified Anxiety Asthma B12 deficiency BPH (benign prostatic hyperplasia) Chronic indwelling Ritter catheter due to urinary retention from BPH COVID-19 Diabetic peripheral neuropathy complicated by prior diabetic foot ulcer on the right with osteomyelitis 2017 . Certified Histologic Technician stated that this was due to diabetes however patient's A1c within our record system has never been above 5.8 so diagnosis of diabetes not will document Diastolic heart failure echocardiogram 10/2023: EF 60-65%, grade 1 diastolic dysfunction, E/E 12 is mildly elevated, normal right-sided heart pressures Essential (primary) hypertension GERD (gastroesophageal reflux disease) Gout History of GI bleed following polypectomy IBS (irritable bowel syndrome) Iron deficiency anemia with history of iron infusions 2018. Follows with Dr. Baca Lymphedema Normocytic normochromic anemia Open-angle glaucoma NICOLE treated with BiPAP BiPAP 01/14 Peripheral neuropathic pain Spinal stenosis at L4-L5 level TIA (transient ischemic attack) (~2010) Vitamin D deficiency Surgical History Surgical History (Updated 11/06/23
[2023-11-07] VITALS (23 sets, daily range): BP systolic 87–130; BP diastolic 47–95; PULSE 67–86; RESP 16–23; TEMP 36.5–37; O2SAT 97–100; BMI 35.0
[2023-11-07 00:02] LABS: MRSA (PCR) DETECTED (NOT DETECTE)
[2023-11-07] MEDS: PIPERACILLN/TAZ 3.375GM/NS50ML 3.375 GM/50 ML BAG IVPB ×4 (03:48→20:23)
[2023-11-07] MEDS: CENTRAL LINE FLUSH 10 ML IV PUSH ×3 (05:47→20:23)
[2023-11-07 05:54] LABS: Basophils Percent Auto 0.3 % (0.2-1.2); Eosinophils Absolute Auto 0.2 K/mm3 (0-0.3); Eosinophils Percent Auto 1.8 % (0-4.4); Hematocrit 31.8 % (42.0-52.0); Hemoglobin 10.6 g/dL (14.0-18.0); Immature Granulocyte Absolute 0.13 K/mm3 (0.00-0.031); Immature Granulocyte Percent A 1.4 % (0-0.5); Lymphocytes Absolute Auto 1.19 K/mm3 (0.9-3.2); Lymphocytes Percent Auto 12.7 % (18.3-44.2); Mean Corpuscular HGB Conc 33.3 g/dl (32-36); Mean Corpuscular Hemoglobin 32.6 pg (26-34); Mean Corpuscular Volume 97.8 fl (80-100); Mean Platelet Volume 9.1 fl (7.4-10.4); Monocytes Absolute Auto 1.4 K/mm3 (0.1-0.6); Monocytes Percent Auto 14.9 % (2.6-8.5); Neutrophils Absolute Auto 6.5 K/mm3 (1.3-6.7); Neutrophils Percent Auto 68.9 % (45.5-73.1); Platelet Count Result 180 k/mm3 (150-375); Red Blood Count 3.25 M/mm3 (4.6-6.20); White Blood Count 9.4 K/mm3 (4.5-10.0)
[2023-11-07] MEDS: SODIUM CHLORIDE 0.9% IV 1,000 ML 125 ML IV CONT (06:03)
[2023-11-07 06:07] LABS: Alanine Aminotransferase 13 U/L (6-50); Albumin Level 2.7 g/dL (3.5-5.1); Alkaline Phosphatase 69 U/L (38-126); Anion Gap 7 mmol/L (4-12); Aspartate Amino Transferase 25 U/L (17-59); Blood Urea Nitrogen 11 mg/dL (9-20); Carbon Dioxide 22 mmol/L (22-30); Chloride 106 mmol/L (98-107); Estimated CRCL calculation 63 ml/min; Estimated Glomerular Filt Rate > 60; Glucose 112 mg/dL (65-110); Potassium 3.3 mmol/L (3.4-5.0); Sodium 135 mmol/L (137-145)
[2023-11-07] MEDS: ENOXAPARIN 40 MG/0.4 ML SYRINGE SUB-Q (08:32)
[2023-11-07] MEDS: POTASSIUM CHLORIDE 20 MEQ ER TABLET PO (08:32)
[2023-11-07] MEDS: FINASTERIDE 5 MG TABLET PO (08:33)
[2023-11-07] MEDS: clonazePAM (*CRX) 0.5 MG TABLET 1 MG PO ×2 (08:33→16:11)
[2023-11-07] MEDS: GABAPENTIN 300 MG CAPSULE PO ×2 (08:33→20:23)
[2023-11-07] MEDS: ASPIRIN 81 MG ENTERIC TABLET PO (08:33)
[2023-11-07] MEDS: PANTOPRAZOLE 40 MG TABLET PO ×2 (08:33→20:23)
[2023-11-07] MEDS: LORATADINE 10 MG TABLET PO (08:34)
[2023-11-07] MEDS: FLUTICASONE PROPIONATE 0.05% NA SPR 16 GM BTL (*BKC) 1 SPRAY NASAL (08:34)
[2023-11-07] MEDS: DICLOFENAC SODIUM 1% 100 GM GEL (*BKC) 1 APPLIC TOPICAL ×3 (08:34→20:30)
[2023-11-07] MEDS: TIMOLOL MALEATE 0.5% OP SOLN 5 ML BOTTLE 1 DROP EACH EYE (08:34)
[2023-11-07] MEDS: ZAFIRLUKAST 20 MG TABLET PO ×2 (08:35→20:23)
[2023-11-07] MEDS: POTASSIUM CHLORIDE 20 MEQ ER TABLET 40 MEQ PO (08:35)
[2023-11-07] MEDS: ARTIFICIAL TEARS OPHTH SOLN 15 ML BOTTLE 1 DROP EACH EYE ×2 (08:35→20:30)
[2023-11-07] MEDS: MICONAZOLE NITRATE 2% CREAM 30 GM TUBE 1 APPLIC TOPICAL ×2 (09:15→20:31)
--- NOTE | 2023-11-07 11:35 | WPDCNINT ---
Assessment and Plan Assessment and plan (1) Septic shock: Code(s): A41.9 - Sepsis, unspecified organism; R65.21 - Severe sepsis with septic shock Status: Acute Assessment and Plan: Septic shock likely related to UTI secondary to chronic indwelling Ritter catheter. -adequately fluid-resuscitated, despite which the blood pressures were low, central line was inserted on 11/05 -patient off Levophed will continue to monitor and maintain MAP > 65 mmHg and SBP > 100 mmHg -patient started on Zosyn (11/05). Also received 1 dose of Levaquin in the ER -11/05: Blood cultures pending -11/05: Urine cultures pending Patient currently off Levophed, will continue to monitor (2) Urinary tract infection associated with indwelling urethral catheter: Qualifiers: Encounter type: initial encounter Qualified Code(s): T83.511A - Infection and inflammatory reaction due to indwelling urethral catheter, initial encounter; N39.0 - Urinary tract infection, site not specified Code(s): T83.511A - Infection and inflammatory reaction due to indwelling urethral catheter, initial encounter; N39.0 - Urinary tract infection, site not specified Status: Acute Assessment and Plan: UTI likely secondary to indwelling catheter -continue antibiotics as above -cultures pending (3) Weakness: Code(s): R53.1 - Weakness Status: Acute Assessment and Plan: Generalized weakness likely related to UTI, hypotension, septic shock -also could be related to bilateral lower extremity knee pain and swelling -will obtain x-rays of both knees -will consult ortho (4) Asthma: Qualifiers: Asthma severity: unspecified severity Asthma persistence: unspecified Asthma complication type: unspecified Qualified Code(s): J45.909 - Unspecified asthma, uncomplicated Code(s): J45.909 - Unspecified asthma, uncomplicated Status: Acute Assessment and Plan: Continue bronchodilators -chest x-ray on admission showed probable atelectasis (5) NICOLE treated with BiPAP: Code(s): G47.33 - Obstructive sleep apnea (adult) (pediatric) Status: Acute Assessment and Plan: BiPAP on home settings at night and while asleep during the day Plan DVT prophylaxis: Lovenox Stress ulcer prophylaxis: Protonix Nutrition: Heart healthy diet with supplements Code Status: Full code Critical Care Time Spent: 49 minutes Discussed with spouse during rounds, updated with patient's condition and plan of care. She is aware that ortho is going to be following him for his knee pain. I did update her that he was in septic shock, on vasopressors and antibiotics, currently vasopressors have been off. Kidney functions are normal and white count has normalized. I answered all her questions Due to a high probability of clinically significant, life threatening deterioration, the patient required my highest level of preparedness to intervene emergently and I personally spent this critical care time directly and personally managing the patient. This critical care time included obtaining a history; examining the patient; pulse oximetry; ordering and review of studies; arranging urgent treatment with development of a management plan; evaluation of patient's response to treatment; frequent reassessment; and discussions with other providers. It was exclusive of separately billable procedures and treating other patients and teaching time. Please see Assessment and Plan section and the rest of the note for further information on patient assessment and treatment This dictation may have been done utilizing a voice recognition system. Attempts have been made to correct errors. However, there may be uncorrected grammatical, spelling, and recognitions errors present. 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
--- NOTE | 2023-11-07 14:40 | PCRCNOTE ---
Window of time for administration has passed. See next scheduled administration.
[2023-11-07] MEDS: PSYLLIUM POWDER PACKET 1 PACKET PO (20:23)
[2023-11-07] MEDS: LATANOPROST 0.005% OP SOLN 2.5 ML BTL 1 DROP EACH EYE (20:29)
[2023-11-08] VITALS (14 sets, daily range): BP systolic 92–119; BP diastolic 45–75; PULSE 50–81; RESP 15–23; TEMP 36.6–37; O2SAT 96–99
[2023-11-08] MEDS: PIPERACILLN/TAZ 3.375GM/NS50ML 3.375 GM/50 ML BAG IVPB ×4 (02:11→20:19)
[2023-11-08] MEDS: CENTRAL LINE FLUSH 10 ML IV PUSH ×3 (05:09→20:22)
[2023-11-08 05:24] LABS: Basophils Percent Auto 0.2 % (0.2-1.2); Eosinophils Absolute Auto 0.6 K/mm3 (0-0.3); Eosinophils Percent Auto 6.9 % (0-4.4); Hematocrit 28.6 % (42.0-52.0); Hemoglobin 9.5 g/dL (14.0-18.0); Immature Granulocyte Absolute 0.05 K/mm3 (0.00-0.031); Immature Granulocyte Percent A 0.6 % (0-0.5); Lymphocytes Absolute Auto 1.46 K/mm3 (0.9-3.2); Lymphocytes Percent Auto 17.4 % (18.3-44.2); Mean Corpuscular HGB Conc 33.2 g/dl (32-36); Mean Corpuscular Hemoglobin 32.1 pg (26-34); Mean Corpuscular Volume 96.6 fl (80-100); Mean Platelet Volume 9.3 fl (7.4-10.4); Monocytes Absolute Auto 0.8 K/mm3 (0.1-0.6); Neutrophils Absolute Auto 5.5 K/mm3 (1.3-6.7); Neutrophils Percent Auto 64.9 % (45.5-73.1); Platelet Count Result 151 k/mm3 (150-375); Red Blood Count 2.96 M/mm3 (4.6-6.20); Red Cell Distribution Width 13.8 % (11.5-14.5); White Blood Count 8.4 K/mm3 (4.5-10.0)
[2023-11-08 05:35] LABS: Alanine Aminotransferase 12 U/L (6-50); Albumin Level 2.5 g/dL (3.5-5.1); Alkaline Phosphatase 59 U/L (38-126); Anion Gap 3 mmol/L (4-12); Aspartate Amino Transferase 21 U/L (17-59); Bilirubin,Total 0.5 mg/dL (0.2-1.3); Blood Urea Nitrogen 10 mg/dL (9-20); Calcium 8.2 mg/dL (8.4-10.2); Carbon Dioxide 23 mmol/L (22-30); Chloride 108 mmol/L (98-107); Estimated CRCL calculation 78 ml/min; Estimated Glomerular Filt Rate > 60; Glucose 103 mg/dL (65-110); Magnesium 1.6 mg/dL (1.6-2.3); Potassium 3.7 mmol/L (3.4-5.0); Sodium 134 mmol/L (137-145)
[2023-11-08] MEDS: ASPIRIN 81 MG ENTERIC TABLET PO (08:45)
[2023-11-08] MEDS: PANTOPRAZOLE 40 MG TABLET PO ×2 (08:45→20:18)
[2023-11-08] MEDS: POTASSIUM CHLORIDE 20 MEQ ER TABLET PO (08:45)
[2023-11-08] MEDS: FINASTERIDE 5 MG TABLET PO (08:45)
[2023-11-08] MEDS: GABAPENTIN 300 MG CAPSULE PO ×2 (08:45→20:18)
[2023-11-08] MEDS: ZAFIRLUKAST 20 MG TABLET PO ×2 (08:45→20:18)
[2023-11-08] MEDS: clonazePAM (*CRX) 0.5 MG TABLET 1 MG PO ×2 (08:45→16:59)
[2023-11-08] MEDS: LORATADINE 10 MG TABLET PO (08:45)
[2023-11-08] MEDS: ENOXAPARIN 40 MG/0.4 ML SYRINGE SUB-Q (08:46)
[2023-11-08] MEDS: TIMOLOL MALEATE 0.5% OP SOLN 5 ML BOTTLE 1 DROP EACH EYE (08:47)
[2023-11-08] MEDS: DICLOFENAC SODIUM 1% 100 GM GEL (*BKC) 1 APPLIC TOPICAL ×4 (08:47→20:19)
[2023-11-08] MEDS: MICONAZOLE NITRATE 2% CREAM 30 GM TUBE 1 APPLIC TOPICAL ×2 (08:47→20:25)
[2023-11-08] MEDS: FLUTICASONE PROPIONATE 0.05% NA SPR 16 GM BTL (*BKC) 1 SPRAY NASAL (08:47)
[2023-11-08] MEDS: ARTIFICIAL TEARS OPHTH SOLN 15 ML BOTTLE 1 DROP EACH EYE ×2 (08:48→20:18)
[2023-11-08] MEDS: UMECLIDINIUM BROMIDE 62.5 MCG ELLIPTA 1 PUFF INHALATION (09:42)
--- NOTE | 2023-11-08 10:04 | PM.CNOR ---
Assessment and Plan Assessment and plan (1) Knee fracture: Status: Acute Assessment and Plan: Radiographs of the left knee revealed an irregular ossification at medial aspect of medial femoral condyle suspicious for fracture of the LEFT knee with total left knee arthroplasty in near-anatomic alignment and a small knee joint effusion. CT scan obtained which reveals a mildly displaced, vertically oriented fracture of the medial aspect of the medial femoral condyle. The fracture type and injury as well as radiographs discussed with the patient and family. Operative and nonoperative treatment options reviewed. Recommended non operative treatment. Risk of nonunion, malunion or late displacement discussed. Stiffness, pain and possible dysfunction of the joint discussed. Fracture precautions and activity restrictions reviewed. The patient verbalizes understanding. Recommended knee immobilizer for stability. WBAT with knee immobilizer in place. May plan for aspiration of the left knee given suspected hemarthrosis from injury pending discussion with attending MD, Dr. Cage. Pain control. Ice. Elevation. OOB to chair. (2) Chronic indwelling Whitaker catheter: Code(s): Z97.8 - Presence of other specified devices Status: Acute Assessment and Plan: Patient is followed by urology. Reports he sees Nanda. Concerned about his prostate. Urology to be notified he is inpatient. History of Present Illness HPI Consult date: 11/08/23 Chief complaint: Sepsis with Hypotension, Urinary tract infection a Narrative: 78-year-old male admitted due to weakness, sepsis with hypotension and UTI. Per patient, he has been having difficulty urinating for several months. He has been followed closely by urology. He most recently saw urologist last week per patient report for whitaker catheter exchange. He states he sees Nanda in [place] and he had an upcoming appointment as well to discuss his prostate. He has been have weakness for some time but this became worse over the last one week. He had a fall and was unable to stand out of a chair. He had bilateral TKAs performed in June of [address] Farmer. He reports pain in the knees since the time of his surgery but this has worsened since his most recent fall. Orthopedic consult requested for b/l LE pain. Radiographs obtained in the ICU s/p admission revealed an irregular ossification at medial aspect of medial femoral condyle suspicious for fracture of the LEFT knee with total left knee arthroplasty in near-anatomic alignment and a small knee joint effusion. Radiographs of the RIGHT knee reveal no acute abnormalities. 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 Back [employer] Cl[employer] Washer stated that this was due to diabetes however patient's A1c within our record system has never been above 5.8 so diagnosis of diabetes not will document Diastolic heart failure echocardiogram 10/2023: EF 60-65%, grade 1 diastolic dysfunction, E/E 12 is mildly elevated, normal right-sided heart pressures Essential (primary) hypertension GERD (gastroesophageal reflux disease) Gout History of GI bleed following polypectomy IBS (irritable bowel syndrome) Iron deficiency anemia with history of iron infusions 2018. Follows with Dr. Baca Knee fracture Lymphedema Normocytic normochromic anemia Open-angle glaucoma NICOLE treated with BiPAP BiPAP 01/14 Peripheral neuropathic pain Spinal stenosis at L4-L5 level TIA (transient ischemic attack) (~2010) Vitamin D deficiency
[2023-11-08] MEDS: MIDODRINE HCL 10 MG TABLET PO ×3 (11:24→16:59)
[2023-11-08] MEDS: ALBUMIN HUMAN 25% 25 GM/100 ML 100 ML IVPB ×2 (11:24→17:04)
--- NOTE | 2023-11-08 11:45 | PCNFU ---
Nutrition Follow-Up Complete: Inadequate oral intake related to loss of appetite as evidenced by unintentional weight loss, poor intakes 10% meals goal: Improve PO intake at least 50% meals and supplements Patient has limited progress towards goal. We will continue current goal. Pt current nutrition is Heart Healthy with Ensure Compact TID. Last recorded weight is 105.6 kg, up from 104.6 kg on admit Bowel Motility: +BM reported 11/07 Labs Reviewed:Na 134, Alb 2.5 Meds Noted: Lovenox, Zosyn Skin: WNL Additional Notes: Patient currently on a heart healthy diet. PO intake has been poor, 0-25% of meals. Diet supplements remain on trays providing an additional 220 kcal and 9 gm protein. Agree with diet orders. Monitoring intakes, weights, labs, supplement tolerance, plan of care Follow up in 3 days
--- NOTE | 2023-11-08 11:51 | WPDINTPN ---
Progress Note: A&P Assessment and Plan (1) Septic shock: Code(s): A41.9 - Sepsis, unspecified organism; R65.21 - Severe sepsis with septic shock Status: Acute Assessment and Plan: Septic shock likely related to UTI secondary to chronic indwelling Ritter catheter. -adequately fluid-resuscitated, despite which the blood pressures were low, central line was inserted on 11/05 -patient off Levophed will continue to monitor and maintain MAP > 65 mmHg and SBP > 100 mmHg -continue Zosyn (11/05). Also received 1 dose of Levaquin in the ER -11/05: Preliminary blood cultures are negative -11/05: Urine cultures cultures growing Enterococcus species, susceptibilities pending. (on 10/14/2023 patient had UTI with Enterococcus faecalis sensitive to penicillin and vancomycin) Patient currently off Levophed, will continue to monitor (2) Urinary tract infection associated with indwelling urethral catheter: Qualifiers: Encounter type: initial encounter Qualified Code(s): T83.511A - Infection and inflammatory reaction due to indwelling urethral catheter, initial encounter; N39.0 - Urinary tract infection, site not specified Code(s): T83.511A - Infection and inflammatory reaction due to indwelling urethral catheter, initial encounter; N39.0 - Urinary tract infection, site not specified Status: Acute Assessment and Plan: UTI likely secondary to indwelling catheter -continue antibiotics as above -cultures above (3) Weakness: Code(s): R53.1 - Weakness Status: Acute Assessment and Plan: Generalized weakness likely related to UTI, hypotension, septic shock -also could be related to bilateral lower extremity knee pain and swelling -x-ray knees reviewed -appreciate Ortho evaluation (4) Asthma: Qualifiers: Asthma severity: unspecified severity Asthma persistence: unspecified Asthma complication type: unspecified Qualified Code(s): J45.909 - Unspecified asthma, uncomplicated Code(s): J45.909 - Unspecified asthma, uncomplicated Status: Acute Assessment and Plan: Continue bronchodilators -chest x-ray on admission showed probable atelectasis (5) NICOLE treated with BiPAP: Code(s): G47.33 - Obstructive sleep apnea (adult) (pediatric) Status: Acute Assessment and Plan: BiPAP on home settings at night and while asleep during the day Plan DVT prophylaxis: Lovenox Stress ulcer prophylaxis: Protonix Nutrition: Heart healthy diet with supplements PT/OT to follow Code Status: Full code Critical Care Time Spent: 32 minutes 11/06: Discussed with spouse during rounds, updated with patient's condition and plan of care. She is aware that ortho is going to be following him for his knee pain. I did update her that he was in septic shock, on vasopressors and antibiotics, currently vasopressors have been off. Kidney functions are normal and white count has normalized. I answered all her questions Due to a high probability of clinically significant, life threatening deterioration, the patient required my highest level of preparedness to intervene emergently and I personally spent this critical care time directly and personally managing the patient. This critical care time included obtaining a history; examining the patient; pulse oximetry; ordering and review of studies; arranging urgent treatment with development of a management plan; evaluation of patient's response to treatment; frequent reassessment; and discussions with other providers. It was exclusive of separately billable procedures and treating other patients and teaching time. Please see Assessment and Plan section and the rest of the note for further information on patient assessment and treatment This dictation may have been done utilizing a voice recognition system. Attempts have been made to correct errors. However, there may be uncorrected grammatical, spelling, and recognitions errors present.
--- NOTE | 2023-11-08 15:31 | WPDURCON ---
Assessment and Plan Assessment and plan (1) Urinary retention: Code(s): R33.9 - Retention of urine, unspecified Status: Acute Assessment and Plan: Urinary retention onset 09/2023. Continue with indwelling Ritter catheter while awaiting outpatient urologic evaluation (scheduled for EP1 testing on 11/14/2023, will likely need to be rescheduled). Continue finasteride and tamsulosin as BP allows. (2) Urinary tract infection associated with indwelling urethral catheter: Qualifiers: Encounter type: initial encounter Qualified Code(s): T83.511A - Infection and inflammatory reaction due to indwelling urethral catheter, initial encounter; N39.0 - Urinary tract infection, site not specified Code(s): T83.511A - Infection and inflammatory reaction due to indwelling urethral catheter, initial encounter; N39.0 - Urinary tract infection, site not specified Status: Acute Assessment and Plan: Urine culture with growth of Enterococcus. Currently on Zosyn. Await final culture results and tailor antibiotics accordingly Urology Consult Note HPI Date Seen: 11/08/23 Requesting Physician: Jeanne Nolasco DO Primary Care Provider: Jairon Cannon MD Consult Narrative Narrative: Stephenie Cordero III is a 78 year old male with history of BPH and urinary retention who is currently admitted for sepsis secondary to possible UTI. The patient is known to me after recent admission 10/03/2023 during which he developed urinary retention which was felt to be related to constipation. He was started on tamsulosin and finasteride since that time has had several voiding trials that were ultimately unsuccessful. Most recently, he was seen in the office on 11/01/23 and had Ritter catheter replaced after inability to urinate with 900 cc urine output. He has a Ritter catheter at this time which is draining clear yellow urine. Preliminary urine culture during this admission shows growth of Enterococcus. Preliminary blood cultures are negative to date. He had leukocytosis on presentation which has resolved at this time. His renal function is within normal limits. Review of Systems Review of Systems: All systems reviewed & are unremarkable except as noted in HPI and below PMFSH Past Medical History Medical History (Updated 11/08/23 @ 12:24 by MARIA D Chandra) Allergic rhinitis, cause unspecified Anxiety Asthma B12 deficiency BPH (benign prostatic hyperplasia) 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 Follows with Dr. Baca Knee fracture Lymphedema Normocytic normochromic anemia Open-angle glaucoma NICOLE treated with BiPAP BiPAP 01/14 Peripheral neuropathic pain Spinal stenosis at L4-L5 level TIA (transient ischemic attack) (~2010) Vitamin D deficiency Surgical History Surgical History History of appendectomy History of bilateral knee replacement History of colonoscopy with polypectomy with most recent 07/2023 demonstrated recurrent polyps and internal hemorrhoids well as diverticulosis Status post cataract extraction of both eyes with insertion of intraocular lens Family History Family History Mother Hy
--- NOTE | 2023-11-08 16:00 | PCPTNOTE ---
Per RN, continues to have femoral line. Pt not safe to participate in skilled therapy at this time. Will follow.
--- NOTE | 2023-11-08 16:18 | PM.OP ---
Procedure Note - Brief Procedure Note - Brief Date of procedure: 11/08/23 Sepsis with Hypotension, Urinary tract infection a Post-op diagnosis: Same Procedure performed: Left Knee Aspiration Surgeon: MARIA D Chandra Anesthesia: local Findings: 20mL of sanguinous fluid Description of procedure: Discussed left knee aspiration of hemarthrosis for pain control. The risks of injection were reviewed including but not limited to skin color changes, atrophy of the soft tissue, tendon or soft tissue rupture, joint degeneration, hyper inflammatory response, allergic reaction, continued pain or dysfunction. Specific risks of the procedure including deep infection or soft tissue rupture or recurrence of symptoms reviewed. No guarantees were offered. The patient understands the need for possible further treatment. Consent obtained. Left knee prepped and draped in sterile fashion. 5 mL of lidocaine injected from the lateral aspect with a 22 gauge needle. 18 gauge needle used to aspirate 20 mL of sanguinous fluid from the lateral aspect of the knee. No injection performed following. Patient tolerated procedure well. Implants: n/a Estimated blood loss (mL): 0 Total Tourniquet Time: 0 IV fluids (mL): 0 Urine output (mL): 0 Drains: No Packing: No Pathology: None sent Complications: No immediate complications Condition: Stable Disposition: Same day
[2023-11-08] MEDS: PSYLLIUM POWDER PACKET 1 PACKET PO (20:17)
[2023-11-08] MEDS: LATANOPROST 0.005% OP SOLN 2.5 ML BTL 1 DROP EACH EYE (20:25)
[2023-11-09] VITALS (14 sets, daily range): BP systolic 111–136; BP diastolic 56–71; PULSE 16–83; RESP 13–23; TEMP 36.4–37.2; O2SAT 95–99
[2023-11-09] MEDS: ALBUMIN HUMAN 25% 25 GM/100 ML 100 ML IVPB ×2 (00:14→04:50)
[2023-11-09] MEDS: PIPERACILLN/TAZ 3.375GM/NS50ML 3.375 GM/50 ML BAG IVPB ×4 (02:26→20:45)
[2023-11-09] MEDS: CENTRAL LINE FLUSH 10 ML IV PUSH ×2 (04:44→14:28)
[2023-11-09 04:55] LABS: Basophils Percent Auto 0.2 % (0.2-1.2); Eosinophils Absolute Auto 0.7 K/mm3 (0-0.3); Eosinophils Percent Auto 8.4 % (0-4.4); Hematocrit 26.3 % (42.0-52.0); Hemoglobin 8.7 g/dL (14.0-18.0); Immature Granulocyte Absolute 0.03 K/mm3 (0.00-0.031); Immature Granulocyte Percent A 0.4 % (0-0.5); Lymphocytes Absolute Auto 1.44 K/mm3 (0.9-3.2); Lymphocytes Percent Auto 17.3 % (18.3-44.2); Mean Corpuscular HGB Conc 33.1 g/dl (32-36); Mean Corpuscular Hemoglobin 32.1 pg (26-34); Mean Platelet Volume 9.3 fl (7.4-10.4); Monocytes Absolute Auto 0.7 K/mm3 (0.1-0.6); Monocytes Percent Auto 7.8 % (2.6-8.5); Neutrophils Absolute Auto 5.5 K/mm3 (1.3-6.7); Neutrophils Percent Auto 65.9 % (45.5-73.1); Platelet Count Result 142 k/mm3 (150-375); Red Blood Count 2.71 M/mm3 (4.6-6.20); Red Cell Distribution Width 13.9 % (11.5-14.5); White Blood Count 8.3 K/mm3 (4.5-10.0)
[2023-11-09 05:13] LABS: Lactic Acid Reflex 0.7 mmol/L (0.7-2.0); Magnesium 1.6 mg/dL (1.6-2.3); Phosphorus 3.5 mg/dL (2.5-4.5)
[2023-11-09 05:15] LABS: Alanine Aminotransferase 13 U/L (6-50); Alkaline Phosphatase 49 U/L (38-126); Anion Gap 4 mmol/L (4-12); Aspartate Amino Transferase 22 U/L (17-59); Bilirubin,Total 0.7 mg/dL (0.2-1.3); Blood Urea Nitrogen 9 mg/dL (9-20); Calcium 8.8 mg/dL (8.4-10.2); Carbon Dioxide 26 mmol/L (22-30); Chloride 107 mmol/L (98-107); Estimated CRCL calculation 78 ml/min; Estimated Glomerular Filt Rate > 60; Glucose 91 mg/dL (65-110); Magnesium 1.6 mg/dL (1.6-2.3); Phosphorus 3.4 mg/dL (2.5-4.5); Potassium 3.9 mmol/L (3.4-5.0); Sodium 137 mmol/L (137-145)
[2023-11-09] MEDS: UMECLIDINIUM BROMIDE 62.5 MCG ELLIPTA 1 PUFF INHALATION (07:55)
[2023-11-09] MEDS: TIMOLOL MALEATE 0.5% OP SOLN 5 ML BOTTLE 1 DROP EACH EYE (08:13)
[2023-11-09] MEDS: ARTIFICIAL TEARS OPHTH SOLN 15 ML BOTTLE 1 DROP EACH EYE ×2 (08:13→20:45)
[2023-11-09] MEDS: DICLOFENAC SODIUM 1% 100 GM GEL (*BKC) 1 APPLIC TOPICAL ×4 (08:13→20:45)
[2023-11-09] MEDS: FLUTICASONE PROPIONATE 0.05% NA SPR 16 GM BTL (*BKC) 1 SPRAY NASAL (08:13)
[2023-11-09] MEDS: LORATADINE 10 MG TABLET PO (08:14)
[2023-11-09] MEDS: ZAFIRLUKAST 20 MG TABLET PO ×2 (08:14→20:45)
[2023-11-09] MEDS: MIDODRINE HCL 10 MG TABLET PO ×3 (08:14→17:33)
[2023-11-09] MEDS: POTASSIUM CHLORIDE 20 MEQ ER TABLET PO (08:14)
[2023-11-09] MEDS: clonazePAM (*CRX) 0.5 MG TABLET 1 MG PO ×2 (08:14→17:33)
[2023-11-09] MEDS: PANTOPRAZOLE 40 MG TABLET PO ×2 (08:14→20:45)
[2023-11-09] MEDS: MICONAZOLE NITRATE 2% CREAM 30 GM TUBE 1 APPLIC TOPICAL ×2 (08:14→20:45)
[2023-11-09] MEDS: ASPIRIN 81 MG ENTERIC TABLET PO (08:14)
[2023-11-09] MEDS: FINASTERIDE 5 MG TABLET PO (08:14)
[2023-11-09] MEDS: GABAPENTIN 300 MG CAPSULE PO ×2 (08:14→20:45)
[2023-11-09] MEDS: ENOXAPARIN 40 MG/0.4 ML SYRINGE SUB-Q (08:15)
--- NOTE | 2023-11-09 09:35 | WPDINTPN ---
Progress Note: A&P Assessment and Plan (1) Septic shock: Code(s): A41.9 - Sepsis, unspecified organism; R65.21 - Severe sepsis with septic shock Status: Acute Assessment and Plan: Septic shock likely related to UTI secondary to chronic indwelling Ritter catheter. -adequately fluid-resuscitated, despite which the blood pressures were low, central line was inserted on 11/05 -patient off Levophed will continue to monitor and maintain MAP > 65 mmHg and SBP > 100 mmHg -continue Zosyn (11/05). Also received 1 dose of Levaquin in the ER -11/05: Preliminary blood cultures are negative -11/05: Urine cultures cultures growing Enterococcus species, susceptibilities pending. (on 10/14/2023 patient had UTI with Enterococcus faecalis sensitive to penicillin and vancomycin) Patient currently off Levophed, will continue to monitor (2) Urinary tract infection associated with indwelling urethral catheter: Qualifiers: Encounter type: initial encounter Qualified Code(s): T83.511A - Infection and inflammatory reaction due to indwelling urethral catheter, initial encounter; N39.0 - Urinary tract infection, site not specified Code(s): T83.511A - Infection and inflammatory reaction due to indwelling urethral catheter, initial encounter; N39.0 - Urinary tract infection, site not specified Status: Acute Assessment and Plan: UTI likely secondary to indwelling catheter -continue antibiotics as above -cultures above (3) Weakness: Code(s): R53.1 - Weakness Status: Acute Assessment and Plan: Generalized weakness likely related to UTI, hypotension, septic shock -also could be related to bilateral lower extremity knee pain and swelling -x-ray knees reviewed -appreciate Ortho evaluation -left knee aspiration was performed by Orthopedic 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/RECEIVING MANAGER on 11/08/2023 -further treatment per Orthopedic surgery -CT of the left knee: Mildly displaced, vertically oriented fracture of the medial aspect of the medial femoral condyle (4) Asthma: Qualifiers: Asthma complication type: unspecified Asthma persistence: unspecified Asthma severity: unspecified severity Qualified Code(s): J45.909 - Unspecified asthma, uncomplicated Code(s): J45.909 - Unspecified asthma, uncomplicated Status: Acute Assessment and Plan: Continue bronchodilators -chest x-ray on admission showed probable atelectasis (5) NICOLE treated with BiPAP: Code(s): G47.33 - Obstructive sleep apnea (adult) (pediatric) Status: Acute Assessment and Plan: BiPAP on home settings at night and while asleep during the day Plan DVT prophylaxis: Lovenox Stress ulcer prophylaxis: Protonix Nutrition: Heart healthy diet with supplements PT/OT to follow Code Status: Full code Critical Care Time Spent: 31 minutes Patient can be transferred out of the ICU if okay with hospitalist 11/06: Discussed with spouse during rounds, updated with patient's condition and plan of care. She is aware that ortho is going to be following him for his knee pain. I did update her that he was in septic shock, on vasopressors and antibiotics, currently vasopressors have been off. Kidney functions are normal and white count has normalized. I answered all her questions Due to a high probability of clinically significant, life threatening deterioration, the patient required my highest level of preparedness to intervene emergently and I personally spent this critical care time directly and personally managing the patient. This critical care time included obtaining a history; examining the patient; pulse oximetry; ordering and review of studies; arranging urgent treatment with development of a management plan; evaluation of patient's response to treatment; frequent reassessment; and discussions with other providers. It was exclusive of separately billable procedures and treating other patients and teaching time. Please see Assessment and Pl
[2023-11-09] MEDS: PSYLLIUM POWDER PACKET 1 PACKET PO (20:44)
[2023-11-09] MEDS: LATANOPROST 0.005% OP SOLN 2.5 ML BTL 1 DROP EACH EYE (20:49)
[2023-11-10] VITALS (17 sets, daily range): BP systolic 105–159; BP diastolic 42–98; PULSE 63–101; RESP 12–25; TEMP 36.4–37.2; O2SAT 96–100
[2023-11-10] MEDS: PIPERACILLN/TAZ 3.375GM/NS50ML 3.375 GM/50 ML BAG IVPB ×2 (03:25→08:34)
[2023-11-10 05:15] LABS: Basophils Percent Auto 0.3 % (0.2-1.2); Eosinophils Absolute Auto 0.7 K/mm3 (0-0.3); Hematocrit 27.6 % (42.0-52.0); Hemoglobin 9.2 g/dL (14.0-18.0); Immature Granulocyte Absolute 0.03 K/mm3 (0.00-0.031); Immature Granulocyte Percent A 0.3 % (0-0.5); Lymphocytes Absolute Auto 1.49 K/mm3 (0.9-3.2); Lymphocytes Percent Auto 16.5 % (18.3-44.2); Mean Corpuscular HGB Conc 33.3 g/dl (32-36); Mean Corpuscular Hemoglobin 32.1 pg (26-34); Mean Corpuscular Volume 96.2 fl (80-100); Mean Platelet Volume 9.6 fl (7.4-10.4); Monocytes Absolute Auto 0.8 K/mm3 (0.1-0.6); Monocytes Percent Auto 8.8 % (2.6-8.5); Neutrophils Percent Auto 66.1 % (45.5-73.1); Platelet Count Result 177 k/mm3 (150-375); Red Blood Count 2.87 M/mm3 (4.6-6.20); Red Cell Distribution Width 13.8 % (11.5-14.5)
[2023-11-10 05:26] LABS: Alanine Aminotransferase 15 U/L (6-50); Albumin Level 3.1 g/dL (3.5-5.1); Alkaline Phosphatase 56 U/L (38-126); Anion Gap 4 mmol/L (4-12); Aspartate Amino Transferase 25 U/L (17-59); Bilirubin,Total 0.7 mg/dL (0.2-1.3); Blood Urea Nitrogen 10 mg/dL (9-20); Calcium 9.3 mg/dL (8.4-10.2); Carbon Dioxide 28 mmol/L (22-30); Chloride 105 mmol/L (98-107); Estimated CRCL calculation 79 ml/min; Estimated Glomerular Filt Rate > 60; Glucose 99 mg/dL (65-110); Potassium 4.2 mmol/L (3.4-5.0); Sodium 137 mmol/L (137-145)
[2023-11-10] MEDS: ZAFIRLUKAST 20 MG TABLET PO (08:33)
[2023-11-10] MEDS: clonazePAM (*CRX) 0.5 MG TABLET 1 MG PO ×2 (08:33→16:49)
[2023-11-10] MEDS: FINASTERIDE 5 MG TABLET PO (08:33)
[2023-11-10] MEDS: PANTOPRAZOLE 40 MG TABLET PO (08:33)
[2023-11-10] MEDS: MICONAZOLE NITRATE 2% CREAM 30 GM TUBE 1 APPLIC TOPICAL (08:33)
[2023-11-10] MEDS: TIMOLOL MALEATE 0.5% OP SOLN 5 ML BOTTLE 1 DROP EACH EYE (08:33)
[2023-11-10] MEDS: GABAPENTIN 300 MG CAPSULE PO (08:33)
[2023-11-10] MEDS: ENOXAPARIN 40 MG/0.4 ML SYRINGE SUB-Q (08:33)
[2023-11-10] MEDS: MIDODRINE HCL 10 MG TABLET PO ×3 (08:33→16:48)
[2023-11-10] MEDS: POTASSIUM CHLORIDE 20 MEQ ER TABLET PO (08:33)
[2023-11-10] MEDS: LORATADINE 10 MG TABLET PO (08:33)
[2023-11-10] MEDS: ASPIRIN 81 MG ENTERIC TABLET PO (08:33)
[2023-11-10] MEDS: FLUTICASONE PROPIONATE 0.05% NA SPR 16 GM BTL (*BKC) 1 SPRAY NASAL (08:34)
[2023-11-10] MEDS: DICLOFENAC SODIUM 1% 100 GM GEL (*BKC) 1 APPLIC TOPICAL ×2 (08:34→12:22)
[2023-11-10] MEDS: ARTIFICIAL TEARS OPHTH SOLN 15 ML BOTTLE 1 DROP EACH EYE (08:34)
--- NOTE | 2023-11-10 12:57 | PM.PNORT ---
Progress Note: A&P Assessment and Plan (1) Knee fracture: Status: Acute Assessment and Plan: Radiographs of the left knee revealed an irregular ossification at medial aspect of medial femoral condyle suspicious for fracture of the LEFT knee with total left knee arthroplasty in near-anatomic alignment and a small knee joint effusion. CT scan obtained which reveals a mildly displaced, vertically oriented fracture of the medial aspect of the medial femoral condyle. The fracture type and injury as well as radiographs discussed with the patient and family. Operative and nonoperative treatment options reviewed. Recommended non operative treatment. Risk of nonunion, malunion or late displacement discussed. Stiffness, pain and possible dysfunction of the joint discussed. Fracture precautions and activity restrictions reviewed. The patient verbalizes understanding. Recommended knee immobilizer for stability. WBAT with knee immobilizer in place. Pain improved s/p aspiration. Pain control. Ice. Elevation. OOB to chair. Dispo: APRIL Will plan follow up in the outpatient orthopedic clinic in 6 weeks for repeat radiographs and progression of PT. (2) Chronic indwelling Ritter catheter: Code(s): Z97.8 - Presence of other specified devices Status: Acute Subjective Subjective Date/Time Seen: 11/10/23 12:57 Interval history: Patient reports improvement in right knee pain and stable pain in the left knee. OOB to chair with PT. Tolerating knee immobilizer well. Review of Systems Review of Systems: All systems reviewed & are unremarkable except as noted in HPI and below Exam Const: General: comfortable and no acute distress HENMT: Mouth: Yes moist mucous membranes Eyes: General: appearance normal, both eyes and all related structures Neck: Neck: supple and no JVD GI: Inspection: non-distended GI Palp: Yes Soft to palpation and No Tenderness to palpation present (GI) Neuro: General: gait normal Cognition (Neuro): normal cognition Speech: normal speech Extrem: Right lower extremity: knee (ROM testing limited due to position in bed ) Details: tenderness and swelling; no lacerations, no ecchymosis, no crepitus, no deformity and no unusual warmth, lower leg Details: non-pitting edema, ankle Details: edema and foot Details: normal capillary refill and vascular exam Details: dorsalis pedis pulse present Left lower extremity: knee Details: abnormal to inspection ( ecchymosis), tenderness, swelling ( large joint effusion), abnormal ROM ( deferred due to fracture noted on CT) and ecchymosis, lower leg Details: non-pitting edema, ankle Details: pitting edema and foot Details: normal capillary refill and vascular exam Details: dorsalis pedis pulse present Psych: Mental Status: mental status grossly normal Affect: normal affect Objective Data Vital Signs Vital Signs: Vital Signs - 24 hr 11/09/23 14:00 11/09/23 14:25 11/09/23 16:00 Temperature 36.8 C Pulse Rate 69 83 Respiratory Rate 17 Blood Pressure 127/56 L Pulse Oximetry 97 Oxygen Delivery Room Air Fraction of Inspired Oxygen 11/09/23 16:00 11/09/23 16:00 11/09/23 18:00 Temperature Pulse Rate 83 62 Respiratory Rate Blood Pressure Pulse Oximetry Oxygen Delivery Room Air Fraction of Inspired Oxygen 11/09/23 20:00 11/09/23 20:00 11/09/23 20:00 Temperature 36.4 C Pulse Rate 65 65 60 Respiratory Rate 16 16 Blood Pressure 136/56 L Pulse Oximetry 96 96 Oxygen Delivery Room Air Fraction of Inspired Oxygen 11/09/23 22:00 11/10/23 00:00 11/10/23 00:00 Temperature 36.7 C Pulse Rate 65 74 74 Respiratory Rate 25 H 25 H Blood Pressure 105/42 L Pulse Oximetry 97 97 Oxygen Delivery Room Air Fraction of Inspired Oxygen 21 11/10/23 00:00 11/10/23 01:00 11/10/23 02:00 Temperature Pulse Rate 74 101 H 72 Respiratory Rate 24 H Blood Pressure 143/98 H Pulse Oximetry 100 Oxygen De
[2023-11-10] MEDS: AMOXICILLIN 500 MG CAPSULE PO (13:23)
--- NOTE | 2023-11-10 16:37 | PM.IMPN ---
Progress Note: A&P Assessment and Plan (1) Septic shock: Code(s): A41.9 - Sepsis, unspecified organism; R65.21 - Severe sepsis with septic shock Status: Acute Assessment and Plan: Septic shock likely related to UTI secondary to chronic indwelling Ritter catheter. -adequately fluid-resuscitated, despite which the blood pressures were low, central line was inserted on 11/05 -patient off Levophed will continue to monitor and maintain MAP > 65 mmHg and SBP > 100 mmHg -continue Zosyn (11/05). Also received 1 dose of Levaquin in the ER -11/05: Preliminary blood cultures are negative -11/05: Urine cultures cultures growing Enterococcus species, sensitive to Ampicillin and Vancomycin. s/p levophed on Ampicillin will switch to Amoxicillin x 14 days total (2) Urinary tract infection associated with indwelling urethral catheter: Qualifiers: Encounter type: initial encounter Qualified Code(s): T83.511A - Infection and inflammatory reaction due to indwelling urethral catheter, initial encounter; N39.0 - Urinary tract infection, site not specified Code(s): T83.511A - Infection and inflammatory reaction due to indwelling urethral catheter, initial encounter; N39.0 - Urinary tract infection, site not specified Status: Acute Assessment and Plan: UTI likely secondary to indwelling catheter -continue antibiotics as above -cultures above (3) Weakness: Code(s): R53.1 - Weakness Status: Acute Assessment and Plan: Generalized weakness likely related to UTI, hypotension, septic shock -also could be related to bilateral lower extremity knee pain and swelling -x-ray knees reviewed -appreciate Ortho evaluation -left knee aspiration was performed by [facility] on 11/08/2023 -Ortho recommends non operative management -CT of the left knee: Mildly displaced, vertically oriented fracture of the medial aspect of the medial femoral condyle (4) Asthma: Qualifiers: Asthma severity: unspecified severity Asthma persistence: unspecified Asthma complication type: unspecified Qualified Code(s): J45.909 - Unspecified asthma, uncomplicated Code(s): J45.909 - Unspecified asthma, uncomplicated Status: Acute Assessment and Plan: Continue bronchodilators -chest x-ray on admission showed probable atelectasis (5) NICOLE treated with BiPAP: Code(s): G47.33 - Obstructive sleep apnea (adult) (pediatric) Status: Acute Assessment and Plan: BiPAP on home settings at night and while asleep during the day Plan DVT prophylaxis: Lovenox Nutrition: Heart healthy diet with supplements PT/OT, awaiting placement Code Status: Full code Subjective Date/time seen: 11/10/23 16:37 Interval history: Patient comfortable at bedside Ortho eval noted, for fracture of left knee with total left knee arthroplasty in near-anatomic alignment and small knee joint effusion, recommends non operative treatment Review of Systems Review of Systems: 12 systems were reviewed with pertinent positives and negatives per HPI. Except as documented in the HPI, all other systems were reviewed and are negative. All systems reviewed & are unremarkable except as noted in HPI and below Exam Narrative: General: Pleasant gentleman in no acute distress HEENT:? With equal reactive, sclera is clear, moist oral mucosa Neck:? Supple Respiratory:? Clear to auscultation bilaterally, decreased air entry at bases, no wheezing Cardiac:? S1-S2 normal, regular rate and rhythm, Abdomen:? Soft, nontender, nondistended, protuberant, normoactive bowel sounds Extremities:? Bilateral knees were swollen, left > right, both knees are fluctuant, left knee is more warm to touch with ecchymoses Neuro:? Patient is awake, alert, oriented x3, nonfocal, answers to questions appropriately and follows simple commands in all extremities Skin:? Bruising noted on the knees and milton bilaterally Const:
[2023-11-10 16:53] LABS: Glucose Point of Care 85 mg/dl (65-105)
--- NOTE | 2023-11-10 17:48 | PC.NURSE ---
Report given to MARIA GUADALUPE Verma @ [id number]
[2023-11-11] VITALS (10 sets, daily range): BP systolic 112–123; BP diastolic 54–59; PULSE 73–85; RESP 20–22; TEMP 36.7–37; O2SAT 96–100
[2023-11-11 05:21] LABS: Basophils Percent Auto 0.3 % (0.2-1.2); Eosinophils Absolute Auto 0.7 K/mm3 (0-0.3); Eosinophils Percent Auto 8.4 % (0-4.4); Hematocrit 29.5 % (42.0-52.0); Hemoglobin 9.7 g/dL (14.0-18.0); Immature Granulocyte Absolute 0.04 K/mm3 (0.00-0.031); Immature Granulocyte Percent A 0.5 % (0-0.5); Lymphocytes Absolute Auto 1.49 K/mm3 (0.9-3.2); Lymphocytes Percent Auto 16.8 % (18.3-44.2); Mean Corpuscular HGB Conc 32.9 g/dl (32-36); Mean Corpuscular Hemoglobin 31.8 pg (26-34); Mean Corpuscular Volume 96.7 fl (80-100); Mean Platelet Volume 9.7 fl (7.4-10.4); Monocytes Absolute Auto 0.8 K/mm3 (0.1-0.6); Monocytes Percent Auto 9.3 % (2.6-8.5); Neutrophils Absolute Auto 5.7 K/mm3 (1.3-6.7); Neutrophils Percent Auto 64.7 % (45.5-73.1); Platelet Count Result 191 k/mm3 (150-375); Red Blood Count 3.05 M/mm3 (4.6-6.20); Red Cell Distribution Width 13.7 % (11.5-14.5); White Blood Count 8.9 K/mm3 (4.5-10.0)
[2023-11-11 05:34] LABS: Lactic Acid Reflex 0.8 mmol/L (0.7-2.0)
[2023-11-11 05:37] LABS: Alanine Aminotransferase 17 U/L (6-50); Albumin Level 3.1 g/dL (3.5-5.1); Alkaline Phosphatase 68 U/L (38-126); Anion Gap 5 mmol/L (4-12); Aspartate Amino Transferase 26 U/L (17-59); Bilirubin,Total 0.9 mg/dL (0.2-1.3); Blood Urea Nitrogen 11 mg/dL (9-20); Calcium 9.3 mg/dL (8.4-10.2); Carbon Dioxide 28 mmol/L (22-30); Chloride 103 mmol/L (98-107); Estimated CRCL calculation 89 ml/min; Estimated Glomerular Filt Rate > 60; Glucose 102 mg/dL (65-110); Magnesium 1.7 mg/dL (1.6-2.3); Potassium 3.8 mmol/L (3.4-5.0); Sodium 136 mmol/L (137-145)
[2023-11-11] MEDS: ZAFIRLUKAST 20 MG TABLET PO (10:20)
[2023-11-11] MEDS: PANTOPRAZOLE 40 MG TABLET PO (10:20)
[2023-11-11] MEDS: LORATADINE 10 MG TABLET PO (10:20)
[2023-11-11] MEDS: POTASSIUM CHLORIDE 20 MEQ ER TABLET PO (10:20)
[2023-11-11] MEDS: MIDODRINE HCL 10 MG TABLET PO (10:20)
[2023-11-11] MEDS: FINASTERIDE 5 MG TABLET PO (10:21)
[2023-11-11] MEDS: ASPIRIN 81 MG ENTERIC TABLET PO (10:21)
[2023-11-11] MEDS: clonazePAM (*CRX) 0.5 MG TABLET 1 MG PO (10:21)
[2023-11-11] MEDS: GABAPENTIN 300 MG CAPSULE PO (10:21)
--- NOTE | 2023-11-11 10:25 | PCNFU ---
Nutrition Follow-Up Complete: Inadequate oral intake related to loss of appetite as evidenced by unintentional weight loss, poor intakes 10% meals Improve PO intake at least 50% meals and supplements - Progressing. Intakes vary -5-100%. Average intakes 50% over last 48 hours. Continue with same goals. Goal: Pt current nutrition is Heart healthy diet. Ensure Compact TID for additional 220 kcal and 9 g protein each. Nutrition recommendation: No new nutrition recommendations. Continue with current nutrition care plan and orders Last recorded weight is 107.5 kg. Bowel Motility: +2 BMs 11/09/23 Labs Reviewed: Hgb 9.7, Hct 29.5, Alb 3.1, Glu 36 Meds Noted: Zosyn, lovenox, albumin Skin: No skin issues Additional Notes: Intakes have improved, did not each much of breakfast today. Rehab placement pending Monitoring intakes, weights, labs, supplement tolerance, plan of care Follow up in 5 days
--- NOTE | 2023-11-11 13:35 | PM.DS ---
DS: Admitting Diagnosis Discharge Date 11/11/2023 Admitting Diagnosis Generalized weakness DS: Discharge Diagnosis Discharge Diagnosis (1) Septic shock: Code(s): A41.9 - Sepsis, unspecified organism; R65.21 - Severe sepsis with septic shock Status: Acute (2) Urinary tract infection associated with indwelling urethral catheter: Qualifiers: Encounter type: initial encounter Qualified Code(s): T83.511A - Infection and inflammatory reaction due to indwelling urethral catheter, initial encounter; N39.0 - Urinary tract infection, site not specified Code(s): T83.511A - Infection and inflammatory reaction due to indwelling urethral catheter, initial encounter; N39.0 - Urinary tract infection, site not specified Status: Acute (3) Knee fracture: Status: Acute DS: Summary Hospital Course Hospital Course: GERD, asthma, obstructive sleep apnea, essential hypertension, gout and other comorbidities who presented to the ER From home via EMS due to weakness and not feeling well. patient was recently discharged from acute rehab approximately 2 weeks ago. He was doing well until a few days ago when he became more weak and had trouble walking that is been getting worse. The patient's had taken the patient to have His influenza vaccine and COVID vaccine yesterday. Today patient was even weaker and more confused so his called EMS thinking that he was having a reaction to the vaccines Since he usually has some weakness and confusion Following vaccines previously. on arrival to the ER patient was afebrile but tachycardic with heart rate as high as 131. He was also found to be hypotensive by EMS with blood pressures in the 70s. By the time he arrived to the ER blood pressures improved mildly up to the low 90 systolic. Patient received 30 mL/kilos bolus despite adequate fluid resuscitation patient remained hypotensive and had central line placed and was started on Levophed. CBC demonstrated leukocytosis and patient's urine was consistent with UTI. The patient reports that his Ritter catheter was exchanged 6 days ago. Patient is alert oriented person, place and time at the time of my evaluation but had been confused on presentation to the ER. He does report some decreased appetite. He has not had any nausea vomiting or diarrhea. He denies any respiratory symptoms. The patient has been having multiple falls. Despite recent discharge from acute rehab be states that he cannot get out of the chair. He states he takes 3 people to get him up. He reports that he does not want to go back to acute rehab in just wants to stay in the hospital until he is able to go home and be more functional. He complained of severe pain in his lower extremities with even light palpation to the nursing staff. At the time of my evaluation he denied any areas of pain. However he was quite angry at the direct mail manager when they had to come and get ill a blood draw for blood cultures. He wanted a order that stated that under no circumstances was he did have for the lab draws. I did discuss with the patient that that would not be a possibility. Patient was managed in the ICU for septic shock eventually weaned off pressors and transferred to the floor. urine culture positive Enterococcus spec sensitive to Ampicilin. Patient transition to PO AMoxicillin to complete 14 days total of abx. Urology was consulted for urinary retention and they evaluated adn will follow up outpatient, on finasteride and Tamsulosin in the meantime. Ortho was involved and evaluated knee fracture and recommended non operative management. COntinue follow up with ortho as instructed. PRN pain control. F/u with PCP in 3-5 days, f/u with urology and ortho as instructed Assessment and Plan (1) Septic shock: Code(s): A41.9 - Sepsis, unspecified organism; R65.21 - Severe sepsis with septic shock Status: Acute Assessment and Plan: Septic shock likely r
--- NOTE | 2023-11-11 14:23 | PCRCNOTE ---
Window of time for administration has passed. INhaler not avalible, pharmacy called and a new inhaler was ordered. See next scheduled administration.
== END 2023-11-11 14:37 | DRG 698 ==
LOC: ANHED 19:26 → ANHICU 21:12 → ANHIMU 11-10 17:45
PROVIDERS: Internal Medicine; Admitting Provider Internal Medicine; Emergency Provider Emergency Medicine; PCP Family Medicine; Visit Provider Internal Medicine
DX: T83.511A Infection and inflammatory reaction due to indwelling urethral catheter, initial encounter (principal); A41.9 Sepsis, unspecified organism; R65.21 Severe sepsis with septic shock; S72.432A Displaced fracture of medial condyle of left femur, initial encounter for closed fracture; I50.32 Chronic diastolic (congestive) heart failure; I11.0 Hypertensive heart disease with heart failure; N39.0 Urinary tract infection, site not specified; E55.9 Vitamin D deficiency, unspecified; E53.8 Deficiency of other specified B group vitamins; E11.42 Type 2 diabetes mellitus with diabetic polyneuropathy; D50.9 Iron deficiency anemia, unspecified; J45.909 Unspecified asthma, uncomplicated; K21.9 Gastro-esophageal reflux disease without esophagitis; K58.9 Irritable bowel syndrome, unspecified; N40.1 Benign prostatic hyperplasia with lower urinary tract symptoms; R33.8 Other retention of urine; M48.061 Spinal stenosis, lumbar region without neurogenic claudication; H40.9 Unspecified glaucoma; H40.10X0 Unspecified open-angle glaucoma, stage unspecified; G47.33 Obstructive sleep apnea (adult) (pediatric); G62.9 Polyneuropathy, unspecified; F41.9 Anxiety disorder, unspecified; W19.XXXA Unspecified fall, initial encounter; Z20.822 Contact with and (suspected) exposure to COVID-19; Z96.653 Presence of artificial knee joint, bilateral; Z79.82 Long term (current) use of aspirin; Z86.73 Personal history of transient ischemic attack (TIA), and cerebral infarction without residual deficits; Z86.0100 Personal history of colon polyps, unspecified; B95.2 Enterococcus as the cause of diseases classified elsewhere
CPT/HCPCS: 36415; 36556; 71045; 73562; 73700; 80053; 81001; 82948; 83605; 83735; 84100; 85025; 85610; 85730; 86140; 87040; 87077; 87086; 87088; 87181; 87637; 87641; 93005; 94640; 96365; 97110; 97116; 97161; 97166; 97530; 97535; 99285; A9270; C1751; J1650; J1956; J2543; J7030; L1830; P9047

== ENCOUNTER 2023-12-02 01:00 | Emergency (ER) | payer OTHER, MEDICARE, SELFPAY ==
[2023-12-02 01:05] VITALS: BP 129/61; PULSE 85; RESP 14; TEMP 36.4; O2SAT 99
[2023-12-02] MEDS: LIDOCAINE HCL 2% GEL UROJET 10 ML PKG (01:34)
--- NOTE | 2023-12-02 01:52 | PC.NURSE ---
ON 12/02/2023 AT 0140 THIS RN ATTEMPTED TO PLACE TENORIO CATHETER USING UROJET FOR PAIN CONTROL AND LUBRICATION WITHOUT SUCCESS. PT TOLERATED WELL. THIS RN THEN ATTEMPTED URINARY CATHETER ACCESS WITH A 14 Fr COUDE CATHETER WITHOUT SUCCESS. EDP MADE AWARE.
--- NOTE | 2023-12-02 02:34 | ED.MALEGU ---
HPI - Male Genitourinary General Chief complaint: Urogenital-Male Stated complaint: URINARY RETENTION, FAILED VOIDING TRIAL Time Seen by Provider: 12/02/23 01:07 Source: patient Mode of arrival: EMS Limitations: no limitations History of Present Illness HPI Narrative: This is a 78-year-old male, brought in by EMS from [facility] for Ritter catheter placement. The patient states his catheter was last replaced approximately 4 weeks ago. Staff at the patient's residential attempted to replace the catheter but were unsuccessful. He states he has not urinated since catheter removal. He has no other complaints at this time. Related Data Home Medications Medication Instructions Recorded Confirmed aspirin 81 mg tablet,delayed 81 mg PO DAILY 02/02/19 11/23/23 release latanoprost 0.005 % eye drops 1 drop ophthalmic (eye) HS 02/02/19 11/23/23 timolol 0.5 % eye drops 1 drop ophthalmic (eye) DAILY 02/02/19 11/23/23 zinc acetate 50 mg (zinc) capsule 50 mg PO BID 04/25/23 11/23/23 albuterol sulfate 90 mcg/actuation 2 inh inhalation Q4H PRN Shortness 07/21/23 11/23/23 aerosol inhaler Of Breath Or Wheezing azelastine 137 mcg (0.1 %) nasal 2 spray intranasal .Once daily PRN 07/21/23 11/23/23 spray Nasal Congestion fluticasone propionate 50 1 spray intranasal DAILY 07/21/23 11/23/23 mcg/actuation nasal spray,suspension lovastatin 10 mg tablet 10 mg PO HS 07/21/23 11/23/23 triamcinolone acetonide 0.1 % 1 applic topical BID PRN Itching 07/21/23 11/23/23 topical cream telmisartan 80 mg tablet 80 mg PO HS 10/06/23 11/23/23 tiotropium bromide 18 mcg capsule 1 cap inhalation DAILY 10/06/23 11/23/23 with inhalation device (Spiriva with HandiHaler) artificial 1 drp EACH EYE DAILY 11/06/23 11/23/23 tears(sfvylqy-cdyuotua-wceibro) 0.1 %-0.3 %-0.2 % eye drops (GenTeal Tears Moderate) artificial tears(hypromellose) 0.3 1 drp EACH EYE HS 11/06/23 11/23/23 % eye gel diclofenac sodium 1 % topical gel 2 g topical QID 11/06/23 11/23/23 diphenhydramine HCl 25 mg capsule 25 mg PO BID PRN Itching 11/06/23 11/23/23 (Benadryl) fexofenadine 60 mg tablet 60 mg PO DAILY 11/06/23 11/23/23 fluoride (sodium) 1.1 % dental 1 applic PO HS 11/06/23 11/23/23 cream (PreviDent 5000 Plus) procyanidolic oligomers 50 mg 50 mg PO DAILY 11/06/23 11/23/23 capsule psyllium 1 packet PO HS 11/06/23 11/23/23 Allergies Allergy/AdvReac Type Severity Reaction Status Date / Time clindamycin Allergy Mild Rash Verified 11/06/23 20:31 bacitracin Allergy Unknown Swelling Verified 11/06/23 20:31 of Lip/Tongue/Throat cat dander Allergy Unknown Rash Verified 11/06/23 20:31 latex Allergy Unknown Rash Verified 11/06/23 20:31 pollen extracts Allergy Unknown Dyspnea / Verified 11/06/23 20:31 SOB Sulfa (Sulfonamide Allergy Unknown Unknown Verified 11/06/23 20:31 Antibiotics) sulfite Allergy Unknown Unknown Verified 11/06/23 20:31 codeine AdvReac Unknown Nausea and Verified 11/06/23 20:31 Vomiting Review of Systems Review of Systems: All systems reviewed & are unremarkable except as noted in HPI and below PMFSH Past Medical History Medical History Allergic rhinitis, cause unspecified Anxiety Asthma B12 deficiency BPH (benign prostatic hyperplasia) 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 [employer] Lines Insurance Advisor stated that this was due to diabetes however patient's A1c within our record system has never been above 5.8 so diagnosis of diabetes not will document Diastolic heart failure echocardiogram 10/2023: EF 60-65%, grade 1 diastolic dysfunction, E/E 12 is mildly elevated, normal right-sided heart pressures Essential (primary) hypertension GERD (gastroesophageal reflux disease) Gout History of GI bleed following polypectomy IBS (irritable bowel syndrome) Iron deficiency anemia with history of iron infusions 2018. Follows with Dr. Baca Knee fracture Lymphedema Normocytic normochromic anemia Open-angle glaucoma NICOLE treated with BiPAP BiPAP 01/14 Peripheral neuropathic pain Spinal stenosis at L4-L5 level TIA (transient ischemic attack) (~2010) Vitamin D deficiency Surgical History Surgical History History of appendectomy History of bilateral knee replacement History of colonoscopy with polypectomy with most recent 07/2023 demonstrated recurrent polyps and internal hemorrhoids well as diverticulosis Status post cataract extraction of both eyes with insertion of intraocular lens Family History Family History Mother Hypertension, Onset Age: 81 Cerebrovascular accident, Onset Age: 81 Father Family history of allergic disorder, Onset Age: 82 Diabetes mellitus, Onset Age: 82 Acute myocardial infarction, Onset Age: 82 Sepsis Asthma, Onset Age: 82 History of colon resection Other No problems noted. Social History Social History Social History: Code status: Full code Surrogate decision maker: Smoking status: Never smoker Alcohol intake: never Substance use: never Substance use type: does not use Do You Feel Safe in your Home?: Yes Lack of Transportation: No Lack of Food: Never True Current Housing: I Have Housing Concerned About Future Housing: No Difficulty Paying Gas/Electric Bills: No Difficulty Paying for Meds: No Currently Unemployed: No Education: Associate Degree Difficulty w/ Childcare or Family Care: No Living arrangements: with family Spiritual care concerns: No Exam Narrative: GENERAL: Well-developed, well-nourished, and in no acute distress. HEAD: Normocephalic, atraumatic. EYES: PERRLA and EOMI. CHEST: Clear to auscultation. No respiratory distress. No wheezes rales or rhonchi HEART: Regular rate and rhythm. No murmur heard. Normal peripheral pulses. ABDOMEN: Soft, nontender, nondistended, normal active bowel sounds. : Normal external male genitalia, circumcised EXTREMITIES: Normal range of motion. No edema. SKIN: Warm, dry, no rash. NEURO: Alert and oriented x3. No focal deficit. Moving all 4 limbs spontaneously PSYCH: Normal mood and affect. Course Course Emergency Course: 02:35 - Nursing staff was able to replace the patient's catheter with a 20 [place]. The patient drained approximately 900 mL of yellow urine. The patient has no current complaints. Will discharge. I discussed the findings and recommendations with the patient. Discussed return and emergency precautions including signs/symptoms of acute abdomen. The patient voiced understanding and agreement with the plan. All questions answered to his satisfaction. Vital Signs Vital signs: Vital Signs Temperature 97.6 F 12/02/23 01:05 Pulse Rate 85 12/02/23 01:05 Respiratory Rate 14 12/02/23 01:05 Blood Pressure 129/61 12/02/23 01:05 Pulse Oximetry 99 12/02/23 01:05 Oxygen Delivery Room Air 12/02/23 01:05 Temperature 97.6 F 12/02/23 01:05 Pulse Rate 85 12/02/23 01:05 Respiratory Rate 14 12/02/23 01:05 Blood Pressure 129/61 12/02/23 01:05 Pulse Oximetry 99 12/02/23 01:05 Oxygen Delivery Room Air 12/02/23 01:05 MDM - Male Genitourinary MDM Narrative Medical decision making narrative: Plan: Pain control, catheter placement, reassess Differential Diagnosis Differential diagnosis: Likely other (Chronic urinary retention, Ritter catheter malfunction, other) Discharge Plan Discharge Clinical Impression: Urinary retention, Encounter for Ritter catheter replacement Patient Disposition: Home, Self-Care Condition: Stable Instructions: Antibiotic Form, Urinary Retention in Men (ED) Additional Instructions: You were seen in the emergency department. Your catheter was replaced. If you develop fevers with severe abdominal pain, persistent vomiting, bleeding, or if you have other emergent concerns for life, limb, or eyesight, return to the emergency department. Patient Language: Slovak Prescriptions: No Action telmisartan 80 mg tablet 80 mg PO HS tiotropium bromide [Spiriva with HandiHaler] 18 mcg capsule, w/inhalation device 1 cap inhalation DAILY Rx Instructions: INHALE THE CONTENTS OF 1 CAPSULE BY MOUTH VIA HANDIHALER DAILY finasteride [Proscar] 5 mg Tablet 5 mg PO QAM Qty: 30 0RF potassium chloride [K-Tab] 20 mEq Tablet Extended Release 20 meq PO DAILY@0800 Qty: 30 0RF zinc acetate 50 mg (zinc) capsule 50 mg PO BID latanoprost 0.005 % drops 1 drop EACH EYE HS timolol 0.5 % drops 1 drop EACH EYE DAILY aspirin 81 mg tablet,delayed release (DR/EC) 81 mg PO DAILY lovastatin 10 mg tablet 10 mg PO HS triamcinolone acetonide 0.1 % cream 1 applic TOPICAL BID PRN (Reason: Itching) Rx Instructions: apply to buttock prn itching azelastine 137 mcg (0.1 %) aerosol,spray 2 spray intranasal .Once daily PRN (Reason: Nasal Congestion) Rx Instructions: administer into each nostril albuterol sulfate 90 mcg/actuation HFA aerosol inhaler 2 inh inhalation Q4H PRN (Reason: Shortness Of Breath Or Wheezing) fluticasone propionate 50 mcg/actuation spray,suspension 1 spray intranasal DAILY fluoride (sodium) [PreviDent 5000 Plus] 1.1 % Cream 1 applic PO HS diclofenac sodium 1 % Gel 2 g TOPICAL QID Rx Instructions: apply to both knees, legs, and heels fexofenadine 60 mg Tablet 60 mg PO DAILY psyllium Packet 1 packet PO HS Rx Instructions: mix into at least 8 oz of water or juice before administering diphenhydramine HCl [Benadryl] 25 mg Capsule 25 mg PO BID PRN (Reason: Itching) artificial tear(ktvus-yma-zji) [GenTeal Tears Moderate] 0.1-0.3-0.2 % Drops 1 drp EACH EYE DAILY procyanidolic oligomers 50 mg Capsule 50 mg PO DAILY artificial tears(hypromellose) 0.3 % Gel 1 drp EACH EYE HS amoxicillin 500 mg Capsule 500 mg PO Q8HR Qty: 29 0RF midodrine 10 mg Tablet 5 mg PO TID 10 Days Qty: 15 0RF clonazepam 1 mg tablet 1 mg PO BID Qty: 180 3RF pantoprazole 40 mg tablet,delayed release (DR/EC) 40 mg PO BID Qty: 180 3RF zafirlukast 20 mg tablet 20 mg PO BID Qty: 180 1RF hydrochlorothiazide 25 mg tablet 25 mg PO DAILY Qty: 90 1RF Rx Instructions: take 25mg daily miconazole nitrate 2 % cream 1 applic topical Q12HR Qty: 30 1RF Rx Instructions: apply to skin folds gabapentin 300 mg capsule 300 mg PO BID Qty: 180 0RF Rx Instructions: NEEDS APPOINTMENT FOR FURTHER REFILLS Follow-up/Referrals: Jairon Cannon MD [Primary Care Provider] - 2 Weeks Time of Disposition: 02:35
== END 2023-12-02 03:30 ==
PROVIDERS: Emergency Provider Preventive Medicine Aerospace Medicine; PCP Family Medicine
DX: N40.1 Benign prostatic hyperplasia with lower urinary tract symptoms (principal); R33.8 Other retention of urine; J45.909 Unspecified asthma, uncomplicated; E11.42 Type 2 diabetes mellitus with diabetic polyneuropathy; E53.8 Deficiency of other specified B group vitamins; E55.9 Vitamin D deficiency, unspecified; I50.30 Unspecified diastolic (congestive) heart failure; I11.0 Hypertensive heart disease with heart failure; M10.9 Gout, unspecified; K21.9 Gastro-esophageal reflux disease without esophagitis; K58.9 Irritable bowel syndrome, unspecified; D50.9 Iron deficiency anemia, unspecified; G47.33 Obstructive sleep apnea (adult) (pediatric); Z86.73 Personal history of transient ischemic attack (TIA), and cerebral infarction without residual deficits; Z86.16 Personal history of COVID-19; Z96.653 Presence of artificial knee joint, bilateral; Z96.1 Presence of intraocular lens; Z98.42 Cataract extraction status, left eye; Z98.41 Cataract extraction status, right eye; Z79.82 Long term (current) use of aspirin; Z79.899 Other long term (current) drug therapy
CPT/HCPCS: 51702; 99283

== ENCOUNTER 2024-02-02 17:58 | Inpatient (IN) | payer OTHER, MEDICARE, SELFPAY ==
[2024-02-02] VITALS (26 sets, daily range): BP systolic 83–135; BP diastolic 40–86; PULSE 100–138; RESP 12–31; TEMP 38.1; O2SAT 88–100
--- NOTE | ~2024-02-02 | CT_ITS ---
EXAMINATION: CT abdomen pelvis w con DATE: 02/02/2024 22:13 INDICATION: lower abd pain, UTI, sepsis TECHNIQUE: Computed tomography (CT) of the abdomen and pelvis was performed with 100 mL Omnipaque-350 intravenous contrast. Automated exposure control and iterative reconstruction technique were employe d. The dose-length product was 1575.72 mGy-cm. COMPARISON: 10/01/2023. FINDINGS: Lower thorax: Mildly dilated central pulmonary arteries, as can be seen with pulmonary arterial hyper tension. Coronary artery calcifications and subsegmental dependent scar/atelectasis. Symmetric gyneco mastia. Liver: Normal. Biliary/Gallbladder: Gallbladder is normal. No bile duct dilation. Pancreas: No mass or duct dilation. Spleen: Normal. Adrenals:No mass. Kidneys: Moderate bilateral perinephric stranding. Bilateral cortical thinning. Mild bilateral caliec tasis and pelviectasis. There is urothelial enhancement in the collecting systems. Simple left midpol e cyst. Bilateral lower pole hypodensities, too small to characterize but most likely represent cysts . Otherwise uniform parenchymal enhancement of the kidneys. GI tract: No small or large bowel dilation. Normal appendix. Diverticulosis without diverticulitis. Mesentery/Peritoneum: No ascites, mass, or free air. Retroperitoneum: No mass. Atherosclerotic abdominal aortic and/or arterial calcifications. Pelvis: The bladder is decompressed by Ritter catheter. Moderate bladder wall edema. Soft Tissues: Moderate uncomplicated appearing bilateral fat-containing hernias Bones: No acute osseous finding. IMPRESSION: CT findings concerning for cystitis with bilateral ascending infection. Reviewed, dictated and finalized at location K. PRODUCTION SUPERVISOR
--- NOTE | ~2024-02-02 | XR_ITS ---
EXAMINATION: XR chest 1V portable Exam Date/Time: 02/02/2024 18:26 OPERATOR SPECIALIST COMMUNICATIONS HISTORY: Tachy, fever Comparison: 11/06/2023. RESULT: Lines, tubes, and devices: None. Lungs and pleura: Segmental left basilar airspace disease. Mild bilateral costophrenic angle bluntin g. Cardiomediastinal silhouette: Stable. Other: No acute osseous or upper abdominal finding. IMPRESSION: Segmental left basilar atelectasis or consolidation. Possible small bilateral pleural effusions. Reviewed, dictated and finalized at location K. ATOR SPECIALIST COMMUNICATIONS IMPRESSION: Segmental left basilar atelectasis or consolidation. Possible small bilateral p leural effusions.
--- NOTE | 2024-02-02 18:15 | ECG_ITS ---
Test Date: 2024-02-02 18:24:57 Measurements Intervals [place] Rate: 101 P: 36 ID: [id number] QRS: -84 QRSD: 146 T: 33 QT: 342 QTc: 444 Interpretive Statements SINUS TACHYCARDIA ARTIFACT LIMITS INTERPRETATION INDETERMINATE AXIS RIGHT BUNDLE BRANCH BLOCK [120+ ms QRS DURATION, UPRIGHT V1, 40+ ms S IN I/aVL/V4/V5/V6] LEFT ANTERIOR FASCICULAR BLOCK [QRS AXIS <= -45, QR IN I, RS IN II] RIGHT BUNDLE BRANCH BLOCK ABNORMAL ECG Electronically Signed On 02-03-2024 17:07:15 GASKET MAKER by Mitch Jacobsen M.D.
[2024-02-02 18:48] LABS: Basophils Absolute Auto 0.1 K/mm3 (0.0-0.1); Basophils Percent Auto 0.4 % (0.2-1.2); Eosinophils Absolute Auto 0.4 K/mm3 (0-0.3); Eosinophils Percent Auto 3.3 % (0-4.4); Hematocrit 40.4 % (42.0-52.0); Hemoglobin 13.3 g/dL (14.0-18.0); Immature Granulocyte Absolute 0.08 K/mm3 (0.00-0.031); Immature Granulocyte Percent A 0.7 % (0-0.5); Lymphocytes Absolute Auto 0.76 K/mm3 (0.9-3.2); Lymphocytes Percent Auto 6.4 % (18.3-44.2); Mean Corpuscular HGB Conc 32.9 g/dl (32-36); Mean Corpuscular Hemoglobin 31.1 pg (26-34); Mean Corpuscular Volume 94.4 fl (80-100); Mean Platelet Volume 9.9 fl (7.4-10.4); Monocytes Absolute Auto 0.8 K/mm3 (0.1-0.6); Monocytes Percent Auto 6.4 % (2.6-8.5); Neutrophils Absolute Auto 9.9 K/mm3 (1.3-6.7); Neutrophils Percent Auto 82.8 % (45.5-73.1); Platelet Count Result 217 k/mm3 (150-375); Red Blood Count 4.28 M/mm3 (4.6-6.20); Red Cell Distribution Width 13.6 % (11.5-14.5)
[2024-02-02 19:00] LABS: Lactic Acid Reflex 1.6 mmol/L (0.7-2.0)
[2024-02-02 19:04] LABS: Alanine Aminotransferase 12 U/L (6-50); Albumin Level 3.7 g/dL (3.5-5.1); Alkaline Phosphatase 100 U/L (38-126); Anion Gap 2 mmol/L (4-12); Aspartate Amino Transferase 22 U/L (17-59); Bilirubin,Total 0.8 mg/dL (0.2-1.3); Blood Urea Nitrogen 15 mg/dL (9-20); CRP 3.4 mg/dL (<1.0); Calcium 9.3 mg/dL (8.4-10.2); Carbon Dioxide 30 mmol/L (22-30); Chloride 101 mmol/L (98-107); Estimated CRCL calculation 65 ml/min; Estimated Glomerular Filt Rate > 60; Glucose 101 mg/dL (65-110); Lipase 70 U/L (23-300); Sodium 133 mmol/L (137-145)
[2024-02-02 19:09] LABS: Prothrombin Time 13.2 Seconds (11.1-14.7)
[2024-02-02 19:11] LABS: Troponin I < 0.012 ng/mL (0.000-0.034)
[2024-02-02 19:22] LABS: Add Urine Microscopic? YES; Appearance Urine Cloudy (Clear); Bacteria Urine 3+ /hpf; Bilirubin Urine Negative (Negative); Blood Urine 1+ (Negative); Color Urine Yellow (Yellow); Glucose Urine UA Negative (Negative); Ketones Urine Negative (Negative); Leukocyte Esterase Ur 3+ LEU/UL (Negative); Nitrate Urine Positive (Negative); Non Pathogenic Casts 0-2; Protein Urine 1+ mg/dL (Negative); Specific Grav Ur 1.009 (1.001-1.035); Squamous Epithelial Cell Urine None Seen /hpf (Few); Urobilinogen Urine 0.2 mg/dL (<2.0); WBC Urine >100 /hpf (0-3); pH Urine 5.5 (5.0-9.0)
[2024-02-02] MEDS: SODIUM CHLORIDE 0.9% IV 1,000 ML 999 ML IV CONT (21:23)
[2024-02-02] MEDS: ACETAMINOPHEN 500 MG TABLET 1000 MG PO (21:23)
--- NOTE | 2024-02-02 22:10 | ED_ITS ---
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 at bedside assisted in providing information. Reports patient has been dealing with recurrent urinary tract infections and sepsis over the last few months. Has been following with Dr. Graf with Urology. States he recently required rehab placement for strengthening, but has been doing well over the last few weeks at home. Today, became increasingly weak, unable to stand up or move on his own. Began having cold shaking chills. EMS was notified. He was found to be febrile by EMS. Patient reports having lower abdominal pain. Denies lower back pain. Denies nausea, vomiting. Denies hematuria. Related Data Home Medications ?Medication ?Instructions ?Recorded ?Confirmed ?Last Taken ?Type aspirin 81 mg tablet,delayed 81 mg PO DAILY 02/02/19 11/23/23 10/06/23 08:55 History release latanoprost 0.005 % eye drops 1 drop ophthalmic (eye) HS 02/02/19 11/23/23 10/05/23 22:00 History timolol 0.5 % eye drops 1 drop ophthalmic (eye) DAILY 02/02/19 11/23/23 10/06/23 09:00 History zinc acetate 50 mg (zinc) capsule 50 mg PO BID 04/25/23 11/23/23 10/06/23 08:55 History albuterol sulfate 90 mcg/actuation 2 inh inhalation Q4H PRN Shortness 07/21/23 11/23/23 10/06/23 13:30 History aerosol inhaler Of Breath Or Wheezing azelastine 137 mcg (0.1 %) nasal 2 spray intranasal .Once daily PRN 07/21/23 11/23/23 Unknown History spray Nasal Congestion fluticasone propionate 50 1 spray intranasal DAILY 07/21/23 11/23/23 10/06/23 08:55 History mcg/actuation nasal spray,suspension lovastatin 10 mg tablet 10 mg PO HS 07/21/23 11/23/23 Unknown History triamcinolone acetonide 0.1 % 1 applic topical BID PRN Itching 07/21/23 11/23/23 Unknown History topical cream telmisartan 80 mg tablet 80 mg PO HS 10/06/23 11/23/23 Unknown History tiotropium bromide 18 mcg capsule 1 cap inhalation DAILY 10/06/23 11/23/23 Unknown History with inhalation device (Spiriva with HandiHaler) artificial 1 drp EACH EYE DAILY 11/06/23 11/23/23 Unknown History tears(cvfhyhi-[id number]-ysvmbmx) 0.1 %-0.3 %-0.2 % eye drops (GenTeal Tears Moderate) artificial tears(hypromellose) 0.3 1 drp EACH EYE HS 11/06/23 11/23/23 Unknown History % eye gel diclofenac sodium 1 % topical gel 2 g topical QID 11/06/23 11/23/23 Unknown History diphenhydramine HCl 25 mg capsule 25 mg PO BID PRN Itching 11/06/23 11/23/23 Unknown History (Benadryl) fexofenadine 60 mg tablet 60 mg PO DAILY 11/06/23 11/23/23 Unknown History fluoride (sodium) 1.1 % dental 1 applic PO HS 11/06/23 11/23/23 Unknown History cream (PreviDent 5000 Plus) procyanidolic oligomers 50 mg 50 mg PO DAILY 11/06/23 11/23/23 Unknown History capsule psyllium 1 packet PO HS 11/06/23 11/23/23 Unknown History tamsulosin 0.4 mg capsule 0.4 mg PO DAILY 12/28/23 Unknown History Allergies Allergy/AdvReac Type Severity Reaction Status Date / Time clindamycin Allergy Mild Rash Verified 12/26/23 14:03 bacitracin Allergy Unknown Swelling Verified 12/26/23 14:03 of Lip/Tongue/Throat cat dander Allergy Unknown Rash Verified 12/26/23 14:03 latex Allergy Unknown Rash Verified 12/26/23 14:03 pollen extracts Allergy Unknown Dyspnea / Verified 12/26/23 14:03 SOB Sulfa (Sulfonamide Allergy Unknown Unknown Verified 12/26/23 14:03 Antibiotics) sulfite Allergy Unknown Unknown Verified 12/26/23 14:03 codeine AdvReac Unknown Nausea and Verified 12/26/23 14:03 Vomiting Review of Systems 2 Review of Systems: All systems reviewed & are unremarkable except as noted in HPI. All systems reviewed & are unremarkable except as noted in HPI and below [facility] Past Medical History Medical History History of pneumonia History of stroke Right knee pain Knee fracture Iron deficiency anemia with history of iron infusions 2018. Follows with Dr. 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 Washcoat Wiper stated that this was due to diabetes however patient's A1c within our record system has never been above 5.8 so diagnosis of diabetes not will document Open-angle glaucoma History of GI bleed following polypectomy TIA (transient ischemic attack) (~2010) Diastolic heart failure echocardiogram 10/2023: EF 60-65%, grade 1 diastolic dysfunction, E/E 12 is mildly elevated, normal right-sided heart pressures Gout Anxiety Lymphedema COVID-19 IBS (irritable bowel syndrome) Allergic rhinitis, cause unspecified Asthma Normocytic normochromic anemia NICOLE treated with BiPAP BiPAP 01/14 Peripheral neuropathic pain Essential (primary) hypertension Surgical History Surgical History History of appendectomy Status post cataract extraction of both eyes with insertion of intraocular lens History of bilateral knee replacement History of colonoscopy with polypectomy with most recent 07/2023 demonstrated recurrent polyps and internal hemorrhoids well as diverticulosis Family History Family History Mother Hypertension, Onset Age: 81 Cerebrovascular accident, Onset Age: 81 Father Family history of allergic disorder, Onset Age: 82 Diabetes mellitus, Onset Age: 82 Acute myocardial infarction, Onset Age: 82 Sepsis Asthma, Onset Age: 82 History of colon resection Other No problems noted. Social History Social History Social History: Code status: Full code Surrogate decision maker: Smoking status: Never smoker Alcohol intake: never Substance use: never Substance use type: does not use Do You Feel Safe in your Home?: Yes Lack of Transportation: No Lack of Food: Never True Current Housing: I Have Housing Concerned About Future Housing: No Difficulty Paying Gas/Electric Bills: No Difficulty Paying for Meds: No Currently Unemployed: No Education: Associate Degree Difficulty w/ Childcare or Family Care: No Living arrangements: with family Spiritual care concerns: No Exam 2 Narrative: GENERAL: Chronically ill, obese with BMI of 37.2, non-toxic, in no acute distress. HEAD: Normocephalic, atraumatic. RESPIRATORY: Airway patent, respirations nonlabored. Clear to auscultation bilaterally, no rales, rhonchi, wheezing. CARDIOVASCULAR: Tachycardic with regular rhythm without murmurs, rubs, or gallops. ABDOMINAL: Soft, mild tenderness and fullness in suprapubic region. Nondistended. Normoactive BS. MUSCULOSKELETAL: Moves all extremities. No gross deformities. SKIN: Warm, dry, flushed and diaphoretic appearing NEURO: A&O X3. Does seem to be intermittently confused. Speech clear. Cranial nerves II-XII grossly intact. Steady gait. No ataxic movements. PSYCHIATRIC: Intermittently agitated, uncooperative. Course Vital Signs Vital signs: Vital Signs Temperature 100.6 F H 02/02/24 18:00 Pulse Rate 138 H 02/02/24 18:00 Respiratory Rate 15 02/02/24 18:00 Blood Pressure 97/40 L 02/02/24 18:00 Pulse Oximetry 98 02/02/24 18:00 Oxygen Delivery Room Air 02/02/24 18:00 Temperature 99.1 F 02/03/24 01:04 Pulse Rate 102 H 02/02/24 18:54 Respiratory Rate 17 02/02/24 18:54 Blood Pressure 131/66 02/02/24 18:54 Pulse Oximetry 98 02/02/24 18:00 Oxygen Delivery Room Air 02/02/24 18:00 MDM - Fever MDM Narrative Medical decision making narrative: Patient presented to ED with weakness, chills, concern for urinary tract infection. History of similar. Has chronic indwelling Ritter. Patient borderline hypotensive upon arrival, tachycardic, febrile. Fluids and Tylenol given. BP did respond appropriately to fluid resuscitation. CBC with white blood cell count of 12.0. Stable H&H. CMP is unremarkable. Kidney function is stable, consistent with previous records. Fluids are ongoing. Lactic acid within normal range at 1.6. UA appears infectious, positive nitrate, greater than 100 white blood cell count, 3+ urine bacteria. Sent for culture. Blood cultures were also obtained. Previous urine cultures have grown out Enterococcus, sensitive to vanc and ampicillin. Patient is meeting sepsis criteria. Will be admitted for further evaluation. Will discuss with hospitalist regarding antibiotic selection. CT scan of abdomen/pelvis was obtained given lower abdominal pain, showing evidence of cystitis with bilateral ascending infection. No obstruction. Patient discussed lab and imaging findings with patient and family at bedside, as well as need for admission. They are in agreement. Discussed case with Dr. Gaitan, hospitalist, accepted patient for admission. Will place to IMU as blood pressures have been somewhat labile after initial fluids. Second fluid bolus is ongoing. Will also initiate maintenance fluids. Will start Zosyn for antibiotic coverage. He has tolerated this in the past. Blood cx pending. Medical Records Attestation: I reviewed the patient's medical records. Lab Data Attestation: I reviewed the patient's lab results. 02/02/24 18:39 02/02/24 18:39 Labs: Lab Results 02/02/24 Range/Units 18:39 WBC 12.0 H (4.5-10.0) K/mm3 RBC 4.28 L (4.6-6.20) M/mm3 Hgb 13.3 L D (14.0-18.0) g/dL Hct 40.4 L (42.0-52.0) % MCV 94.4 (80-100) fl MCH 31.1 (26-34) pg MCHC 32.9 (32-36) g/dl RDW 13.6 (11.5-14.5) % Plt Count 217 (150-375) k/mm3 MPV 9.9 (7.4-10.4) fl Immature Gran % (Auto) 0.7 H (0-0.5) % Neut % (Auto) 82.8 H (45.5-73.1) % Lymph % (Auto) 6.4 L (18.3-44.2) % [place] % (Auto) 6.4 (2.6-8.5) % Eos % (Auto) 3.3 (0-4.4) % Baso % (Auto) 0.4 (0.2-1.2) % Lymph # (Auto) 0.76 L (0.9-3.2) K/mm3 [place] # (Auto) 0.8 H (0.1-0.6) K/mm3 Eos # (Auto) 0.4 H (0-0.3) K/mm3 Baso # (Auto) 0.1 (0.0-0.1) K/mm3 Abs Immat Gran (auto) 0.08 H (0.00-0.031) K/mm3 Absolute Neuts (auto) 9.9 H (1.3-6.7) K/mm3 Absolute Nucleated RBC 0.000 (0.0-0.012) K/mm3 Nucleated RBC % 0.0 (0.0-0.2) % PT 13.2 (11.1-14.7) Seconds INR 1.0 APTT 30.0 (22.3-36.8) Seconds Sodium 133 L (137-145) mmol/L Potassium 4.0 (3.4-5.0) mmol/L Chloride 101 (98-107) mmol/L Carbon Dioxide 30 (22-30) mmol/L Anion Gap 2 L (4-12) mmol/L BUN 15 (9-20) mg/dL Creatinine 1.00 (0.7-1.3) mg/dL Estim Creat Clear Calc 65 ml/min Estimated GFR > 60 (59 - ) Glucose 101 (65-110) mg/dL Lactic Acid 1.6 (0.7-2.0) mmol/L Calcium 9.3 (8.4-10.2) mg/dL Total Bilirubin 0.8 (0.2-1.3) mg/dL AST 22 (17-59) U/L ALT 12 (6-50) U/L Alkaline Phosphatase 100 (38-126) U/L Troponin I < 0.012 (0.000-0.034) ng/mL C-Reactive Protein 3.4 H (<1.0) mg/dL Total Protein 7.0 (6.3-8.2) g/dL Albumin 3.7 (3.5-5.1) g/dL Lipase 70 (23-300) U/L Urine Color Yellow (Yellow) Urine Appearance Cloudy H (Clear) Urine pH 5.5 (5.0-9.0) Ur Specific [place] 1.009 (1.001-1.035) Urine Protein 1+ H (Negative) mg/dL Urine Glucose (UA) Negative (Negative) mg/dL Urine Ketones Negative (Negative) mg/dL Ur Blood (Man) 1+ H (Negative) Urine Nitrate Positive H (Negative) Urine Bilirubin Negative (Negative) Urine Urobilinogen 0.2 (<2.0) mg/dL Leukocyte Esterase Rfl 3+ H (Negative) TUSHAR/UL Urine RBC 6-10 H (0-2) /hpf Urine WBC >100 H (0-3) /hpf Ur Squamous Epith Cells None seen (Few) /hpf Urine Bacteria 3+ H /hpf Urine Casts 0-2 Imaging Data Attestation: I personally reviewed and interpreted this imaging study as follows: Radiologist's impression: ITS Impressions Chest X-Ray 02/02/24 18:36 IMPRESSION: Segmental left basilar atelectasis or consolidation. Possible small bilateral pleural effusions. Abdomen/Pelvis CT 02/02/24 22:38 IMPRESSION: CT findings concerning for cystitis with bilateral ascending infection. Discharge Plan Discharge Clinical Impression: Acute pyelonephritis UTI (urinary tract infection) Qualifiers: Urinary tract infection type: catheter-associated UTI Indwelling urinary catheter type: indwelling urethral catheter Encounter type: initial encounter Q ualified Code(s): T83.511A - Infection and inflammatory reaction due to indwelling urethral catheter, initial encounter Sepsis Qualifiers: Sepsis type: sepsis due to unspecified organism Sepsis acute organ dysfunction status: unspecified Qualified Code(s): A41.9 - Sepsis, unspecified organism Patient Disposition: Still a Patient Condition: Serious
[2024-02-03] VITALS (41 sets, daily range): BP systolic 74–118; BP diastolic 43–62; PULSE 80–103; RESP 14–21; TEMP 37.1–39; O2SAT 93–98; BMI 36.3
[2024-02-03] MEDS: PIPERACILLN/TAZ 3.375GM/NS50ML 3.375 GM/50 ML BAG IVPB ×5 (01:03→23:54)
[2024-02-03] MEDS: SODIUM CHLORIDE 0.9% IV 1,000 ML 100 ML IV CONT ×3 (01:03→17:29)
[2024-02-03] MEDS: SODIUM CHLORIDE 0.9% IV 1,000 ML 999 ML IV CONT (01:03)
--- NOTE | 2024-02-03 02:23 | P.HP_ITS ---
H&P: HPI History of Present Illness Date/Time: 02/03/24 02:23 Chief Complaint: Generalized weakness Narrative: This is a 78-year-old male with past medical history significant for obstructive sleep apnea, neurogenic bladder, glaucoma, chronic indwelling Ritter catheter, recurrent urinary tract infection, COPD on CPAP at nighttime. Patient was brought to the emergency room due to episode of weakness unable to get up from his recliner and rigors. Patient had been his usual state of health up until this point. Most of the history has been obtained from who is at bedside. Preliminary workup was significant for urinalysis with numerous WBCs present, a chest x-ray shows left lower lobe infiltrate. Patient has been admitted for further evaluation management and treatment. 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 RESULT: Lines, tubes, and devices: None. Lungs and pleura: Segmental left basilar airspace disease. Mild bilateral costophrenic angle blunting. Cardiomediastinal silhouette: Stable. Other: No acute osseous or upper abdominal finding. IMPRESSION: Segmental left basilar atelectasis or consolidation. Possible small bilateral pleural effusions. EXAMINATION: CT abdomen pelvis w con DATE: 02/02/2024 22:13 INDICATION: lower abd pain, UTI, sepsis TECHNIQUE: Computed tomography (CT) of the abdomen and pelvis was performed with 100 mL Omnipaque-350 intravenous contrast. Automated exposure control and iterative reconstruction technique were employed. The dose-length product was 1575.72 mGy-cm. COMPARISON: 10/01/2023. FINDINGS: Lower thorax: Mildly dilated central pulmonary arteries, as can be seen with pulmonary arterial hypertension. Coronary artery calcifications and subsegmental dependent scar/atelectasis. Symmetric gynecomastia. Liver: Normal. Biliary/Gallbladder: Gallbladder is normal. No bile duct dilation. Pancreas: No mass or duct dilation. Spleen: Normal. Adrenals:No mass. Kidneys: Moderate bilateral perinephric stranding. Bilateral cortical thinning. Mild bilateral caliectasis and pelviectasis. There is urothelial enhancement in the collecting systems. Simple left midpole cyst. Bilateral lower pole hypodensities, too small to characterize but most likely represent cysts. Otherwise uniform parenchymal enhancement of the kidneys. GI tract: No small or large bowel dilation. Normal appendix. Diverticulosis without diverticulitis. Mesentery/Peritoneum: No ascites, mass, or free air. Retroperitoneum: No mass. Atherosclerotic abdominal aortic and/or arterial calcifications. Pelvis: The bladder is decompressed by Ritter catheter. Moderate bladder wall edema. Soft Tissues: Moderate uncomplicated appearing bilateral fat-containing hernias Bones: No acute osseous finding. IMPRESSION: CT findings concerning for cystitis with bilateral ascending infection. Review of Systems Constitutional: Constitutional: Reports body aches, Reports chills, Reports malaise and Reports weakness [facility] Past Medical History Medical History History of pneumonia History of stroke Right knee pain Knee fracture Iron deficiency anemia with history of iron infusions 2018. Follows with Dr. 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 Care Provider stated that this was due to diabetes however patient's A1c within our record system has never been above 5.8 so diagnosis of diabetes not will document Open-angle glaucoma History of GI bleed following polypectomy TIA (transient ischemic attack) (~2010) Diastolic heart failure echocardiogram 10/2023: EF 60-65%, grade 1 diastolic dysfunction, E/E 12 is mildly elevated, normal right-sided heart pressures Gout Anxiety Lymphedema COVID-19 IBS (irritable bowel syndrome) Allergic rhinitis, cause unspecified Asthma Normocytic normochromic anemia NICOLE treated with BiPAP BiPAP 01/14 Peripheral neuropathic pain Essential (primary) hypertension Surgical History Surgical History History of appendectomy Status post cataract extraction of both eyes with insertion of intraocular lens History of bilateral knee replacement History of colonoscopy with polypectomy with most recent 07/2023 demonstrated recurrent polyps and internal hemorrhoids well as diverticulosis Family History Family History Mother Hypertension, Onset Age: 81 Cerebrovascular accident, Onset Age: 81 Father Family history of allergic disorder, Onset Age: 82 Diabetes mellitus, Onset Age: 82 Acute myocardial infarction, Onset Age: 82 Sepsis Asthma, Onset Age: 82 History of colon resection Other No problems noted. Social History Social History Social History: Code status: Full code Surrogate decision maker: Smoking status: Never smoker Alcohol intake: former Substance use: never Substance use type: does not use Do You Feel Safe in your Home?: Yes Lack of Transportation: No Lack of Food: Never True Current Housing: I Have Housing Concerned About Future Housing: No Difficulty Paying Gas/Electric Bills: No Difficulty Paying for Meds: No Currently Unemployed: No Education: Associate Degree Difficulty w/ Childcare or Family Care: No Living arrangements: with family Spiritual care concerns: No Meds Home Medications and Allergies Home Medications ?Medication ?Instructions ?Recorded ?Confirmed ?Type aspirin 81 mg tablet,delayed 81 mg PO DAILY 02/02/19 02/03/24 History release latanoprost 0.005 % eye drops 1 drop ophthalmic (eye) HS 02/02/19 02/03/24 History timolol 0.5 % eye drops 1 drop ophthalmic (eye) HS 02/02/19 02/03/24 History zinc acetate 50 mg (zinc) capsule 50 mg PO DAILY 04/25/23 02/03/24 History albuterol sulfate 90 mcg/actuation 2 inh inhalation Q4H PRN Shortness 07/21/23 02/03/24 History aerosol inhaler Of Breath Or Wheezing azelastine 137 mcg (0.1 %) nasal 2 spray intranasal .Once daily PRN 07/21/23 02/03/24 History spray Nasal Congestion fluticasone propionate 50 1 spray intranasal DAILY 07/21/23 02/03/24 History mcg/actuation nasal spray,suspension lovastatin 10 mg tablet 10 mg PO HS 07/21/23 02/03/24 History triamcinolone acetonide 0.1 % 1 applic topical BID PRN Itching 07/21/23 02/03/24 History topical cream pantoprazole 40 mg tablet,delayed 40 mg PO BID #180 tabs 09/20/23 02/03/24 Rx release zafirlukast 20 mg tablet 20 mg PO BID #180 tabs 09/20/23 02/03/24 Rx telmisartan 80 mg tablet 80 mg PO QAM 10/06/23 02/03/24 History tiotropium bromide 18 mcg capsule 1 cap inhalation DAILY 10/06/23 02/03/24 H istory with inhalation device (Spiriva with HandiHaler) hydrochlorothiazide 25 mg tablet 25 mg PO DAILY #90 tabs 10/19/23 02/03/24 Rx finasteride 5 mg tablet (Proscar) 5 mg PO QAM #30 tabs 10/21/23 02/03/24 Rx potassium chloride 20 mEq 20 meq PO DAILY@0800 #30 tabs 10/21/23 02/03/24 Rx tablet,extended release (K-Tab) miconazole nitrate 2 % topical 1 applic topical Q12HR #30 grams 11/02/23 02/03/24 Rx cream artificial 1 drp EACH EYE DAILY 11/06/23 02/03/24 History tears(wakmmqs-jzpucpte-mbwztyo) 0.1 %-0.3 %-0.2 % eye drops (GenTeal Tears Moderate) artificial tears(hypromellose) 0.3 1 drp EACH EYE HS 11/06/23 02/03/24 History % eye gel diclofenac sodium 1 % topical gel 2 g topical QID 11/06/23 02/03/24 History diphenhydramine HCl 25 mg capsule 25 mg PO BID PRN Itching 11/06/23 02/03/24 History (Benadryl) fexofenadine 60 mg tablet 60 mg PO DAILY 11/06/23 02/03/24 History fluoride (sodium) 1.1 % dental 1 applic PO HS 11/06/23 02/03/24 History cream (PreviDent 5000 Plus) gabapentin 300 mg capsule 300 mg PO BID #180 caps 12/01/23 02/03/24 Rx tamsulosin 0.4 mg capsule 0.4 mg PO DAILY 12/28/23 02/03/24 History clonazepam 1 mg tablet 1 mg PO BID #180 tabs 12/29/23 02/03/24 Rx midodrine 10 mg tablet 10 mg PO TID 02/03/24 02/03/24 History Allergies Allergy/AdvReac Type Severity Reaction Status Date / Time clindamycin Allergy Mild Rash Verified 12/26/23 14:03 bacitracin Allergy Unknown Swelling Verified 12/26/23 14:03 of Lip/Tongue/Throat cat dander Allergy Unknown Rash Verified 12/26/23 14:03 latex Allergy Unknown Rash Verified 12/26/23 14:03 pollen extracts Allergy Unknown Dyspnea / Verified 12/26/23 14:03 SOB Sulfa (Sulfonamide Allergy Unknown Unknown Verified 12/26/23 14:03 Antibiotics) sulfite Allergy Unknown Unknown Verified 12/26/23 14:03 codeine AdvReac Unknown Nausea and Verified 12/26/23 14:03 Vomiting Vital Signs Vital Signs - 24 hr 02/02/24 18:00 02/02/24 18:54 02/03/24 01:04 Temperature 100.6 F H 99.1 F Pulse Rate 138 H 102 H Respiratory Rate 15 17 Blood Pressure 97/40 L 131/66 Pulse Oximetry 98 Oxygen Delivery Room Air 02/03/24 02:13 Temperature Pulse Rate 96 Respiratory Rate Blood Pressure 103/47 L Pulse Oximetry Oxygen Delivery Exam Narrative: Laying in a stretcher Const: General: comfortable, no acute distress, well developed, alert, awake, ill appearing acutely, tired appearing and average body habitus Nutritional Appearance: average body habitus Orientation/consciousness: patient oriented x3 HENMT: Head: normal to inspection, normocephalic and atraumatic Ears: hearing grossly normal bilaterally Face/Nose/Sinus: normal facial exam Face and sinus: normal facial exam Eyes: General: appearance normal, both eyes and all related structures Pupils: Equal, round and reactive pupils present EOM: EOMs intact bilaterally Neck: Neck: full ROM, no lymphadenopathy and no JVD Thyroid: thyroid normal Lymphatic: no lymphadenopathy noted Resp: Effort & Inspection: normal respiratory effort and able to speak in complete sentences Auscultation: clear to auscultation bilaterally Cardio: Jugular venous distension: no JVD Rate: regular rate Rhythm: regular rhythm Heart sounds: S1 normal heart sound present and S2 normal heart sound present GI: GI Palp: Yes Soft to palpation and Yes No hepatosplenomegaly present : General: Yes deferred Urinary Catheter: Urinary Catheter: patent and draining Skin: Rashes: no rashes Wounds: no wounds Neuro: General: patient oriented x3 and CN's II-XI intact bilaterally Cranial nerves: Yes CN's II-XII intact bilaterally and Yes Equal, round and reactive pupils present Cognition (Neuro): normal cognition Speech: normal speech Gait exam (Neuro): Unable to assess gait Motor exam (neuro): 5/5 motor strength present throughout Other: Compression stockings in place Extrem: General: normal to inspection, full ROM, no joint enlargement and no pedal edema H&P: Results Labs Labs: Short CBC 02/02/24 Range/Units 18:39 WBC 12.0 H (4.5-10.0) K/mm3 Hgb 13.3 L D (14.0-18.0) g/dL Hct 40.4 L (42.0-52.0) % Plt Count 217 (150-375) k/mm3 BMP 02/02/24 18:39 Sodium 133 L Potassium 4.0 Chloride 101 Carbon Dioxide 30 BUN 15 Creatinine 1.00 Glucose 101 Calcium 9.3 Cardiac Enzymes 02/02/24 Range/Units 18:39 Troponin I < 0.012 (0.000-0.034) ng/mL Liver Function 02/02/24 Range/Units 18:39 Total Bilirubin 0.8 (0.2-1.3) mg/dL AST 22 (17-59) U/L ALT 12 (6-50) U/L Alkaline Phosphatase 100 (38-126) U/L Albumin 3.7 (3.5-5.1) g/dL Urine 02/02/24 Range/Units 18:39 Urine Color Yellow (Yellow) Urine Appearance Cloudy H (Clear) Urine pH 5.5 (5.0-9.0) Ur Specific [place] 1.009 (1.001-1.035) Urine Protein 1+ H (Negative) mg/dL Urine Glucose (UA) Negative (Negative) mg/dL Assessment and Plan Assessment and plan (1) Urinary tract infection associated with indwelling urethral catheter: Qualifiers: Encounter type: initial encounter Qualified Code(s): T83.511A - Infection and inflammatory reaction due to indwelling urethral catheter, initial encounter; N39.0 - Urinary tract infection, site not specified Code(s): T83.511A - Infection and inflammatory reaction due to indwelling urethral catheter, initial encounter; N39.0 - Urinary tract infection, site not specified Status: Acute Assessment and Plan: Admit to IMU Patient is currently on Zosyn Await cultures (2) Left lower lobe pneumonia: Code(s): J18.9 - Pneumonia, unspecified organism Status: Acute Assessment and Plan: Patient currently on Zosyn Will add vancomycin (3) Acute pyelonephritis: Code(s): N10 - Acute pyelonephritis Status: Acute Assessment and Plan: As above (4) Obstructive uropathy: Code(s): N13.9 - Obstructive and reflux uropathy, unspecified Status: Acute Assessment and Plan: Ritter in place (5) GERD (gastroesophageal reflux disease): Qualifiers: Esophagitis presence: esophagitis presence not specified Qualified Code(s): K21.9 - Gastro-esophageal reflux disease without esophagitis Code(s): K21.9 - Gastro-esophageal reflux disease without esophagitis Status: Acute Assessment and Plan: PPI (6) NICOLE treated with BiPAP: Code(s): G47.33 - Obstructive sleep apnea (adult) (pediatric) Status: Acute Assessment and Plan: Continue BiPAP (7) Chronic obstructive pulmonary disease, unspecified: Code(s): J44.9 - Chronic obstructive pulmonary disease, unspecified Status: Acute Assessment and Plan: Breathing treatments (8) CKD (chronic kidney disease) stage 3, GFR 30-59 ml/min: Code(s): N18.3 - Chronic kidney disease, stage 3 (moderate) Status: Acute Assessment and Plan: Continue to monitor BUN and creatinine Daily BMP Hospitalist MIPS Advance Care Plan I have confirmed that the patient's Advanced Care Plan is present, code status is documented, or surrogate decision maker is listed in patient medical record.: Yes Medication Reconciliation I have utilized all available resources to obtain, update and review the patients current medications (includes all prescriptions, OTC, herbals, cannabis, and nutritional supplements).: Yes
--- NOTE | 2024-02-03 03:04 | ADMGEN ---
This patient, Herman Cordero III, was admitted to IMU Room 206-02. Patient/family oriented to hospital policies and general routines including ID bracelet, bed and alarms, visiting hours, pain management, procedures, bathroom and other care routines, personal items, smoking policy, room service/diet, and visiting hours. Information on how to activate the Rapid Response Team has been discussed. Patient/Family are encouraged to report perceived risks to care and to ask questions if they do not understand what they are told or what they should do.
[2024-02-03] MEDS: ACETAMINOPHEN 325 MG TABLET 650 MG PO ×2 (03:20→11:47)
[2024-02-03] MEDS: UMECLIDINIUM BROMIDE 62.5 MCG ELLIPTA 1 PUFF INHALATION (07:38)
--- NOTE | 2024-02-03 08:30 | PM.IMPN ---
Progress Note: A&P Assessment and Plan (1) Urinary tract infection associated with indwelling urethral catheter: Qualifiers: Encounter type: initial encounter Qualified Code(s): T83.511A - Infection and inflammatory reaction due to indwelling urethral catheter, initial encounter; N39.0 - Urinary tract infection, site not specified Code(s): T83.511A - Infection and inflammatory reaction due to indwelling urethral catheter, initial encounter; N39.0 - Urinary tract infection, site not specified Status: Acute (2) Left lower lobe pneumonia: Code(s): J18.9 - Pneumonia, unspecified organism Status: Acute (3) Acute pyelonephritis: Code(s): N10 - Acute pyelonephritis Status: Acute (4) Obstructive uropathy: Code(s): N13.9 - Obstructive and reflux uropathy, unspecified Status: Acute (5) GERD (gastroesophageal reflux disease): Qualifiers: Esophagitis presence: esophagitis presence not specified Qualified Code(s): K21.9 - Gastro-esophageal reflux disease without esophagitis Code(s): K21.9 - Gastro-esophageal reflux disease without esophagitis Status: Acute (6) NICOLE treated with BiPAP: Code(s): G47.33 - Obstructive sleep apnea (adult) (pediatric) Status: Acute (7) Chronic obstructive pulmonary disease, unspecified: Code(s): J44.9 - Chronic obstructive pulmonary disease, unspecified Status: Acute (8) CKD (chronic kidney disease) stage 3, GFR 30-59 ml/min: Code(s): N18.3 - Chronic kidney disease, stage 3 (moderate) Status: Acute Plan This is a 78-year-old male who presented to the ED via EMS with generalized weakness. Patient with history of recurrent UTIs and sepsis with a past few months. Follows with Dr. Moore. Recently required rehab placement. Patient became increasingly weak today unable to stand up or move on his own had cold shaking chills. EMS was notified. He was found to be febrile by EMS. Patient also reported lower abdominal pain. Denied any nausea vomiting hematuria or lower back pain. On the ED evaluation he was febrile and tachycardic in 140s borderline hypotensive. He received IV fluid resuscitation and Tylenol. His blood pressure responded adequately to fluid resuscitation. Laboratory evaluation showed WBC of 12.0 hemoglobin 13.3 mildly hyponatremic at 1:33 a.m.. Lactic acid was normal at 1.6 troponin was negative less than 0.012 LFTs were normal. CRP was elevated at 3.4. Urinalysis was positive for UTI. Chest x-ray with segmental left basilar atelectasis or consolidation. Possible small bilateral pleural effusion. CT abdomen pelvis with subsegmental dependent scar/atelectasis. Moderate bilateral perinephric stranding. There is urothelial enhancement the collecting system. Moderate bladder wall edema suggestive of cystitis. Patient was pancultured. Previous urine culture grown out Enterococcus sensitive to vancomycin ampicillin. Patient meets criteria for sepsis. Patient was started on Zosyn And was admitted for further treatment. Follow blood culture Chronic anemia with likely hemoconcentration GERD Asthma Obstructive sleep apnea On BiPAP at night Hypertension BPH Chronic indwelling Ritter catheter Diabetic peripheral neuropathy Diastolic heart failure EF 60-65% 2023 Gout Spinal stenosis History of TIA 2010 DVT prophylaxis Lovenox Code status full code Subjective Date/time seen: 02/03/24 08:30 Interval history: This is a 78-year-old male who presented to the ED via EMS with generalized weakness. Patient with history of recurrent UTIs and sepsis with a past few months. Follows with Dr. Moore. Recently required rehab placement. Patient became increasingly weak today unable to stand up or move on his own had cold shaking chills. EMS was notified. He was found to be febrile by EMS. Patient also reported lower abdominal pain. Denied any nausea vomiting hematuria or lower back pain. On the ED evaluation he was febrile and tachycardic in 140s borderline hypotensive. He received IV fluid resuscitation and Tylenol. His blood pressure responded adequately to fluid resuscitation. Laboratory evaluation showed WBC of 12.0 hemoglobin 13.3 mildly hyponatremic at 1:33 a.m.. Lactic acid was normal at 1.6 troponin was negative less than 0.012 LFTs were normal. CRP was elevated at 3.4. Urinalysis was positive for UTI. Chest x-ray with segmental left basilar atelectasis or consolidation. Possible small bilateral pleural effusion. CT abdomen pelvis with subsegmental dependent scar/atelectasis. Moderate bilateral perinephric stranding. There is urothelial enhancement the collecting system. Moderate bladder wall edema suggestive of cystitis. Patient was pancultured. Previous urine culture grown out Enterococcus sensitive to vancomycin ampicillin. Patient meets criteria for sepsis. Patient was started on Zosyn And was admitted for further treatment. Review of Systems Review of Systems: All systems reviewed & are unremarkable except as noted in HPI and below Exam Narrative: GENERAL: Chronically ill, obese with BMI of 37.2, non-toxic, in no acute distress. HEAD: Normocephalic, atraumatic. RESPIRATORY: Airway patent, respirations nonlabored. Clear to auscultation bilaterally, no rales, rhonchi, wheezing. CARDIOVASCULAR: Regular rate Regular rhythm without murmurs, rubs, or gallops. ABDOMINAL: Soft, nontender, Nondistended. Normoactive BS. MUSCULOSKELETAL: Moves all extremities. No gross deformities. SKIN: Warm, dry, flushed and diaphoretic appearing NEURO: A&O X3. Does seem to be intermittently confused. Speech clear. Cranial nerves II-XII grossly intact. Steady gait. No ataxic movements. PSYCHIATRIC: Normal mood cooperative Objective Data Vital Signs Vital Signs: Vital Signs - 24 hr 02/02/24 18:00 02/02/24 18:54 02/02/24 18:55 Temperature 100.6 F H Pulse Rate 138 H 102 H 101 H Respiratory Rate 15 17 16 Blood Pressure 97/40 L 131/66 Pulse Oximetry 98 Oxygen Delivery Room Air 02/02/24 19:00 02/02/24 19:01 02/02/24 19:46 Temperature Pulse Rate 100 100 105 H Respiratory Rate 17 15 14 Blood Pressure 133/60 135/61 Pulse Oximetry 99 Oxygen Delivery 02/02/24 19:47 02/02/24 20:00 02/02/24 20:01 Temperature Pulse Rate 106 H 104 H 104 H Respiratory Rate 15 20 20 Blood Pressure 121/69 Pulse Oximetry 97 100 95 Oxygen Delivery 02/02/24 20:19 02/02/24 20:30 02/02/24 20:55 Temperature Pulse Rate 104 H 106 H 107 H Respiratory Rate 15 14 22 H Blood Pressure Pulse Oximetry Oxygen Delivery 02/02/24 20:57 02/02/24 21:01 02/02/24 21:02 Temperature Pulse Rate 107 H 106 H 107 H Respiratory Rate 15 19 19 Blood Pressure 121/68 111/65 Pulse Oximetry 100 100 99 Oxygen Delivery 02/02/24 21:15 02/02/24 21:16 02/02/24 21:26 Temperature Pulse Rate 108 H 106 H 108 H Respiratory Rate 20 17 27 H Blood Pressure 94/78 L 130/72 Pulse Oximetry 97 Oxygen Delivery 02/02/24 21:30 02/02/24 21:31 02/02/24 21:57 Temperature Pulse Rate 104 H 106 H 106 H Respiratory Rate 15 16 15 Blood Pressure 132/86 Pulse Oximetry 98 96 88 L Oxygen Delivery 02/02/24 22:48 02/02/24 23:19 02/02/24 23:30 Temperature Pulse Rate 108 H 105 H 105 H Respiratory Rate 15 12 12 Blood Pressure Pulse Oximetry 93 93 95 Oxygen Delivery 02/02/24 23:31 02/02/24 23:58 02/03/24 00:00 Temperature Pulse Rate 105 H 103 H 103 H Respiratory Rate 31 H 13 16 Blood Pressure 83/43 L Pulse Oximetry 96 96 95 Oxygen Delivery 02/03/24 00:01 02/03/24 00:15 02/03/24 00:16 Temperature Pulse Rate 103 H 102 H 102 H Respiratory Rate 20 16 18 Blood Pressure 79/47 L 79/43 L Pulse Oximetry 96 96 95 Oxygen Delivery 02/03/24 00:30 02/03/24 00:31 02/03/24 00:51 Temperature Pulse Rate 100 101 H 96 Respiratory Rate 17 19 19 Blood Pressure 74/43 L Pulse Oximetry 94 95 Oxygen Delivery 02/03/24 00:52 02/03/24 01:00 02/03/24 01:01 Temperature Pulse Rate 97 94 95 Respiratory Rate 20 18 14 Blood Pressure 83/45 L 86/44 L Pulse Oximetry 94 95 94 Oxygen Delivery 02/03/24 01:02 02/03/24 01:04 02/03/24 01:11 Temperature 99.1 F Pulse Rate 94 95 Respiratory Rate 18 21 H Blood Pressure 78/44 L 86/43 L Pulse Oximetry 96 95 Oxygen Delivery 02/03/24 01:24 02/03/24 01:26 02/03/24 01:42 Temperature Pulse Rate 94 93 96 Respiratory Rate 16 15 17 Blood Pressure 105/50 L Pulse Oximetry 96 97 95 Oxygen Delivery 02/03/24 01:45 02/03/24 02:00 02/03/24 02:01 Temperature Pulse Rate 95 95 94 Respiratory Rate 19 20 19 Blood Pressure 89/60 L Pulse Oximetry 96 93 95 Oxygen Delivery 02/03/24 02:06 02/03/24 02:11 02/03/24 02:13 Temperature Pulse Rate 95 96 96 Respiratory Rate 17 20 Blood Pressure 101/43 L 103/47 L 103/47 L Pulse Oximetry 94 95 Oxygen Delivery 02/03/24 02:15 02/03/24 02:16 02/03/24 02:28 Temperature Pulse Rate 95 95 94 Respiratory Rate 20 19 16 Blood Pressure 108/46 L 99/48 L Pulse Oximetry 96 94 94 Oxygen Delivery 02/03/24 03:09 02/03/24 03:20 02/03/24 04:00 Temperature 102.2 F H 102.2 F H Pulse Rate 93 91 Respiratory Rate 20 Blood Pressure 111/52 L Pulse Oximetry 98 Oxygen Delivery 02/03/24 04:58 02/03/24 06:00 02/03/24 07:43 Temperature 101.8 F H Pulse Rate 83 87 84 Respiratory Rate 20 18 Blood Pressure 108/56 L Pulse Oximetry 98 Oxygen Delivery 02/03/24 08:00 Temperature 101.8 F H Pulse Rate 85 Respiratory Rate 20 Blood Pressure 118/62 Pulse Oximetry 98 Oxygen Delivery Intake/Output Intake/Output: Intake & Output 01/31/24 02/01/24 02/02/24 02/03/24 23:59 23:59 23:59 23:59 Intake Total 2050 Output Total 400 Balance 1650 Meds/Results Medications: Active Medications Generic Name Dose Route Start Last Admin Trade Name Freq PRN Reason Stop Dose Admin Acetaminophen 650 mg 02/03/24 00:47 02/03/24 03:20 Acetaminophen 325 Mg Tablet PO 650 mg Q4H PRN Administration Mild Pain (1-3) or Fever Albuterol 2 puff 02/03/24 04:58 Albuterol Sulfate (*Sp) Aerosol 1 Puff INHALATION Q4HRT PRN Shortness Of Breath Or Wheezing Artificial Tears 1 drop 02/03/24 09:00 Artificial Tears Ophth Soln 15 Ml Bottle EACH EYE DAILY JOLIE Dextrose 12.5 gm 02/03/24 00:47 Dextrose 50% 25 Gm/50 Ml Syringe IV PUSH PRN PRN Hypoglycemia Protocol Finasteride 5 mg 02/03/24 09:00 Finasteride 5 Mg Tablet PO QAM JOLIE Fluticasone Propionate 1 spray 02/03/24 09:00 Fluticasone Propionate 0.05% Na Spr 16 Gm Btl (*Bkc) NASAL DAILY JOLIE Gabapentin 300 mg 02/03/24 09:00 Gabapentin 300 Mg Capsule PO BID JOLIE Glucagon 1 mg 02/03/24 00:47 Glucagon For Inj 1 Mg Vial IM PRN PRN Hypoglycemia Protocol Glucose 15 gm 02/03/24 00:47 Glucose Oral Gel 15 Gm Of Glucse In 37.5 Gm Tube PO PRN PRN Hypoglycemia Protocol Sodium Chloride 1,000 mls @ 100 mls/hr 02/03/24 00:50 02/03/24 01:03 Normal Saline Iv IV CONT 100 mls/hr .Q10H JOLIE Administration Dextrose 1,000 mls @ 100 mls/hr 02/03/24 00:47 Dextrose 5% 1,000 Ml IVPB PRN PRN Hypoglycemia Protocol Piperacillin/Tazobactam/Dextrose 3.375 gm in 50 mls @ 100 mls/hr 02/03/24 06:00 02/03/24 06:14 Zosyn 3.375 Gm/Ns 50 Ml IVPB 100 mls/hr Q6HR JOLIE Administration Latanoprost 1 drop 02/03/24 21:00 Latanoprost 0.005% Op Soln 2.5 Ml Btl EACH EYE HS [facility] Miconazole Nitrate 1 applic 02/03/24 09:00 Miconazole Nitrate 2% Cream 30 Gm Tube TOPICAL Q12HR [facility] Midodrine 10 mg 02/03/24 09:00 Midodrine Hcl 10 Mg Tablet PO TID [facility] Ondansetron HCl 4 mg 02/03/24 00:47 Ondansetron Inj 4 Mg/2 Ml Vial IV PUSH Q4H PRN Nausea Pantoprazole Sodium 40 mg 02/03/24 09:00 Pantoprazole 40 Mg Tablet PO Q12HR JOLIE Tamsulosin HCl 0.4 mg 02/03/24 09:00 Tamsulosin Hcl 0.4 Mg Capsule PO DAILY [facility] Timolol Maleate 1 drop 02/03/24 21:00 Timolol Maleate 0.5% Op Soln 5 Ml Bottle EACH EYE HS JOLIE Umeclidinium [place] 1 puff 02/03/24 08:00 02/03/24 07:38 Umeclidinium [place] 62.5 Mcg Ellipta INHALATION 1 puff DAILYRT [facility] Administration Zafirlukast 20 mg 02/03/24 09:00 Zafirlukast 20 Mg Tablet PO Q12HR [facility] Radiology Results: ITS Impressions Chest X-Ray 02/02/24 18:36 IMPRESSION: Segmental left basilar atelectasis or consolidation. Possible small bilateral pleural effusions. Abdomen/Pelvis CT 02/02/24 22:38 IMPRESSION: CT findings concerning for cystitis with bilateral ascending infection. Labs Labs: Laboratory Results - last 24 hr 02/02/24 18:39 WBC 12.0 H RBC 4.28 L Hgb 13.3 L D Hct 40.4 L MCV 94.4 MCH 31.1 MCHC 32.9 RDW 13.6 Plt Count 217 MPV 9.9 Immature Gran % (Auto) 0.7 H Neut % (Auto) 82.8 H Lymph % (Auto) 6.4 L [place] % (Auto) 6.4 Eos % (Auto) 3.3 Baso % (Auto) 0.4 Lymph # (Auto) 0.76 L [place] # (Auto) 0.8 H Eos # (Auto) 0.4 H Baso # (Auto) 0.1 Abs Immat Gran (auto) 0.08 H Absolute Neuts (auto) 9.9 H Absolute Nucleated RBC 0.000 Nucleated RBC % 0.0 PT 13.2 INR 1.0 APTT 30.0 Sodium 133 L Potassium 4.0 Chloride 101 Carbon Dioxide 30 Anion Gap 2 L BUN 15 Creatinine 1.00 Estim Creat Clear Calc 65 Estimated GFR > 60 Glucose 101 Lactic Acid 1.6 Calcium 9.3 Total Bilirubin 0.8 AST 22 ALT 12 Alkaline Phosphatase 100 Troponin I < 0.012 C-Reactive Protein 3.4 H Total Protein 7.0 Albumin 3.7 Lipase 70 Urine Color Yellow Urine Appearance Cloudy H Urine pH 5.5 Ur Specific [place] 1.009 Urine Protein 1+ H Urine Glucose (UA) Negative Urine Ketones Negative Ur Blood (Man) 1+ H Urine Nitrate Positive H Urine Bilirubin Negative Urine Urobilinogen 0.2 Leukocyte Esterase Rfl 3+ H Urine RBC 6-10 H Urine WBC >100 H Ur Squamous Epith Cells None seen Urine Bacteria 3+ H Urine Casts 0-2
[2024-02-03] MEDS: MIDODRINE HCL 10 MG TABLET PO ×3 (09:40→17:29)
[2024-02-03] MEDS: TAMSULOSIN HCL 0.4 MG CAPSULE PO (09:41)
[2024-02-03] MEDS: ZAFIRLUKAST 20 MG TABLET PO ×2 (09:41→20:08)
[2024-02-03] MEDS: FINASTERIDE 5 MG TABLET PO (09:41)
[2024-02-03] MEDS: PANTOPRAZOLE 40 MG TABLET PO ×2 (09:41→20:08)
[2024-02-03] MEDS: GABAPENTIN 300 MG CAPSULE PO ×2 (09:41→17:29)
[2024-02-03] MEDS: ARTIFICIAL TEARS OPHTH SOLN 15 ML BOTTLE 1 DROP EACH EYE (09:42)
[2024-02-03] MEDS: FLUTICASONE PROPIONATE 0.05% NA SPR 16 GM BTL (*BKC) 1 SPRAY NASAL (09:42)
[2024-02-03] MEDS: LATANOPROST 0.005% OP SOLN 2.5 ML BTL 1 DROP EACH EYE (20:09)
[2024-02-03] MEDS: TIMOLOL MALEATE 0.5% OP SOLN 5 ML BOTTLE 1 DROP EACH EYE (20:09)
[2024-02-03] MEDS: ALBUTEROL SULFATE (*SP) AEROSOL 1 PUFF 2 PUFF INHALATION (20:33)
[2024-02-04] VITALS (14 sets, daily range): BP systolic 100–171; BP diastolic 50–96; PULSE 69–99; RESP 16–200; TEMP 36.6–37.6; O2SAT 94–100
[2024-02-04 04:55] LABS: Basophils Percent Auto 0.3 % (0.2-1.2); Eosinophils Percent Auto 0.3 % (0-4.4); Hematocrit 32.9 % (42.0-52.0); Hemoglobin 10.8 g/dL (14.0-18.0); Immature Granulocyte Absolute 0.04 K/mm3 (0.00-0.031); Immature Granulocyte Percent A 0.7 % (0-0.5); Mean Corpuscular HGB Conc 32.8 g/dl (32-36); Mean Corpuscular Hemoglobin 31.1 pg (26-34); Mean Corpuscular Volume 94.8 fl (80-100); Mean Platelet Volume 9.7 fl (7.4-10.4); Monocytes Absolute Auto 0.7 K/mm3 (0.1-0.6); Monocytes Percent Auto 12.2 % (2.6-8.5); Neutrophils Absolute Auto 4.2 K/mm3 (1.3-6.7); Neutrophils Percent Auto 72.5 % (45.5-73.1); Platelet Count Result 150 k/mm3 (150-375); Red Blood Count 3.47 M/mm3 (4.6-6.20); White Blood Count 5.7 K/mm3 (4.5-10.0)
[2024-02-04 05:08] LABS: Alanine Aminotransferase 14 U/L (6-50); Albumin Level 2.6 g/dL (3.5-5.1); Alkaline Phosphatase 79 U/L (38-126); Anion Gap 4 mmol/L (4-12); Aspartate Amino Transferase 37 U/L (17-59); Bilirubin,Total 0.6 mg/dL (0.2-1.3); Blood Urea Nitrogen 14 mg/dL (9-20); Calcium 8.1 mg/dL (8.4-10.2); Carbon Dioxide 22 mmol/L (22-30); Chloride 107 mmol/L (98-107); Estimated CRCL calculation 54 ml/min; Estimated Glomerular Filt Rate 59; Glucose 95 mg/dL (65-110); Magnesium 1.5 mg/dL (1.6-2.3); Potassium 3.6 mmol/L (3.4-5.0); Sodium 133 mmol/L (137-145)
[2024-02-04] MEDS: PIPERACILLN/TAZ 3.375GM/NS50ML 3.375 GM/50 ML BAG IVPB ×4 (06:16→23:45)
[2024-02-04] MEDS: SODIUM CHLORIDE 0.9% IV 1,000 ML 100 ML IV CONT (07:45)
[2024-02-04] MEDS: UMECLIDINIUM BROMIDE 62.5 MCG ELLIPTA 1 PUFF INHALATION (08:01)
[2024-02-04] MEDS: GABAPENTIN 300 MG CAPSULE PO ×2 (09:19→18:04)
[2024-02-04] MEDS: PANTOPRAZOLE 40 MG TABLET PO ×2 (09:19→20:43)
[2024-02-04] MEDS: TAMSULOSIN HCL 0.4 MG CAPSULE PO (09:19)
[2024-02-04] MEDS: FINASTERIDE 5 MG TABLET PO (09:19)
[2024-02-04] MEDS: MIDODRINE HCL 10 MG TABLET PO ×3 (09:19→18:04)
[2024-02-04] MEDS: ZAFIRLUKAST 20 MG TABLET PO ×2 (09:19→20:43)
[2024-02-04] MEDS: FLUTICASONE PROPIONATE 0.05% NA SPR 16 GM BTL (*BKC) 1 SPRAY NASAL (09:20)
[2024-02-04] MEDS: ARTIFICIAL TEARS OPHTH SOLN 15 ML BOTTLE 1 DROP EACH EYE (09:20)
[2024-02-04] MEDS: MAGNESIUM SULF 2 GM/WATER 50ML 2 GM/50 ML BAG IVPB (09:24)
--- NOTE | 2024-02-04 12:58 | PM.IMPN ---
Progress Note: A&P Assessment and Plan (1) Urinary tract infection associated with indwelling urethral catheter: Qualifiers: Encounter type: initial encounter Qualified Code(s): T83.511A - Infection and inflammatory reaction due to indwelling urethral catheter, initial encounter; N39.0 - Urinary tract infection, site not specified Code(s): T83.511A - Infection and inflammatory reaction due to indwelling urethral catheter, initial encounter; N39.0 - Urinary tract infection, site not specified Status: Acute (2) Left lower lobe pneumonia: Code(s): J18.9 - Pneumonia, unspecified organism Status: Acute (3) Acute pyelonephritis: Code(s): N10 - Acute pyelonephritis Status: Acute (4) Obstructive uropathy: Code(s): N13.9 - Obstructive and reflux uropathy, unspecified Status: Acute (5) GERD (gastroesophageal reflux disease): Qualifiers: Esophagitis presence: esophagitis presence not specified Qualified Code(s): K21.9 - Gastro-esophageal reflux disease without esophagitis Code(s): K21.9 - Gastro-esophageal reflux disease without esophagitis Status: Acute (6) NICOLE treated with BiPAP: Code(s): G47.33 - Obstructive sleep apnea (adult) (pediatric) Status: Acute (7) Chronic obstructive pulmonary disease, unspecified: Code(s): J44.9 - Chronic obstructive pulmonary disease, unspecified Status: Acute (8) CKD (chronic kidney disease) stage 3, GFR 30-59 ml/min: Code(s): N18.3 - Chronic kidney disease, stage 3 (moderate) Status: Acute Plan This is a 78-year-old male who presented to the ED via EMS with generalized weakness. Patient with history of recurrent UTIs and sepsis with a past few months. Follows with Dr. Moore. Recently required rehab placement. Patient became increasingly weak today unable to stand up or move on his own had cold shaking chills. EMS was notified. He was found to be febrile by EMS. Patient also reported lower abdominal pain. Denied any nausea vomiting hematuria or lower back pain. On the ED evaluation he was febrile and tachycardic in 140s borderline hypotensive. He received IV fluid resuscitation and Tylenol. His blood pressure responded adequately to fluid resuscitation. Laboratory evaluation showed WBC of 12.0 hemoglobin 13.3 mildly hyponatremic at 1:33 a.m.. Lactic acid was normal at 1.6 troponin was negative less than 0.012 LFTs were normal. CRP was elevated at 3.4. Urinalysis was positive for UTI. Chest x-ray with segmental left basilar atelectasis or consolidation. Possible small bilateral pleural effusion. CT abdomen pelvis with subsegmental dependent scar/atelectasis. Moderate bilateral perinephric stranding. There is urothelial enhancement the collecting system. Moderate bladder wall edema suggestive of cystitis. Patient was pancultured. Previous urine culture grown out Enterococcus sensitive to vancomycin ampicillin. Patient meets criteria for sepsis. Patient was started on Zosyn And was admitted for further treatment. Follow blood culture Which came back positive for Gram-negative bacilli. Awaiting identification and sensitivity. Will stop IV fluid today Chronic anemia with likely hemoconcentration GERD Asthma Obstructive sleep apnea On BiPAP at night Hypertension BPH Chronic indwelling Ritter catheter Diabetic peripheral neuropathy Diastolic heart failure EF 60-65% 2023 Gout Spinal stenosis History of TIA 2010 DVT prophylaxis Lovenox Code status full code Subjective Date/time seen: 02/04/24 12:58 Interval history: No overnight events. Blood pressure is more stable. Remains afebrile now. Feeling stronger. No more chills. Review of Systems Review of Systems: All systems reviewed & are unremarkable except as noted in HPI and below Exam Narrative: GENERAL: Chronically ill, obese with BMI of 37.2, non-toxic, in no acute distress. HEAD: Normocephalic, atraumatic. RESPIRATORY: Airway patent, respirations nonlabored. Clear to auscultation bilaterally, no rales, rhonchi, wheezing. CARDIOVASCULAR: Regular rate Regular rhythm without murmurs, rubs, or gallops. ABDOMINAL: Soft, nontender, Nondistended. Normoactive BS. MUSCULOSKELETAL: Moves all extremities. No gross deformities. SKIN: Warm, dry NEURO: A&O X3. Does seem to be intermittently confused. Speech clear. Cranial nerves II-XII grossly intact. Steady gait. No ataxic movements. PSYCHIATRIC: Normal mood cooperative Objective Data Vital Signs Vital Signs: Vital Signs - 24 hr 02/03/24 14:00 02/03/24 16:00 02/03/24 16:00 Temperature 99 F Pulse Rate 84 80 80 Respiratory Rate 18 Blood Pressure 102/44 L Pulse Oximetry 94 Oxygen Delivery 02/03/24 19:57 02/03/24 20:00 02/03/24 20:33 Temperature 98.8 F Pulse Rate 81 81 84 Respiratory Rate 18 18 Blood Pressure 89/44 L Pulse Oximetry 95 Oxygen Delivery 02/03/24 22:00 02/04/24 00:00 02/04/24 00:00 Temperature 99.6 F Pulse Rate 95 99 99 Respiratory Rate 200 H Blood Pressure 171/65 H Pulse Oximetry 96 Oxygen Delivery 02/04/24 02:00 02/04/24 04:00 02/04/24 04:00 Temperature 98.1 F Pulse Rate 98 94 95 Respiratory Rate 20 Blood Pressure 100/92 H Pulse Oximetry 94 Oxygen Delivery 02/04/24 06:00 02/04/24 07:29 02/04/24 08:00 Temperature 98.1 F Pulse Rate 90 85 88 Respiratory Rate 16 Blood Pressure 114/55 L Pulse Oximetry 94 Oxygen Delivery 02/04/24 08:44 02/04/24 10:00 02/04/24 12:00 Temperature 97.9 F Pulse Rate 82 77 Respiratory Rate 20 Blood Pressure 104/50 L Pulse Oximetry 98 Oxygen Delivery Room Air Intake/Output Intake/Output: Intake & Output 02/01/24 02/02/24 02/03/24 02/04/24 23:59 23:59 23:59 23:59 Intake Total 4543.4 1690 Output Total 1100 750 Balance 3443.4 940 Meds/Results Medications: Active Medications Generic Name Dose Route Start Last Admin Trade Name Freq PRN Reason Stop Dose Admin Acetaminophen 650 mg 02/03/24 00:47 02/03/24 11:47 Acetaminophen 325 Mg Tablet PO 650 mg Q4H PRN Administration Mild Pain (1-3) or Fever Albuterol 2 puff 02/03/24 04:58 02/03/24 20:33 Albuterol Sulfate (*Sp) Aerosol 1 Puff INHALATION 2 puff Q4HRT PRN Administration Shortness Of Breath Or Wheezing Artificial Tears 1 drop 02/03/24 09:00 02/04/24 09:20 Artificial Tears Ophth Soln 15 Ml Bottle EACH EYE 1 drop DAILY JOLIE Administration Dextrose 12.5 gm 02/03/24 00:47 Dextrose 50% 25 Gm/50 Ml Syringe IV PUSH PRN PRN Hypoglycemia Protocol Finasteride 5 mg 02/03/24 09:00 02/04/24 09:19 Finasteride 5 Mg Tablet PO 5 mg QAM JOLIE Administration Fluticasone Propionate 1 spray 02/03/24 09:00 02/04/24 09:20 Fluticasone Propionate 0.05% Na Spr 16 Gm Btl (*Bkc) NASAL 1 spray DAILY JOLIE Administration Gabapentin 300 mg 02/03/24 09:00 02/04/24 09:19 Gabapentin 300 Mg Capsule PO 300 mg BID JOLIE Administration Glucagon 1 mg 02/03/24 00:47 Glucagon For Inj 1 Mg Vial IM PRN PRN Hypoglycemia Protocol Glucose 15 gm 02/03/24 00:47 Glucose Oral Gel 15 Gm Of Glucse In 37.5 Gm Tube PO PRN PRN Hypoglycemia Protocol Sodium Chloride 1,000 mls @ 100 mls/hr 02/03/24 00:50 02/04/24 07:45 Normal Saline Iv IV CONT 100 mls/hr .Q10H JOLIE Administration Dextrose 1,000 mls @ 100 mls/hr 02/03/24 00:47 Dextrose 5% 1,000 Ml IVPB PRN PRN Hypoglycemia Protocol Piperacillin/Tazobactam/Dextrose 3.375 gm in 50 mls @ 100 mls/hr 02/03/24 06:00 02/04/24 12:48 Zosyn 3.375 Gm/Ns 50 Ml IVPB 100 mls/hr Q6HR JOLIE Administration Latanoprost 1 drop 02/03/24 21:00 02/03/24 20:09 Latanoprost 0.005% Op Soln 2.5 Ml Btl EACH EYE 1 drop HS JOLIE Administration Miconazole Nitrate 1 applic 02/03/24 09:00 02/04/24 09:20 Miconazole Nitrate 2% Cream 30 Gm Tube TOPICAL Not Given Q12HR JOLIE Midodrine 10 mg 02/03/24 09:00 02/04/24 12:48 Midodrine Hcl 10 Mg Tablet PO 10 mg TID JOLIE Administration Ondansetron HCl 4 mg 02/03/24 00:47 Ondansetron Inj 4 Mg/2 Ml Vial IV PUSH Q4H PRN Nausea Pantoprazole Sodium 40 mg 02/03/24 09:00 02/04/24 09:19 Pantoprazole 40 Mg Tablet PO 40 mg Q12HR JOLIE Administration Tamsulosin HCl 0.4 mg 02/03/24 09:00 02/04/24 09:19 Tamsulosin Hcl 0.4 Mg Capsule PO 0.4 mg DAILY JOLIE Administration Timolol Maleate 1 drop 02/03/24 21:00 02/03/24 20:09 Timolol Maleate 0.5% Op Soln 5 Ml Bottle EACH EYE 1 drop HS JOLIE Administration Umeclidinium [place] 1 puff 02/03/24 08:00 02/04/24 08:01 Umeclidinium [place] 62.5 Mcg Ellipta INHALATION 1 puff DAILYRT JOLIE Administration Zafirlukast 20 mg 02/03/24 09:00 02/04/24 09:19 Zafirlukast 20 Mg Tablet PO 20 mg Q12HR JOLIE Administration Radiology Results: ITS Impressions Chest X-Ray 02/02/24 18:36 IMPRESSION: Segmental left basilar atelectasis or consolidation. Possible small bilateral pleural effusions. Abdomen/Pelvis CT 02/02/24 22:38 IMPRESSION: CT findings concerning for cystitis with bilateral ascending infection. Labs Labs: Laboratory Results - last 24 hr 02/04/24 04:27 WBC 5.7 RBC 3.47 L Hgb 10.8 L Hct 32.9 L MCV 94.8 MCH 31.1 MCHC 32.8 RDW 14.0 Plt Count 150 MPV 9.7 Immature Gran % (Auto) 0.7 H Neut % (Auto) 72.5 Lymph % (Auto) 14.0 L [place] % (Auto) 12.2 H Eos % (Auto) 0.3 Baso % (Auto) 0.3 Lymph # (Auto) 0.80 L [place] # (Auto) 0.7 H Eos # (Auto) 0.0 Baso # (Auto) 0.0 Abs Immat Gran (auto) 0.04 H Absolute Neuts (auto) 4.2 Absolute Nucleated RBC 0.000 Nucleated RBC % 0.0 Sodium 133 L Potassium 3.6 Chloride 107 Carbon Dioxide 22 Anion Gap 4 BUN 14 Creatinine 1.20 Estim Creat Clear Calc 54 Estimated GFR 59 Glucose 95 Calcium 8.1 L Magnesium 1.5 L Total Bilirubin 0.6 AST 37 ALT 14 Alkaline Phosphatase 79 Total Protein 5.0 L Albumin 2.6 L
[2024-02-04] MEDS: LATANOPROST 0.005% OP SOLN 2.5 ML BTL 1 DROP EACH EYE (20:43)
[2024-02-04] MEDS: MICONAZOLE NITRATE 2% CREAM 30 GM TUBE 1 APPLIC TOPICAL (20:43)
[2024-02-04] MEDS: TIMOLOL MALEATE 0.5% OP SOLN 5 ML BOTTLE 1 DROP EACH EYE (20:43)
[2024-02-05] VITALS (11 sets, daily range): BP systolic 100–115; BP diastolic 54–64; PULSE 62–78; RESP 16–24; TEMP 36.4–36.8; O2SAT 94–100
[2024-02-05 05:09] LABS: Basophils Percent Auto 0.4 % (0.2-1.2); Eosinophils Absolute Auto 0.4 K/mm3 (0-0.3); Eosinophils Percent Auto 8.1 % (0-4.4); Hematocrit 33.2 % (42.0-52.0); Hemoglobin 10.8 g/dL (14.0-18.0); Immature Granulocyte Absolute 0.03 K/mm3 (0.00-0.031); Immature Granulocyte Percent A 0.6 % (0-0.5); Lymphocytes Absolute Auto 0.83 K/mm3 (0.9-3.2); Lymphocytes Percent Auto 17.7 % (18.3-44.2); Mean Corpuscular HGB Conc 32.5 g/dl (32-36); Mean Corpuscular Hemoglobin 30.9 pg (26-34); Mean Corpuscular Volume 95.1 fl (80-100); Mean Platelet Volume 10.1 fl (7.4-10.4); Monocytes Absolute Auto 0.7 K/mm3 (0.1-0.6); Monocytes Percent Auto 15.6 % (2.6-8.5); Neutrophils Absolute Auto 2.7 K/mm3 (1.3-6.7); Neutrophils Percent Auto 57.6 % (45.5-73.1); Platelet Count Result 149 k/mm3 (150-375); Red Blood Count 3.49 M/mm3 (4.6-6.20); White Blood Count 4.7 K/mm3 (4.5-10.0)
[2024-02-05 05:19] LABS: Alanine Aminotransferase 15 U/L (6-50); Albumin Level 2.5 g/dL (3.5-5.1); Alkaline Phosphatase 73 U/L (38-126); Anion Gap -1 mmol/L (4-12); Aspartate Amino Transferase 33 U/L (17-59); Bilirubin,Total 0.4 mg/dL (0.2-1.3); Blood Urea Nitrogen 12 mg/dL (9-20); Calcium 8.3 mg/dL (8.4-10.2); Carbon Dioxide 24 mmol/L (22-30); Chloride 110 mmol/L (98-107); Estimated CRCL calculation 65 ml/min; Estimated Glomerular Filt Rate > 60; Glucose 107 mg/dL (65-110); Magnesium 1.9 mg/dL (1.6-2.3); Potassium 3.7 mmol/L (3.4-5.0); Sodium 133 mmol/L (137-145)
[2024-02-05] MEDS: PIPERACILLN/TAZ 3.375GM/NS50ML 3.375 GM/50 ML BAG IVPB (05:35)
[2024-02-05] MEDS: UMECLIDINIUM BROMIDE 62.5 MCG ELLIPTA 1 PUFF INHALATION (08:28)
[2024-02-05] MEDS: PANTOPRAZOLE 40 MG TABLET PO ×2 (09:36→22:10)
[2024-02-05] MEDS: GABAPENTIN 300 MG CAPSULE PO ×2 (09:36→18:31)
[2024-02-05] MEDS: MIDODRINE HCL 10 MG TABLET PO ×3 (09:36→18:29)
[2024-02-05] MEDS: TAMSULOSIN HCL 0.4 MG CAPSULE PO (09:36)
[2024-02-05] MEDS: FINASTERIDE 5 MG TABLET PO (09:37)
[2024-02-05] MEDS: ZAFIRLUKAST 20 MG TABLET PO ×2 (09:37→22:10)
[2024-02-05] MEDS: MICONAZOLE NITRATE 2% CREAM 30 GM TUBE 1 APPLIC TOPICAL ×2 (09:39→22:09)
[2024-02-05] MEDS: FLUTICASONE PROPIONATE 0.05% NA SPR 16 GM BTL (*BKC) 1 SPRAY NASAL (09:39)
[2024-02-05] MEDS: ARTIFICIAL TEARS OPHTH SOLN 15 ML BOTTLE 1 DROP EACH EYE (09:40)
--- NOTE | 2024-02-05 10:37 | P.PNIM_ITS ---
Progress Note: A&P Assessment and Plan (1) Urinary tract infection associated with indwelling urethral catheter: Qualifiers: Encounter type: initial encounter Qualified Code(s): T83.511A - Infection and inflammatory reaction due to indwelling urethral catheter, initial encounter; N39.0 - Urinary tract infection, site not specified Code(s): T83.511A - Infection and inflammatory reaction due to indwelling urethral catheter, initial encounter; N39.0 - Urinary tract infection, site not specified Status: Acute (2) Left lower lobe pneumonia: Code(s): J18.9 - Pneumonia, unspecified organism Status: Acute (3) Acute pyelonephritis: Code(s): N10 - Acute pyelonephritis Status: Acute (4) Obstructive uropathy: Code(s): N13.9 - Obstructive and reflux uropathy, unspecified Status: Acute (5) GERD (gastroesophageal reflux disease): Qualifiers: Esophagitis presence: esophagitis presence not specified Qualified Code(s): K21.9 - Gastro-esophageal reflux disease without esophagitis Code(s): K21.9 - Gastro-esophageal reflux disease without esophagitis Status: Acute (6) NICOLE treated with BiPAP: Code(s): G47.33 - Obstructive sleep apnea (adult) (pediatric) Status: Acute (7) Chronic obstructive pulmonary disease, unspecified: Code(s): J44.9 - Chronic obstructive pulmonary disease, unspecified Status: Acute (8) CKD (chronic kidney disease) stage 3, GFR 30-59 ml/min: Code(s): N18.3 - Chronic kidney disease, stage 3 (moderate) Status: Acute Plan This is a 78-year-old male who presented to the ED via EMS with generalized weakness. Patient with history of recurrent UTIs and sepsis with a past few months. Follows with Dr. Moore. Recently required rehab placement. Patient became increasingly weak today unable to stand up or move on his own had cold shaking chills. EMS was notified. He was found to be febrile by EMS. Patient also reported lower abdominal pain. Denied any nausea vomiting hematuria or lower back pain. On the ED evaluation he was febrile and tachycardic in 140s borderline hypot ensive. He received IV fluid resuscitation and Tylenol. His blood pressure responded adequately to fluid resuscitation. Laboratory evaluation showed WBC of 12.0 hemoglobin 13.3 mildly hyponatremic at 1:33 a.m.. Lactic acid was normal at 1.6 troponin was negative less than 0.012 LFTs were normal. CRP was elevated at 3.4. Urinalysis was positive for UTI. Chest x-ray with segmental left basilar atelectasis or consolidation. Possible small bilateral pleural effusion. CT abdomen pelvis with subsegmental dependent scar/atelectasis. Moderate bilateral perinephric stranding. There is urothelial enhancement the collecting system. Moderate bladder wall edema suggestive of cystitis. Patient was pancultured. Previous urine culture grown out Enterococcus sensitive to vancomycin ampicillin. Patient meets criteria for sepsis. Patient was started on Zosyn And was admitted for further treatment. Follow blood culture Which came back positive for Gram-negative bacilli. Identified as E coli. Sensitive to ceftriaxone which will be switched to. Will plan to do oral antibiotics at discharge. Chronic anemia with likely hemoconcentration GERD Asthma Obstructive sleep apnea On BiPAP at night Hypertension BPH Chronic indwelling Ritter catheter Diabetic peripheral neuropathy Diastolic heart failure EF 60-65% 2023 Gout Spinal stenosis History of TIA 2010 DVT prophylaxis Lovenox Code status full code Subjective Date/time seen: 02/05/24 10:37 Interval history: No overnight events. Complains of dry eyes. Congestion in his throat. Remains afebrile. Blood pressure stable. Review of Systems Review of Systems: All systems reviewed & are unremarkable except as noted in HPI and below Exam Narrative: GENERAL: Chronically ill, obese with BMI of 37.2, non-toxic, in no acute distress. HEAD: Normocephalic, atraumatic. RESPIRATORY: Airway patent, respirations nonlabored. Clear to auscultation bilaterally, no rales, rhonchi, wheezing. CARDIOVASCULAR: Regular rate Regular rhythm without murmurs, rubs, or gallops. ABDOMINAL: Soft, nontender, Nondistended. Normoactive BS. MUSCULOSKELETAL: Moves all extremities. No gross deformities. SKIN: Warm, dry NEURO: A&O X3. Does seem to be intermittently confused. Speech clear. Cranial nerves II-XII grossly intact. Steady gait. No ataxic movements. PSYCHIATRIC: Normal mood cooperative Objective Data Vital Signs Vital Signs: Vital Signs - 24 hr 02/04/24 12:00 02/04/24 12:00 02/04/24 14:00 Temperature 97.9 F Pulse Rate 77 79 77 Respiratory Rate 20 Blood Pressure 104/50 L Pulse Oximetry 98 Oxygen Delivery Fraction of Inspired Oxygen 02/04/24 14:42 02/04/24 16:00 02/04/24 16:00 Temperature 98.0 F Pulse Rate 71 81 Respiratory Rate 16 Blood Pressure 124/96 H Pulse Oximetry 100 Oxygen Delivery Room Air Fraction of Inspired Oxygen 02/04/24 18:00 02/04/24 20:00 02/04/24 20:00 Temperature 97.8 F Pulse Rate 76 71 69 Respiratory Rate 20 20 Blood Pressure 113/52 L Pulse Oximetry 98 98 Oxygen Delivery Room Air Fraction of Inspired Oxygen 02/04/24 20:00 02/04/24 22:00 02/04/24 23:57 Temperature 97.8 F Pulse Rate 69 74 70 Respiratory Rate 22 H Blood Pressure 100/52 L Pulse Oximetry 96 Oxygen Delivery Fraction of Inspired Oxygen 02/05/24 00:00 02/05/24 00:00 02/05/24 01:48 Temperature Pulse Rate 62 62 68 Respiratory Rate 22 H Blood Pressure Pulse Oximetry 96 Oxygen Delivery Room Air Fraction of Inspired Oxygen 02/05/24 04:00 02/05/24 04:00 02/05/24 04:00 Temperature 97.8 F Pulse Rate 75 69 69 Respiratory Rate 20 20 Blood Pressure 103/54 L Pulse Oximetry 96 96 Oxygen Delivery Room Air Fraction of Inspired Oxygen 02/05/24 06:00 02/05/24 07:56 02/05/24 08:28 Temperature 97.7 F Pulse Rate 72 64 Respiratory Rate 24 H Blood Pressure 100/54 L Pulse Oximetry 96 94 Oxygen Delivery Room Air Fraction of Inspired Oxygen 21 02/05/24 08:28 Temperature Pulse Rate 68 Respiratory Rate 16 Blood Pressure Pulse Oximetry Oxygen Delivery Fraction of Inspired Oxygen Intake/Output Intake/Output: Intake & Output 02/02/24 02/03/24 02/04/24 02/05/24 23:59 23:59 23:59 23:59 Intake Total 4543.4 2430 750 Output Total 1100 2100 1450 Balance 3443.4 330 -700 Meds/Results Medications: Active Medications Generic Name Dose Route Start Last Admin Trade Name Freq PRN Reason Stop Dose Admin Acetaminophen 650 mg 02/03/24 00:47 02/03/24 11:47 Acetaminophen 325 Mg Tablet PO 650 mg Q4H PRN Administration Mild Pain (1-3) or Fever Albuterol 2 puff 02/03/24 04:58 02/03/24 20:33 Albuterol Sulfate (*Sp) Aerosol 1 Puff INHALATION 2 puff Q4HRT PRN Administration Shortness Of Breath Or Wheezing Artificial Tears 1 drop 02/03/24 09:00 02/05/24 09:40 Artificial Tears Ophth Soln 15 Ml Bottle EACH EYE 1 drop DAILY JOLIE Administration Dextrose 12.5 gm 02/03/24 00:47 Dextrose 50% 25 Gm/50 Ml Syringe IV PUSH PRN PRN Hypoglycemia Protocol Finasteride 5 mg 02/03/24 09:00 02/05/24 09:37 Finasteride 5 Mg Tablet PO 5 mg QAM JOLIE Administration Fluticasone Propionate 1 spray 02/03/24 09:00 02/05/24 09:39 Fluticasone Propionate 0.05% Na Spr 16 Gm Btl (*Bkc) NASAL 1 spray DAILY JOLIE Administration Gabapentin 300 mg 02/03/24 09:00 02/05/24 09:36 Gabapentin 300 Mg Capsule PO 300 mg BID JOLIE Administration Glucagon 1 mg 02/03/24 00:47 Glucagon For Inj 1 Mg Vial IM PRN PRN Hypoglycemia Protocol Glucose 15 gm 02/03/24 00:47 Glucose Oral Gel 15 Gm Of Glucse In 37.5 Gm Tube PO PRN PRN Hypoglycemia Protocol Dextrose 1,000 mls @ 100 mls/hr 02/03/24 00:47 Dextrose 5% 1,000 Ml IVPB PRN PRN Hypoglycemia Protocol Piperacillin/Tazobactam/Dextrose 3.375 gm in 50 mls @ 100 mls/hr 02/03/24 06:00 02/05/24 06:05 Zosyn 3.375 Gm/Ns 50 Ml IVPB Infused Q6HR JOLIE Infusion Latanoprost 1 drop 02/03/24 21:00 02/04/24 20:43 Latanoprost 0.005% Op Soln 2.5 Ml Btl EACH EYE 1 drop HS JOLIE Administration Miconazole Nitrate 1 applic 02/03/24 09:00 02/05/24 09:39 Miconazole Nitrate 2% Cream 30 Gm Tube TOPICAL 1 applic Q12HR JOLIE Administration Midodrine 10 mg 02/03/24 09:00 02/05/24 09:36 Midodrine Hcl 10 Mg Tablet PO 10 mg TID JOLIE Administration Ondansetron HCl 4 mg 02/03/24 00:47 Ondansetron Inj 4 Mg/2 Ml Vial IV PUSH Q4H PRN Nausea Pantoprazole Sodium 40 mg 02/03/24 09:00 02/05/24 09:36 Pantoprazole 40 Mg Tablet PO 40 mg Q12HR JOLIE Administration Tamsulosin HCl 0.4 mg 02/03/24 09:00 02/05/24 09:36 Tamsulosin Hcl 0.4 Mg Capsule PO 0.4 mg DAILY JOLIE Administration Timolol Maleate 1 drop 02/03/24 21:00 02/04/24 20:43 Timolol Maleate 0.5% Op Soln 5 Ml Bottle EACH EYE 1 drop HS JOLIE Administration Umeclidinium [place] 1 puff 02/03/24 08:00 02/05/24 08:28 Umeclidinium [place] 62.5 Mcg Ellipta INHALATION 1 puff DAILYRT JOLIE Administration Zafirlukast 20 mg 02/03/24 09:00 02/05/24 09:37 Zafirlukast 20 Mg Tablet PO 20 mg Q12HR JOLIE Administration Radiology Results: ITS Impressions Chest X-Ray 02/02/24 18:36 IMPRESSION: Segmental left basilar atelectasis or consolidation. Possible small bilateral pleural effusions. Abdomen/Pelvis CT 02/02/24 22:38 IMPRESSION: CT findings concerning for cystitis with bilateral ascending infection. Labs Labs: Laboratory Results - last 24 hr 02/05/24 04:24 WBC 4.7 RBC 3.49 L Hgb 10.8 L Hct 33.2 L MCV 95.1 MCH 30.9 MCHC 32.5 RDW 14.0 Plt Count 149 L MPV 10.1 Immature Gran % (Auto) 0.6 H Neut % (Auto) 57.6 Lymph % (Auto) 17.7 L [place] % (Auto) 15.6 H Eos % (Auto) 8.1 H Baso % (Auto) 0.4 Lymph # (Auto) 0.83 L [place] # (Auto) 0.7 H Eos # (Auto) 0.4 H Baso # (Auto) 0.0 Abs Immat Gran (auto) 0.03 Absolute Neuts (auto) 2.7 Absolute Nucleated RBC 0.000 Nucleated RBC % 0.0 Sodium 133 L Potassium 3.7 Chloride 110 H Carbon Dioxide 24 Anion Gap -1 L BUN 12 Creatinine 1.00 Estim Creat Clear Calc 65 Estimated GFR > 60 Glucose 107 Calcium 8.3 L Magnesium 1.9 Total Bilirubin 0.4 AST 33 ALT 15 Alkaline Phosphatase 73 Total Protein 5.0 L Albumin 2.5 L
[2024-02-05] MEDS: cefTRIAXone 2 GM/NS 100 ML 2 GM/100 ML BAG IVPB (12:17)
[2024-02-05] MEDS: LORATADINE 10 MG TABLET PO (12:17)
[2024-02-05] MEDS: DICLOFENAC SODIUM 1% 100 GM GEL (*BKC) 1 APPLIC TOPICAL ×3 (12:19→22:10)
[2024-02-05] MEDS: clonazePAM (*CRX) 0.5 MG TABLET 1 MG PO (18:30)
--- NOTE | 2024-02-05 19:52 | PC.NURSE ---
pt arrival to /S room 312 @ [id number].
[2024-02-05] MEDS: LATANOPROST 0.005% OP SOLN 2.5 ML BTL 1 DROP EACH EYE (22:10)
[2024-02-05] MEDS: TIMOLOL MALEATE 0.5% OP SOLN 5 ML BOTTLE 1 DROP EACH EYE (22:10)
[2024-02-06 06:00] VITALS: BP 107/62; PULSE 68; RESP 18; TEMP 36.7; O2SAT 96
[2024-02-06 07:03] LABS: Basophils Percent Auto 0.5 % (0.2-1.2); Eosinophils Absolute Auto 0.6 K/mm3 (0-0.3); Eosinophils Percent Auto 9.5 % (0-4.4); Hematocrit 36.1 % (42.0-52.0); Hemoglobin 11.6 g/dL (14.0-18.0); Immature Granulocyte Absolute 0.02 K/mm3 (0.00-0.031); Immature Granulocyte Percent A 0.3 % (0-0.5); Lymphocytes Percent Auto 22.3 % (18.3-44.2); Mean Corpuscular HGB Conc 32.1 g/dl (32-36); Mean Corpuscular Hemoglobin 30.5 pg (26-34); Mean Platelet Volume 9.7 fl (7.4-10.4); Monocytes Absolute Auto 0.7 K/mm3 (0.1-0.6); Monocytes Percent Auto 11.3 % (2.6-8.5); Neutrophils Absolute Auto 3.5 K/mm3 (1.3-6.7); Neutrophils Percent Auto 56.1 % (45.5-73.1); Platelet Count Result 181 k/mm3 (150-375); Red Cell Distribution Width 13.8 % (11.5-14.5); White Blood Count 6.3 K/mm3 (4.5-10.0)
[2024-02-06 07:11] LABS: Alanine Aminotransferase 17 U/L (6-50); Albumin Level 2.8 g/dL (3.5-5.1); Alkaline Phosphatase 72 U/L (38-126); Anion Gap -2 mmol/L (4-12); Aspartate Amino Transferase 28 U/L (17-59); Bilirubin,Total 0.4 mg/dL (0.2-1.3); Blood Urea Nitrogen 11 mg/dL (9-20); Calcium 8.9 mg/dL (8.4-10.2); Carbon Dioxide 29 mmol/L (22-30); Chloride 110 mmol/L (98-107); Estimated CRCL calculation 80 ml/min; Estimated Glomerular Filt Rate > 60; Glucose 97 mg/dL (65-110); Magnesium 1.8 mg/dL (1.6-2.3); Sodium 137 mmol/L (137-145)
[2024-02-06 08:05] VITALS: PULSE 73; RESP 18; O2SAT 95
[2024-02-06] MEDS: UMECLIDINIUM BROMIDE 62.5 MCG ELLIPTA 1 PUFF INHALATION (08:05)
[2024-02-06] MEDS: TAMSULOSIN HCL 0.4 MG CAPSULE PO (08:49)
[2024-02-06] MEDS: GABAPENTIN 300 MG CAPSULE PO ×2 (08:50→18:56)
[2024-02-06] MEDS: FINASTERIDE 5 MG TABLET PO (08:50)
[2024-02-06] MEDS: clonazePAM (*CRX) 0.5 MG TABLET 1 MG PO ×2 (08:50→18:55)
[2024-02-06] MEDS: ASPIRIN 81 MG ENTERIC TABLET PO (08:50)
[2024-02-06] MEDS: MIDODRINE HCL 10 MG TABLET PO ×3 (08:50→18:55)
[2024-02-06] MEDS: MICONAZOLE NITRATE 2% CREAM 30 GM TUBE 1 APPLIC TOPICAL ×2 (08:51→20:33)
[2024-02-06] MEDS: LORATADINE 10 MG TABLET PO (08:51)
[2024-02-06] MEDS: FLUTICASONE PROPIONATE 0.05% NA SPR 16 GM BTL (*BKC) 1 SPRAY NASAL (08:51)
[2024-02-06] MEDS: PANTOPRAZOLE 40 MG TABLET PO ×2 (08:51→20:34)
[2024-02-06] MEDS: ZAFIRLUKAST 20 MG TABLET PO ×2 (08:51→20:33)
[2024-02-06] MEDS: DICLOFENAC SODIUM 1% 100 GM GEL (*BKC) 1 APPLIC TOPICAL ×4 (08:52→20:33)
[2024-02-06] MEDS: ARTIFICIAL TEARS OPHTH SOLN 15 ML BOTTLE 1 DROP EACH EYE (08:55)
--- NOTE | 2024-02-06 11:09 | PCNFU ---
Nutrition Follow-Up Complete: Suboptimal po intake related to reduced appetite as evidenced by pt report. Goal:PO intake greater than 50% of meals Pt meeting goal, continue with same goal. Pt current nutrition is Heart healthy diet, Ensure compact BID. Nutrition recommendation: continue with current plan of care Last recorded weight is 111.6 kg. Bowel Motility: +BM 02/05 Labs Reviewed: Hgb:11.6, HCT:36.1, Alb:2.8 Meds Noted: KCL Skin: WNL Additional Notes: Pt continues on a heart healthy diet, intake averages 50-75% at this time, Pt reports he is drinking his Ensure BID. Agree with orders, encourage po intake. Monitor intake, wt, labs. Follow up in 7 days.
--- NOTE | 2024-02-06 11:40 | PM.IMPN ---
Progress Note: A&P Assessment and Plan (1) Urinary tract infection associated with indwelling urethral catheter: Qualifiers: Encounter type: initial encounter Qualified Code(s): T83.511A - Infection and inflammatory reaction due to indwelling urethral catheter, initial encounter; N39.0 - Urinary tract infection, site not specified Code(s): T83.511A - Infection and inflammatory reaction due to indwelling urethral catheter, initial encounter; N39.0 - Urinary tract infection, site not specified Status: Acute (2) Left lower lobe pneumonia: Code(s): J18.9 - Pneumonia, unspecified organism Status: Acute (3) Acute pyelonephritis: Code(s): N10 - Acute pyelonephritis Status: Acute (4) Obstructive uropathy: Code(s): N13.9 - Obstructive and reflux uropathy, unspecified Status: Acute (5) GERD (gastroesophageal reflux disease): Qualifiers: Esophagitis presence: esophagitis presence not specified Qualified Code(s): K21.9 - Gastro-esophageal reflux disease without esophagitis Code(s): K21.9 - Gastro-esophageal reflux disease without esophagitis Status: Acute (6) NICOLE treated with BiPAP: Code(s): G47.33 - Obstructive sleep apnea (adult) (pediatric) Status: Acute (7) Chronic obstructive pulmonary disease, unspecified: Code(s): J44.9 - Chronic obstructive pulmonary disease, unspecified Status: Acute (8) CKD (chronic kidney disease) stage 3, GFR 30-59 ml/min: Code(s): N18.3 - Chronic kidney disease, stage 3 (moderate) Status: Acute Plan This is a 78-year-old male who presented to the ED via EMS with generalized weakness. Patient with history of recurrent UTIs and sepsis with a past few months. Follows with Dr. Moore. Recently required rehab placement. Patient became increasingly weak today unable to stand up or move on his own had cold shaking chills. EMS was notified. He was found to be febrile by EMS. Patient also reported lower abdominal pain. Denied any nausea vomiting hematuria or lower back pain. On the ED evaluation he was febrile and tachycardic in 140s borderline hypotensive. He received IV fluid resuscitation and Tylenol. His blood pressure responded adequately to fluid resuscitation. Laboratory evaluation showed WBC of 12.0 hemoglobin 13.3 mildly hyponatremic at 1:33 a.m.. Lactic acid was normal at 1.6 troponin was negative less than 0.012 LFTs were normal. CRP was elevated at 3.4. Urinalysis was positive for UTI. Chest x-ray with segmental left basilar atelectasis or consolidation. Possible small bilateral pleural effusion. CT abdomen pelvis with subsegmental dependent scar/atelectasis. Moderate bilateral perinephric stranding. There is urothelial enhancement the collecting system. Moderate bladder wall edema suggestive of cystitis. Patient was pancultured. Previous urine culture grown out Enterococcus sensitive to vancomycin ampicillin. Patient meets criteria for sepsis. Patient was started on Zosyn And was admitted for further treatment. Follow blood culture Which came back positive for Gram-negative bacilli. Identified as E coli. Sensitive to ceftriaxone which will be switched to. Will plan to do oral antibiotics at discharge. Chronic anemia with likely hemoconcentration GERD Asthma Obstructive sleep apnea On BiPAP at night Hypertension BPH Chronic indwelling Ritter catheter Diabetic peripheral neuropathy Diastolic heart failure EF 60-65% 2023 Gout Spinal stenosis History of TIA 2010 DVT prophylaxis Lovenox Code status full code Subjective Date/time seen: 02/06/24 11:40 Interval history: No overnight events. Wants to See his urologist. Remains afebrile Review of Systems Review of Systems: All systems reviewed & are unremarkable except as noted in HPI and below Exam Narrative: GENERAL: Chronically ill, obese with BMI of 37.2, non-toxic, in no acute distress. HEAD: Normocephalic, atraumatic. RESPIRATORY: Airway patent, respirations nonlabored. Clear to auscultation bilaterally, no rales, rhonchi, wheezing. CARDIOVASCULAR: Regular rate Regular rhythm without murmurs, rubs, or gallops. ABDOMINAL: Soft, nontender, Nondistended. Normoactive BS. MUSCULOSKELETAL: Moves all extremities. No gross deformities. SKIN: Warm, dry NEURO: A&O X3. Does seem to be intermittently confused. Speech clear. Cranial nerves II-XII grossly intact. Steady gait. No ataxic movements. PSYCHIATRIC: Normal mood cooperative Objective Data Vital Signs Vital Signs: Vital Signs - 24 hr 02/05/24 12:15 02/05/24 20:00 02/05/24 22:00 Temperature 97.5 F L 98.2 F Pulse Rate 66 70 70 Respiratory Rate 20 16 16 Blood Pressure 108/57 L 115/64 Pulse Oximetry 97 100 100 Oxygen Delivery Room Air Fraction of Inspired Oxygen 21 02/06/24 06:00 02/06/24 08:05 02/06/24 08:05 Temperature 98.0 F Pulse Rate 68 73 73 Respiratory Rate 18 18 18 Blood Pressure 107/62 Pulse Oximetry 96 95 Oxygen Delivery Room Air Fraction of Inspired Oxygen Intake/Output Intake/Output: Intake & Output 02/03/24 02/04/24 02/05/24 02/06/24 23:59 23:59 23:59 23:59 Intake Total 4543.4 2430 1030 1340 Output Total 1100 2100 1450 2450 Balance 3443.4 923 -639 -7802 Meds/Results Medications: Active Medications Generic Name Dose Route Start Last Admin Trade Name Freq PRN Reason Stop Dose Admin Acetaminophen 650 mg 02/03/24 00:47 02/03/24 11:47 Acetaminophen 325 Mg Tablet PO 650 mg Q4H PRN Administration Mild Pain (1-3) or Fever Albuterol 2 puff 02/03/24 04:58 02/03/24 20:33 Albuterol Sulfate (*Sp) Aerosol 1 Puff INHALATION 2 puff Q4HRT PRN Administration Shortness Of Breath Or Wheezing Artificial Tears 1 drop 02/03/24 09:00 02/06/24 08:55 Artificial Tears Ophth Soln 15 Ml Bottle EACH EYE 1 drop DAILY JOLIE Administration Artificial Tears 1 drop 02/05/24 10:51 Artificial Tears Ophth Soln 15 Ml Bottle EACH EYE HS PRN Dry Eye(s) Aspirin 81 mg 02/06/24 09:00 02/06/24 08:50 Aspirin 81 Mg Enteric Tablet PO 81 mg DAILY JOLIE Administration Azelastine HCl 2 spray 02/05/24 10:43 Azelastine Hcl Nasal 0.1% 137 Mcg/Spr 30 Ml Btl NASAL .Once daily PRN Nasal Congestion Clonazepam 1 mg 02/05/24 17:00 02/06/24 08:50 Clonazepam (*Crx) 0.5 Mg Tablet PO 1 mg BID JOLIE Administration Dextrose 12.5 gm 02/03/24 00:47 Dextrose 50% 25 Gm/50 Ml Syringe IV PUSH PRN PRN Hypoglycemia Protocol Diclofenac Sodium 1 applic 02/05/24 13:00 02/06/24 08:52 Diclofenac Sodium 1% 100 Gm Gel (*Bkc) TOPICAL 1 applic QID JOLIE Administration Diphenhydramine HCl 25 mg 02/05/24 10:43 Diphenhydramine Hcl Cap 25 Mg Capsule PO BID PRN Itching Finasteride 5 mg 02/03/24 09:00 02/06/24 08:50 Finasteride 5 Mg Tablet PO 5 mg QAM JOLIE Administration Fluticasone Propionate 1 spray 02/03/24 09:00 02/06/24 08:51 Fluticasone Propionate 0.05% Na Spr 16 Gm Btl (*Bkc) NASAL 1 spray DAILY JOLIE Administration Gabapentin 300 mg 02/03/24 09:00 02/06/24 08:50 Gabapentin 300 Mg Capsule PO 300 mg BID JOLIE Administration Glucagon 1 mg 02/03/24 00:47 Glucagon For Inj 1 Mg Vial IM PRN PRN Hypoglycemia Protocol Glucose 15 gm 02/03/24 00:47 Glucose Oral Gel 15 Gm Of Glucse In 37.5 Gm Tube PO PRN PRN Hypoglycemia Protocol Dextrose 1,000 mls @ 100 mls/hr 02/03/24 00:47 Dextrose 5% 1,000 Ml IVPB PRN PRN Hypoglycemia Protocol Ceftriaxone Sodium 2 gm in 100 mls @ 200 mls/hr 02/05/24 12:00 02/05/24 12:17 Rocephin 2 Gm/Ns 100 Ml IVPB 200 mls/hr Q24H JOLIE Administration Latanoprost 1 drop 02/03/24 21:00 02/05/24 22:10 Latanoprost 0.005% Op Soln 2.5 Ml Btl EACH EYE 1 drop HS JOLIE Administration Loratadine 10 mg 02/05/24 12:00 02/06/24 08:51 Loratadine 10 Mg Tablet PO 10 mg QAM JOLIE Administration Miconazole Nitrate 1 applic 02/03/24 09:00 02/06/24 08:51 Miconazole Nitrate 2% Cream 30 Gm Tube TOPICAL 1 applic Q12HR JOLIE Administration Midodrine 10 mg 02/03/24 09:00 02/06/24 08:50 Midodrine Hcl 10 Mg Tablet PO 10 mg TID JOLIE Administration Miscellaneous Information 1 each 02/05/24 00:01 Prevident Nonformulary. Can Patient Use From Home Or Hold Till Discharge? XX 03/06/24 00:00 CLARIFY JOLIE Miscellaneous Information 1 each 02/05/24 00:01 Zinc Acetate Nonformulary. Can We Hold Till Discharge? XX 03/06/24 00:00 CLARIFY [facility] Non-Formulary Medication 1 applic 02/05/24 21:00 Fluoride (Sodium) [Prevident 5000 Plus] PO 03/06/24 20:59 HS [facility] Non-Formulary Medication 50 mg 02/06/24 09:00 Zinc Acetate PO 03/07/24 08:59 DAILY JOLIE Ondansetron HCl 4 mg 02/03/24 00:47 Ondansetron Inj 4 Mg/2 Ml Vial IV PUSH Q4H PRN Nausea Pantoprazole Sodium 40 mg 02/03/24 09:00 02/06/24 08:51 Pantoprazole 40 Mg Tablet PO 40 mg Q12HR JOLIE Administration Tamsulosin HCl 0.4 mg 02/03/24 09:00 02/06/24 08:49 Tamsulosin Hcl 0.4 Mg Capsule PO 0.4 mg DAILY JOLIE Administration Timolol Maleate 1 drop 02/03/24 21:00 02/05/24 22:10 Timolol Maleate 0.5% Op Soln 5 Ml Bottle EACH EYE 1 drop HS [facility] Administration Triamcinolone Acetonide 1 applic 02/05/24 10:43 Triamcinolone Acet 0.1% Cream 15 Gm Tube TOPICAL BID PRN Itching Umeclidinium [place] 1 puff 02/03/24 08:00 02/06/24 08:05 Umeclidinium [place] 62.5 Mcg Ellipta INHALATION 1 puff DAILYRT JOLIE Administration Zafirlukast 20 mg 02/03/24 09:00 02/06/24 08:51 Zafirlukast 20 Mg Tablet PO 20 mg Q12HR JOLIE Administration Radiology Results: ITS Impressions Chest X-Ray 02/02/24 18:36 IMPRESSION: Segmental left basilar atelectasis or consolidation. Possible small bilateral pleural effusions. Abdomen/Pelvis CT 02/02/24 22:38 IMPRESSION: CT findings concerning for cystitis with bilateral ascending infection. Labs Labs: Laboratory Results - last 24 hr 02/06/24 06:34 WBC 6.3 RBC 3.80 L Hgb 11.6 L Hct 36.1 L MCV 95.0 MCH 30.5 MCHC 32.1 RDW 13.8 Plt Count 181 MPV 9.7 Immature Gran % (Auto) 0.3 Neut % (Auto) 56.1 Lymph % (Auto) 22.3 [place] % (Auto) 11.3 H Eos % (Auto) 9.5 H Baso % (Auto) 0.5 Lymph # (Auto) 1.40 [place] # (Auto) 0.7 H Eos # (Auto) 0.6 H Baso # (Auto) 0.0 Abs Immat Gran (auto) 0.02 Absolute Neuts (auto) 3.5 Absolute Nucleated RBC 0.000 Nucleated RBC % 0.0 Sodium 137 Potassium 4.0 Chloride 110 H Carbon Dioxide 29 Anion Gap -2 L BUN 11 Creatinine 0.80 Estim Creat Clear Calc 80 Estimated GFR > 60 Glucose 97 Calcium 8.9 Magnesium 1.8 Total Bilirubin 0.4 AST 28 ALT 17 Alkaline Phosphatase 72 Total Protein 6.0 L Albumin 2.8 L
[2024-02-06] MEDS: cefTRIAXone 2 GM/NS 100 ML 2 GM/100 ML BAG IVPB (12:50)
--- NOTE | 2024-02-06 13:57 | P.CONUR_ITS ---
Assessment and Plan Assessment and plan (1) UTI (urinary tract infection): Qualifiers: Encounter type: initial encounter Indwelling urinary catheter type: i ndwelling urethral catheter Urinary tract infection type: catheter-associated UTI Qualified Code(s): T83.511A - Infection and inflammatory reaction due to indwelling urethral catheter, initial encounter; N39.0 - Urinary tract infection, site not specified Code(s): N39.0 - Urinary tract infection, site not specified Status: Acute Assessment and Plan: Surprisingly urine cultures negative but has positive blood culture. Least 2 weeks of oral antibiotics. No further intervention while hospitalized (2) Sepsis: Qualifiers: Sepsis acute organ dysfunction status: unspecified Sepsis type: sepsis due to unspecified organism Qualified Code(s): A41.9 - Sepsis, unspecified organism Code(s): A41.9 - Sepsis, unspecified organism Status: Acute Assessment and Plan: See above (3) Urinary retention: Code(s): R33.9 - Retention of urine, unspecified Status: Acute Assessment and Plan: 0 patient urine Navi study. Patient is instructed to call the office Tuesday if he has not heard from me. Urology Consult Note HPI Date Seen: 02/06/24 Time Seen: 13:58 Requesting Physician: Anusha Gaitan MD Primary Care Provider: Jairon Cannon MD Consult Narrative Reason for consult: UTI, retention Narrative: Herman Cordero III is a 78 year old male well known to me. Has been seeing me for urinary retention. He has been in out of rehab. Patient is undergoing evaluation with urodynamics to to elicit the bladder function. Were also trying to determine whether he is a surgical candidate. In the LEs he was admitted with weakness and UTI. It will not have a positive blood culture with E coli. Surprisingly his urine culture was negative. The LEs he is feeling better. From a urologic standpoint he will need to be treated for a good 2 weeks with oral antibiotics. Awaiting final urine MX report make further recommendations. Patient is instructed to call us a week from Tuesday if he has not heard from us. Review of Systems 2 Review of Systems: All systems reviewed & are unremarkable except as noted in HPI and below PMFSH Past Medical History Medical History History of pneumonia History of stroke Right knee pain Knee fracture Iron deficiency anemia with history of iron infusions 2018. Follows with Dr. 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 due to diabetes however patient's A1c within our record system has never been above 5.8 so diagnosis of diabetes not will document Open-angle glaucoma History of GI bleed following polypectomy TIA (transient ischemic attack) (~2010) Diastolic heart failure echocardiogram 10/2023: EF 60-65%, grade 1 diastolic dysfunction, E/E 12 is mildly elevated, normal right-sided heart pressures Gout Anxiety Lymphedema COVID-19 IBS (irritable bowel syndrome) Allergic rhinitis, cause unspecified Asthma Normocytic normochromic anemia NICOLE treated with BiPAP BiPAP 01/14 Peripheral neuropathic pain Essential (primary) hypertension Surgical History Surgical History History of appendectomy Status post cataract extraction of both eyes with insertion of intraocular lens History of bilateral knee replacement History of colonoscopy with polypectomy with most recent 07/2023 demonstrated recurrent polyps and internal hemorrhoids well as diverticulosis Family History Family History Mother Hypertension, Onset Age: 81 Cerebrovascular accident, Onset Age: 81 Father Family history of allergic disorder, Onset Age: 82 Diabetes mellitus, Onset Age: 82 Acute myocardial infarction, Onset Age: 82 Sepsis Asthma, Onset Age: 82 History of colon resection Other No problems noted. Social History Social History Social History: Code status: Full code Surrogate decision maker: Smoking status: Never smoker Alcohol intake: former Substance use: never Substance use type: does not use Do You Feel Safe in your Home?: Yes Lack of Transportation: No Lack of Food: Never True Current Housing: I Have Housing Concerned About Future Housing: No Difficulty Paying Gas/Electric Bills: No Difficulty Paying for Meds: No Currently Unemployed: No Education: Associate Degree Difficulty w/ Childcare or Family Care: No Living arrangements: with family Spiritual care concerns: No Meds Home Medications and Allergies Home Medications ?Medication ?Instructions ?Recorded ?Confirmed ?Type aspirin 81 mg tablet,delayed 81 mg PO DAILY 02/02/19 02/03/24 History release latanoprost 0.005 % eye drops 1 drop ophthalmic (eye) HS 02/02/19 02/03/24 History timolol 0.5 % eye drops 1 drop ophthalmic (eye) HS 02/02/19 02/03/24 History zinc acetate 50 mg (zinc) capsule 50 mg PO DAILY 04/25/23 02/03/24 History albuterol sulfate 90 mcg/actuation 2 inh inhalation Q4H PRN Shortness 07/21/23 02/03/24 History aerosol inhaler Of Breath Or Wheezing azelastine 137 mcg (0.1 %) nasal 2 spray intranasal .Once daily PRN 07/21/23 02/03/24 History spray Nasal Congestion fluticasone propionate 50 1 spray intranasal DAILY 07/21/23 02/03/24 History mcg/actuation nasal spray,suspension lovastatin 10 mg tablet 10 mg PO HS 07/21/23 02/03/24 History triamcinolone acetonide 0.1 % 1 applic topical BID PRN Itching 07/21/23 02/03/24 History topical cream pantoprazole 40 mg tablet,delayed 40 mg PO BID #180 tabs 09/20/23 02/03/24 Rx release zafirlukast 20 mg tablet 20 mg PO BID #180 tabs 09/20/23 02/03/24 Rx telmisartan 80 mg tablet 80 mg PO QAM 10/06/23 02/03/24 History tiotropium bromide 18 mcg capsule 1 cap inhalation DAILY 10/06/23 02/03/24 History with inhalation device (Spiriva with HandiHaler) hydrochlorothiazide 25 mg tablet 25 mg PO DAILY #90 tabs 10/19/23 02/03/24 Rx finasteride 5 mg tablet (Proscar) 5 mg PO QAM #30 tabs 10/21/23 02/03/24 Rx potassium chloride 20 mEq 20 meq PO DAILY@0800 #30 tabs 10/21/23 02/03/24 Rx tablet,extended release (K-Tab) miconazole nitrate 2 % topical 1 applic topical Q12HR #30 grams 11/02/23 02/03/24 Rx cream artificial 1 drp EACH EYE DAILY 11/06/23 02/03/24 History tears(rocxcfl-sowfzyie-mirzxmr) 0.1 %-0.3 %-0.2 % eye drops (GenTeal Tears Moderate) artificial tears(hypromellose) 0.3 1 drp EACH EYE HS 11/06/23 02/03/24 History % eye gel diclofenac sodium 1 % topical gel 2 g topical QID 11/06/23 02/03/24 History diphenhydramine HCl 25 mg capsule 25 mg PO BID PRN Itching 11/06/23 02/03/24 History (Benadryl) fexofenadine 60 mg tablet 60 mg PO DAILY 11/06/23 02/03/24 History fluoride (sodium) 1.1 % dental 1 applic PO HS 11/06/23 02/03/24 History cream (PreviDent 5000 Plus) gabapentin 300 mg capsule 300 mg PO BID #180 caps 12/01/23 02/03/24 Rx tamsulosin 0.4 mg capsule 0.4 mg PO DAILY 12/28/23 02/03/24 History clonazepam 1 mg tablet 1 mg PO BID #180 tabs 12/29/23 02/03/24 Rx midodrine 10 mg tablet 10 mg PO TID 02/03/24 02/03/24 History Allergies Allergy/AdvReac Type Severity Reaction Status Date / Time clindamycin Allergy Mild Rash Verified 12/26/23 14:03 bacitracin Allergy Unknown Swelling Verified 12/26/23 14:03 of Lip/Tongue/Throat cat dander Allergy Unknown Rash Verified 12/26/23 14:03 latex Allergy Unknown Rash Verified 12/26/23 14:03 pollen extracts Allergy Unknown Dyspnea / Verified 12/26/23 14:03 SOB Sulfa (Sulfonamide Allergy Unknown Unknown Verified 12/26/23 14:03 Antibiotics) sulfite Allergy Unknown Unknown Verified 12/26/23 14:03 codeine AdvReac Unknown Nausea and Verified 12/26/23 14:03 Vomiting Vital Signs Vital Signs - 24 hr 02/05/24 20:00 02/05/24 22:00 02/06/24 06:00 Temperature 36.8 C 36.7 C Pulse Rate 70 70 68 Respiratory Rate 16 16 18 Blood Pressure 115/64 107/62 Pulse Oximetry 100 100 96 Oxygen Delivery Room Air Fraction of Inspired Oxygen 21 02/06/24 08:05 02/06/24 08:05 Temperature Pulse Rate 73 73 Respiratory Rate 18 18 Blood Pressure Pulse Oximetry 95 Oxygen Delivery Room Air Fraction of Inspired Oxygen Exam 2 Const: General: cooperative and no acute distress Resp: Effort & Inspection: normal respiratory effort Cardio: Rate: regular rate Urinary Catheter: Urinary Catheter: patent and draining and urine clear Results Labs 02/06/24 06:34 02/06/24 06:34 Labs: Short CBC 02/06/24 Range/Units 06:34 WBC 6.3 (4.5-10.0) K/mm3 Hgb 11.6 L (14.0-18.0) g/dL Hct 36.1 L (42.0-52.0) % Plt Count 181 (150-375) k/mm3 [facility] 02/06/24 06:34 Sodium 137 Potassium 4.0 Chloride 110 H Carbon Dioxide 29 BUN 11 Creatinine 0.80 Glucose 97 Calcium 8.9 Liver Function 02/06/24 Range/Units 06:34 Total Bilirubin 0.4 (0.2-1.3) mg/dL AST 28 (17-59) U/L ALT 17 (6-50) U/L Alkaline Phosphatase 72 (38-126) U/L Albumin 2.8 L (3.5-5.1) g/dL
[2024-02-06 14:00] VITALS: BP 132/58; PULSE 65; RESP 20; TEMP 36.1; O2SAT 96
--- NOTE | 2024-02-06 14:37 | PCOTNOTE ---
Per Patient's , Patient needs sleep, having some increased confusion this afternoon. Patient's requested therapy come back tomorrow.
--- NOTE | 2024-02-06 19:52 | PC.NURSE ---
On 02/06/24, the TISSUE COORDINATOR, [ Floridalma Reardon], provided care and completed [facility] documentation on this patient. I have reviewed the TISSUE COORDINATOR's documentation and agree with the findings.
[2024-02-06 20:00] VITALS: PULSE 80; RESP 18; O2SAT 97
[2024-02-06 20:20] VITALS: BP 115/55; PULSE 80; RESP 18; TEMP 36.6; O2SAT 97
[2024-02-06] MEDS: TIMOLOL MALEATE 0.5% OP SOLN 5 ML BOTTLE 1 DROP EACH EYE (20:33)
[2024-02-06] MEDS: LATANOPROST 0.005% OP SOLN 2.5 ML BTL 1 DROP EACH EYE (20:33)
[2024-02-06] MEDS: ALBUTEROL SULFATE (*SP) AEROSOL 1 PUFF 2 PUFF INHALATION (21:08)
[2024-02-07 04:45] VITALS: BP 108/49; PULSE 64; RESP 16; TEMP 37.2; O2SAT 97
[2024-02-07 07:31] LABS: Basophils Percent Auto 0.4 % (0.2-1.2); Eosinophils Absolute Auto 0.5 K/mm3 (0-0.3); Eosinophils Percent Auto 9.7 % (0-4.4); Hematocrit 32.8 % (42.0-52.0); Hemoglobin 10.6 g/dL (14.0-18.0); Immature Granulocyte Absolute 0.02 K/mm3 (0.00-0.031); Immature Granulocyte Percent A 0.4 % (0-0.5); Lymphocytes Absolute Auto 1.23 K/mm3 (0.9-3.2); Mean Corpuscular HGB Conc 32.3 g/dl (32-36); Mean Corpuscular Hemoglobin 30.9 pg (26-34); Mean Corpuscular Volume 95.6 fl (80-100); Mean Platelet Volume 9.5 fl (7.4-10.4); Monocytes Absolute Auto 0.6 K/mm3 (0.1-0.6); Monocytes Percent Auto 10.3 % (2.6-8.5); Neutrophils Percent Auto 56.2 % (45.5-73.1); Platelet Count Result 161 k/mm3 (150-375); Red Blood Count 3.43 M/mm3 (4.6-6.20); Red Cell Distribution Width 13.7 % (11.5-14.5); White Blood Count 5.4 K/mm3 (4.5-10.0)
[2024-02-07 07:51] LABS: Anion Gap -2 mmol/L (4-12); Blood Urea Nitrogen 12 mg/dL (9-20); Calcium 8.9 mg/dL (8.4-10.2); Carbon Dioxide 30 mmol/L (22-30); Chloride 110 mmol/L (98-107); Estimated CRCL calculation 78 ml/min; Estimated Glomerular Filt Rate > 60; Glucose 109 mg/dL (65-110); Magnesium 1.9 mg/dL (1.6-2.3); Potassium 3.9 mmol/L (3.4-5.0); Sodium 138 mmol/L (137-145)
[2024-02-07] MEDS: ARTIFICIAL TEARS OPHTH SOLN 15 ML BOTTLE 1 DROP EACH EYE (08:29)
[2024-02-07] MEDS: ASPIRIN 81 MG ENTERIC TABLET PO (08:30)
[2024-02-07] MEDS: GABAPENTIN 300 MG CAPSULE PO (08:30)
[2024-02-07] MEDS: ZAFIRLUKAST 20 MG TABLET PO (08:30)
[2024-02-07] MEDS: FINASTERIDE 5 MG TABLET PO (08:31)
[2024-02-07] MEDS: MIDODRINE HCL 10 MG TABLET PO ×2 (08:32→12:17)
[2024-02-07] MEDS: TAMSULOSIN HCL 0.4 MG CAPSULE PO (08:32)
[2024-02-07] MEDS: PANTOPRAZOLE 40 MG TABLET PO (08:33)
[2024-02-07] MEDS: clonazePAM (*CRX) 0.5 MG TABLET 1 MG PO (08:33)
[2024-02-07] MEDS: LORATADINE 10 MG TABLET PO (08:33)
[2024-02-07] MEDS: MICONAZOLE NITRATE 2% CREAM 30 GM TUBE 1 APPLIC TOPICAL (08:34)
[2024-02-07] MEDS: FLUTICASONE PROPIONATE 0.05% NA SPR 16 GM BTL (*BKC) 1 SPRAY NASAL (08:38)
[2024-02-07] MEDS: DICLOFENAC SODIUM 1% 100 GM GEL (*BKC) 1 APPLIC TOPICAL (08:41)
[2024-02-07] MEDS: UMECLIDINIUM BROMIDE 62.5 MCG ELLIPTA 1 PUFF INHALATION (08:54)
[2024-02-07 08:55] VITALS: PULSE 77; RESP 20
--- NOTE | 2024-02-07 12:08 | PM.DS ---
DS: Admitting Diagnosis Discharge Date 02/07/2024 Admitting Diagnosis Sepsis DS: Discharge Diagnosis Discharge Diagnosis (1) Urinary tract infection associated with indwelling urethral catheter: Qualifiers: Encounter type: initial encounter Qualified Code(s): T83.511A - Infection and inflammatory reaction due to indwelling urethral catheter, initial encounter; N39.0 - Urinary tract infection, site not specified Code(s): T83.511A - Infection and inflammatory reaction due to indwelling urethral catheter, initial encounter; N39.0 - Urinary tract infection, site not specified Status: Acute (2) Left lower lobe pneumonia: Code(s): J18.9 - Pneumonia, unspecified organism Status: Acute (3) Acute pyelonephritis: Code(s): N10 - Acute pyelonephritis Status: Acute (4) Obstructive uropathy: Code(s): N13.9 - Obstructive and reflux uropathy, unspecified Status: Acute (5) GERD (gastroesophageal reflux disease): Qualifiers: Esophagitis presence: esophagitis presence not specified Qualified Code(s): K21.9 - Gastro-esophageal reflux disease without esophagitis Code(s): K21.9 - Gastro-esophageal reflux disease without esophagitis Status: Acute (6) NICOLE treated with BiPAP: Code(s): G47.33 - Obstructive sleep apnea (adult) (pediatric) Status: Acute (7) Chronic obstructive pulmonary disease, unspecified: Code(s): J44.9 - Chronic obstructive pulmonary disease, unspecified Status: Acute (8) CKD (chronic kidney disease) stage 3, GFR 30-59 ml/min: Code(s): N18.3 - Chronic kidney disease, stage 3 (moderate) Status: Acute DS: Summary Hospital Course Hospital Course: This is a 78-year-old male who presented to the ED via EMS with generalized weakness. Patient with history of recurrent UTIs and sepsis with a past few months. Follows with Dr. Moore. Recently required rehab placement. Patient became increasingly weak and was unable to stand up or move on his own had cold shaking chills. EMS was notified. He was found to be febrile by EMS. Patient also reported lower abdominal pain. Denied any nausea vomiting hematuria or lower back pain. On the ED evaluation he was febrile and tachycardic in 140s borderline hypotensive. He received IV fluid resuscitation and Tylenol. His blood pressure responded adequately to fluid resuscitation. Laboratory evaluation showed WBC of 12.0 hemoglobin 13.3 mildly hyponatremic at 133, Lactic acid was normal at 1.6, troponin was negative less than 0.012, LFTs were normal. CRP was elevated at 3.4. Urinalysis was positive for UTI. Chest x-ray with segmental left basilar atelectasis or consolidation. Possible small bilateral pleural effusion. CT abdomen pelvis with subsegmental dependent scar/atelectasis. Moderate bilateral perinephric stranding. There is urothelial enhancement in the the collecting system. Moderate bladder wall edema suggestive of cystitis. Patient was pancultured. Previous urine culture grown out Enterococcus sensitive to vancomycin ampicillin. Patient met criteria for sepsis. Patient was started on Zosyn And was admitted for further treatment. Follow blood culture Which came back positive for Gram-negative bacilli. Identified as E coli. Sensitive to ceftriaxone which will be switched to. Will plan to do oral antibiotics at discharge augmentin to complete 2 weeks course Chronic anemia with likely hemoconcentration GERD Asthma Obstructive sleep apnea On BiPAP at night Hypertension BPH Chronic indwelling Whitaker catheter Diabetic peripheral neuropathy Diastolic heart failure EF 60-65% 2023 Gout Spinal stenosis History of TIA 2010 DVT prophylaxis Lovenox Code status full code Time Spent with Patient Time attestation: Total time spent providing and/or coordinating discharge services: 40 minutes Exam Narrative: GENERAL: Chronically ill, obese with BMI of 37.2, non-toxic, in no acute distress. HEAD: Normocephalic, atraumatic. RESPIRATORY: Airway patent, respirations nonlabored. Clear to auscultation bilaterally, no rales, rhonchi, wheezing. CARDIOVASCULAR: Regular rate Regular rhythm without murmurs, rubs, or gallops. ABDOMINAL: Soft, nontender, Nondistended. Normoactive BS. MUSCULOSKELETAL: Moves all extremities. No gross deformities. SKIN: Warm, dry NEURO: A&O X3. Does seem to be intermittently confused. Speech clear. Cranial nerves II-XII grossly intact. Steady gait. No ataxic movements. PSYCHIATRIC: Normal mood cooperative DS: Data Data Completed and Pending Labs on day of discharge: Labs from last 24 hours 02/07/24 07:12 WBC 5.4 RBC 3.43 L Hgb 10.6 L Hct 32.8 L MCV 95.6 MCH 30.9 MCHC 32.3 RDW 13.7 Plt Count 161 MPV 9.5 Immature Gran % (Auto) 0.4 Neut % (Auto) 56.2 Lymph % (Auto) 23.0 Wilcox % (Auto) 10.3 H Eos % (Auto) 9.7 H Baso % (Auto) 0.4 Lymph # (Auto) 1.23 Wilcox # (Auto) 0.6 Eos # (Auto) 0.5 H Baso # (Auto) 0.0 Abs Immat Gran (auto) 0.02 Absolute Neuts (auto) 3.0 Absolute Nucleated RBC 0.000 Nucleated RBC % 0.0 Sodium 138 Potassium 3.9 Chloride 110 H Carbon Dioxide 30 Anion Gap -2 L BUN 12 Creatinine 0.80 Estim Creat Clear Calc 78 Estimated GFR > 60 Glucose 109 Calcium 8.9 Magnesium 1.9 Preliminary micro results at discharge 02/02/24 18:53 Blood Culture - Preliminary Blood Escherichia Coli Imaging Radiologist's impression: ITS Impressions Chest X-Ray 02/02/24 18:36 IMPRESSION: Segmental left basilar atelectasis or consolidation. Possible small bilateral pleural effusions. Abdomen/Pelvis CT 02/02/24 22:38 IMPRESSION: CT findings concerning for cystitis with bilateral ascending infection. Discharge Plan Discharge Attending physician on discharge: Benjamin Sampson Consulting providers: Epi Moore Discharging Clinician: Benjamin Sampson Anticipated Discharge Date/Time: 02/07/24 12:11 Patient Disposition: Home Health Service Activity: as tolerated Diet: heart healthy Discharge Instructions: Per Care Coordination Patient is current with [facility] RN for whitaker catheter changes. [phone] Your blood pressure medications which includes hydrochlorothiazide and telmisartan are currently on hold. Follow-up with PCP and restart if needed Patient Instructions: Antibiotic Form Patient Language: Croatian Stand Alone Forms: General Discharge Information Follow-up/Referrals: Epi Moore MD [Physician] - Keep Reg. Scheduled Appt. Jairon Cannon MD [Primary Care Provider] - 1 Week Discharge Medications: New amoxicillin-pot clavulanate 875-125 mg tablet 1 tablet PO Q8H Qty: 34 0RF Continued tiotropium bromide [Spiriva with HandiHaler] 18 mcg capsule, w/inhalation device 1 cap inhalation DAILY Rx Instructions: INHALE THE CONTENTS OF 1 CAPSULE BY MOUTH VIA HANDIHALER DAILY finasteride [Proscar] 5 mg Tablet 5 mg PO QAM Qty: 30 0RF potassium chloride [K-Tab] 20 mEq Tablet Extended Release 20 meq PO DAILY@0800 Qty: 30 0RF zinc acetate 50 mg (zinc) capsule 50 mg PO DAILY latanoprost 0.005 % drops 1 drop EACH EYE HS timolol 0.5 % drops 1 drop EACH EYE HS aspirin 81 mg tablet,delayed release (DR/EC) 81 mg PO DAILY lovastatin 10 mg tablet 10 mg PO HS triamcinolone acetonide 0.1 % cream 1 applic TOPICAL BID PRN (Reason: Itching) Rx Instructions: apply to buttock prn itching azelastine 137 mcg (0.1 %) aerosol,spray 2 spray intranasal .Once daily PRN (Reason: Nasal Congestion) Rx Instructions: administer into each nostril albuterol sulfate 90 mcg/actuation HFA aerosol inhaler 2 inh inhalation Q4H PRN (Reason: Shortness Of Breath Or Wheezing) fluticasone propionate 50 mcg/actuation spray,suspension 1 spray intranasal DAILY midodrine 10 mg Tablet 10 mg PO TID fluoride (sodium) [PreviDent 5000 Plus] 1.1 % Cream 1 applic PO HS diclofenac sodium 1 % Gel 2 g TOPICAL QID Rx Instructions: apply to both knees, legs, and heels fexofenadine 60 mg Tablet 60 mg PO DAILY diphenhydramine HCl [Benadryl] 25 mg Capsule 25 mg PO BID PRN (Reason: Itching) artificial tear(scugl-whm-zng) [GenTeal Tears Moderate] 0.1-0.3-0.2 % Drops 1 drp EACH EYE DAILY artificial tears(hypromellose) 0.3 % Gel 1 drp EACH EYE HS pantoprazole 40 mg tablet,delayed release (DR/EC) 40 mg PO BID Qty: 180 3RF zafirlukast 20 mg tablet 20 mg PO BID Qty: 180 1RF miconazole nitrate 2 % cream 1 applic topical Q12HR Qty: 30 1RF Rx Instructions: apply to skin folds gabapentin 300 mg capsule 300 mg PO BID Qty: 180 0RF Rx Instructions: NEEDS APPOINTMENT FOR FURTHER REFILLS tamsulosin 0.4 mg capsule 0.4 mg PO DAILY clonazepam 1 mg tablet 1 mg PO BID Qty: 180 3RF Discontinued telmisartan 80 mg tablet 80 mg PO QAM hydrochlorothiazide 25 mg tablet 25 mg PO DAILY Qty: 90 1RF Rx Instructions: take 25mg daily Date of admission: 02/03/24 07:49 Primary Care Provider: Jairon Cannon Admitting Provider: Anusha Gaitan V. Attending physician on admission: Anusha Gaitan V. Condition: Serious
[2024-02-07] MEDS: AMOXICILLIN/CLAVULANATE K 875-125 MG TAB 1 TABLET PO (12:17)
== END 2024-02-07 13:05 | disposition home health service (06) | DRG 698 ==
LOC: ANHED 22:17 → ANHIMU 02-03 02:07 → ANH3MEDSUR 02-06 17:17 → ANHIMU 02-09 13:10
PROVIDERS: Emergency Medicine; Admitting Provider Internal Medicine; Emergency Provider Physician Assistant; PCP Family Medicine; Visit Provider Internal Medicine
DX: T83.511A Infection and inflammatory reaction due to indwelling urethral catheter, initial encounter (principal); A41.9 Sepsis, unspecified organism; I50.32 Chronic diastolic (congestive) heart failure; I13.0 Hypertensive heart and chronic kidney disease with heart failure and stage 1 through stage 4 chronic kidney disease, or unspecified chronic kidney disease; E87.1 Hypo-osmolality and hyponatremia; N18.30 Chronic kidney disease, stage 3 unspecified; N39.0 Urinary tract infection, site not specified; R33.9 Retention of urine, unspecified; D50.9 Iron deficiency anemia, unspecified; N40.1 Benign prostatic hyperplasia with lower urinary tract symptoms; R33.8 Other retention of urine; E11.42 Type 2 diabetes mellitus with diabetic polyneuropathy; H40.10X0 Unspecified open-angle glaucoma, stage unspecified; G47.33 Obstructive sleep apnea (adult) (pediatric); K58.9 Irritable bowel syndrome, unspecified; Z86.16 Personal history of COVID-19; Z86.73 Personal history of transient ischemic attack (TIA), and cerebral infarction without residual deficits; Z90.49 Acquired absence of other specified parts of digestive tract; Z96.1 Presence of intraocular lens; Z98.42 Cataract extraction status, left eye; Z98.41 Cataract extraction status, right eye; Z96.653 Presence of artificial knee joint, bilateral; Z79.82 Long term (current) use of aspirin; K21.9 Gastro-esophageal reflux disease without esophagitis; J44.9 Chronic obstructive pulmonary disease, unspecified; E11.22 Type 2 diabetes mellitus with diabetic chronic kidney disease; E66.9 Obesity, unspecified; Z68.37 Body mass index [BMI] 37.0-37.9, adult; N31.9 Neuromuscular dysfunction of bladder, unspecified; M48.061 Spinal stenosis, lumbar region without neurogenic claudication
CPT/HCPCS: 36415; 71045; 74177; 80048; 80053; 81001; 83605; 83690; 83735; 84484; 85025; 85610; 85730; 86140; 87040; 87086; 87186; 93005; 94640; 96360; 96361; 96365; 97110; 97116; 97161; 97165; 97530; 97535; 99285; A9270; G0378; J0696; J2543; J3475; J7030; Q9967

== ENCOUNTER 2024-03-23 13:07 | Outpatient (NON) | payer MEDICARE, SELFPAY ==
--- OUTSIDE RECORDS SUMMARY | 2024-03-23 13:19 | XMS_ITS | Clinical Summary ---
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 9 Active fluticasone propionate (FLONASE) 50 mcg/spray [place], Suspension nasal inhaler Administer 50 mcg in each nostril 2 times daily. 9 Active hydroCHLOROthia zide 25 mg tablet Take 25 mg by mouth daily. 9 Active lovastatin (MEVACOR) 10 mg tablet Take 10 mg by mouth 2 times daily. 9 Active pantoprazole (PROTONIX) 40 mg Tablet, Delayed Release (E.C.) Take 40 mg by mouth daily. 9 Active potassium chloride (KLOR-CON) 20 mEq Extended Release tablet Take 20 mEq by mouth daily. 9 Active SPIRIVA WITH HANDIHALER 18 mcg capsule Take 18 mcg by inhalation daily. 9 Active zafirlukast (ACCOLATE) 20 mg tablet Take 20 mg by mouth 2 times daily. 9 Active timolol (TIMOPTIC) 0.5 % solution 1 Drop daily. Activ e telmisartan (MICARDIS) 80 mg Tablet Take 80 mg by mouth daily. Active latanoprost (XALATAN) 0.005 % solution 1 Drop daily at bedtime. Active clonazePAM (KlonoPIN) 1 mg tablet Take 1 mg by mouth daily. Active albuterol sulfate 90 mcg/actuation metered powder inhaler Take by inhalation. Active aspirin (ECOTRIN EC) 81 mg Tablet, Delayed Release (E.C.) Take 81 mg by mouth daily. Active cephALEXin (KEFLEX) 500 mg capsule Take 500 mg by mouth 1 time daily as needed. 0 9 Active amoxicillin (AMOXIL) 875 mg tablet Take 875 mg by mouth daily. 0 9 Active gabapentin (NEURONTIN) 300 mg capsule 2 Active azelastine (ASTELIN) 137 mcg/actuation nasal spray USE 2 SPRAYS IN EACH NOSTRIL 1 TIME 2 Active metFORMIN (GLUCOPHAGE XR) 500 mg Extended Release 24 hour tablet 4 Active Active Problems Problem Noted Date Diagnosed Date GI bleed 11/14/2019 Iron deficiency anemia 06/21/2018 History of TIA (transient ischemic attack) and s troke 06/21/2018 Other hyperlipidemia 06/21/2018 Benign hypertension 06/21/2018 Encounters Date Type Department Care Team Description 02/29/2024 External Device Data STL ABSTRACTION Provider, Abstract 02/28/2024 External Device Data STL ABSTRACTION Provider, Abstract from Last 3 Months Family History Medical History Relation Name Comments Heart Disease Father Diabetes Mother Diabetes Sister Relation Name Status Comments Father Mother Sister Social History Tobacco Use Types Packs/Day Years Used Date Smoking Tobacco: Never Smokeless Tobacco: Never Tobacco Cessation:Counseling Given: Not Answered Alcohol Use Standard Drinks/Week Comments Yes 0 (1 standard drink = 0.6 oz pur e alcohol) Sex and Gender Information Value Date Recorded Sex Assigned at Not on file Legal Sex Male 8:36 AM CDT Gender Identity Not on file Sexual Orientation Not on file Last Filed Vital Signs Vital Sign Reading Time Taken Comments Blood Pressure 117/63 07/13/2023 10:56 AM CDT Pulse 83 07/13/2023 10:56 AM CDT Temperature 36.1 C (97 F) 07/13/2023 10:56 AM CDT Respiratory Rate 14 07/13/2023 10:56 AM CDT Oxygen Saturation 95% 07/13/2023 10:56 AM CDT Inhaled Oxygen Concentration - - Weight 113.4 kg (250 lb) 07/13/2023 10:56 AM CDT Height 172.1 cm (5' 7.75 ) 07/08/2021 11:31 AM C DT Body Mass Index 38.29 07/08/2021 11:31 AM CDT Plan of Treatment Upcoming Encounters Date Type Department Care Team (Late st Contact Info) Description 07/11/2024 11:00 AM CDT Office Visit [facility] Oncology and Hematology - [place] [address] [place] [address] Dixon Baca MD [address] [place] [address] Health Maintenance Due Date Last Done Comments DTAP/TDAP/TD VACCINES (1 - Tdap) 1964 PNEUMOCOCCAL VACCINE 65+ YEA RS (1 of 1 - PCV) 10/19/1995 ZOSTER VACCINE (1 of 2) 10/19/1995 RSV VACCINE (60+ or ) (1 - 1-dose 75+ series) 2020 INFLUENZA VACCINE (#1) 2023 10/30/2022, 2019 Insurance [facility] [id number] Care Teams Glass Cutting Machine Operator Relationship Specialty Start Date End Date Jairon Cannon MD PCP - General Family Practice 05/26/18
--- OUTSIDE RECORDS SUMMARY | 2024-03-23 13:19 | XMS_ITS | Continuity of Care Document ---
Author Organization [facility] Address [address] [place] [address] Phone Care Team Providers Care Electrophysiology Technologist Name Role Phone Mahsa Martinez Unavailable Unavailable [...] Copied on Encounter Office/outpat ient Visit, [facility], [address], [place], [place], [address], [place] tel:[phone] [facility] No Information Marshall-0 1-201 0 Martinez Mahsa. [address], [place], [facility], . tel:[phone] [facility], [address] [place] [address] [address], [place], [place], [address], [place] tel:[phone] [facility] No Information Dec-3 0-200 9 Martinez Mahsa. [address], [place], [facility], . tel:[phone] [facility], [address], [place], [place], [address], [place] tel:[phone] [facility] No Information Dec-2 9-200 9 Martinez Mahsa. [address], [place], [facility], . tel:[phone] [facility], [address] [place] [address] [address], [place], [place], [address], [place] tel:[phone] [facility] No Information Dec-1 6-200 9 Martinez Mahsa. [address], [place], [facility], . tel:[phone] Referring Provider: Erick Kwong, [facility], [place], [facility]. tel:[phone] Office/outpat ient Visit, [facility], [address] [place] [address] [address], [place], [place], [address], [place] tel:[phone] [facility] No Information Dec-1 5-200 9 Martinez Mahsa. [address], [place], [facility], . tel:[phone] [facility], [address], [place], [place], [address], [place] tel:[phone] [facility] No Information Marshall-0 4-200 9 Martinez Mahsa. [address], [place], [facility], [place]. tel:[phone] [facility], [address] [place] [address] [address], [place], [place], [address], tel:[phone] [facility] No Information June-2 8-200 9 Michelle Purdy [address] [facility] , [address], [place], [facility], [place]. tel:[phone] Referring Provider: Mahsa Mandel, [address], [place], [facility]. tel:[phone] Office/outpat ient Visit, [facility], [address] [place] [address] [address], [place], [place], [address], tel:[phone] [facility] No Information 3 0-200 8 Michelle Purdy [address] [facility] , [address], [place], [facility], [place]. tel:[phone] Office/outpat ient Visit, [facility], [address] [place] [address] [address], [place], [place], [address], [place] tel:[phone] [facility] No Information 0 1-200 8 Michelle Purdy [address], [place], [facility], [place]. tel:[phone] [facility], [address] [place] [address] [address], [place], [place], [address], [place] tel:[phone] [facility] No Information Feb-0 8-200 8 Michelle Purdy [address] , [address], [place], [facility], [place]. tel:[phone] [facility], [address] [place] [address] [address], [place], [place], [address], [place] tel:[phone] [facility] No Information Dec-2 7-200 7 Michelle Mahsa. [address], [place], [address], [place]. tel:[phone] [facility], [address] [place] [address] [address], [place], [place], [address], [place] tel:[phone] [facility] No Information Dec-2 6-200 7 Michelle Mahsa. [address], [place], [facility], [place]. tel:[phone] Referring Provider: Morgan Hester OD W, [address] [place], [address]. tel:[phone] [facility], [address] [place] [address] [address], [place], [place], [address], [place] tel:[phone] [facility] No Information Dec-1 8-200 7 Michelle Mahsa. [address], [place], [facility], [place]. tel:[phone] Referring Provider: Mahsa Mandel, [address], [place], [facility]. tel:[phone] [facility], [address] [place] [address] [address], [place], [place], [address], [place] tel:[phone] [facility] No Information Dec-1 3-200 7 Michelle Mahsa. [address], [place], [address], [place]. tel:[phone] [facility], [address], [place], [place], [address], [place] tel:[phone] [facility] No Information Dec-1 2-200 7 Michelle Wagonern. [address] , [address], [place], [address], [place]. tel:[phone] [facility], [address] [place] [address] [address], [place], [place], [address], tel:[phone] [facility] No Information 0200 7 Michelle Bragg. [address] [facility] , [address], [place], [facility], . tel:[phone] Referring Provider: Arpita Jiménez [facility] [address], [place], [facility]. tel:[phone] [facility], [address] [place] [address] [address], [place], [place], [address], tel:[phone] [facility] No Information 2200 7 Michelle rBagg. [address] [facility] , [address], [place], [facility], . tel:[phone] Referring Provider: Arpita Jiménez [facility] [place] [address], [place], [facility]. tel:[phone] Office/outpat ient Visit, [facility], [address] [place] [address] [address], [place], [place], [address], tel:[phone] [facility] No Information 200 6 Michelle Purdy [address] [facility] , [address], [place], [facility], . tel:[phone] Family History Family Member Type Diagnosis Age At Onset No Information Payers Payer name Insurance type Covered constitution party ID Moustapha staples(s) [facility] CI [id number] Social History Type Description Quantity Date Captured [...]
[2024-03-23 14:19] LABS: Add Urine Microscopic? YES; Appearance Urine Clear (Clear); Bacteria Urine None Seen /hpf; Bilirubin Urine Negative (Negative); Blood Urine 1+ (Negative); Color Urine Yellow (Yellow); Glucose Urine UA Negative (Negative); Hyaline Casts Urine Present /lpf; Ketones Urine Negative (Negative); Leukocyte Esterase Ur 2+ LEU/UL (Negative); Nitrate Urine Negative (Negative); Protein Urine Trace mg/dL (Negative); Specific Grav Ur 1.008 (1.001-1.035); Squamous Epithelial Cell Urine None Seen /hpf (Few); Urobilinogen Urine 0.2 mg/dL (<2.0); WBC Urine 21-50 /hpf (0-3); pH Urine 5.5 (5.0-9.0)
== END 2024-03-23 13:08 | disposition home or self-care (01) ==
PROVIDERS: PCP Family Medicine; Visit Provider Urology
DX: N39.0 Urinary tract infection, site not specified (principal); Z46.6 Encounter for fitting and adjustment of urinary device
CPT/HCPCS: 81001; 87086

== ENCOUNTER 2024-07-18 07:46 | Outpatient (CLI) | payer MEDICARE, SELFPAY ==
--- OUTSIDE RECORDS SUMMARY | 2024-07-18 07:58 | XMS_ITS | Continuity of Care Document ---
Author Organization [facility] Address [address] [place] [address] Phone Care Team Providers Care Pharmacy Laboratory Technician Name Role Phone Mahsa Martinez Unavailable Unavailable [...] Copied on Encounter Office/outpat ient Visit, Est [facility], [address], [place], [place], [address], [place] tel:[phone] [facility] No Information Marshall-0 1-201 0 Martinez Mahsa. [address], [place], [place], [facility], . tel:[phone] [facility], [address] [place] [address] [address], [place], [place], [address], [place] tel:[phone] [facility] No Information Dec-3 0-200 9 Martinez Mahsa. [address], [place], [facility], . tel:[phone] [facility], [address], [place], [place], [address], [place] tel:[phone] [facility] No Information Dec-2 9-200 9 Martinez Mahsa. [address], [place], [facility], . tel:[phone] [facility], [address] [place] [address] [address], [place], [place], [address], [place] tel:[phone] [facility] No Information Dec-1 6-200 9 Martinez Mahsa. [address], [place], [facility], . tel:[phone] Referring Provider: Erick Kwong, [facility], [place], [facility]. tel:[phone] Office/outpat ient Visit, Est [facility], [address] [place] [address] [address], [place], [place], [address], [place] tel:[phone] [facility] No Information Dec-1 5-200 9 Martinez Mahsa. [address], [place], [facility], . tel:[phone] [facility], [address], [place], [place], [address], [place] tel:[phone] [facility] No Information Marshall-0 4-200 9 Martinez Mahsa. [address], [place], [facility], [place]. tel:[phone] [facility], [address] [place] [address] [address], [place], [place], [address], tel:[phone] [facility] No Information June-2 8-200 9 Michelle Purdy [address] [facility] , [address], [place], [facility], [place]. tel:[phone] Referring Provider: Mahsa Mandel, [address], [place], [facility]. tel:[phone] Office/outpat ient Visit, [facility], [address] [place] [address] [address], [place], [place], [address], tel:[phone] [facility] No Information 3 0-200 8 Michelle Purdy [address] [facility] , [address], [place], [facility], [place]. tel:[phone] Office/outpat ient Visit, [facility], [address] [place] [address] [address], [place], [place], [address], [place] tel:[phone] [facility] No Information 0 1-200 8 Michelle Purdy [address] , [address], [place], [facility], [place]. tel:[phone] [facility], [address] [place] [address] [address], [place], [place], [address], [place] tel:[phone] [facility] No Information Feb-0 8-200 8 Michelle Purdy [address], [place], [facility], [place]. tel:[phone] [facility], [address] [place] [address] [address], [place], [place], [address], [place] tel:[phone] [facility] No Information Dec-2 7-200 7 Michelle Mahsa. [address], [place], [address], [place]. tel:[phone] [facility], [address] [place] [address] [address], [place], [place], [address], [place] tel:[phone] [facility] No Information Dec-2 6-200 7 Michelle Mahsa. [address], [place], [facility], [place]. tel:[phone] Referring Provider: Morgan Hester OD W, [address] [place], [address]. tel:[phone] [facility], [address] [place] [address] [address], [place], [place], [address], [place] tel:[phone] [facility] No Information Dec-1 8-200 7 Michelle Mahsa. [address], [place], [facility], [place]. tel:[phone] Referring Provider: Mahsa Mandel, [address], [place], [facility]. tel:[phone] [facility], [address] [place] [address] [address], [place], [place], [address], [place] tel:[phone] [facility] No Information Dec-1 3-200 7 Michelle Mahsa. [address], [place], [address], [place]. tel:[phone] [facility], [address], [place], [place], [address], [place] tel:[phone] [facility] No Information Dec-1 2-200 7 Michelle Wagonern. [address], [place], [address], [place]. tel:[phone] [facility], [address] [place] [address] [address], [place], [place], [address], tel:[phone] [facility] No Information 0200 7 Michelle Bragg. [address] [facility] , [address], [place], [facility], . tel:[phone] Referring Provider: Arpita Jiménez [facility] [address], [place], [facility]. tel:[phone] [facility], [address] [place] [address] [address], [place], [place], [address], tel:[phone] [facility] No Information 2200 7 Michelle Bragg. [address] [facility] , [address], [place], [facility], . tel:[phone] Referring Provider: Arpita Jiménez [facility] [place] [address], [place], [facility]. tel:[phone] Office/outpat ient Visit, [facility], [address] [place] [address] [address], [place], [place], [address], tel:[phone] [facility] No Information 200 6 Michelle Purdy [address] [facility] , [address], [place], [facility], . tel:[phone] Family History Family Member Type Diagnosis Age At Onset No Information Payers Payer name Insurance type Covered republican ID Moustapha staples(s) [facility] CI [id number] Social History Type Description Quantity Date Captured [...]
--- OUTSIDE RECORDS SUMMARY | 2024-07-18 07:58 | XMS_ITS | Clinical Summary ---
Author Organization [facility] [address] Address [address] [place] [address] Care Team Providers Care Reserves Clerk Name Role Phone Jairon Cannon MD Primary Care Provider [phone] [phone] Allergies Active Allergy Reactions Criticality Noted Date Comments Bacitracin Itching Low 06/07/2018 Clindamycin Itching,Shortness of breath High 09/07/2017 Codeine Stomach upset Low 12/13/2012 Latex, Natural Rubber Rash Medium 11/14/2019 Eebdwsdu-Jwfjsbmdbq-Jsrimrki n Hives High 12/13/2012 Sulfa (Sulfonamide Antibiotics) Anaphylaxis,Itching High 06/07/2018 Medications fluticasone propionate (FLONASE) 50 mcg/actuation nasal spray Administer 2 sprays into affected nostril(s) daily Active finasteride (PROSCAR) 5 mg tablet 5 Active azelastine (ASTELIN) 137 mcg (0.1 %) nasal spray USE 2 SPRAYS IN EACH NOSTRIL 1 TIME 2 Active clonazePAM (KlonoPIN) 1 mg tablet Take 1 tablet (1 mg total) by mouth daily Active gabapentin (NEURONTIN) 300 mg capsule 2 Active hydroCHLOROthia zide (HYDRODIURIL) 25 mg tablet Take 1 tablet (25 mg total) by mouth daily 9 Active latanoprost (XALATAN) 0.005 % ophthalmic solution 1 drop daily Active miconazole 2 % cream APPLY TOPICALLY TO THE AFFECTED AREA EVERY 12 HOURS 5 Active lovastatin (MEVACOR) 10 mg tablet Take 1 tablet (10 mg total) by mouth 2 (two) times a day [address] (PROTONIX) 40 mg EC tablet Take 1 tablet (40 mg total) by mouth daily 9 Active potassium chloride ER 20 mEq CR tablet Take 1 tablet (20 mEq total) by mouth daily 9 Active albuterol HFA (PROVENTIL HFA,VENTOLIN HFA,PROAIR HFA) 90 mcg/actuation inhaler Inhale 2 puffs every 6 (six) hours as needed Active telmisartan (MICARDIS) 80 mg tablet Take 1 tablet (80 mg total) by mouth daily Active timoloL (ISTALOL) 0.5 % drops, once daily ophthalmic solution 1 drop legal billing clerk before breakfast Active tamsulosin (FLOMAX) 0.4 mg extended release capsule 5 Active aspirin 81 mg enteric coated tablet Take 1 tablet (81 mg total) by mouth daily Active zinc gluconate 50 mg tablet Take 1 tablet (50 mg total) by mouth daily Active diphenhydrAMINE 25 mg capsule Take 1 tablet/capsule (25 mg total) by mouth every 6 (six) hours as needed for itching Active Trelegy Ellipta 200-62.5-25 mcg inhaler 5 Active fluticasone propion-salmete roL (Advair Diskus) 500-50 mcg/dose diskus inhaler Inhale 1 puff daily 9 Active metFORMIN XR (GLUCOPHAGE XR) 500 mg 24 hr tablet 4 Active Active Problems Problem Noted Date Diagnosed Date Cardiac arrhythmia 04/03/2024 Sick sinus syndrome 04/03/2024 Encounters Date Type Department Care Team Description 05/10/2024 10:30 AM CDT Office Visit [facility] Cardiology [address] [facility] [address] [place] [address] Qing Serra NP Right bundle branch block (Primary Dx); Mild mitral regurgitation 04/26/2024 3:30 PM CDT Ancillary Procedure [facility] Cardiology at [address] [place] [phone] Sick sinus syndrome (HCC) from Last 3 Months Surgical History Surgery Date Site/Laterality Comments APPENDECTOMY Medical History Medical History Date Comments Urinary retention Arrhythmia Family History Medical History Relation Name Comments Heart attack Father Relation Name Status Comments Father Mother Social History Tobacco Use Types Packs/Day Years Used Date Smoking Tobacco: Never Tobacco Cessation:Counseling Given: Not Answered Sex and Gender Information Value Date Recorded Sex Assigned at Not on file 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 Gender Identity Not on file Sexual Orientation Not on file Obstetrics History Last Filed Vital Signs Vital Sign Reading Time Taken Comments Blood Pressure 94/42 05/10/2024 10:35 AM CDT Pulse 67 05/10/2024 10:35 AM CDT Temperature - - Respiratory Rate - - Oxygen Saturation 97% 05/10/2024 10:35 AM CDT Inhaled Oxygen Concentration - - Weight 101.6 kg (224 lb) 05/10/2024 10:35 AM CDT Height 172.7 cm (5' 8) 05/10/2024 10:35 AM CDT Body Mass Index 34.06 05/10/2024 10:35 AM CDT Plan of Treatment Health Maintenance Due Date Last Done Comments Depression Screening 1945 Fall Risk Assessment 1945 Hepatitis C Screening 1945 DTaP/Tdap/Td Vaccine (1 - Tdap) 1956 Hepatitis B Screening 10/19/1963 Pneumococcal vaccine 65+ (1 of 1 - PCV) 10/19/1995 Zoster Vaccine (1 of 2) 10/19/1995 Well Visit 65+ 2010 Influenza Vaccine (Season Ended) 2024 Procedures Procedure Name Priority Date/Time Associated Diagnosis Comments TRANSTHORACIC ECHO (TTE) COMPLETE W DOPPLER/CF WO CONTRAST Routine 04/26/2024 3:58 PM CDT Sick sinus syndrome (HCC) from Last 3 Months Results * TRANSTHORACIC ECHO (TTE) COMPLETE W DOPPLER/CF WO CONTRAST (04/26/2024 3:58 PM CDT) LV EF 55-60 % CONS SCIMAGE Anatomical Region Laterality Modality Ultrasound 04/26/2024 3:28 PM CDT Narrative 04/26/2024 4:29 PM CDT [facility] Cardiology [address], [address], [place] [address] P:[phone] P:[phone] Echocardiographic Report Patient Name: PEGGY MENSAH III, AL : 1945 Study Date: 04/26/2024 3:28:12 PM Gender: M Tech: Location: [facility] Ref Provider: JAIRON MURILLO Height(Cm): 173 BSA: 2.22 Weight(Kg): 102.1 Heart Rate: 81 BP: 106 / 60 Quality: Good Order Provider: JAIRON MURILLO PROCEDURES: Echocardiographic Report: Transthoracic echocardiogram with complete 2D, M-Mode, and color Doppler examination. With Strain Analysis. INDICATIONS: I49.5 Sick sinus syndrome. MEASUREMENTS: 2D/MM Value Range Doppler Value Range EF Mod BP 58 % [ 52 - 72 ] AV Mean PG 3 mmHg EF Teich MM 60 % [ 52 - 72 ] AV Peak Fidel 1.27 m/s [ 1.00 - 1.70 ] Estimated EF 55-60 % AV Peak PG 6 mmHg LVIDd 2D 4.47 cm [ 4.20 - 5.80 ] AV VTI 24.28 cm LVIDd MM 3.95 cm [ 4.20 - 5.80 ] LVOT Peak Fidel 0.94 m/s [ 0.70 - 1.10 ] LVIDs 2D 2.79 cm [ 2.50 - 4.00 ] LVOT VTI 19.21 cm LVIDs MM 2.71 cm [ 2.50 - 4.00 ] MV E Peak Fidel 0.54 m/s [ 0.60 - 1.30 ] LVPWd 2D 0.83 cm [ 0.60 - 1.00 ] MV A Peak Fidel 0.64 m/s [ 1.00 - 1.20 ] LVPWd MM 1.01 cm [ 0.60 - 1.00 ] MV Decel Time 247 msec [ 104 - 258 ] IVSd 2D 1.03 cm [ 0.60 - 1.00 ] PV Peak Fidel 0.90 m/s [ 0.40 - 0.80 ] IVSd MM 1.12 cm [ 0.60 - 1.00 ] Lateral E` 0.07 m/s [ 0.10 - 0.15 ] LA Dimension MM 3.17 cm [ 3.00 - 4.00 ] E/E` 7 AoR Diam MM 3.55 cm [ 3.10 - 3.70 ] LA Volume Index 20 cc/m2 [ 16 - 34 ] 2D/MM Value Range Doppler Value Range - FINDINGS: Interpretation Site: Exam was interpreted at [facility]. Left Ventricle: Normal left ventricular systolic function. No focal wall motion abnormalities. Normal left ventricular size. Mild concentric left ventricular hypertrophy. Impaired diastolic relaxation Grade I. Ejection fraction is measured at 58 %. Ejection Fraction is visually estimated to be 55-60 %. Global Longitudinal Strain is -19 %. GLS is normal. Right Ventricle: Normal right ventricular size. Normal right ventricular systolic function. Left Atrium: The left atrium is normal in size. Right Atrium: The right atrium is normal in size. Atrial Septum: Normal atrial septum. Mitral Valve: Mitral valve leaflets appear mildly thickened. Mild mitral valve regurgitation. There is no hemodynamically significant mitral stenosis by Doppler. Aortic Valve: No evidence of hemodynamically significant aortic stenosis by Doppler. Aortic cusps appear mildly sclerotic. Trileaflet aortic valve. Trace aortic valve regurgitation. Tricuspid Valve: Normal appearance of the tricuspid valve. Right ventricular systolic pressure could not be estimated due to inadequate visualization of the tricuspid regurgitation jet. Trivial regurgitation in the tricuspid valve. Pulmonic Valve: Normal appearance of the pulmonic valve. No pulmonic stenosis. Mild pulmonic regurgitation. Pericardium: Normal pericardium with no significant pericardial effusion. Aorta: Normal aortic root. IVC: Normal size and normal respiratory collapse consistent with normal right atrial pressure (<5 mmHg). CONCLUSIONS: Normal left ventricular systolic function. No focal wall motion abnormalities. Normal left ventricular size. Mild concentric left ventricular hypertrophy. Impaired diastolic relaxation Grade I. Ejection fraction is measured at 58 %. Ejection Fraction is visually estimated to be 55-60 %. Global Longitudinal Strain is -19 %. GLS is normal. Mitral valve leaflets appear mildly thickened. Mild mitral valve regurgitation. Mild pulmonic regurgitation. Normal sinus rhythm. Electronically Signed By: Mitch Jacobsen MD 04/26/2024 4:29:47 PM CDT Procedure Note Mitch Jacobsen MD - 04/26/2024 [facility] Cardiology [address] [facility] [facility], [address], [place] [address] [phone] P:[phone] Echocardiographic Report Patient Name: PEGGY MENSAH III, AL : 1945 Study Date: 04/26/2024 3:28:12 PM Gender: M Tech: Location: EDW Ref Provider: JAIRON MURILLO Height(Cm): 173 BSA: 2.22 Weight(Kg): 102.1 Heart Rate: 81 BP: 106 / 60 Quality: Good Order Provider: JAIRON MURILLO PROCEDURES: Echocardiographic Report: Transthoracic echocardiogram with complete 2D, M-Mode, and color Dopplerexamination. With Strain Analysis. INDICATIONS: I49.5 Sick sinus syndrome. MEASUREMENTS: 2D/MM Value Range Doppler ValueRange EF Mod BP 58 % [ 52 - 72 ] AV Mean PG 3mmHg EF Teich MM 60 % [ 52 - 72 ] AV Peak Fidel 1.27m/s [ 1.00 - 1.70 ] Estimated EF 55-60 % AV Peak PG 6mmHg LVIDd 2D 4.47 cm [ 4.20 - 5.80 ] AV VTI 24.28cm LVIDd MM 3.95 cm [ 4.20 - 5.80 ] LVOT Peak Fidel 0.94m/s [ 0.70 - 1.10 ] LVIDs 2D 2.79 cm [ 2.50 - 4.00 ] LVOT VTI 19.21cm LVIDs MM 2.71 cm [ 2.50 - 4.00 ] MV E Peak Fidel 0.54m/s [ 0.60 - 1.30 ] LVPWd 2D 0.83 cm [ 0.60 - 1.00 ] MV A Peak Fidel 0.64m/s [ 1.00 - 1.20 ] LVPWd MM 1.01 cm [ 0.60 - 1.00 ] MV Decel Time 247msec [ 104 - 258 ] IVSd 2D 1.03 cm [ 0.60 - 1.00 ] PV Peak Fidel 0.90m/s [ 0.40 - 0.80 ] IVSd MM 1.12 cm [ 0.60 - 1.00 ] Lateral E` 0.07m/s [ 0.10 - 0.15 ] LA Dimension MM 3.17 cm [ 3.00 - 4.00 ] E/E` 7 AoR Diam MM 3.55 cm [ 3.10 - 3.70 ] LA Volume Index 20 cc/m2 [ 16 - 34 ] 2D/MM Value Range Doppler ValueRange - FINDINGS: Interpretation Site: Exam was interpreted at [facility]. Left Ventricle: Normal left ventricular systolic function. No focal wall motionabnormalities. Normal left ventricular size. Mild concentric left ventricular hypertrophy.Impaired diastolic relaxation Grade I. Ejection fraction is measured at 58 %. EjectionFraction is visually estimated to be 55-60 %. Global Longitudinal Strain is -19 %. GLS isnormal. Right Ventricle: Normal right ventricular size. Normal right ventricular systolicfunction. Left Atrium: The left atrium is normal in size. Right Atrium: The right atrium is normal in size. Atrial Septum: Normal atrial septum. Mitral Valve: Mitral valve leaflets appear mildly thickened. Mild mitral valveregurgitation. There is no hemodynamically significant mitral stenosis by Doppler. Aortic Valve: No evidence of hemodynamically significant aortic stenosis by Doppler.Aortic cusps appear mildly sclerotic. Trileaflet aortic valve. Trace aortic valveregurgitation. Tricuspid Valve: Normal appearance of the tricuspid valve. Right ventricular systolicpressure could not be estimated due to inadequate visualization of the tricuspidregurgitation jet. Trivial regurgitation in the tricuspid valve. Pulmonic Valve: Normal appearance of the pulmonic valve. No pulmonic stenosis. Mildpulmonic regurgitation. Pericardium: Normal pericardium with no significant pericardial effusion. Aorta: Normal aortic root. IVC: Normal size and normal respiratory collapse consistent with normal rightatrial pressure (<5 mmHg). CONCLUSIONS: Normal left ventricular systolic function. No focal wall motionabnormalities. Normal left ventricular size. Mild concentric left ventricular hypertrophy.Impaired diastolic relaxation Grade I. Ejection fraction is measured at 58 %. EjectionFraction is visually estimated to be 55-60 %. Global Longitudinal Strain is -19 %. GLS isnormal. Mitral valve leaflets appear mildly thickened. Mild mitral valveregurgitation. Mild pulmonic regurgitation. Normal sinus rhythm. Electronically Signed By: Mitch Jacobsen MD 04/26/2024 4:29:47 PM CDT Jairon Murillo MD CV ECHO PROCEDURES Final Result from Last 3 Months Insurance [employer] CHOICE MEDICARE PPO Care Teams Reserves Clerk Relationship Specialty Start Date End Date Jairon Cannon MD [address] [facility] [address] [place], [place] [id number] PCP - General Family Medicine 09/28/23
--- OUTSIDE RECORDS SUMMARY | 2024-07-18 07:58 | XMS_ITS | Clinical Summary ---
Author Organization [facility] Address [address] [place] [address] Care Team Providers Care Slasher Sawyer Name Role Phone Jairon Cannon MD Primary Care Provider +1- [phone] Allergies Active Allergy Reactions Criticality Noted Date Comments Bacitracin Itching Low 06/07/2018 Clindamycin Itching,Shortness of Breath/Wheezing High 09/07/2017 Codeine Abdominal Pain Low 12/13/2012 Latex, Natural Rubber Rash Low 11/14/2019 Pltrzvtb-Muwbftpgzo-Kkhejyww n Hives High 12/13/2012 Sulfa (Sulfonamide Antibiotics) Anaphylaxis,Itching High 06/07/2018 Medications ADVAIR DISKUS 500-50 mcg/dose disk inhaler Take 500 mcg by inhalation daily. 9 Active fluticasone propionate (FLONASE) 50 mcg/spray [place], Suspension nasal inhaler Administer 50 mcg in [...] Encounters Date Type Department Care Team Description 07/03/2024 External Device Data [facility] ABSTRACTION Provider, Abstract 06/28/2024 External Device Data [facility] ABSTRACTION Provider, Abstract 06/26/2024 External Device Data [facility] ABSTRACTION Provider, Abstract 04/25/2024 External Device Data [facility] ABSTRACTION Provider, Abstract [...] 10:56 AM CDT Height 172.1 cm (5' 7.75) 07/08/2021 11:31 AM C DT Body Mass Index 38.29 07/08/2021 11:31 AM CDT Plan of Treatment Upcoming Encounters Date Type Department Care Team (Late st Contact Info) Description 08/13/2024 11:15 AM CDT Office Visit [facility] Oncology and Hematology - [place] [address] [facility] [address] [place] [address] Dixon Baca MD [address] [facility] [address] [place] [address] Health Maintenance Due Date Last Done Comments DTAP/TDAP/TD VACCINES (1 - Tdap) 1964 PNEUMOCOCCAL VACCINE 50+ YEA RS (1 of 1 - PCV) 10/19/1995 ZOSTER VACCINE (1 of 2) 10/19/1995 RSV VACCINE (60+ or ) (1 - 1-dose 75+ series) 2020 INFLUENZA VACCINE (#1) 2023 10/30/2022, 2019 Insurance [facility] [id number] Member Subscriber Plan / Payer (Ef fective 2020-Present) Name:HERMAN MENSAH Relation to Subscriber:Spouse Name:KARLY SHIPLEY Date of :1954 (Home) Address: [address] [place] [address] Payer ID:[id number] (NAIC) Type:PPO Address: [facility] [address] [place] [id number] Care Teams Slasher Sawyer Relationship Specialty Start Date End Date Jairon Cannon MD PCP - General Family Practice 05/26/18
--- OUTSIDE RECORDS SUMMARY | 2024-07-18 07:58 | XMS_ITS | Referral Summary ---
Author Organization [facility] [place] [address] [facility] [address] Address [address] [place] [address] Care Team Providers Care Glue Spreading Machine Operator Name Role Phone Jairon Cannon MD Primary Care Provider +1 -[phone] Encounters Date Type Department Care Team Description 05/10/2024 10:30 AM CDT Office Visit [facility] Cardiology [address] [facility] [address] [place] [address] Qing Serra NP Right bundle branch block (Primary Dx); Mild mitral regurgitation 04/26/2024 3:30 PM CDT Ancillary Procedure [facility] Cardiology at [address] [place] [address] Sick sinus syndrome (HCC) from Last 3 Months Allergies Active Allergy Reactions Criticality Noted Date Comments Bacitracin Itching Low 06/07/2018 Clindamycin Itching,Shortness of breath High 09/07/2017 Codeine Stomach upset Low 12/13/2012 Latex, Natural Rubber Rash Medium 11/14/2019 Islyihvm-Dbfcwxdvmz-Snnhhgfz n Hives High 12/13/2012 Sulfa (Sulfonamide Antibiotics) [...] drops, once daily ophthalmic solution 1 drop data integrity analyst before breakfast Active tamsulosin (FLOMAX) 0.4 mg [...] Cardiac arrhythmia 04/03/2024 Sick sinus syndrome 04/03/2024 Social History Tobacco Use Types Packs/Day Years Used Date Smoking Tobacco: Never Tobacco Cessation:Counseling Given: Not Answered Sex and Gender Information Value Date Recorded Sex Assigned at Not on file 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 Gender Identity Not on file Sexual Orientation [...] 05/10/2024 10:35 AM CDT Plan of Treatment Not on file Procedures Procedure Name Priority Date/Time Associated Diagnosis Comments TRANSTHORACIC ECHO (TTE) COMPLETE W DOPPLER/CF WO CONTRAST Routine 04/26/2024 3:58 PM CDT Sick sinus syndrome (HCC) from Last 3 Months Results * TRANSTHORACIC ECHO (TTE) COMPLETE W DOPPLER/CF WO CONTRAST (04/26/2024 3:58 PM CDT) LV EF 55-60 % CONS SCIMAGE Anatomical Region Laterality Modality Ultrasound 04/26/2024 3:28 PM CDT Narrative 04/26/2024 4:29 PM CDT [facility] Cardiology [address], [address], [place] [address] P:[phone] P:[phone] Echocardiographic Report Patient Name: PEGGY MENSAH III, AL : 1945 Study Date: 04/26/2024 3:28:12 PM Gender: M Tech: DONALDO Location: EDW Ref Provider: JAIRON MURILLO Height(Cm): [...] FINDINGS: Interpretation Site: Exam was interpreted at [facility] [place]. Left Ventricle: Normal left ventricular systolic function. [...] Procedure Note Mitch Jacobsen MD - 04/26/2024 [facility] Cardiology [address], [address], [place] [address] P:[phone] P:[phone] Echocardiographic Report Patient Name: PEGGY MENSAH III ISABEL : 1945 Study Date: 04/26/2024 3:28:12 PM [...] FINDINGS: Interpretation Site: Exam was interpreted at [facility]. Left Ventricle: Normal left ventricular systolic function. [...] Mitch Jacobsen MD 04/26/2024 4:29:47 PM CDT us Jairon Murillo MD CV ECHO PROCEDURES Final Result from Last 3 Months Insurance [employer] CHOICE MEDICARE PPO Care Teams Glue Spreading Machine Operator Relationship Specialty Start Date End Date Jairon Cannon MD [facility] [address] [address] PCP - General Family Medicine 09/28/23
[2024-07-18 08:39] LABS: Prothrombin Time 12.9 Seconds (11.1-14.7)
[2024-07-18 08:40] LABS: Partial Thromboplastin Time 24.2 Seconds (22.3-36.8)
== END 2024-07-18 07:47 | disposition home or self-care (01) ==
LOC: ANHSURGERY 07:54
PROVIDERS: PCP Family Medicine; Visit Provider Urology
DX: R33.9 Retention of urine, unspecified (principal)
CPT/HCPCS: 36415; 85610; 85730; 87086

== ENCOUNTER 2024-07-24 02:07 | Day surgery (SDC) | payer MEDICARE, SELFPAY ==
[2024-07-17 13:48] VITALS: BMI 32.8
--- NOTE | 2024-07-17 15:25 | PC.NURSE ---
Report to the Outpatient Waiting Room, entrance under the green pavilion located off [facility], at time __6:30AM____ on date ____07/24/24__. Planned Procedure Time: ___8:30AM____.? Time changes happen often and if your time is changed the preop area will call you the afternoon before. - You and your visitor will be asked to self-screen and do not enter if you have any COVID symptoms. Please call surgeon if you need to reschedule. - A mask is optional within the hospital at this time. Patients may have clear liquids (water, carbonated beverages, clear teas, apple juice) until 3 hours prior to surgery (5:30AM) with a maximum of 20 ounces. - No food from midnight until time of surgery and no smoking, or chewing tobacco (or any form of nicotine). No chewing gum, candy or mints. Take only the following medications with a SIP of water on the morning of surgery: TRELEGY ELLIPTA, CEPHALEXIN, CLONAZEPAM, GABAPENTIN, ZAFIRLUKAST, EYE DROPS. MAY USE ALBUTEROL INHALER NEEDED. DO NOT STOP ANY OF YOUR OTHER PRESCRIPTION MEDICATIONS PRIOR TO SURGERY EXCEPT THE FOLLOWING Hold all vitamins and supplements for 3 days per anesthesiologist. Medications to discontinue per physician ____HOLD ASPIRIN, DICLOFENAC(ALL NSAIDS) AND VITAMINS/SUPPLEMENTS 7 DAYS PRE-OP PER DR QUACH. Date to take last dose 07/16/24 Please no make-up, nail kyrgyz, hairspray, perfume, deodorant, or body powder the day of surgery.? No jewelry (including any body piercings) or valuables the day of surgery, leave them at home.? Please take a shower or bath the night before, or the morning of, surgery with an antibacterial soap.? Wear comfortable, loose fitting clothing.? - Jewelry must be removed prior to entering the operating room.? Rings and piercings that are not removed may be cut off. - The hospital will not accept responsibility for valuables.? - Please leave all valuables, including medications, at home the day of surgery. If you are going home after surgery, a licensed truck driver instructor must drive you home.? - NO public transportation without another adult if you receive anesthesia. - We recommend that an adult stay with you for 24 hours following discharge. - We also recommend that you do not drive, make important decision, drink alcoholic beverages, or take any drugs that were not prescribed by your health care provider for at least 24 hours after your discharge time. Follow any additional instructions given to you from your surgeon. Telephone instructions given to ___PATIENT and asked if any additional questions and then verbalized understanding. Patient advised to call surgeon office or pre surgery nurse liaison [phone] if any additional questions.
[2024-07-24] VITALS (17 sets, daily range): BP systolic 83–112; BP diastolic 41–89; PULSE 54–81; RESP 12–20; TEMP 34.3–37.1; O2SAT 95–100
--- OUTSIDE RECORDS SUMMARY | 2024-07-24 02:10 | XMS_ITS | Clinical Summary ---
Author Organization [facility] Address [address] [place] [address] Care Team Providers Care Bag Sewer Name Role Phone Jairon Cannon MD Primary Care Provider +1- [phone] Allergies Active Allergy Reactions Criticality Noted Date Comments Bacitracin Itching Low 06/07/2018 Clindamycin Itching,Shortness of Breath/Wheezing High 09/07/2017 Codeine Abdominal Pain Low 12/13/2012 Latex, Natural Rubber Rash Low 11/14/2019 Zlhyeljf-Ebripmzqsr-Upfvheqd n Hives High 12/13/2012 Sulfa (Sulfonamide Antibiotics) Anaphylaxis,Itching High 06/07/2018 Medications ADVAIR DISKUS 500-50 mcg/dose disk inhaler Take 500 mcg by inhalation daily. 9 Active fluticasone propionate (FLONASE) 50 mcg/spray [place], Suspension nasal inhaler Administer 50 mcg in [...] Description 08/13/2024 11:15 AM CDT Office Visit [facility] Oncology and Hematology - [place] [address] [facility] [address] [place] [address] Dixon Baca MD [address] [place] [address] Health Maintenance Due Date Last Done Comments DTAP/TDAP/TD VACCINES (1 - Tdap) 1964 PNEUMOCOCCAL VACCINE 50+ YEA RS (1 of 1 - PCV) 10/19/1995 ZOSTER VACCINE (1 of 2) 10/19/1995 RSV VACCINE (60+ or ) (1 - 1-dose 75+ series) 2020 INFLUENZA VACCINE (#1) 2023 10/30/2022, 2019 Insurance [facility] [id number] Member Subscriber Plan / Payer (Ef fective 2020-Present) Name:HERMAN MENSAH Relation to Subscriber:Spouse Name:KARLY SHIPLEY Date of :1954 (Home) Address: [address] [place] [address] Payer ID:[id number] (NAIC) Type:PPO Address: [facility] [id number] [place] [id number] Care Teams Bag Sewer Relationship Specialty Start Date End Date Jairon Cannon MD PCP - General Family Practice 05/26/18
--- OUTSIDE RECORDS SUMMARY | 2024-07-24 02:10 | XMS_ITS | Clinical Summary ---
Author Organization [facility] [address] Address [address] [place] [address] Care Team Providers Care Director Of Plant Operations Name Role Phone Jairon Cannon MD Primary Care Provider [phone] [phone] Allergies Active Allergy Reactions Criticality Noted Date Comments Bacitracin Itching Low 06/07/2018 Clindamycin Itching,Shortness of breath High 09/07/2017 Codeine Stomach upset Low 12/13/2012 Latex, Natural Rubber Rash Medium 11/14/2019 Gheoybsn-Umiqemdrqr-Apjthzrp n Hives High 12/13/2012 Sulfa (Sulfonamide Antibiotics) [...] drops, once daily ophthalmic solution 1 drop senior business broker before breakfast Active tamsulosin (FLOMAX) 0.4 mg [...] Description 05/10/2024 10:30 AM CDT Office Visit [facility] Cardiology [address] [facility] [address] [place] [address] Qing Serra NP Right bundle branch block (Primary Dx); Mild mitral regurgitation 04/26/2024 3:30 PM CDT Ancillary Procedure [facility] Cardiology at [address] [place] [address] Sick sinus syndrome (HCC) from Last 3 [...] on file 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 Left Ventricle: Normal left ventricular systolic function. [...] Procedure Note Mitch Jacobsen MD - 04/26/2024 [facility] Cardiology [address] [facility], [address], [place] [address] P:[phone] P:[phone] Echocardiographic Report Patient Name: PEGGY MENSAH III, [...] FINDINGS: Interpretation Site: Exam was interpreted at [facility]. Left Ventricle: Normal left ventricular systolic function. [...] Final Result from Last 3 Months Insurance [employer] MED[employer] PPO Care Teams Director Of Plant Operations Relationship Specialty Start Date End Date Jairon Cannon MD [address] [facility] [address] [place], [place] [id number] PCP - General Family Medicine 09/28/23
--- OUTSIDE RECORDS SUMMARY | 2024-07-24 02:10 | XMS_ITS | Referral Summary ---
Author Organization [facility] [address] [facility] [address] Address [address] [place] [address] Care Team Providers Care Casing Trimmer Name Role Phone Jairon Cannon MD Primary Care Provider [phone] Encounters Date Type Department Care Team Description 05/10/2024 10:30 AM CDT Office Visit [facility] Medical Group Cardiology [address] [facility] [address] [place] [address] Qing Serra NP Right bundle branch block (Primary Dx); Mild mitral regurgitation 04/26/2024 3:30 PM CDT Ancillary Procedure [facility] Medical Group Cardiology at [address] [place] [address] Sick sinus syndrome (HCC) from Last 3 Months Allergies Active Allergy Reactions Criticality Noted Date Comments Bacitracin Itching Low 06/07/2018 Clindamycin Itching,Shortness of breath High 09/07/2017 Codeine Stomach upset Low 12/13/2012 Latex, Natural Rubber Rash Medium 11/14/2019 Oiyewmln-Qewrhfnofj-Aqfaquus n Hives High 12/13/2012 Sulfa (Sulfonamide Antibiotics) [...] drops, once daily ophthalmic solution 1 drop wax pumper before breakfast Active tamsulosin (FLOMAX) 0.4 mg [...] on file 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 Gender Identity Not on file Sexual Orientation [...] PM CDT Narrative 04/26/2024 4:29 PM CDT [facility] Medical Group Cardiology [address], [address], [place] [address] P:[phone] P:[phone] Echocardiographic Report Patient Name: PEGGY MENSAH III, [...] Procedure Note Mitch Jacobsen MD - 04/26/2024 [facility] Medical Group Cardiology [address], [address], [place] [address] P:[phone] P:[phone] Echocardiographic Report Patient Name: PEGGY MENSAH III [...] FINDINGS: Interpretation Site: Exam was interpreted at [facility]. Left Ventricle: Normal left ventricular systolic function. [...] Insurance [employer] PPO Care Teams Casing Trimmer Relationship Specialty Start Date End Date Jairon Cannon MD [facility] [address] [address] PCP - General Family Medicine 09/28/23
--- OUTSIDE RECORDS SUMMARY | 2024-07-24 02:10 | XMS_ITS | Continuity of Care Document ---
Author Organization [facility] Address [address] [place] [address] Phone Care Team Providers Care Head Porter Name Role Phone Mahsa Martinez Unavailable Unavailable [...] Copied on Encounter Office/outpat ient Visit, Est [facility], [address], [place], [place], [id number], [place] tel:[phone] [facility] No Information Marshall-0 1-201 0 Martinez Mahsa. [address] , [address], [place], [place], [facility][note 3], . tel:[phone] [facility], [address] [place] [address] [address], [place], [place], [id number], [place] tel:[phone] [facility] No Information Dec-3 0-200 9 Martinez Mahsa. [address] , [address], [place], [place], [facility][note 3], . tel:[phone] [facility], [address], [place], [place], [id number], [place] tel:[phone] [facility] No Information Dec-2 9-200 9 Martinez Mahsa. [address] , [address], [place], [facility][note 3], . tel:[phone] [facility], [address] [place] [address] [address], [place], [place], [id number], [place] tel:[phone] [facility] No Information Dec-1 6-200 9 Martinez Mahsa. [address] , [address], [place], [facility][note 3], . tel:[phone] Referring Provider: Erick Kwong, [facility], [place], [facility][note 3]. tel:[phone] Office/outpat ient Visit, Est [facility], [address] [place] [address] [address], [place], [place], [id number], [place] tel:[phone] [facility] No Information Dec-1 5-200 9 Martinez Mahsa. [address] , [address], [place], [facility][note 3], . tel:[phone] [facility], [address], [place], [place], [id number], [place] tel:[phone] [facility] No Information Marshall-0 4-200 9 Martinez Mahsa. [address] , [address], [place], [facility][note 3], [place]. tel:[phone] [facility], [address] [place] [address] [address], [place], [place], [address], tel:[phone] [facility] No Information June-2 8-200 9 Michelle Purdy [address] , [address], [place], [facility][note 3], [place]. tel:[phone] Referring Provider: Mahsa Mandel, [address], [place], [facility][note 3]. tel:[phone] Office/outpat ient Visit, [facility], [address] [place] [address] [address], [place], [place], [id number], tel:[phone] [facility] No Information 3 0-200 8 Michelle Purdy [address] , [address], [place], [facility][note 3], [place]. tel:[phone] Office/outpat ient Visit, [facility], [address] [place] [address] [address], [place], [place], [address], [place] tel:[phone] [facility] No Information 0 1-200 8 Michelle Purdy [address] , [address], [place], [facility][note 3], [place]. tel:[phone] [facility], [address] [place] [address] [address], [place], [place], [id number], [place] tel:[phone] [facility] No Information Feb-0 8-200 8 Michelle Purdy [address] , [address], [place], [facility][note 3], [place]. tel:[phone] [facility], [address] [place] [address] [address], [place], [place], [id number], [place] tel:[phone] [facility] No Information Dec-2 7-200 7 Michelle Mahsa. [address], [place], [address], [place]. tel:[phone] [facility], [address] [place] [address] [address], [place], [place], [id number], [place] tel:[phone] [facility] No Information Dec-2 6-200 7 Michelle Mahsa. [address], [place], [facility][note 3], [place]. tel:[phone] Referring Provider: Morgan Hester OD W, [address] [place], [address]. tel:[phone] [facility], [address] [place] [address] [address], [place], [place], [id number], [place] tel:[phone] [facility] No Information Dec-1 8-200 7 Michelle Mahsa. [address] , [address], [place], [facility][note 3], [place]. tel:[phone] Referring Provider: Mahsa Mandel, [address], [place], [facility][note 3]. tel:[phone] [facility], [address] [place] [address] [address], [place], [place], [id number], [place] tel:[phone] [facility] No Information Dec-1 3-200 7 Michelle Mahsa. [address] , [address], [place], [address], [place]. tel:[phone] [facility], [address], [place], [place], [id number], [place] tel:[phone] [facility] No Information Dec-1 2-200 7 Michelle Wagonern. [address] , [address], [place], [address], [place]. tel:[phone] [facility], [address] [place] [address] [address], [place], [place], [address], tel:[phone] [facility] No Information 0200 7 Michelle Bragg. [address] [facility] , [address], [place], [facility][note 3], . tel:[phone] Referring Provider: Arpita Jiménez [facility] [address], [place], [facility][note 3]. tel:[phone] [facility], [address] [place] [address] [address], [place], [place], [id number], tel:[phone] [facility] No Information 2200 7 Michelle Bragg. [address] [facility] , [address], [place], [facility][note 3], . tel:[phone] Referring Provider: Arpita Jiménez [facility] [place] [address], [place], [facility][note 3]. tel:[phone] Office/outpat ient Visit, [facility], [address] [place] [address] [address], [place], [place], [id number], tel:[phone] [facility] No Information 200 6 Michelle Purdy [address] [facility] , [address], [place], [place], [facility][note 3], . tel:[phone] Family History Family Member Type Diagnosis Age At Onset No Information Payers Payer name Insurance type Covered alliance party ID Moustapha staples(s) [facility] CI [id number] Social History Type Description Quantity Date Captured [...]
[2024-07-24] MEDS: LACTATED RINGERS 1,000 ML 30 ML IV CONT (07:00)
--- NOTE | 2024-07-24 07:09 | WPDHPUPDATE1 ---
History and Physical Update Update Date/Time: 07/24/24 07:09 History and Physical has been reviewed, including an updated exam of the patient. There are NO changes in the patient's condition. Risks, benefits, and alternatives have been discussed and questions answered. Patient agrees to proceed with procedure.
--- NOTE | 2024-07-24 07:49 | WPDANESEPPF ---
Anes - Initial Pre Proc Eval Procedure: Operation Date: 07/24/24 08:30 Proposed Procedures p Transurethral Resection of Prostate - Epi Moore MD Date/Time: 07/24/24 07:49 Surgeon: Epi Moore MD Pre Op Diagnosis: urinary retention Patient Data Age: 78 Gender: M Height: 1.73 m Weight: 98 kg Allergies Allergy/AdvReac Type Severity Reaction Status Date / Time clindamycin Allergy Mild Rash Verified 07/17/24 13:28 bacitracin Allergy Unknown Swelling Verified 07/17/24 13:28 of Lip/Tongue/Throat cat dander Allergy Unknown Rash, Verified 07/17/24 13:28 SHORTNESS OF BREATH latex Allergy Unknown Rash Verified 07/17/24 13:28 pollen extracts Allergy Unknown Dyspnea / Verified 07/17/24 13:28 SOB Sulfa (Sulfonamide Allergy Unknown THROAT Verified 07/17/24 13:28 Antibiotics) SWELLING codeine AdvReac Unknown Nausea and Verified 07/17/24 13:28 Vomiting Home Medications ?Medication ?Instructions ?Recorded ?Confirmed ?Type aspirin 81 mg tablet,delayed 81 mg PO DAILY 02/02/19 07/17/24 History release latanoprost 0.005 % eye drops 1 drop ophthalmic (eye) HS 02/02/19 07/17/24 History timolol 0.5 % eye drops 1 drop ophthalmic (eye) QAM 02/02/19 07/17/24 History zinc acetate 50 mg (zinc) capsule 50 mg PO DAILY 04/25/23 07/17/24 History albuterol sulfate 90 mcg/actuation 2 inh inhalation Q4H PRN Shortness 07/21/23 07/17/24 History aerosol inhaler Of Breath Or Wheezing triamcinolone acetonide 0.1 % 1 applic topical BID PRN Itching 07/21/23 07/17/24 History topical cream artificial 1 drp EACH EYE DAILY 11/06/23 07/17/24 History tears(ddrqiib-hejtmwub-aizozlw) 0.1 %-0.3 %-0.2 % eye drops (GenTeal Tears Moderate) artificial tears(hypromellose) 0.3 1 drp EACH EYE HS 11/06/23 07/17/24 History % eye gel diclofenac sodium 1 % topical gel 2 g topical QID PRN pain 11/06/23 07/17/24 History diphenhydramine HCl 25 mg capsule 25 mg PO BID PRN Itching 11/06/23 07/17/24 History (Benadryl) fluoride (sodium) 1.1 % dental 1 applic PO HS 11/06/23 07/17/24 History cream (PreviDent 5000 Plus) lovastatin 10 mg tablet 10 mg PO HS #90 tabs 03/05/24 07/17/24 Rx azelastine 137 mcg (0.1 %) nasal 2 spray intranasal .Once daily PRN 03/07/24 07/17/24 Rx spray Nasal Congestion #30 mL hydrochlorothiazide 25 mg tablet 25 mg PO DAILY #90 tabs 03/19/24 07/17/24 Rx fluticasone propionate 50 1 spray intranasal DAILY #42 grams 04/20/24 07/17/24 Rx mcg/actuation nasal spray,suspension ampicillin 500 mg capsule 2 g (4 x 500 mg) PO .COMPLEX #20 04/26/24 07/17/24 Rx caps clonazepam 1 mg tablet 1 mg PO BID #180 tabs 06/18/24 07/17/24 Rx CPAP #1 ea 06/28/24 07/17/24 Rx fexofenadine 60 mg tablet (Jeni 60 mg PO Q12H 06/28/24 07/17/24 History Allergy) polyethylene glycol 3350 17 17 g PO DAILY PRN constipation 06/28/24 07/17/24 History gram/dose oral powder (Miralax) pantoprazole 40 mg tablet,delayed 40 mg PO BID #180 tabs 07/03/24 07/17/24 Rx release potassium chloride 20 mEq 20 meq PO DAILY@0800 #90 tabs 07/03/24 07/17/24 Rx tablet,extended release (K-Tab) zafirlukast 20 mg tablet 20 mg PO BID #180 tabs 07/03/24 07/17/24 Rx nystatin 100,000 unit/gram topical 1 applic topical TID PRN rash #60 07/10/24 07/17/24 Rx cream grams cephalexin 500 mg capsule 500 mg PO Q12H 07/17/24 07/17/24 History fluticasone fur. 100 mcg-umeclid 1 inh inhalation DAILY 07/17/24 07/17/24 History 62.5 mcg-vilant 25 mcg inhalat.powder (Trelegy Ellipta) gabapentin 300 mg capsule See Rx Instructions .Route .COMPLEX 07/17/24 07/17/24 History procyanidolic oligomers 50 mg 50 mg PO DAILY 07/17/24 07/17/24 History capsule psyllium husk 3.4 gram/5.4 gram 1 tbsp PO DAILY 07/17/24 07/17/24 History oral powder (Metamucil) telmisartan 80 mg tablet 80 mg PO HS 07/17/24 07/17/24 History Patient hx anesthesia problems: none Family hx anesthesia problems: none Results Review: All pre-operative results and documents have been reviewed as part of the pre-operative evaluation. [facility] Past Medical History Medical History History of pneumonia History of stroke Right knee pain Knee fracture Iron deficiency anemia with history of iron infusions 2018. Follows with Dr. 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 Receiving Operator stated that this was due to diabetes however patient's A1c within our record system has never been above 5.8 so diagnosis of diabetes not will document Open-angle glaucoma History of GI bleed following polypectomy TIA (transient ischemic attack) (~2010) Diastolic heart failure echocardiogram 10/2023: EF 60-65%, grade 1 diastolic dysfunction, E/E 12 is mildly elevated, normal right-sided heart pressures Gout Anxiety Lymphedema COVID-19 IBS (irritable bowel syndrome) Allergic rhinitis, cause unspecified Asthma Normocytic normochromic anemia NICOLE treated with BiPAP BiPAP 01/14 Peripheral neuropathic pain Essential (primary) hypertension Surgical History Surgical History History of appendectomy Status post cataract extraction of both eyes with insertion of intraocular lens History of bilateral knee replacement History of colonoscopy with polypectomy with most recent 07/2023 demonstrated recurrent polyps and internal hemorrhoids well as diverticulosis Family History Family History Mother Hypertension, Onset Age: 81 Cerebrovascular accident, Onset Age: 81 Father Family history of allergic disorder, Onset Age: 82 Diabetes mellitus, Onset Age: 82 Acute myocardial infarction, Onset Age: 82 Sepsis Asthma, Onset Age: 82 History of colon resection Other No problems noted. Social History Social History Social History: Code status: Full code Surrogate decision maker: Smoking packs per day: 0.2 Smoking cigarettes per day: 4.0 Years smoked: 10 Smoking pack-years: 2.00 Smoking status: Former smoker Tobacco type: cigarettes Smoking end date: 02/07/1961 Alcohol intake: former Substance use: never Substance use type: does not use Do You Feel Safe in your Home?: Yes Lack of Transportation: No Lack of Food: Never True Current Housing: I Have Housing Concerned About Future Housing: No Difficulty Paying Gas/Electric Bills: No Difficulty Paying for Meds: No Currently Unemployed: No Education: Associate Degree Difficulty w/ Childcare or Family Care: No Living arrangements: with family Additional living arrangements comments: Spiritual care concerns: No Anes - Eval Final PreProcedure Day of Procedure 07/24/24 07:49 Patient weight: obese Heart: regular rate and rhythm Lungs: decreased breath sounds Airway: Mallampati scale class III Neurological: alert and oriented Last oral intake: >/= 8 hours ASA classification: IV Emergent: no Anesthetic plan: proceed Anesthesia type and monitoring: general LMA and standard monitoring Results Review: All pre-operative results and documents have been reviewed as part of the pre-operative evaluation. Informed Consent: The patient's anesthetic plan and its attendant risks and benefits were discussed with the patient/family/POA. Questions were solicited and answers provided to the satisfaction of the patient/family/POA.
[2024-07-24] MEDS: ceFAZolin 2 GM/D5W 50 ML 2 GM/50 ML BAG IVPB (08:06)
[2024-07-24] MEDS: LIDOCAINE 2% GEL UROJET 10 ML PKG MUCOUS MEM (08:29)
--- NOTE | 2024-07-24 08:49 | S_PTH ---
PATIENT: Stephenie Cordero III LOC: [facility] U#:[id number] AGE/SX: 78/M ROOM: RE07/24/[address]: Epi Moore, : 1945 BED: DIS: 07/25/2024 SPEC #: [id number] RECD: 07/24/24 10:05 STATUS: ALISA REGio #: [id number] MEME: 07/24/24 08:[address]: Oscar,Epi Rowe DEPT: [facility] Surgical RECD BY: Jose Mak ENTERED: 07/24/24 10:06 SP TYPE: Surgical OTHR DR: Jairon Cannon MD Tissues: A - Prostate Turp Procedures: Hematoxylin and Eosin Stain Gross and Microscopic Level 4
--- NOTE | 2024-07-24 08:51 | P.OP_ITS ---
Procedure Note - Detailed Date of Procedure 07/24/24 Pre-op Diagnosis urinary retention Post-op Diagnosis Same Procedure Performed Urethral dilation, transurethral resection of his prostate, complex Ritter catheter placement Surgeon Epi Moore MD Anesthesia General Description of Procedure Patient was taken the operative suite correctly identified. Once anesthesia was obtained was placed in dorsal lithotomy position and prepped and draped usual sterile fashion. The meatus was dilated up to 24 Spanish. Twenty-four Spanish resectoscope sheath was inserted the bladder. There were no tumors. Prostate is not overly visually obstructive in nature but his urodynamics revealed detrusor function. At this point the prostate was resected from the bladder neck to the verumontanum circumferentially. Hemostasis was achieved using electrocautery. The ureteral orifices in the vera were visualized at all times. Chips were sent for analysis. 2% viscous lidocaine was inserted into the urethra. Twenty-four Spanish [address] was placed with 15 cc in the balloon. This was connected to continuous bladder irrigation. Patient is taken recovery stable condition. This completes dictation. Please send a copy of op note to my office. Estimated Blood Loss 25 Drains Yes Packing No Pathology Yes Complications No immediate complications Condition Stable Disposition PACU
[2024-07-24] MEDS: traMADol HCL (*CRX) 50 MG TABLET PO (11:37)
[2024-07-24] MEDS: DEXTROSE 5%/LACTATED RINGERS 1,000 ML 125 ML IV CONT (13:47)
[2024-07-24] MEDS: clonazePAM (*CRX) 0.5 MG TABLET 1 MG PO (15:59)
[2024-07-24] MEDS: ceFAZolin 1 GM/NS 50 ML 1 GM/50 ML BAG IVPB ×2 (16:00→23:06)
[2024-07-24] MEDS: ZAFIRLUKAST 20 MG TABLET PO (16:01)
[2024-07-24] MEDS: PANTOPRAZOLE 40 MG TABLET PO (16:22)
[2024-07-24] MEDS: GABAPENTIN 300 MG CAPSULE BY MOUTH (16:22)
[2024-07-24] MEDS: ALBUTEROL SULFATE (*SP) AEROSOL 1 PUFF 2 PUFF INHALATION (16:47)
[2024-07-24] MEDS: diphenhydrAMINE HCl CAP 25 MG CAPSULE PO (17:23)
[2024-07-24] MEDS: TELMISARTAN 40 MG TABLET 80 MG PO (22:01)
[2024-07-24] MEDS: LOVASTATIN 10 MG TABLET PO (22:01)
[2024-07-24] MEDS: guaiFENesin 12 HR 600 MG TABCR 1200 MG PO (22:01)
[2024-07-24] MEDS: LATANOPROST 0.005% OP SOLN 2.5 ML BTL 1 DROP EACH EYE (22:02)
[2024-07-24] MEDS: MINERAL OIL/WHITE PETROLATUM OINTMENT 1 APPLIC EACH EYE (22:02)
[2024-07-25 00:22] VITALS: BP 96/51; PULSE 81; RESP 20; TEMP 36.7; O2SAT 91
[2024-07-25 04:28] VITALS: BP 106/54; PULSE 81; RESP 20; TEMP 36.7; O2SAT 96
[2024-07-25 06:06] LABS: Hematocrit 36.1 % (42.0-52.0); Hemoglobin 11.6 g/dL (14.0-18.0)
[2024-07-25 06:16] LABS: Anion Gap 4 mmol/L (4-12); Blood Urea Nitrogen 14 mg/dL (9-20); Calcium 8.5 mg/dL (8.4-10.2); Carbon Dioxide 29 mmol/L (22-30); Chloride 101 mmol/L (98-107); Estimated CRCL calculation 65 ml/min; Estimated Glomerular Filt Rate > 60; Glucose 96 mg/dL (65-110); Potassium 4.3 mmol/L (3.4-5.0); Sodium 134 mmol/L (137-145)
--- NOTE | 2024-07-25 07:45 | P.PNUR_ITS ---
Progress Note: A&P Assessment and Plan (1) Urinary retention: Code(s): R33.9 - Retention of urine, unspecified Status: Acute Assessment and Plan: doing well at this time. Hold CBI. If urine remains clear light pink will discharge home later this afternoon. Follow-up next week for Ritter catheter removal and voiding trial. Office to give patient a time. Antibiotics sent to pharmacy. May take Tylenol for pain Subjective Subjective Date/Time Seen: 07/25/24 07:45 Post Op day: 1 (Resection of prostate) Principal diagnosis: urinary retention Interval history: doing well postoperative day 1. From transurethral resection of his prostate. Urine is clear with minimal CBI. No major complaints Review of Systems Review of Systems: All systems reviewed & are unremarkable except as noted in HPI and below Exam Const: General: cooperative, comfortable and no acute distress Resp: Effort & Inspection: normal respiratory effort Cardio: Rate: regular rate Rhythm: regular rhythm Urinary Catheter: Urinary Catheter: patent and draining and urine clear Objective Data Vital Signs Vital Signs: Vital Signs - 24 hr 07/24/24 08:58 07/24/24 09:10 07/24/24 09:25 Temperature 36.5 C Pulse Rate 65 66 61 Respiratory Rate 14 20 12 Blood Pressure 83/46 L 85/48 L 89/52 L Pulse Oximetry 98 99 100 Oxygen Delivery Simple Face Mask Simple Face Mask Simple Face Mask Oxygen Flow Rate 8 8 8 07/24/24 09:30 07/24/24 09:40 07/24/24 09:55 Temperature Pulse Rate 61 60 Respiratory Rate 14 16 Blood Pressure 89/56 L 99/56 L Pulse Oximetry 97 96 Oxygen Delivery Room Air Room Air Room Air Oxygen Flow Rate 07/24/24 10:10 07/24/24 10:25 07/24/24 10:39 Temperature 36.3 C L Pulse Rate 59 L 59 L 59 L Respiratory Rate 12 14 14 Blood Pressure 91/54 L 105/59 L 96/59 L Pulse Oximetry 97 96 98 Oxygen Delivery Room Air Room Air Room Air Oxygen Flow Rate 07/24/24 11:00 07/24/24 11:15 07/24/24 11:45 Temperature 34.3 C L 37.1 C 36.0 C L Pulse Rate 57 L 65 54 L Respiratory Rate 18 16 18 Blood Pressure 107/53 L 107/89 106/59 L Pulse Oximetry 100 97 100 Oxygen Delivery Oxygen Flow Rate 07/24/24 12:45 07/24/24 12:46 07/24/24 16:28 Temperature 36.5 C 36.5 C 36.1 C L Pulse Rate 58 L 72 Respiratory Rate 18 18 Blood Pressure 95/41 L 101/44 L Pulse Oximetry 95 98 Oxygen Delivery Oxygen Flow Rate 07/24/24 16:49 07/24/24 20:28 07/25/24 00:22 Temperature 36.7 C 36.7 C Pulse Rate 81 75 81 Respiratory Rate 20 18 20 Blood Pressure 101/50 L 96/51 L Pulse Oximetry 98 91 Oxygen Delivery Oxygen Flow Rate 07/25/24 04:28 Temperature 36.7 C Pulse Rate 81 Respiratory Rate 20 Blood Pressure 106/54 L Pulse Oximetry 96 Oxygen Delivery Oxygen Flow Rate Intake/Output Intake/Output: Intake & Output 07/22/24 07/23/24 07/24/24 07/25/24 23:59 23:59 23:59 23:59 Intake Total 3600 Output Total 4400 2700 Balance -800 -2700 Meds/Results Medications: Active Medications Generic Name Dose Route Start Last Admin Trade Name Freq PRN Reason Stop Dose Admin Albuterol 2 puff 07/24/24 15:06 07/24/24 16:47 Albuterol Sulfate (*Sp) Aerosol 1 Puff INHALATION 2 puff Q4H PRN Administration Shortness Of Breath Or Wheezing Artificial Tears 1 drop 07/25/24 09:00 Artificial Tears Ophth Soln 15 Ml Bottle EACH EYE DAILY JOLIE Azelastine HCl 2 spray 07/24/24 15:06 Azelastine Hcl Nasal 0.1% 137 Mcg/Spr 30 Ml Btl NASAL DAILY PRN Nasal Congestion Cephalexin HCl 500 mg 07/25/24 09:00 Cephalexin 500 Mg Capsule PO QID JOLIE Clonazepam 1 mg 07/24/24 10:43 07/24/24 15:59 Clonazepam (*Crx) 0.5 Mg Tablet PO 1 mg BID JOLIE Administration Diclofenac Sodium 1 applic 07/24/24 15:06 Diclofenac Sodium 1% 100 Gm Gel (*Bkc) TOPICAL QID PRN pain Diphenhydramine HCl 25 mg 07/24/24 15:06 07/24/24 17:23 Diphenhydramine Hcl Cap 25 Mg Capsule PO 25 mg BID PRN Administration Itching Docusate Sodium 100 mg 07/24/24 10:43 07/24/24 16:02 Docusate Sodium 100 Mg Capsule PO Not Given BID [facility] Fluticasone Propionate 1 spray 07/25/24 09:00 Fluticasone Propionate 0.05% Na Spr 16 Gm Btl (*Bkc) NASAL DAILY [facility] Fluticasone/Umeclidinium/Vilanterol 1 puff 07/25/24 09:00 Fluticasone/Umeclidin/Vilanter 100-62.5-25 Mcg Ellipta INHALATION DAILY [facility] Gabapentin 300 mg 07/24/24 17:00 07/24/24 16:22 Gabapentin 300 Mg Capsule BY MOUTH 300 mg BID JOLIE Administration Guaifenesin 1,200 mg 07/24/24 21:50 07/24/24 22:01 Guaifenesin 12 Hr 600 Mg Tabcr PO 1,200 mg Q12HR JOLIE Administration Hydrochlorothiazide 25 mg 07/25/24 09:00 Hydrochlorothiazide 25 Mg Tablet PO DAILY JOLIE Hyoscyamine 0.125 mg 07/24/24 10:43 Hyoscyamine Sulfate 0.125 Mg Tablet SUBLINGUAL Q6H PRN Bladder Spasm Latanoprost 1 drop 07/24/24 21:00 07/24/24 22:02 Latanoprost 0.005% Op Soln 2.5 Ml Btl EACH EYE 1 drop HS JOLIE Administration Loratadine 10 mg 07/25/24 09:00 Loratadine 10 Mg Tablet PO QAM JOLIE Lovastatin 10 mg 07/24/24 21:00 07/24/24 22:01 Lovastatin 10 Mg Tablet PO 10 mg HS [facility] Administration Miconazole Nitrate 1 applic 07/24/24 15:19 Miconazole Nitrate 2% Cream 30 Gm Tube TOPICAL BID PRN rash Multi-Ingred Cream/Lotion/Oil/Oint 1 applic 07/24/24 21:00 07/24/24 22:02 Mineral Oil/White Petrolatum Ointment EACH EYE 1 applic HS JOLIE Administration Naloxone HCl 0.1 mg 07/24/24 10:43 Naloxone Hcl 0.4 Mg/Ml Vial IV PUSH Q2M PRN Opiate Reversal Procyanidolic 1 each 07/24/24 15:27 Oligomers 50 Mg XX 07/25/24 15:26 Capsule PRN PRN PROTOCOL Ondansetron HCl 4 mg 07/24/24 10:43 Ondansetron Inj 4 Mg/2 Ml Vial IV PUSH Q12H PRN Nausea And Vomiting Pantoprazole Sodium 40 mg 07/24/24 17:00 07/24/24 16:22 Pantoprazole 40 Mg Tablet PO 40 mg BID [facility] Administration Polyethylene Glycol 17 gm 07/24/24 15:06 Polyethylene Glycol 3350 17 Gm Powd.Pack PO DAILY PRN constipation Potassium Chloride 20 meq 07/25/24 08:00 Potassium Chloride 20 Meq Er Tablet PO DAILY@0800 [facility] Psyllium Hydrophilic Mucilloid 1 packet 07/25/24 09:00 Psyllium Powder Packet PO DAILY [facility] Telmisartan 80 mg 07/24/24 21:00 07/24/24 22:01 Telmisartan 40 Mg Tablet PO 80 mg HS [facility] Administration Timolol Maleate 1 drop 07/25/24 09:00 Timolol Maleate 0.5% Op Soln 5 Ml Bottle [facility] [place] HCl 50 mg 07/24/24 11:17 07/24/24 11:37 Tramadol Hcl (*Crx) 50 Mg Tablet PO 50 mg Q6H PRN Administration Pain Rated 4-6 Triamcinolone Acetonide 1 applic 07/24/24 15:06 Triamcinolone Acet 0.1% Cream 15 Gm Tube TOPICAL BID PRN Itching Zafirlukast 20 mg 07/24/24 17:00 07/24/24 16:01 Zafirlukast 20 Mg Tablet PO 20 mg BID [facility] Administration Zinc Sulfate 220 mg 07/25/24 09:00 Zinc Sulfate 220 Mg Capsule PO QAM [facility] Labs Labs: Laboratory Results - last 24 hr 07/25/24 05:44 Hgb 11.6 L Hct 36.1 L Sodium 134 L Potassium 4.3 Chloride 101 Carbon Dioxide 29 Anion Gap 4 BUN 14 Creatinine 0.95 Estim Creat Clear Calc 65 Estimated GFR > 60 Glucose 96 Calcium 8.5
[2024-07-25 07:51] VITALS: BP 102/61; PULSE 80; RESP 20; TEMP 36.4; O2SAT 93
[2024-07-25] MEDS: PSYLLIUM POWDER PACKET 1 PACKET PO (08:11)
[2024-07-25] MEDS: AZELASTINE HCL NASAL 0.1% 137 MCG/SPR 30 ML BTL 2 SPRAY NASAL (08:11)
[2024-07-25] MEDS: FLUTICASONE PROPIONATE 0.05% NA SPR 16 GM BTL (*BKC) 1 SPRAY NASAL (08:11)
[2024-07-25] MEDS: TIMOLOL MALEATE 0.5% OP SOLN 5 ML BOTTLE 1 DROP EACH EYE (08:12)
[2024-07-25] MEDS: CEPHALEXIN 500 MG CAPSULE PO ×2 (08:12→12:00)
[2024-07-25] MEDS: ZINC SULFATE 220 MG CAPSULE PO (08:12)
[2024-07-25] MEDS: clonazePAM (*CRX) 0.5 MG TABLET 1 MG PO (08:12)
[2024-07-25] MEDS: ZAFIRLUKAST 20 MG TABLET PO (08:12)
[2024-07-25] MEDS: DOCUSATE SODIUM 100 MG CAPSULE PO (08:12)
[2024-07-25] MEDS: ARTIFICIAL TEARS OPHTH SOLN 15 ML BOTTLE 1 DROP EACH EYE (08:12)
[2024-07-25] MEDS: guaiFENesin 12 HR 600 MG TABCR 1200 MG PO (08:12)
[2024-07-25] MEDS: GABAPENTIN 300 MG CAPSULE BY MOUTH (08:13)
[2024-07-25] MEDS: LORATADINE 10 MG TABLET PO (08:13)
[2024-07-25] MEDS: PANTOPRAZOLE 40 MG TABLET PO (08:13)
[2024-07-25] MEDS: POTASSIUM CHLORIDE 20 MEQ ER TABLET PO (08:13)
[2024-07-25 08:34] VITALS: PULSE 96; RESP 14
--- NOTE | 2024-07-25 10:45 | PC.NURSE ---
Okay to hold hydrochlorothiazide medication this AM per Dr. Moore. Patient to notify and follow up with primary care provider regarding decreased blood pressure and hydrochlorothiazide use.
[2024-07-25 12:28] VITALS: BP 94/72; PULSE 70; RESP 20; TEMP 36.4; O2SAT 97
--- NOTE | 2024-07-25 14:26 | WPDANESPN ---
Anes - Prog Note Post-Op Date/Time: 07/25/24 14:26 Cardiovascular status: normal Respiratory status: normal Airway patency: baseline Mental status: baseline Post-Op hydration status: normal Vital Signs: Last Vital Signs Temp 97.5 F L 07/25/24 12:28 Pulse 70 07/25/24 12:28 Resp 20 07/25/24 12:28 BP 94/72 L 07/25/24 12:28 Pulse Ox 97 07/25/24 12:28 O2 Del Method Room Air 07/24/24 10:39 O2 Flow Rate 8 07/24/24 09:25 Pain Score (VAS): 0/10 I/O: Intake & Output 07/24/24 07/25/24 07/25/24 23:59 07:59 15:59 Intake Total 250 Output Total 2700 750 Balance 250 -2700 -750 Laboratory Tests 07/25/24 05:44 07/25/24 05:44 07/25/24 05:44 Hgb 11.6 L Hct 36.1 L Sodium 134 L Potassium 4.3 Chloride 101 Carbon Dioxide 29 Anion Gap 4 BUN 14 Creatinine 0.95 Estim Creat Clear Calc 65 Estimated GFR > 60 Glucose 96 Calcium 8.5 Post-procedural complaints: none Patient Feedback: Patient satisfied with anesthetic care.
== END 2024-07-25 14:43 | disposition home or self-care (01) ==
LOC: ANHSURGERY 06:23 → ANH3MEDSUR 10:44
PROVIDERS: PCP Family Medicine; Visit Provider Urology
PROC: 0VT08ZZ Resection of Prostate, Via Natural or Artificial Opening Endoscopic (ICD-10-PCS; CPT 52601; principal; 2024-07-24 08:30)
DX: N41.1 Chronic prostatitis (principal); N34.2 Other urethritis; N40.0 Benign prostatic hyperplasia without lower urinary tract symptoms; I11.0 Hypertensive heart disease with heart failure; I50.30 Unspecified diastolic (congestive) heart failure; K21.9 Gastro-esophageal reflux disease without esophagitis; E55.9 Vitamin D deficiency, unspecified; E53.8 Deficiency of other specified B group vitamins; E11.42 Type 2 diabetes mellitus with diabetic polyneuropathy; J44.9 Chronic obstructive pulmonary disease, unspecified; G47.33 Obstructive sleep apnea (adult) (pediatric); D50.9 Iron deficiency anemia, unspecified; F41.9 Anxiety disorder, unspecified; K58.9 Irritable bowel syndrome, unspecified; M48.061 Spinal stenosis, lumbar region without neurogenic claudication; E66.9 Obesity, unspecified; Z68.33 Body mass index [BMI] 33.0-33.9, adult; Z79.51 Long term (current) use of inhaled steroids; Z79.82 Long term (current) use of aspirin; Z99.89 Dependence on other enabling machines and devices; Z98.890 Other specified postprocedural states; Z87.891 Personal history of nicotine dependence; Z86.79 Personal history of other diseases of the circulatory system; Z86.73 Personal history of transient ischemic attack (TIA), and cerebral infarction without residual deficits; Z80.0 Family history of malignant neoplasm of digestive organs; Z82.49 Family history of ischemic heart disease and other diseases of the circulatory system
CPT/HCPCS: 52601; 36415; 80048; 85014; 85018; 88305; 94640; A9270; J0690; J2405; J2704; J3010; J7120; J7121

== ENCOUNTER 2024-09-04 11:36 | Outpatient (CLI) | payer MEDICARE, SELFPAY ==
--- OUTSIDE RECORDS SUMMARY | 2024-09-04 11:39 | XMS_ITS | Referral Summary ---
Author Organization [facility] [place] [address] Address [address] [place] [address] Care Team Providers Care Latin Teacher Name Role Phone Jairon Cannon MD Primary Care Provider [phone] Allergies Active Allergy Reactions Criticality Noted Date Comments Bacitracin Itching Low 06/07/2018 Clindamycin Itching,Shortness of breath High 09/07/2017 Codeine Stomach upset Low 12/13/2012 Latex, Natural Rubber Rash Medium 11/14/2019 Acklwvcd-Rqdyifaabq-Mlqinjhd n Hives High 12/13/2012 Sulfa (Sulfonamide Antibiotics) [...] drops, once daily ophthalmic solution 1 drop ancillary services manager before breakfast Active tamsulosin (FLOMAX) 0.4 mg [...] on file 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
--- OUTSIDE RECORDS SUMMARY | 2024-09-04 11:39 | XMS_ITS | Clinical Summary ---
Author Organization [facility] Address [address] [place] [address] Care Team Providers Care Juvenile Corrections Officer Name Role Phone Jairon Cannon MD Primary Care Provider [phone] Allergies Active Allergy Reactions Criticality Noted Date Comments Bacitracin Itching Low 06/07/2018 Clindamycin Itching,Shortness of Breath/Wheezing High 09/07/2017 Codeine Abdominal Pain Low 12/13/2012 Latex, Natural Rubber Rash Low 11/14/2019 Dgthorxa-Lrxentjfca-Osbhwslw n Hives High 12/13/2012 Sulfa (Sulfonamide Antibiotics) Anaphylaxis,Itching High 06/07/2018 Medications ADVAIR DISKUS 500-50 mcg/dose disk inhaler Take 500 mcg by inhalation daily. 9 Active fluticasone propionate (FLONASE) 50 mcg/spray [place], Suspension nasal inhaler Administer 50 mcg in [...] Care Team (Late st Contact Info) Description 09/11/2024 2:00 PM CDT Office Visit [facility] [place] [address] [facility] [address] [place] [address] Dixon Baca MD [address] [place] [address] Health Maintenance Due Date Last Done Comments DTAP/TDAP/TD VACCINES (1 - Tdap) 1964 PNEUMOCOCCAL VACCINE 50+ YEA RS (1 of 1 - PCV) 10/19/1995 ZOSTER VACCINE (1 of 2) 10/19/1995 RSV VACCINE (60+ or ) (1 - 1-dose 75+ series) 2020 Preventative Visit- Commercial 02/08/2024 INFLUENZA VACCINE (#1) 2024 10/30/2022, [address] [facility] [id number] Member Subscriber Plan / Payer (Ef fective 2020-Present) Name:HERMAN MENSAH Relation to Subscriber:Spouse Name:KARLY SHIPLEY Date of :1954 (Home) Address: [address] [place] [id number] Payer ID:[id number] (NAIC) Type:PPO Address: [facility] [id number] [place] [id number] Care Teams Juvenile Corrections Officer Relationship Specialty Start Date End Date Jairon Cannon MD PCP - General Family Practice 05/26/18
--- OUTSIDE RECORDS SUMMARY | 2024-09-04 11:39 | XMS_ITS | Clinical Summary ---
Author Organization [facility] [place] [address] Address [address] [place] [address] Care Team Providers Care Spark Plug Assembler Name Role Phone Jairon Cannon MD Primary Care Provider [phone] Allergies Active Allergy Reactions Criticality Noted Date Comments Bacitracin Itching Low 06/07/2018 Clindamycin Itching,Shortness of breath High 09/07/2017 Codeine Stomach upset Low 12/13/2012 Latex, Natural Rubber Rash Medium 11/14/2019 Fpyfpvqy-Mnmuqsrfqw-Dysdsgqy n Hives High 12/13/2012 Sulfa (Sulfonamide Antibiotics) [...] drops, once daily ophthalmic solution 1 drop stoneworking sander before breakfast Active tamsulosin (FLOMAX) 0.4 mg [...] Cardiac arrhythmia 04/03/2024 Sick sinus syndrome 04/03/2024 Surgical History Surgery Date Site/Laterality Comments APPENDECTOMY [...] on file 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
--- OUTSIDE RECORDS SUMMARY | 2024-09-04 11:39 | XMS_ITS | Continuity of Care Document ---
Author Organization [facility] Address [address] [place] [address] Phone Care Team Providers Care Cnc Machine Setter Name Role Phone Mahsa Martinez Unavailable Unavailable [...] Copied on Encounter Office/outpat ient Visit, Est formerly [facility], [address], [place], [place], [id number], [place] tel:[phone] [facility] [place] No Information Marshall-0 1-201 0 Martinez Mahsa. [address], [place], [place], [facility], . tel:[phone] formerly [facility], [address] [place] [address] [address], [place], [place], [id number], [place] tel:[phone] [facility] No Information Dec-3 0-200 9 Martinez Mahsa. [address] , [address], [place], [facility], . tel:[phone] formerly [facility], [address], [place], [place], [address], [place] tel:[phone] [facility] No Information Dec-2 9-200 9 Martinez Mahsa. [address], [place], [facility], . tel:[phone] formerly [facility], [address] [place] [address] [address], [place], [place], [id number], [place] tel:[phone] [facility] No Information Dec-1 6-200 9 Martinez Mahsa. [address] , [address], [place], [facility], . tel:[phone] Referring Provider: Erick Kwong, [facility], [place], [facility]. tel:[phone] Office/outpat ient Visit, Est formerly [facility], [address] [place] [address] [address], [place], [place], [id number], [place] tel:[phone] [facility] No Information Dec-1 5-200 9 Martinez Mahsa. [address] , [address], [place], [facility], . tel:[phone] formerly [facility], [address], [place], [place], [id number], [place] tel:[phone] [facility] [address] No Information Marshall-0 4-200 9 Martinez Mahsa. [address] , [address], [place], [facility], [place]. tel:[phone] formerly [facility], [address] [place] [address] [address], [place], [place], [id number], tel:[phone] [facility] No Information June-2 8-200 9 Michelle Purdy [address] , [address], [place], [facility], [place]. tel:[phone] Referring Provider: Mahsa Mandel, [address], [place], [facility]. tel:[phone] Office/outpat ient Visit, [facility], [address] [place] [address] [address], [place], [place], [id number], tel:[phone] [facility] No Information 3 0-200 8 Michelle Purdy [address] , [address], [place], [facility], [place]. tel:[phone] Office/outpat ient Visit, [facility], [address] [place] [address] [address], [place], [place], [id number], [place] tel:[phone] [facility] No Information 0 1-200 8 Michelle Purdy [address], [place], [facility], [place]. tel:[phone] [facility], [address] [place] [address] [address], [place], [place], [id number], [place] tel:[phone] [facility] No Information Feb-0 8-200 8 Michelle Purdy [address] , [address], [place], [facility], [place]. tel:[phone] [facility], [address] [place] [address] [address], [place], [place], [id number], [place] tel:[phone] [facility] [address] No Information Dec-2 7-200 7 Michelle Mahsa. [address], [place], [address], [place]. tel:[phone] [facility], [address] [place] [address] [address], [place], [place], [id number], [place] tel:[phone] [facility] No Information Dec-2 6-200 7 Michelle Mahsa. [address], [place], [facility], [place]. tel:[phone] Referring Provider: Morgan Hester OD W, [address] [place], [address]. tel:[phone] [facility], [address] [place] [address] [address], [place], [place], [address], [place] tel:[phone] [facility] No Information Dec-1 8-200 7 Michelle Mahsa. [address], [place], [facility], [place]. tel:[phone] Referring Provider: Mahsa Mandel, [address], [place], [facility]. tel:[phone] [facility], [address] [place] [address] [address], [place], [place], [address], [place] tel:[phone] [facility] [address] No Information Dec-1 3-200 7 Michelle Mahsa. [address], [place], [address], [place]. tel:[phone] [facility], [address], [place], [place], [id number], [place] tel:[phone] [facility] No Information Dec-1 2-200 7 Michelle Wagonern. [address], [place], [address], [place]. tel:[phone] [facility], [address] [place] [address] [address], [place], [place], [id number], tel:[phone] [facility] No Information 0200 7 Michelle Bragg. [address] [facility] , [address], [place], [facility], . tel:[phone] Referring Provider: Arpita Jiménez [facility] [address], [place], [facility]. tel:[phone] formerly [facility], [address] [place] [address] [address], [place], [place], [id number], tel:[phone] [facility] No Information 2200 7 Michelle Bragg. [address] [facility] , [address], [place], [facility], . tel:[phone] Referring Provider: Arpita Jiménez [facility] [place] [address], [place], [facility]. tel:[phone] Office/outpat ient Visit, [facility], [address] [place] [address] [address], [place], [place], [id number], tel:[phone] [facility] No Information 200 6 Michelle Purdy [address] [facility] , [address], [place], [facility], . tel:[phone] Family History Family Member Type Diagnosis Age At Onset No Information Payers Payer name Insurance type Covered alliance party ID Moustapha staples(s) [facility] CI [id number] Social History Type Description Quantity Date Captured [...]
[2024-09-04 11:55] LABS: Hematocrit 39.2 % (42.0-52.0); Hemoglobin 12.9 g/dL (14.0-18.0); Immature Granulocyte Percent A 0.4 % (0-0.5); Lymphocytes Absolute Auto 1.74 K/mm3 (0.9-3.2); Mean Corpuscular HGB Conc 32.9 g/dl (32-36); Mean Corpuscular Hemoglobin 30.3 pg (26-34); Mean Corpuscular Volume 92.0 fl (80-100); Nucleated Red Blood Cells Absolute Auto 0.000 K/mm3 (0.0-0.012); Nucleated Red Blood Cells Perc 0.0 % (0.0-0.2); Platelet Count Result 205 k/mm3 (150-375); Red Blood Count 4.26 M/mm3 (4.6-6.20); White Blood Count 9.3 K/mm3 (4.5-10.0)
[2024-09-04 12:21] LABS: Alanine Aminotransferase 19 U/L (6-50); Albumin Level 3.8 g/dL (3.5-5.1); Alkaline Phosphatase 96 U/L (38-126); Anion Gap 7 mmol/L (4-12); Aspartate Amino Transferase 37 U/L (17-59); Bilirubin,Total 0.9 mg/dL (0.2-1.3); Blood Urea Nitrogen 15 mg/dL (9-20); Calcium 9.2 mg/dL (8.4-10.2); Carbon Dioxide 28 mmol/L (22-30); Chloride 98 mmol/L (98-107); Estimated Glomerular Filt Rate > 60; Glucose 108 mg/dL (65-110); Potassium 4.0 mmol/L (3.4-5.0); Sodium 133 mmol/L (137-145); Total Protein 6.8 g/dL (6.3-8.2)
[2024-09-04 12:58] LABS: Iron 78 ug/dL (49-181)
[2024-09-04 13:07] LABS: Percent Iron Saturation 25 % (20-50)
[2024-09-04 17:33] LABS: Ferritin 14.20 ng/mL (11.1-264)
== END 2024-09-04 11:37 | disposition home or self-care (01) ==
LOC: ANHLAB 11:37
PROVIDERS: PCP Family Medicine; Visit Provider Internal Medicine Hematology & Oncology
DX: D50.9 Iron deficiency anemia, unspecified (principal)
CPT/HCPCS: 36415; 80053; 82728; 83540; 83550; 85025

== ENCOUNTER 2024-11-23 11:02 | Outpatient (CLI) | payer MEDICARE, SELFPAY ==
--- NOTE | ~2024-11-23 | XR_ITS ---
XR cervical spine 4-5V Indication: M54.12 - Radiculopathy, cervical region Comparison: None Findings: Moderate loss of vertebral height, no fracture or subluxation, no subluxation flexion and extension Moderate loss of disc height with severe loss of disc height at C4-5 C5-6 and C6-7. Soft tissues unremarkable Impression: No acute abnormality. Reviewed, dictated and finalized at location P. Impression: No acute abnormality.
== END 2024-11-23 11:03 | disposition home or self-care (01) ==
LOC: MICIMG 11:03
PROVIDERS: PCP Family Medicine; Visit Provider Family Medicine
DX: M54.12 Radiculopathy, cervical region (principal); R29.890 Loss of height
CPT/HCPCS: 72050

== ENCOUNTER 2024-12-04 10:13 | Outpatient (CLI) | payer MEDICARE, SELFPAY ==
--- OUTSIDE RECORDS SUMMARY | 2009-07-08 08:00 | XMS_ITS | Continuity of Care Document ---
Author Organization [facility] Address [address] [place] [address] Phone Care Team Providers Care Blood Bank Laboratory Professional Name Role Phone Mahsa Martinez Unavailable Unavailable Procedures Procedure Date Office/outpatient Visit, Est After Cataract Laser Surgery Post-op Follow-up Visit After Cataract Laser Surgery Office/outpatient Visit, Est Eye Exam Established Pt Visual Field Examination(s) Office/outpatient Visit, Est Office/outpatient Visit, Est Post-op Follow-up Visit Post-op Follow-up Visit Remove Cataract, Insert Lens Post-op Follow-up Visit [facility] Post-op Follow-up Visit Remove Cataract, Insert Lens Eye Exam & Treatment [facility] Visual Field Examination(s) Office/outpatient Visit, Est Advance Directives Directive Yes / No Effective Date File Name No Information Encounters Encounter Description Practice Location Reason(s) For Visit Diagnoses Date Provider Providers Copied on Encounter Office/outpat ient Visit, Est [facility], [address], [place], [place], [id number], [place] tel:[phone] [facility] No Information Marshall-0 1-201 0 Martinez Mahsa. [address] , [address], [place], [place], [facility], . tel:[phone] [facility], [address] [place] [address] [address], [place], [place], [address], [place] tel:[phone] [facility] No Information Dec-3 0-200 9 Martinez Mahsa. [address] , [address], [place], [facility], . tel:[phone] [facility], [address], [place], [place], [address], [place] tel:[phone] [facility] No Information Dec-2 9-200 9 Martinez Mahsa. [address] , [address], [place], [facility], . tel:[phone] [facility], [address] [place] [address] [address], [place], [place], [address], [place] tel:[phone] [facility] No Information Dec-1 6-200 9 Martinez Mahsa. [address], [place], [facility], . tel:[phone] Referring Provider: Erick Kwong, [facility] [place], [place], [facility]. tel:[phone] Office/outpat ient Visit, Est [facility], [address] [place] [address] [address], [place], [place], [id number], [place] tel:[phone] [facility] No Information Dec-1 5-200 9 Martinez Mahsa. [address] , [address], [place], [facility], . tel:[phone] [facility], [address], [place], [place], [address], [place] tel:[phone] [facility] No Information Marshall-0 4-200 9 Martinez Mahsa. [address] , [address], [place], [facility], [place]. tel:[phone] [facility], [address] [place] [address] [address], [place], [place], [id number], tel:[phone] [facility] No Information June-2 8-200 9 Michelle Purdy [address] [facility] , [address], [place], [facility], [place]. tel:[phone] Referring Provider: Mahsa Mandel, [address], [place], [facility]. tel:[phone] Office/outpat ient Visit, [facility], [address] [place] [address] [address], [place], [place], [address], tel:[phone] [facility] No Information 3 0-200 8 Michelle Purdy [address] [facility] , [address], [place], [facility], [place]. tel:[phone] Office/outpat ient Visit, [facility], [address] [place] [address] [address], [place], [place], [address], [place] tel:[phone] [facility] No Information 0 1-200 8 Michelle Purdy [address] , [address], [place], [facility], [place]. tel:[phone] [facility], [address] [place] [address] [address], [place], [place], [address], [place] tel:[phone] [facility] No Information Feb-0 8-200 8 Michelle Purdy [address] , [address], [place], [facility], [place]. tel:[phone] [facility], [address] [place] [address] [address], [place], [place], [address], [place] tel:[phone] [facility] No Information Dec-2 7-200 7 Michelle Mahsa. [address], [place], [address], [place]. tel:[phone] [facility], [address] [place] [address] [address], [place], [place], [address], [place] tel:[phone] [facility] No Information Dec-2 6-200 7 Michelle Mahsa. [address], [place], [facility], [place]. tel:[phone] Referring Provider: Morgan Hester OD W, [address] [place], [address]. tel:[phone] [facility], [address] [place] [address] [address], [place], [place], [address], [place] tel:[phone] [facility] No Information Dec-1 8-200 7 Michelle Mahsa. [address], [place], [facility], [place]. tel:[phone] Referring Provider: Mahsa Mandel, [address], [place], [facility]. tel:[phone] [facility], [address] [place] [address] [address], [place], [place], [address], [place] tel:[phone] [facility] No Information Dec-1 3-200 7 Michelle Mahsa. [address] , [address], [place], [address], [place]. tel:[phone] [facility], [address], [place], [place], [address], [place] tel:[phone] [facility] No Information Dec-1 2-200 7 Michelle Wagonern. [address] , [address], [place], [address], [place]. tel:[phone] [facility], [address] [place] [address] [address], [place], [place], [address], tel:[phone] [facility] No Information 0200 7 Michelle Bragg. [address] [facility] , [address], [place], [facility], . tel:[phone] Referring Provider: Arpita Jiménez [facility] [address], [place], [facility]. tel:[phone] [facility], [address] [place] [address] [address], [place], [place], [id number], tel:[phone] [facility] No Information 2200 7 Michelle Bragg. [address] [facility] , [address], [place], [facility], . tel:[phone] Referring Provider: Arpita Jiménez [facility] [address], [place], [facility]. tel:[phone] Office/outpat ient Visit, [facility], [address] [place] [address] [address], [place], [place], [address], tel:[phone] [facility] No Information 200 6 Michelle Purdy [address] [facility] , [address], [place], [facility], . tel:[phone] Family History Family Member Type Diagnosis Age At Onset No Information Payers Payer name Insurance type Covered green party ID Moustapha staples(s) [facility] CI [id number] Social History Type Description Quantity Date Captured Comments Sex Male Smoking Status No Information Chief Complaint And Reason For Visit No Information Reason For Referral Reason For Referral No Information History Of Present Illness Encounter Date Complaint History Of Prese nt Illness No Information Functional Status Date Functional Assessmen t No Information Instructions Date Instruction Additional Infor mation No Information Assessments Type Assessment Date No Information Patient Care Teams Name Effective Dates (start - stop) Status Members No Information
--- OUTSIDE RECORDS SUMMARY | 2024-12-04 11:43 | XMS_ITS | Clinical Summary ---
Author Organization [facility] [place] [address] Address [address] [place] [address] Care Team Providers Care Registered Radiographer Name Role Phone Jairon Cannon MD Primary Care Provider [phone] Allergies Active Allergy Reactions Criticality Noted Date Comments Bacitracin Itching Low 06/07/2018 Clindamycin Itching,Shortness of breath High 09/07/2017 Codeine Stomach upset Low 12/13/2012 Latex, Natural Rubber Rash Medium 11/14/2019 Yxycbtzr-Psshlcglru-Ooqxirec n Hives High 12/13/2012 Sulfa (Sulfonamide Antibiotics) [...] gabapentin (NEURONTIN) 300 mg capsule 2 Active hydroCHLOROthi azide (HYDRODIURIL) 25 mg tablet Take 1 tablet [...] drops, once daily ophthalmic solution 1 drop bleach mixer before breakfast Active tamsulosin (FLOMAX) 0.4 mg extended release capsule 5 Active aspirin 81 mg enteric coated tablet Take 1 tablet (81 mg total) by mouth daily Active zinc gluconate 50 mg tablet Take 1 tablet (50 mg total) by mouth daily Active diphenhydrAMIN E 25 mg capsule Take 1 tablet/capsule (25 mg total) by mouth every 6 (six) hours as needed for itching Active Trelegy Ellipta 200-62.5-25 mcg inhaler 5 Active fluticasone propion-salmet Matthew (Advair Diskus) 500-50 mcg/dose diskus inhaler Inhale 1 puff daily 9 Active cephalexin (KEFLEX) 500 mg capsule continuously as needed Active nystatin cream APPLY TOPICALLY TO THE AFFECTED AREA THREE TIMES DAILY NEEDED FOR RASH 5 Active fluoride, sodium, 1.1 % paste Apply to teeth Activ e metFORMIN XR (GLUCOPHAGE XR) 500 mg 24 hr tablet 4 025 Discontin ued(Patie nt Reported) Active Problems Problem Noted Date Diagnosed Date Cardiac arrhythmia 04/03/2024 Sick sinus syndrome 04/03/2024 Encounters Date Type Department Care Team Description 11/09/2024 11:00 AM CDT Office Visit [facility] Cardiology at [address] [place] [address] Jairon Murillo MD Sick sinus syndrome (HCC) (Primary Dx) from Last 3 Months Surgical History Surgery Date Site/Laterality Comments APPENDECTOMY JOINT REPLACEMENT 2004 CATARACT EXTRACTION 2007 Medical History Medical History Date Comments Urinary retention Arrhythmia Sleep apnea 1998 Stroke (HCC) 2011 GERD (gastroesophageal reflux disease) 2000 Asthma 194 Autoimmune disease 1947 Clotting disorder 2018 Anxiety 1989 Glaucoma 2005 Cataract 2007 Arthritis 2003 Brain concussion 2022 Chronic bronchitis (HCC) 1947 Infection 2023 Family History Medical History Relation Name Comments Arthritis Father B. Herman Cordero Jr Asthma Father B. Herman Cordero Jr Bleeding Disorder Father B. Herman Cordero Jr Heart attack Father B. Herman Cordero Jr Obesity Father B. Herman Cordero Jr Alzheimer's disease Mother Saritha Villarreal Consuelo Depression Mother Saritha Villarreal Consuelo Hypertension Mother Saritha Villarreal Consuelo Memory loss Mother Saritha Villarreal Cecil Cancer Sister Desi Christiehrmaksim Obesity Sister Desi Morris Relation Name Status Comments Father B. 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[employer] Gender Identity Not on file Sexual Orientation Not on file Obstetrics History Last Filed Vital Signs Vital Sign Reading Time Taken Comments Blood Pressure 114/62 11/09/2024 10:54 AM CDT Pulse 69 11/09/2024 10:54 AM CDT Temperature - - Respiratory Rate - - Oxygen Saturation 98% 11/09/2024 10: 54 AM CDT Inhaled Oxygen Concentration - - Weight 103.7 kg (228 lb 11.2 oz) 2024 10:54 AM CDT Height 172.7 cm (5' 8) 11/09/2024 10:5 4 AM CDT Body Mass Index 34.77 11/09/2024 10:54 AM CDT Plan of Treatment Health Maintenance Due Date Last Done Comments Depression Screening 1945 Fall Risk Assessment 1945 Hepatitis C Screening 1945 DTaP/Tdap/Td Vaccine (1 - Tdap) 1956 Hepatitis B Screening 10/19/1963 Pneumococcal vaccine 65+ (1 of 1 - PCV) 10/19/1995 Zoster Vaccine (1 of 2) 10/19/1995 Well Visit 65+ 2010 Influenza Vaccine (#1) 2024 Insurance [employer] PPO Care Teams Registered Radiographer Relationship Specialty Start Date End Date Jairon Cannon MD [address] [place] [address] [address] PCP - General Family Medicine 09/28/23
--- NOTE | 2024-12-04 11:45 | NEURO_ITS ---
Impression: # Complains of numbness and weakness of hands. ? # Distal axonal mild neuropathy. ? 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 ? # Right median proximal neuropathy as well. ? # Abnormal Needle/EMG exam. Nerve Conduction Studies ?Stim Site NR Peak (ms) P-T Amp (?V) Site1 Site2 Delta-P (ms) Dist (cm) Fidel (m/s) Left Median Anti Sensory (2-3nd Digit) Wrist ? 3.7 17.6 Wrist 2-3nd Digit 3.7 14.0 38 Wrist ? 3.8 10.9 Wrist 2-3nd Digit 3.7 14.0 38 Right Median Anti Sensory (2-3nd Digit) Wrist ? 3.9 14.7 Wrist 2-3nd Digit 3.9 14.0 36 Wrist ? 4.0 21.1 Wrist 2-3nd Digit 3.9 14.0 36 Left Radial Anti Sensory (Base 1st Digit) Wrist ? 2.3 17.0 Wrist Base 1st Digit 2.3 0.0 Right Radial Anti Sensory (Base 1st Digit) Wrist ? 2.9 18.7 Wrist Base 1st Digit 2.9 0.0 Left Ulnar Anti Sensory (5th Digit) Wrist ? 3.7 28.2 Wrist 5th Digit 3.7 14.0 38 Right Ulnar Anti Sensory (5th Digit) Wrist ? 3.7 10.2 Wrist 5th Digit 3.7 14.0 38 ?Stim Site NR Onset (ms) O-P Amp (mV) Site1 Site2 Delta-0 (ms) Dist (cm) Fidel (m/s) Left Median Motor (Abd Poll Brev) Wrist ? 3.7 2.2 Elbow Wrist 5.4 30.0 56 Elbow ? 9.1 2.0 Right Median Motor (Abd Poll Brev) Wrist ? 4.1 3.7 Elbow Wrist 9.6 30.0 31 Elbow ? 13.7 0.4 Left Ulnar Motor (Abd Dig Minimi) Wrist ? 3.3 2.5 A Elbow Wrist 9.5 30.0 32 A Elbow ? 12.8 2.2 B Elbow Wrist 4.2 22.0 52 B Elbow ? 7.5 3.6 Right Ulnar Motor (Abd Dig Minimi) Wrist ? 3.4 1.5 A Elbow Wrist 12.9 29.0 22 A Elbow ? 16.3 0.9 B Elbow Wrist 3.6 20.0 56 B Elbow ? 7.0 1.4 F Wave Studies ?NR F-Lat (ms) L-R F-Lat (ms) Left Median (Mrkrs) (Abd Poll Brev) ? 31.01 1.62 Right Median (Mrkrs) (Abd Poll Brev) ? 32.63 1.62 Left Ulnar (Mrkrs) (Abd Dig Min) ? 30.67 3.42 Right Ulnar (Mrkrs) (Abd Dig Min) ? 27.24 3.42 Electromyography ?Side Muscle Nerve Root Ins Act Fibs Amp Dur Recrt Comment Right 1stDorInt Ulnar C8-T1 Nml Nml Decr >12ms +2 Left 1stDorInt Ulnar C8-T1 Nml Nml Decr >12ms +2 Right ABD Dig Min Ulnar C8-T1 Nml Nml Decr >12ms +2 Left ABD Dig Min Ulnar C8-T1 Nml Nml Decr >12ms +2 Right Abd Poll Brev Median C8-T1 Nml Nml Decr >12ms +1 Left Abd Poll Brev Median C8-T1 Nml Nml Nml Nml Nml Right Abd Poll Long Radial (Post Int) C7-8 Nml Nml Nml Nml Nml Left Abd Poll Long Radial (Post Int) C7-8 Nml Nml Nml Nml Nml Right BrachioRad Radial C5-6 Nml Nml Nml Nml Nml Left BrachioRad Radial C5-6 Nml Nml Nml Nml Nml Right Ext Digitorum Radial (Post Int) C7-8 Nml Nml Nml Nml Nml Left Ext Digitorum Radial (Post Int) C7-8 Nml Nml Nml Nml Nml Right Ext Indicis Radial (Post Int) C7-8 Nml Nml Nml Nml Nml Left Ext Indicis Radial (Post Int) C7-8 Nml Nml Nml Nml Nml Right FlexPolLong Median (Ant Int) C7-8 Nml Nml Nml Nml Nml Left FlexPolLong Median (Ant Int) C7-8 Nml Nml Nml Nml Nml Right PronatorTeres Median C6-7 Nml Nml Decr >12ms +1 Left PronatorTeres Median C6-7 Nml Nml Nml Nml Nml
== END 2024-12-04 10:14 | disposition home or self-care (01) ==
PROVIDERS: PCP Family Medicine; Visit Provider Family Medicine
DX: G56.23 Lesion of ulnar nerve, bilateral upper limbs (principal); G56.11 Other lesions of median nerve, right upper limb; G60.8 Other hereditary and idiopathic neuropathies
CPT/HCPCS: 95886; 95911

== ENCOUNTER 2024-12-11 12:10 | Outpatient (CLI) | payer MEDICARE, SELFPAY ==
--- NOTE | ~2024-12-11 | XR_ITS ---
EXAMINATION: XR chest 2V, 12/11/2024 12:[address] HISTORY: R05.9 - Cough, unspecified COMPARISON: No comparisons available. Technique: 2 views obtained. Findings: The lungs are clear, no effusion. No pneumothorax. Heart is normal size. Mediastinal and hilar contours are within normal limits. Bony thorax no acute abnormality. Impression: No acute cardiopulmonary abnormality. Reviewed, dictated and finalized at location P. [address] Impression: No acute cardiopulmonary abnormality.
== END 2024-12-11 12:11 | disposition home or self-care (01) ==
PROVIDERS: PCP Family Medicine; Visit Provider Nurse Practitioner Family
DX: R05.9 Cough, unspecified (principal)
CPT/HCPCS: 71046